=== PATIENT | female | born 1980 | race Caucasian/White ===

== ENCOUNTER 2023-03-11 20:39 | Emergency (ER) | payer OTHER, SELFPAY ==
--- NOTE | 2023-03-11 21:00 | XR_ITS ---
The [address] [address] Patient Name: VENTURA VASQUEZ MRN: [id number] date: 1980 Sex: F Assigned Patient Location: ED.MAIN Current Patient Location: Accession/Order Number: [id number] Exam Date: 03/11/2023 21:47 Report Date: 03/11/2023 22:11 At the request of: KAELA HIGGINS Procedure: XR tibia fibula LT 2V EXAM: XR tibia fibula LT 2V HISTORY: Dog bite COMPARISON: None. FINDINGS/IMPRESSION: 1. No acute fracture or dislocation 2. No radiopaque foreign body. 3. Normal alignment of the knee joint and ankle joint. Electronically authenticated by: CINDI JIANG Date: 03/11/2023 22:11
[2023-03-11 21:01] VITALS: BP 161/104; PULSE 86; RESP 20; TEMP 36.7; O2SAT 98; BMI 29.5
--- NOTE | 2023-03-11 21:06 | PC.NURSE ---
Pt presents to ER due to a dog bite to the lower dorsal aspect of her leg Pt was bit by pitbull yesterday while visiting family in [place] Pt had not yet been seen
--- NOTE | 2023-03-11 21:06 | PC.NURSE ---
Several puncture wounds to left calf, areas cleansed with chlorhexidine solution
--- NOTE | 2023-03-11 21:08 | ED.GENADUL1 ---
HPI - General Adult General Chief complaint: Wound/Laceration Stated complaint: Dog Bite Time Seen by Provider: 03/11/23 20:52 Source: patient Mode of arrival: walk-in Limitations: no limitations History of Present Illness HPI narrative: patient is a 42-year-old female presents to the emergency department for a dog bite that occurred yesterday while visiting family in [place]. She states her nephew's dog bit her on the lower leg. Unknown last tetanus. She drove back home today. She does not know if the dog was vaccinated. She has had no bleeding or drainage today. She is not concerned for . She had no other associated injuries. She is able to ambulate. Related Data Home Medications Medication Instructions Recorded Confirmed hydrochlorothiazide 25 mg tablet 25 mg PO DAILY 03/11/23 03/11/23 spironolactone 50 mg tablet 50 mg PO DAILY 03/11/23 03/11/23 Previous Rx's Medication Instructions Recorded ciprofloxacin HCl 500 mg tablet 500 mg PO BID #20 tabs 03/11/23 (Cipro) clindamycin HCl 150 mg capsule 300 mg PO Q8H 10 days #60 caps 03/11/23 hydrocodone 5 mg-acetaminophen 325 1 tab PO Q6H PRN pain #12 tabs 03/11/23 mg tablet ondansetron 4 mg disintegrating 4 mg PO Q6H PRN nausea and 03/11/23 tablet vomiting #12 tabs Allergies Allergy/AdvReac Type Severity Reaction Status Date / Time Penicillins Allergy Intermediate Rash Verified 03/11/23 21:00 codeine Allergy Hives Verified 03/11/23 21:00 Review of Systems ROS Constitutional Denies: fever or chills Ears, nose, mouth, and throat Denies: throat pain Cardiovascular Denies: chest pain Respiratory Denies: shortness of breath or cough Gastrointestinal Denies: nausea or vomiting Integumentary/Breast Denies: rash Neurological Denies: headache Hematologic/Lymphatic Denies: easy bruising Exam Narrative Exam Narrative: Gen.: Awake, alert, in no distress Head: Normocephalic, atraumatic ENT: Moist mucous membranes Respiratory: No respiratory distress Extremities: Moves extremities equally, multiple puncture wounds noted to the left lower tibia with a 2 cm C-shaped laceration of the posterior left calf with minimal subcutaneous tissue exposure. No active bleeding. No surrounding redness or red streaking to the puncture wounds. Psych: Normal mood and affect Neuro: No focal neuro deficit Skin: Warm, dry Constitutional Vital Signs, click to edit/add: Last Vital Signs Temp 98.0 F 03/11/23 21:01 Pulse 87 03/11/23 22:33 Resp 18 03/11/23 22:33 BP 154/94 H 03/11/23 22:33 Pulse Ox 98 03/11/23 22:33 O2 Del Method Room Air 03/11/23 22:33 Course Vital Signs Vital signs: Vital Signs Temperature 98.0 F 03/11/23 21:01 Pulse Rate 86 03/11/23 21:01 Respiratory Rate 20 03/11/23 21:01 Blood Pressure 161/104 H 03/11/23 21:01 Pulse Oximetry 98 03/11/23 21:01 Oxygen Delivery Method Room Air 03/11/23 21:01 Temperature 98.0 F 03/11/23 21:01 Pulse Rate 87 03/11/23 22:33 Respiratory Rate 18 03/11/23 22:33 Blood Pressure 154/94 H 03/11/23 22:33 Pulse Oximetry 98 03/11/23 22:33 Oxygen Delivery Method Room Air 03/11/23 22:33 Medical Decision Making MDM Narrative Medical decision making narrative: x-rays obtained, patient treated with Cipro and clindamycin as she is ALLERGIC to penicillin. Analgesics provided for home. The area as to the left leg were cleansed, dressed with bacitracin and sterile dressings. Patient encouraged to continue regular wound care. As the dog bite is over twenty-four hours old, no sutures will be placed. Continue regular wound care for home, follow-up with PCP and return to the Emergency Room if symptoms change or worsen. Medical Records Medical records reviewed: Yes I reviewed the patient's medical records Imaging Data x-ray left tibia-fibula: Attestation: I have reviewed the pertinent imaging results. Discharge Plan Discharge Chief Complaint: Wound/Laceration Clinical Impression: Dog bite of left lower leg Patient Disposition: Home, Self-Care Time of Disposition Decision: 21:41 Condition: Good Mode of Transportation: Private Vehicle Prescriptions / Home Meds: New clindamycin HCl 150 mg capsule 300 mg PO Q8H 10 Days Qty: 60 0RF ciprofloxacin HCl [Cipro] 500 mg tablet 500 mg PO BID Qty: 20 0RF hydrocodone-acetaminophen 5-325 mg tablet 1 tab PO Q6H PRN (Reason: pain) Qty: 12 0RF Rx Instructions: DX: W54.0XXA ondansetron 4 mg tablet,disintegrating 4 mg PO Q6H PRN (Reason: nausea and vomiting) Qty: 12 0RF No Action hydrochlorothiazide 25 mg tablet 25 mg PO DAILY spironolactone 50 mg tablet 50 mg PO DAILY Instructions: Animal Bite (ED), Laceration Without Closure (ED) Stand Alone Forms: Portal Instructions Referrals: JULIO CÉSAR SANCHEZ [Primary Care Provider] - 1 week Discharge Date/Time: 03/11/23 22:34
--- NOTE | 2023-03-11 21:24 | PC.NURSE ---
[place]
[2023-03-11] MEDS: ADACEL DIPH,PERTUSS(ACELL),TET VAC/PF 0.5 ML ADULT SYRINGE IM (21:50)
[2023-03-11] MEDS: CLINDAMYCIN HCL 150 MG CAPSULE 450 MG PO (21:50)
[2023-03-11] MEDS: CIPROFLOXACIN HCL 500 MG TABLET PO (21:50)
[2023-03-11] MEDS: HYDROCODONE/ACET 5-325 MG TABLET 2 TAB PO (22:29)
[2023-03-11 22:33] VITALS: BP 154/94; PULSE 87; RESP 18; O2SAT 98
== END 2023-03-11 22:34 | disposition home or self-care (01) ==
PROVIDERS: Emergency Provider Emergency Medicine; PCP Family Medicine
DX: S81.852A Open bite, left lower leg, initial encounter (principal); W54.0XXA Bitten by dog, initial encounter; Z23 Encounter for immunization; Z79.899 Other long term (current) drug therapy
CPT/HCPCS: 73590; 90471; 90715; 99285

== ENCOUNTER 2023-03-17 08:05 | Emergency (ER) | payer OTHER, SELFPAY ==
[2023-03-17 08:08] VITALS: BP 150/110; PULSE 98; RESP 18; TEMP 36.6; O2SAT 99; BMI 30.9
--- NOTE | 2023-03-17 08:26 | ED.WOUNDLAC1 ---
HPI - Wound/Laceration General Chief Complaint: Wound/Laceration Stated Complaint: DOG BITE TO LEFT LEG X1 WEEK AGO Time Seen by Provider: 03/17/23 08:19 Source: patient Mode of arrival: walk-in Limitations: no limitations History of Present Illness HPI narrative: 42-year-old female presents for evaluation of a dog bite wound. She was bitten by a dog about five days ago and was put on Keflex and Cipro. She's been taking it but hadn't yet taken it today. States she's been laying around at home and she went to work today and it was hurting so she came in here. No fever or purulent drainage. The pain is moderate to severe. Related Data Home Medications Medication Instructions Recorded Confirmed hydrochlorothiazide 25 mg tablet 25 mg PO DAILY 03/11/23 03/11/23 spironolactone 50 mg tablet 50 mg PO DAILY 03/11/23 03/11/23 Previous Rx's Medication Instructions Recorded ciprofloxacin HCl 500 mg tablet 500 mg PO BID #20 tabs 03/11/23 (Cipro) clindamycin HCl 150 mg capsule 300 mg PO Q8H 10 days #60 caps 03/11/23 hydrocodone 5 mg-acetaminophen 325 1 tab PO Q6H PRN pain #12 tabs 03/11/23 mg tablet ondansetron 4 mg disintegrating 4 mg PO Q6H PRN nausea and 03/11/23 tablet vomiting #12 tabs ibuprofen 800 mg tablet 800 mg PO Q8H PRN pain #20 tabs 03/17/23 Allergies Allergy/AdvReac Type Severity Reaction Status Date / Time Penicillins Allergy Intermediate Rash Verified 03/11/23 21:00 codeine Allergy Hives Verified 03/11/23 21:00 Review of Systems ROS Narrative A ten point review of systems is negative except as noted above. PFSH PFSH Social History Smoking status: Current every day smoker Exam Narrative Exam Narrative: Nurses note and vital signs reviewed and patient is not hypoxic. General: The patient appears well and in no apparent distress. Patient is resting comfortably on cart. Skin: Warm, dry, no pallor noted. multiple puncture type wounds are present just above her ankle. There is no purulent drainage. Minimal erythema. Head: Normocephalic, atraumatic Eye: Normal conjunctiva, no drainage Ears, Nose, Mouth, and Throat: oral mucosa is moist. Nares patent. Cardiovascular: Regular Rate and Rhythm Respiratory: Patient is in no distress, no accessory muscle use, lungs are clear to auscultation, no wheezing, rales or rhonchi Back: non-tender GI: soft and nontender Musculoskeletal: The patient has no evidence of calf tenderness, no pitting edema, symmetrical pulses noted bilaterally Neurological: A&O, normal speech Psychiatric: Cooperative Constitutional Vital Signs, click to edit/add: Last Vital Signs Temp 97.8 F 03/17/23 08:08 Pulse 98 H 03/17/23 08:08 Resp 18 03/17/23 08:08 BP 150/110 H 03/17/23 08:08 Pulse Ox 99 03/17/23 08:08 O2 Del Method Room Air 03/17/23 08:08 Course Vital Signs Vital signs: Vital Signs Temperature 97.8 F 03/17/23 08:08 Pulse Rate 98 H 03/17/23 08:08 Respiratory Rate 18 03/17/23 08:08 Blood Pressure 150/110 H 03/17/23 08:08 Pulse Oximetry 99 03/17/23 08:08 Oxygen Delivery Method Room Air 03/17/23 08:08 Temperature 97.8 F 03/17/23 08:08 Pulse Rate 98 H 03/17/23 08:08 Respiratory Rate 18 03/17/23 08:08 Blood Pressure 150/110 H 03/17/23 08:08 Pulse Oximetry 99 03/17/23 08:08 Oxygen Delivery Method Room Air 03/17/23 08:08 MDM - Wound/Laceration MDM Narrative Medical decision making narrative: the patient was given IV antibiotics. She does not need to be admitted to the hospital and she was encouraged to continue her antibiotics. She was also given a work note. Differential Diagnosis Differential diagnosis: Likely other (Dr. lutz, cellulitis, abscess) Discharge Plan Discharge Chief Complaint: Wound/Laceration Clinical Impression: Dog bite of left lower leg Patient Disposition: Home, Self-Care Time of Disposition Decision: 08:57 Condition: Good Mode of Transportation: Private Vehicle Prescriptions / Home Meds: New ibuprofen 800 mg tablet 800 mg PO Q8H PRN (Reason: pain) Qty: 20 0RF No Action hydrochlorothiazide 25 mg tablet 25 mg PO DAILY spironolactone 50 mg tablet 50 mg PO DAILY clindamycin HCl 150 mg capsule 300 mg PO Q8H 10 Days Qty: 60 0RF ciprofloxacin HCl [Cipro] 500 mg tablet 500 mg PO BID Qty: 20 0RF hydrocodone-acetaminophen 5-325 mg tablet 1 tab PO Q6H PRN (Reason: pain) Qty: 12 0RF Rx Instructions: DX: W54.0XXA ondansetron 4 mg tablet,disintegrating 4 mg PO Q6H PRN (Reason: nausea and vomiting) Qty: 12 0RF Instructions: Animal Bite (ED) Stand Alone Forms: Portal Instructions Referrals: JULIO CÉSAR SANCHEZ [Primary Care Provider] - 1 week
[2023-03-17] MEDS: CIPROFLOXACIN IN 5 % DEXTROSE 400 MG/200 ML PIGGYBACK 200 MG IV (09:06)
== END 2023-03-17 10:06 | disposition home or self-care (01) ==
PROVIDERS: Emergency Provider Emergency Medicine; PCP Family Medicine
DX: S81.852D Open bite, left lower leg, subsequent encounter (principal); W54.0XXD Bitten by dog, subsequent encounter; F17.210 Nicotine dependence, cigarettes, uncomplicated; Z79.899 Other long term (current) drug therapy
CPT/HCPCS: 96374; 96375; 99284

== ENCOUNTER 2023-05-07 10:45 | Outpatient (OUT) | payer OTHER, SELFPAY ==
--- OUTSIDE RECORDS SUMMARY | 2023-05-07 10:49 | XMS_ITS | CCD ---
Author Name Unknown Address [address] [facility] [address] [place] [address] Organization [facility] Care Team Providers [employer] Teammate Name Role Phone MISC, DOCTOR Primary Care Unavailable TUCKER ISLAS Admitting Unavailable ROSHAN, TUCKER Hughes Attending Unavailable TUCKER ISLAS Consulting Unavailable MARKER, JUDI Consulting Unavailable CHEKO, ALFREDO Consulting Unavailable TANYAANDER, MAGNUS Admitting Unavailable HIGHLANDER, MAGNUS Attending Unavailable IDRIS, JOSSUE Rankin Consulting Unavailable HIGHLANDER, MAGNUS Consulting Unavailable MISC, DOCTOR Admitting Unavailable MISC, DOCTOR Attending Unavailable RONY HUDSON Admitting Unavailable TRISTAN, RONY Attending Unavailable MADI MAYER V Consulting Unavailable TRISTAN, RONY Consulting Unavailable TRISTAN, RONY Admitting Unavailable TRISTAN, RONY Attending Unavailable TRISTAN, RONY Consulting Unavailable Kai Fuentes Consulting Unavailable Claudette Underwood DO Primary Care Provider Venice Islas Attending Unavailable Janel, Venice J Admitting Unavailable Janel, Venice J Attending Unavailable Janel, Venice J Admitting Unavailable Samantha JULES Attending Unavailable Janel, Venice J Admitting Unavailable Janel, Venice J Referring Unavailable Janel, Venice J Attending Unavailable Janel, Venice J Admitting Unavailable Janel, Venice J Attending Unavailable Allergies Allergy Classification Reported Allergen(s) Allergy Type Date of Onset Reaction(s) Facility (2 sources) Codeine; Translations: [codeine] Drug Allergy [facility] Repository (1 source) natural latex rubber Drug allergy (disorder) [facility] (3 sources) Penicillin Drug Allergy 8 Hives [facility] (2 sources) Codeine Drug Allergy 8 Itching [facility] (3 sources) Latex; Translations: [Latex] Drug Allergy 8 Rash [facility] (1 source) Penicillins; Translations: [penicillins] Propensity to adverse reactions (disorder) [facility] Repository (1 source) bandaids; Translations: [bandaids] Propensity to adverse reactions (disorder) [facility] Repository Medications Completed/Discontinued Medications Medication Drug Class(es) Dates Sig (Normalized) Sig (Original) diclofenac sodium 0.01 mg/mg topical gel (2 sources) Nonsteroidal Anti-inflammatory Drug Start: 12-10-2017 End: 11-27-2021 apply 2 g topically four times daily diclofenac sodium (VOLTAREN) 1 % topical gel Apply 2 g to affected area four times daily. 1 Tube 1 12/10/2017 11/27/2021 Discontinued (Discontinued by another Health Care Provider) Comment on above: Apply 2 g to affecte d area four times daily. meloxicam 15 mg oral tablet (1 source) Nonsteroidal Anti-inflammatory Drug Start: 11-27-2021 take 1 tablet by mouth once daily meloxicam (MOBIC) 15 mg tablet Take 1 tablet by mouth once daily. 30 tablet 2 11/27/2021 Active Comment on above: Take 1 tablet by scarlet th once daily. metFORMIN hydrochloride 500 mg oral tablet (2 sources) Biguanide Start: 02-16-2018 End: 11-27-2021 metFORMIN (GLUCOPHAGE) 500 mg tablet twice daily. 0 02/16/2018 11/27/2021 Discontinued (Discontinued by another Health Care Provider) Comment on above: twice daily. naproxen 500 mg oral tablet (2 sources) Nonsteroidal Anti-inflammatory Drug Start: 10-29-2019 End: 11-27-2021 take 1 tablet by mouth twice daily at mealtime naproxen (NAPROSYN) 500 mg tablet Take 1 tablet by mouth twice daily with meals. 60 tablet 1 10/29/2019 11/27/2021 Discontinued (Discontinued by another Health Care Provider) Comment on above: Take 1 tablet by scarlet th twice daily with meals. Problems Active Problems Problem Classification Problem Date Documented Date Episodic/Chronic Acquired foot deformities (2 sources) Toe joint rigid; Translations: [Hallux rigidus, right foot] Onset: 05-22-2020 05-22-2020 Chronic Acquired foot deformities (1 source) Plantarflexion deformity of bilateral feet; Translations: [Other acquired deformities of right foot] Episodic External cause codes: Natural/environment (1 source) Overexertion from prolonged static or awkward postures, initial encounter; Translations: [OVEREXERT PROLNG STAT/AWK PST INIT] Onset: 11-12-2019 Joint disorders and dislocations; trauma-related (2 sources) Derangement of left knee; Translations: [Unspecified internal derangement of left knee] Onset: 02-12-2019 02-12-2019 Chronic Osteoarthritis (2 sources) Osteoarthritis of multiple joints ; Translations: [Polyosteoarthritis, unspecified] Onset: 02-23-2018 02-23-2018 Chronic Other acquired deformities (1 source) Other specified acquired deformities of musculoskeletal system; Translations: [OTHER SPEC ACQ DEFORMITY MSK SYS] Onset: 03-02-2020 Episodic Other aftercare (1 source) Patient encounter status; Translations: [Other intermediate teacher (current) drug therapy] Episodic Other connective tissue disease (4 sources) Pain in right foot; Translations: [PAIN IN RIGHT FOOT] Onset: 02-17-2020 Episodic Other connective tissue disease (1 source) Pain in left foot; Translations: [Pain in left foot] Episodic Other non-traumatic joint disorders (4 sources) Other specified joint disorders, right ankle and foot; Translations: [OTHER SPEC JOINT D/O RT ANKLE FOOT] Onset: 12-03-2019 Episodic Other non-traumatic joint disorders (4 sources) Other specified joint disorders, unspecified joint; Translations: [OTHER SPECIFIED JOINT D/O UNS JOINT] Onset: 02-28-2020 Episodic Other non-traumatic joint disorders (1 source) Pain of joint of left foot; Translations: [Pain in left ankle and joints of left foot] Episodic Substance-related disorders (1 source) Nicotine dependence, cigarettes, uncomplicated; Translations: [NICOTINE DEPEND CIGARETTES UNCOMP] Onset: 11-12-2019 Chronic Past or Other Problems Problem Classification Problem Date Documented Date Episodic/Chronic Other connective tissue disease (2 sources) Swelling of finger ; Translations: [Other specified soft tissue disorders] Onset: 8 02-23-2018 Episodic Other non-traumatic joint disorders (2 sources) Sesamoiditis; Translations: [Other specified joint disorders, unspecified joint] Onset: 1 05-22-2020 Episodic Sprains and strains (3 sources) Unspecified sprain of right great toe, initial encounter; Translations: [Sprain of metatarsophalangeal joint of great toe] Onset: 0 05-22-2020 Episodic Superficial injury; contusion (2 sources) Contusion of left knee; Translations: [Contusion of left knee, initial encounter] Onset: 9 02-12-2019 Episodic Results Test Name Value Interpretation Reference Range Facility Chlamydia/Gonococcus, NAAon 01-11-2023 C. trachomatis rRNA JAQUELIN+probe Ql (Unsp spec) Negative Invalid Interpretation Code Negative [facility] Comment on above: Performed By: #### 3 [id number] #### [facility] [address] [place] [address] N. gonorrhoeae rRNA JAQUELIN+probe Ql (Unsp spec) Negative Invalid Interpretation Code Negative [facility] Comment on above: Result Comment: Perf ormed at: =[facility] [address]TINA Chavira [id number] MD Gabriel Cordoba Performed By: #### 3 [id number] #### [facility] [address] [place] [address] Vaginitis/Vaginosis, DNA Pro beon 01-11-2023 Samia sp rRNA Probe Ql (Vag fld) Negative Invalid Interpretation Code Negative [facility] Comment on above: Performed By: #### 3 [id number] #### [facility] [address] [place] [address] G. vaginalis rRNA Probe Ql (Genital specimen) Negative Invalid Interpretation Code Negative [facility] Comment on above: Performed By: #### 3 [id number] #### [facility] [address] [place] [address] T. vaginalis rRNA Probe Ql (Genital specimen) Negative Invalid Interpretation Code Negative [facility] Comment on above: Result Comment: Perf ormed at: [facility] [address] [id number] PhD Chidi Knox Performed By: #### 3 [id number], [id number] #### [facility] [address] [place] [address] Physician Orderon 01-08-2023 Physician Order [id number]#[id number] D:127 Normal [facility] MA Mamm Screen w/CAD if perf and 3D Bilon 10-14-2022 MA Mamm Screen w/CAD if perf and 3D Reymundo Exam Date/Time: 10/10/2022 08:00 EDT Reason for Exam: Z. Report IMPRESSION: BIRADS 1 NEGATIVE, NORMAL INTERVAL FOLLOW-UP.12 MONTH RECALL. CLINICAL HISTORY: Z12.. COMPARISON: 10/09/2021. COMMENT: Routine views and tomosynthesis views of both breasts were obtained. There are scattered areas of fibroglandular density. No dominant breast mass nor neoplastic calcifications are identified in either breast. There has been no significant change from the previous exam. The examination was reviewed with Computer Aided Detection. Breast Density: No Mammography is very important to your health. The current [employer] and National [employer] guidelines recommends annual mammography beginning at age 40. This facility utilizes a reminder system to ensure all patients receive reminder notifications at the appropriate time based on the recommendations of this exam. Board Certified Radiologists. Accredited by the ACR and FDA. Ordering Provider: Venice Islas FINAL REPORT Dictated: 10/14/2022 10:06 am Christopher Mcdermott M.D. Signed (Electronic Signature): 10/14/2022 10:06 am Signed by: Christopher Mcdermott M.D. Transcribed by: DON Technologist: [facility] Assessment: BI-RADS Category 1-Negative Recommendation: Normal interval follow-up Normal [facility] Consent for Treatmenton Consent for Treatment [id number]#1.00C D:127 Normal [facility] PAP [id number] 10-02-2022 Cytology report Cyto stain Doc (Cvx/Vag) Note Invalid Interpretation Code [facility] Comment on above: Result Comment: TEST S RESULT FLAG UNITS REF RANGE LAB Clinician Provided Cytology Information Source.............Endocervix No. of containers..01 ThinPrep Vial DIAGNOSIS: 01 NEGATIVE FOR INTRAEPITHELIAL LESION OR MALIGNANCY. Specimen adequacy: 01 Satisfactory for evaluation. Endocervical and/or squamous metaplastic cells (endocervical component) are present. Performed by: Lisa Tolliver, Boiler Plant Operator ([facility]) . 01 Note: Note 01 The Pap smear is a screening test designed to aid in the detection of premalignant and malignant conditions of the uterine cervix. It is not a diagnostic procedure and should not be used as the sole means of detecting cervical cancer. Both false-positive and false-negative reports do occur. Test Methodology: Note 01 This liquid based ThinPrep(R) pap test was screened with the use of an image guided system. FLAG LEGEND: L-Low Normal,H-High Normal,LL-Alert Low,HH-Alert High <-Panic Low,>-Panic High,A-Abnormal,AA-Critical Abnormal Performed at: 01 WB [facility] [address] [place] [address] Beryl Rios MD, Performed By: #### 3 [id number] #### [facility] [address] [place] [address] HPV 16+18+31+33+35+39+ 45+51+52+56+58+59+ 66+68 DNA Probe+sig amp Ql (Cvx) Negative Invalid Interpretation Code Negative [facility] Comment on above: Result Comment: This nucleic acid amplification test detects fourteen high-risk HPV types (16,18,31,33,35,39,45,51,52,56,58,59,66,68) without differentiation. Performed at: [facility] [id number] MD Gabriel Cordoba Performed at: =G [facility] [id number] MD Gabriel Cordoba Performed By: #### 3 [id number] #### [facility] [address] [place] [address] PAP [id number] 09-24-2022 Collection Technique BRUSH-SPATULA Normal [facility] Comment on above: Performed By: #### 3 [id number] #### [facility] [address] [place] [address] Gynecological Body Site ENDOCERVIX Normal [facility] Comment on above: Performed By: #### 3 [id number] #### [facility] [address] [place] [address] Physician Orderon 09-24-2022 Physician Order [id number]#1.00C D:127 Normal [facility] Physician Orderon 09-23-2022 Physician Order [id number]#1.00C D:127 Normal [facility] Chlamydia/Gonococcus, NAAon 09-17-2022 C. trachomatis rRNA JAQUELIN+probe Ql (Unsp spec) Negative Invalid Interpretation Code Negative [facility] Comment on above: Performed By: #### 3 [id number] #### [facility] [address] [place] [address] N. gonorrhoeae rRNA JAQUELIN+probe Ql (Unsp spec) Negative Invalid Interpretation Code Negative [facility] Comment on above: Result Comment: Perf ormed at: =[facility] [id number] MD Gabriel Cordoba Performed By: #### 3 [id number] #### [facility] [address] [place] [address] Vaginitis/Vaginosis, DNA Pro beon 09-17-2022 Samia sp rRNA Probe Ql (Vag fld) Negative Invalid Interpretation Code Negative [facility] Comment on above: Performed By: #### 3 [id number] #### [facility] [address] [place] [address] G. vaginalis rRNA Probe Ql (Genital specimen) Negative Invalid Interpretation Code Negative [facility] Comment on above: Performed By: #### 3 [id number] #### [facility] [address] [place] [address] T. vaginalis rRNA Probe Ql (Genital specimen) Negative Invalid Interpretation Code Negative [facility] Comment on above: Result Comment: Perf ormed at: [facility] [address] [id number] PhD Chidi Knox Performed By: #### 3 [id number], [id number] #### [facility] [address] [place] [address] Physician Orderon 09-11-2022 Physician Order [id number] CD:127 Normal [facility] Ambulatory Visit Summaryon 0 08-28-2022 Ambulatory Visit Summary VENTURA GARCIA :1980 Visit Date:08/28/2022 Ambulatory Visit Instructions Your Diagnosis Acute maxillary sinusitis, unspecified BMI 33.0-33.9,adult Tobacco use Elevated blood pressure reading with diagnosis of hypertension Your Care Team Attending Physician - Samantha JULES CNP Primary Care Physician - Claudette Underwood DO This Is Your Medications List cetirizine (cetirizine 10 mg Tab) doxycycline (doxycycline hyclate 100 mg Cap) fluticasone nasal (Flonase 0.05 mg/inh Radiant) Procedures Performed Colonoscopy (12/14/2021), Bartholin's gland operation (12/19/2017), Colonoscopy (2018), section, Oral surgery, wisdom teeth extraction. Discharge Vitals Temperature (Oral) 36.5 ?C Heart Rate (Peripheral) 104 Blood Pressure 146/88 Height 69 in Height 176 cm Weight 226.38 lb Weight 102.9 kg BMI 33.22 What to do next You Need to Schedule the Following Appointments Follow Up with Claudette Underwood DO, FAM When: Where: [address] [facility] [address] [place] [address]- Medications What How Much When Instructions New cetirizine (cetirizine 10 mg Tab) 1 Tablets By Mouth Every day Duration: 30 Days Pickup at [facility] New doxycycline (doxycycline hyclate 100 mg Cap) 1 Capsules By Mouth 2 times a day Duration: 10 Days Pickup at [facility] New fluticasone nasal (Flonase 0.05 mg/ inh Radiant) 2 Sprays Nasal Inhalation Every day Duration: 30 Days each nostril Pickup at [facility] Pharmacy Information [facility]: [address], [place] [id number] [phone] Allergies Latex (Hives, Swelling) bandaids (redness, blisters) codeine (Itching) penicillins (Hives) Problems Ongoing - Any problem that you are currently receiving treatment for. BMI 31.0-31.9,adult Family history of colon cancer in father GERD (gastroesophageal reflux disease) Rectal bleeding Education Materials DASH Eating Plan DASH stands for Dietary Approaches to Stop Hypertension. The DASH eating plan is a healthy eating plan that has been shown to: ? Reduce high blood pressure (hypertension). ? Reduce your risk for type 2 diabetes, heart disease, and stroke. ? Help with weight loss. What are tips for following this plan? Reading food labels ? Check food labels for the amount of salt (sodium) per serving. Choose foods with less than 5 percent of the Daily Value of sodium. Generally, foods with less than 300 milligrams (mg) of sodium per serving fit into this eating plan. ? To find whole grains, look for the word whole as the first word in the ingredient list. Shopping ? Buy products labeled as low-sodium or no salt added. ? Buy fresh foods. Avoid canned foods and pre-made or frozen meals. Cooking ? Avoid adding salt when cooking. Use salt-free seasonings or herbs instead of table salt or sea salt. Check with your health care provider or pharmacist before using salt substitutes. ? Do not martinez foods. Cook foods using healthy methods such as baking, boiling, grilling, roasting, and broiling instead. ? Cook with heart-healthy oils, such as olive, canola, avocado, soybean, or sunflower oil. Meal planning ? Eat a balanced diet that includes: ? 4 or more servings of fruits and 4 or more servings of vegetables each day. Try to fill one-half of your plate with fruits and vegetables. ? 6?8 servings of whole grains each day. ? Less than 6 oz (170 g) of lean meat, poultry, or fish each day. A 3-oz (85-g) serving of meat is about the same size as a deck of cards. One egg equals 1 oz (28 g). ? 2?3 servings of low-fat dairy each day. One serving is 1 cup (237 mL). ? 1 serving of nuts, seeds, or beans 5 times each week. ? 2?3 servings of heart-healthy fats. Healthy fats called omega-3 fatty acids are found in foods such as walnuts, flaxseeds, fortified milks, and eggs. These fats are also found in cold-water fish, such as sardines, salmon, and mackerel. ? Limit how much you eat of: ? Canned or prepackaged foods. ? Food that is high in trans fat, such as some fried foods. ? Food that is high in saturated fat, such as fatty meat. ? Desserts and other sweets, sugary drinks, and other foods with added sugar. ? Full-fat dairy products. ? Do not salt foods before eating. ? Do not eat more than 4 egg yolks a week. ? Try to eat at least 2 vegetarian meals a week. ? Eat more home-cooked food and less restaurant, buffet, and fast food. Lifestyle ? When eating at a restaurant, ask that your food be prepared with less salt or no salt, if possible. ? If you drink alcohol: ? Limit how much you use to: ? 0?1 drink a day for women who are not . ? 0?2 drinks a day for men. ? Be aware of how much alcohol is in your drink. In the [place] one drink equals one 12 oz bottle of beer (355 mL), one (more content not included)... Normal [facility] Medicine Office/Clini c Noteon 08-28-2022 Family Medicine Office/Clinic Note Chief Complaint MANAGER QUALITY- sinus HPI Staff Ventura is a 41 year old female who presents for sinus issues. Symptoms started- 6 weeks on and off Headache- yes Body aches- no Earache- yes bilat Runny/stuffy nose- yes Problem with Smell- no Problem with Taste- no Sore throat- yes Cough- yes Scratchy tickly throat- yes Chest symptoms- yes SOB- yes Lung Hx asthma, bronchitis, chest colds- no Fever/chills- no Nausea/ vomiting- no GI symptoms- no COVID exposure- no Treatments- yes Mucinex History of Present Illness I have reviewed and verified the staff HPI to be accurate for this encounter. Patient is in office for concern of ongoing nasal congestion, nasal drainage, bilateral ear pain and pressure, headache, sinus pressure, sore throat, cough. Cough is productive at times. Patient reports symptoms started 1.5 months ago, worsening again over past 1-2 weeks. Denies history of COPD or asthma. Patient is a smoker. Denies fever chills, GI symptoms. Denies ear drainage. Has been using Mucinex [id number] without improvement. No tylenol or ibuprofen today. Denies fever. Review of Systems PHQ Score Initial Depression Screen Score: 0 Physical Exam Vitals & Measurements T: 36.5 ?C(Oral) HR: 104(Peripheral) BP: 146/88 SpO2: 97% HT: 69 in HT: 176 cm WT: 102.9 kg WT: 226.38 lb BMI: 33.22 General: Overweight, pleasant adult female in no acute distress Ears: No deformity or lesion of external ear. Canals and TM appear normal bilaterally. TM?s intact, not inflamed, with normal light reflex. Hearing grossly normal to conversational speech Nose: moderate nasal mucosa inflammation and edema, moderate yellow nasal drainage. Positive frontal and maxillary sinus tenderness with palpation Mouth: Mucous membranes moist. Normal oropharynx, and posterior pharynx without lesions or exudates. Tongue normal, postnasal drip present, mild pharyngeal erythema Neck: no adenopathy Lungs: clear to auscultation throughout, no wheezing, no rales. No respiratory distress Cardio: regular rate and rhythm, no murmur Mental Status: Alert and oriented x3. Normal mood and affect Assessment/Plan 1. Acute maxillary sinusitis, unspecified (J01.00: Acute maxillary sinusitis, unspecified) Given duration of symptoms and exam, will cover for sinusitis with doxy. Finish entire course. Fluids/rest, PRN tylenol/ibuprofen for pain and/or fever encouraged. May use Zyrtec, Flonase for symptomatic tx. Follow up with PCP if not improving over next 5-7 days with ATB or significantly worsening. Patient and/or parent verbalized understanding of treatment plan. Discussed with patient if symptoms or not improving with antibiotic use or recur, could be having issues with seasonal allergies and should continue Zyrtec and Flonase. 2. BMI 33.0-33.9,adult (Z68.33: Body mass index [BMI] 33.0-33.9, adult) The standard range for ages 18 and older is >=18.5 and < 25 kg/m2. Your BMI today was above this range, this falls in the overweight to obese category and there are medical benefits to weight loss. We can offer counselling, referral, and/or medical support in addressing this problem. Your BMI and weight management will be followed at subsequent visits. Ordered: Body Mass Index (BMI) documented 3008F 3. Tobacco use (Z72.0: Tobacco use) We strongly recommend to quit tobacco use. Cigarette smoking harms nearly every organ of the body, causes many diseases, and reduces the health of smokers in general. Quitting smoking lowers your risk for smoking-related diseases and can add years to your life. We encourage you to visit www.smokefree.gov access to helpful resources including free telephone support. If you decide on prescription treatment to help you quit, we would be happy to provide these. Ordered: Current tobacco smoker 1034F 4. Elevated blood pressure reading with diagnosis of hypertension (I10: Essential (primary) hypertension) Patient with elevated blood pressure reading in office. Has had other elevated blood pressure readings previously. Discussed with patient she should monitor blood pressure at home. If consistently elevated over 140/90, should follow-up with PCP to discuss possible treatment. Discussed tobacco use cessation, weight loss, decrease in sodium intake and improve blood pressure. Orders: cetirizine, 10 mg = 1 tab(s), Oral, Daily, X 30 day(s), # 30 tab(s), Refills(s) 0, Pharmacy: [facility], 176, cm, 08/28/22 13:56:00 EDT, Height/Length Dosing, 102.9, kg, 08/28/22 13:56:00 EDT, Weight Dosing doxycycline, 100 mg = 1 cap(s), Oral, BID, X 10 day(s), # 20 cap(s), Refills(s) 0, Pharmacy: [facility], 176, cm, 08/28/22 13:56:00 EDT, Height/Length Dosing, 102.9, kg, 08/28/22 13:56:00 EDT, Weight Dosing fluticasone nasal, 2 spray(s), Nasal, Daily for 30 day(s), 16 gm, Refill(s) 0, each nostril, [facility], 176, cm, 08/28/22 13:56:00 EDT, Height/Length Dosing, 102.9, kg, 08/28/22 13:56:00 EDT, Weight Dosing Follow-up With (more content not included)... Normal [facility] Comment on above: Result Comment: Elec tronically Signed By: DHARA LOREDO, Samantha Galloway\.br\Date and Time Signed: 08/28/22 15:02 EDT Patient Educationon 08-29-19 23 Patient Education Infectious Disease Sinusitis, Adult Sinusitis is inflammation of your sinuses. Sinuses are hollow spaces in the bones around your face. Your sinuses are located: ? Around your eyes. ? In the middle of your forehead. ? Behind your nose. ? In your cheekbones. Mucus normally drains out of your sinuses. When your nasal tissues become inflamed or swollen, mucus can become trapped or blocked. This allows bacteria, viruses, and fungi to grow, which leads to infection. Most infections of the sinuses are caused by a virus. Sinusitis can develop quickly. It can last for up to 4 weeks (acute) or for more than 12 weeks (chronic). Sinusitis often develops after a cold. What are the causes? This condition is caused by anything that creates swelling in the sinuses or stops mucus from draining. This includes: ? Allergies. ? Asthma. ? Infection from bacteria or viruses. ? Deformities or blockages in your nose or sinuses. ? Abnormal growths in the nose (nasal polyps). ? Pollutants, such as chemicals or irritants in the air. ? Infection from fungi (rare). What increases the risk? You are more likely to develop this condition if you: ? Have a weak body defense system (immune system). ? Do a lot of swimming or diving. ? Overuse nasal sprays. ? Smoke. What are the signs or symptoms? The main symptoms of this condition are pain and a feeling of pressure around the affected sinuses. Other symptoms include: ? Stuffy nose or congestion. ? Thick drainage from your nose. ? Swelling and warmth over the affected sinuses. ? Headache. ? Upper toothache. ? A cough that may get worse at night. ? Extra mucus that collects in the throat or the back of the nose (postnasal drip). ? Decreased sense of smell and taste. ? Fatigue. ? A fever. ? Sore throat. ? Bad breath. How is this diagnosed? This condition is diagnosed based on: ? Your symptoms. ? Your medical history. ? A physical exam. ? Tests to find out if your condition is acute or chronic. This may include: ? Checking your nose for nasal polyps. ? Viewing your sinuses using a device that has a light (endoscope). ? Testing for allergies or bacteria. ? Imaging tests, such as an MRI or CT scan. In rare cases, a bone biopsy may be done to rule out more serious types of fungal sinus disease. How is this treated? Treatment for sinusitis depends on the cause and whether your condition is chronic or acute. ? If caused by a virus, your symptoms should go away on their own within 10 days. You may be given medicines to relieve symptoms. They include: ? Medicines that shrink swollen nasal passages (topical intranasal decongestants). ? Medicines that treat allergies (antihistamines). ? A spray that eases inflammation of the nostrils (topical intranasal corticosteroids). ? Rinses that help get rid of thick mucus in your nose (nasal saline washes). ? If caused by bacteria, your health care provider may recommend waiting to see if your symptoms improve. Most bacterial infections will get better without antibiotic medicine. You may be given antibiotics if you have: ? A severe infection. ? A weak immune system. ? If caused by narrow nasal passages or nasal polyps, you may need to have surgery. Follow these instructions at home: Medicines ? Take, use, or apply mxvz-rhq-pvpqjog and prescription medicines only as told by your health care provider. These may include nasal sprays. ? If you were prescribed an antibiotic medicine, take it as told by your health care provider. Do not stop taking the antibiotic even if you start to feel better. Hydrate and humidify ? Drink enough fluid to keep your urine pale yellow. Staying hydrated will help to thin your mucus. ? Use a cool mist humidifier to keep the humidity level in your home above 50%. ? Inhale steam for 10?15 minutes, 3?4 times a day, or as told by your health care provider. You can do this in the bathroom while a hot shower is running. ? Limit your exposure to cool or dry air. Rest ? Rest as much as possible. ? Sleep with your head raised (elevated). ? Make sure you get enough sleep each night. General instructions ? Apply a warm, moist washcloth to your face 3?4 times a day or as told by your health care provider. This will help with discomfort. ? Wash your hands often with soap and water to reduce your exposure to germs. If soap and water are not available, use hand diesel plant operator. ? Do not smoke. Avoid being around people who are smoking (secondhand smoke). ? Keep all follow-up visits as told by your health care provider. This is important. Contact a health care provider if: ? You have a fever. ? Your symptoms get worse. ? Your symptoms do not improve within 10 days. Get help right away if: ? You have a severe headache. ? You have persistent vomiting. ? You have severe pain or swell (more content not included)... Normal [facility] Provider Letteron 08-28-2022 Provider Letter (Inserted Image. Lani ble to display) August 28, 2022 VENTURA GARCIA [address] [place] [id number] VENTURA GARCIA 1980 To Whom It May Concern, Please excuse above patient from work. Date of Illness: From: 08/28/22 May Return to Work On: 08/29/22 Restrictions: none Comments: none Sincerely, [facility] [address] [place] [address], [place] [address] [facility] Basic metabolic 1999 panelon 11-28-2021 Anion gap [Moles/Vol] 9 mmol/L 9 - 18 mmol/L [facility] Calcium [Mass/Vol] 9.2 mg/dL 8.5 - 10. 2 mg/dL [facility] Chloride [Moles/Vol] 105 mmol/L 97 - 105 mmol/L [facility] CO2 [Moles/Vol] 25 mmol/L 22 - 30 mmol/L [facility] Creatinine [Mass/Vol] 0.86 mg/dL 0.58 - 0.96 mg/dL [facility] Estimated Glomerular Filtration Rate 87 mL/min/1.73m >=60 mL/min/1.73m [facility] Glucose [Mass/Vol] 90 mg/dL 74 - 99 mg/dL [facility] Potassium [Moles/Vol] 4.1 mmol/L 3.7 - 5.1 mmol/L [facility] Sodium [Moles/Vol] 139 mmol/L 136 - 144 mmol/L [facility] Urea nitrogen [Mass/Vol] 8 mg/dL 7 - 21 mg/dL [facility] Basic metabolic 1999 panelon 11-27-2021 Anion gap [Moles/Vol] 9 mmol/L Normal 9-18 [facility] Comment on above: Order Comment: Speci men Type: BLOOD SPECIMEN Ordering Facility: [facility] Address: [address] [place] [phone] Performed By: #### 2 4321-2 #### [facility] CLIA [id number] [address] [place], [place] [address] [address] [place] Calcium [Mass/Vol] 9.2 mg/dL Normal 8.5-10.2 [facility] Comment on above: Order Comment: Speci men Type: BLOOD SPECIMEN Ordering Facility: [facility] Address: [address] [place] [phone] Performed By: #### 2 4321-2 #### [facility] CLIA [id number] [address] [place] [address] [place] Chloride [Moles/Vol] 105 mmol/L Normal 97-105 [facility] Comment on above: Order Comment: Speci men Type: BLOOD SPECIMEN Ordering Facility: [facility] Address: [address] [place] [address] Performed By: #### 2 4321-2 #### [facility] CLIA [id number] [address] [place] [address] [place] CO2 [Moles/Vol] 25 mmol/L Normal 22-30 [facility] Comment on above: Order Comment: Speci men Type: BLOOD SPECIMEN Ordering Facility: [facility] Address: [address] [place] [address] Performed By: #### 2 4321-2 #### [facility] CLIA [id number] [address] [place] [address] [place] Creatinine [Mass/Vol] 0.86 mg/dL Normal 0.58-0.96 [facility] Comment on above: Order Comment: Speci men Type: BLOOD SPECIMEN Ordering Facility: [facility] Address: [address] [place] [address] Performed By: #### 2 4321-2 #### [facility] CLIA [id number] [address] [place] [address] [place] ESTIMATED GLOMERULAR FILTRATION RATE 87 mL/min/1.73m??? Normal >=60 [facility] Comment on above: Order Comment: Speci men Type: BLOOD SPECIMEN Ordering Facility: [facility] Address: [address] [place] [address] Result Comment: Chyna mated Glomerular Filtration Rate (eGFR) is calculated using the 2020 CKD-EPI creatinine equation. This equation utilizes serum creatinine, sex, and age as parameters. The creatinine assay has traceable calibration to isotope dilution-mass spectrometry. Refer to KDIGO guidelines for clinical interpretation. In patients with unstable renal function, e.g. those with acute kidney injury, the eGFR may not accurately reflect actual GFR. Performed By: #### 2 4321-2 #### [facility] CLIA [id number] [address] [place] [address] [place] Glucose [Mass/Vol] 90 mg/dL Normal 74-99 [facility] Comment on above: Order Comment: Speci men Type: BLOOD SPECIMEN Ordering Facility: [facility] Address: [address] [place], [place] [phone] Result Comment: The [place] Diabetes Association (ADA) provides guidance for cutoff values for fasting glucose and random glucose. The ADA defines fasting as no caloric intake for at least 8 hours. Fasting plasma glucose results between 100 to 125 mg/dL indicate increased risk for diabetes (prediabetes). Fasting plasma glucose results greater than or equal to 126 mg/dL meet the criteria for diagnosis of diabetes. In the absence of unequivocal hyperglycemia, results should be confirmed by repeat testing. In a patient with classic symptoms of hyperglycemia or hyperglycemic crisis, random plasma glucose results greater than or equal to 200 mg/dL meet the criteria for diagnosis of diabetes. Reference: Standards of Medical Care in Diabetes 2016, [place] [employer] Association. Diabetes Care. 2016.39(Suppl 1). Performed By: #### 2 4321-2 #### [facility] CLIA [id number] [address] [place] [address] [place] Potassium [Moles/Vol] 4.1 mmol/L Normal 3.7-5.1 [facility] Comment on above: Order Comment: Speci men Type: BLOOD SPECIMEN Ordering Facility: [facility] Address: [address] [place] [phone] Performed By: #### 2 4321-2 #### [facility] CLIA [id number] [address] [place], [place] [id number] [place] Sodium [Moles/Vol] 139 mmol/L Normal 136-144 [facility] Comment on above: Order Comment: Speci men Type: BLOOD SPECIMEN Ordering Facility: [facility] Address: [address] [place], [place] [address] Performed By: #### 2 4321-2 #### [facility] CLIA [id number] [address] [place] [address] [place] Urea nitrogen [Mass/Vol] 8 mg/dL Normal 7-21 [facility] Comment on above: Order Comment: Speci men Type: BLOOD SPECIMEN Ordering Facility: [facility] Address: [address] [place] [address] Performed By: #### 2 4321-2 #### [facility] CLIA [id number] [address] [place] [address] [place] CNOVon 11-27-2021 CNOV Office Visit (LOORRM ) VENTURA GARCIA ([id number]) 1980 F Date Time Provider Department 11/27/21 2:00 PM CRISTI VIZCARRA During your visit today, we recorded the following information about you: Cristi Vizcarra DPM 11/28/2021 8:36 PM Signed Department of Orthopedics [facility] Name: Ventura Garcia Date of Service: November 27, 2021 REFERRING PHYSICIAN: Self Medications/allergies reviewed and updated. Patient does have a latex allergy. CHIEF COMPLAINT: New and Pain of the Left Foot HISTORY OF PRESENT ILLNESS: Ventura Garcia is a 41 year old female who presents with a history of left foot pain. Points to the lateral foot. There is bruising with some swelling. No numbness, tingling or burning. Constant pain even when sitting. At it's worse when she first gets out of bed. PAIN EVALUATION 11/27/2021 1353 Pain Level: 5 Pain Location: Foot-Left Description: Throbbing;Aching Duration Amount of Time: 1.5 Duration Units: Years Frequency: Continuous Intervention/Comfort measure: Relaxation;Heat;Cold Comments: She had a previous fracture in the left foot when she was a kid. Its started huring again about 1 1/2 years go. No new injury. Pain is worse in the morning. PAST MEDICAL HISTORY Diagnosis Date - Pre-diabetes PAST SURGICAL HISTORY Procedure Laterality Date - SECTION HX - OTHER Dental extraction - PAST SURGICAL HISTORY OF groin cyst lanced FAMILY HISTORY Problem Relation Age of Onset - Rheumatologic disease Maternal Grandmother Lupus - Rheumatologic disease Maternal Aunt Rheumatoid arthritis - Thyroid Maternal Aunt - Thyroid Maternal Aunt - Psoriasis No Family History Social History Tobacco Use - Smoking status: Current Every Day Smoker Packs/day: 0.50 Years: 25.00 Pack years: 12.50 Types: Cigarettes - Smokeless tobacco: Never Used Substance Use Topics - Alcohol use: No - Drug use: Yes Types: Marijuana ALLERGIES: ALLERGIES Allergen Reactions - Codeine Itching - Latex Rash - Penicillin Hives CURRENT OUTPATIENT MEDICATIONS: No prescriptions on file. REVIEW OF SYSTEMS GENERAL: Negative for malaise, significant weight loss, fever CARDIOVASCULAR: Negative for chest pain, palpitations. Negative for claudication. Negative leg swelling GI: Negative for abdominal discomfort, blood in stools or black stools and change in bowel habits : Negative for dysuria, frequency and incontinence MUSCULOSKELETAL: Positive for foot pain. Negative for back pain, and muscle pain SKIN: Negative for open sores, slow healing sores. Negative rashes and itching. PSYCH: Negative for sleep disturbance, mood disorder and recent psychosocial stressors HEMATOLOGY/LYMPHOLOGY: Negative for prolonged bleeding, bruising easily, and swollen nodes. ENDOCRINE: Negative for cold or heat intolerance, polyuria, polydipsia and goiter NEURO: Negative paresthesias. Negative frequent falls and other gait disturbances Objective: Pt presents ambulating in Tennis shoes without antalgic gait pattern. General- AAO x 3, NAD, well groomed, pleasant and cooperative. Vasc: Bilaterral Pulses: DP: +2/4 , PT: +2/4 . CFT is < 3 seconds bilateral. Skin temperature is warm to cool proximal to distal bilateral. Hair growth is present There is trace edema. Neuro: Light touch intact to all quadrants of bilateral feet/ankles with no apparent sensory deficits. There is no evidence for any clonus, fasciculations, rigidity, spasticity nor flaccidity on examination. Muscles have normal bulk and tone and atrophy is not seen. Derm: Nail(s) 1-5 bilaterally trimmed. Skin is supple, well hydrated bilateral. Webspaces are clean, dry and intact bilateral. There are no hyperkeratosis, ulcerations, verruca or other lesions noted. Ortho: Muscle strength is 5/5 for all pedal groups tested. Foot and ankle range of motions are fair bilateral with discomfort at the base of the 4th/5th metatarsal(s) on the left with range of motion. The foot type is pes cavus bilateral when foot is loaded. There is pain with palpation base of the 4th and 5th metatarsal(s) articulations left foot. No pain along the 5th metatarsal(s), peroneal tendon or cuboid. No pain with frontal plane range of motion passive or resisted. LAST LAB RESULTS: NO current labs XRAYS: I ordered XR today to evaluate bony structure for abnormalities as related to CC. My findings: NO fractures or dislocations. No stress changes noted. Radiologist to review. . CLINICAL IMPRESSION: No diagnosis found. RECOMMENDATION/PLAN: I performed a visual and physical pedal examination and evaluation of this patient. Medication: Mobic 15mg PO q Day with meals. Test(s)/Imaging/Referra l(s): BMP as patient doesn't have any current labs. Intervention: Educated on proper shoe gear ie New Balance Snea (more content not included)... Normal [facility] XR FOOT 3V AP/LAT/OBL LTon 0 11-27-2021 XR FOOT 3V AP/LAT/OBL LT * * *Final Report* * * DATE OF EXAM: Nov 27 2021 1:47PM [id number] [id number] - XR FOOT 3V AP/LAT/OBL LT / PROCEDURE REASON: Pain * * * * Physician Interpretation * * * * HISTORY: Pain TECHNOLOGIST PROVIDED HISTORY (if applicable): left foot pain/ no recent injury TECHNIQUE: XR FOOT 3V AP/LAT/OBL LT RESULT: 3 views of the LEFT foot shows small osteophyte at the head of the hallux metatarsal with preserved joint space. Pes cavus. No fracture or dislocation. IMPRESSION: PES CAVUS. EARLY HALLUX METATARSOPHALANGEAL OSTEOARTHRITIS. Solution Designer: PSCB Transcribe Date/Time: Nov 27 2021 3:30P Dictated by : TUCKER DEL TORO MD This examination was interpreted and the report reviewed and electronically signed by: TUCKER DEL TORO MD on Nov 27 2021 3:31PM EST [id number] Normal [facility] MRI FOOT RT WO CONon 020 MRI FOOT RT WO CON EXAM: MRI FOOT RT WO CON HISTORY: Arthropathy COMPARISON: X-ray dated February 16 TECHNIQUE: Multiplanar multisequence images are submitted of the right foot without IV contrast FINDINGS: No acute fracture or dislocation identified involving the right foot. There is a bipartite medial sesamoid bone at the first metatarsophalangeal joint. The medial first MTP sesamoid bone demonstrates increased signal on fat-suppressed proton-density weighted imaging and decreased signal on T1-weighted imaging. The lateral first MTP sesamoid is unremarkable. There is a mild joint effusion in the first metatarsophalangeal joint. The remaining osseous structures and joint spaces visualized in the forefoot and midfoot are unremarkable. The joint spaces of the hindfoot and ankle are also unremarkable. The remaining bone marrow signal is preserved without evidence for osteomyelitis. The musculotendinous structures and surrounding soft tissues are unremarkable. IMPRESSION: Acute sesamoiditis involving the medial sesamoid bone at the first metatarsophalangeal joint. Mild first MTP joint effusion. No additional acute findings. Electronically authenticated by: KAI FUENTES Date: 2020-02-29 02:08 Normal [facility] XR FOOT RT MIN 3 VIEWSon XR FOOT RT MIN 3 VIEWS PROCEDURE: XR FOOT RT MIN 3 VIEWS COMPARISON: 11/30/2019 HISTORY: Pain in right foot FINDINGS: BONES:No fracture, acute abnormality, or significant arthropathy. SOFT TISSUES:Negative. No visible soft tissue swelling. EFFUSION:None visible. OTHER: Negative. IMPRESSION: Normal examination. Electronically authenticated by: MADI MAYER Date: 2020-02-17 14:33 Normal [facility] XR FOOT RT MIN 3 VIEWSon INR Coag (Bld) [Relative time] PROCEDURE: XR FOOT RT MIN 3 VIEWS HISTORY: Pain in right foot ; follow-up right first metatarsal pain COMPARISON: 11/10/2019 right foot radiographs FINDINGS: BONES:No fracture, acute abnormality, or significant arthropathy. SOFT TISSUES:No visible soft tissue swelling. EFFUSION:None visible. OTHER: Negative. IMPRESSION: Normal examination. Electronically authenticated by: JOSSUE STEINBERG Date: 2019-11-30 12:18 Normal [facility] XR FOOT RT MIN 3 VIEWSon XR FOOT RT MIN 3 VIEWS IMAGES REVIEWED: XR FOOT RT MIN 3 VIEWS COMPARISON: None available. CLINICAL INDICATION: Injury, first digit pain. FINDINGS/IMPRESSION: No radiographic evidence of acute fracture. No dislocation or traumatic malalignment. Electronically authenticated by: ALFREDO STILL Date: 2019-11-10 19:20 Normal [facility] Encounters Encounter Date Encounter Type Care Provider Facility Start: 01-08-2023 End: 01-09-2023 ambulatory Venice Islas Facility:[facility] Start: 10-10-2022 End: 10-11-2022 ambulatory Venice J Janel Facility:[facility] Start: 09-23-2022 End: 09-24-2022 ambulatory Venice J Janel Facility:[facility] Start: 09-11-2022 End: 09-12-2022 ambulatory Venice J Janel Facility:[facility] Start: 08-28-2022 End: 08-29-2022 ambulatory Samantha JULES Facility:[facility] [place] Start: 11-27-2021 ambulatory Jessika Lalo RT(R) Radi ology Comment on above: Radiology XR Start: 11-27-2021 End: 11-27-2021 Patient encounter procedure Jessika Lalo RT(R) [facility] [place] Comment on above: Equinus deformity of both feet (Primary Dx); Arthralgia of left foot; Pain in left foot; Encounter for long-term (current) use of medications Start: 02-28-2020 End: 02-29-2020 Patient encounter procedure RONY HUDSON Facility:[facility] Start: 02-17-2020 End: 02-18-2020 Patient encounter procedure RONY HUDSON Facility:[facility] Start: 12-03-2019 End: 02-08-2020 Patient encounter procedure DOCTOR MIS Facility:[facility] Start: 11-30-2019 End: 12-01-2019 Patient encounter procedure MAGNUS GASTELUM Facility:[facility] Start: 11-10-2019 End: 11-10-2019 Patient encounter procedure DOCTOR MIS Facility:[facility] Procedures Date Procedure Procedure Detail Performing Clinician Start: 02-23-2018 Adult depression scr eening assessment Jessika Lalo RT(R) Plan of Treatment Date Care Activity Detail Author Start: 01-03-2022 Influenza vaccination INFLUENZA (#1) [facility] Start: 2020 Mammography MAMMOGRAM [facility] Start: 02-23-2019 Adult depression scr eening assessment DEPRESSION SCREENING [facility] Start: 2010 HPV TESTING HPV TESTING [facility] Start: 2001 PAP TESTING PAP TESTING [facility] Start: 11-12-1999 Urine microalbumin profile DTAP,TDAP ,TD (1 - Tdap) [facility] Start: 1998 HEPATITIS C SCREENING HEPATITIS C SC REENING [facility] Start: 1998 HIV SCREENING HIV SCREENING [facility] Start: 1986 PNEUMOCOCCAL (1 - PCV) PNEUMOCOCCAL (1 - PCV) [facility] Start: 05-14-1981 COVID-19 VACCINE (#1) COVID-19 VACCI NE (#1) [facility] Payers Date Payer Category Payer Medicaid [employer] [place] [id number] 2017-Present [phone] [address] [address] [place], [place] [address] Medicaid [id number] 1980 Unknown [id number] 1980 Unknown [id number] 1980 Unknown [id number] 1980 Unknown [id number] 1980 Unknown [id number] 1980 Unknown [id number] 1980 Unknown [id number] 1980 Unknown [id number] 1980 Unknown [id number] 1980 Unknown [id number] 1959 Unknown [id number] Social History Date Type Detail Facility Start: 02-23-2018 Tobacco smoking stat [facility] Smokes tobacco daily [facility] History of tobacco use Cigarette Smoker [facility] Start: 02-23-2018 Cigarettes smoked cu rrent (pack per day) - Reported 0.5 [facility] Start: 02-23-2018 Tobacco use and exposure Smoke less tobacco non-user [facility] Start: 11-27-2021 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 Author Type: Physician Type: Progress Notes Filed: 11/28/2021 8:36 PM Note Text: Department of Orthopedics [facility] Name: Ventura Garcia Date of Service: November 27, 2021 REFERRING PHYSICIAN: Self Medications/allergies reviewed and updated. Patient does have a latex allergy. CHIEF COMPLAINT: New and Pain of the Left Foot HISTORY OF PRESENT ILLNESS: Ventura Garcia is a 41 year old female who presents with a history of left foot pain. Points to the lateral foot. There is bruising with some swelling. No numbness, tingling or burning. Constant pain even when sitting. At it's worse when she first gets out of bed. PAIN EVALUATION 11/27/2021 1353 Pain Level: 5 Pain Location: Foot-Left Description: Throbbing;Aching Duration Amount of Time: 1.5 Duration Units: Years Frequency: Continuous Intervention/Comfort measure: Relaxation;Heat;Cold Comments: She had a previous fracture in the left foot when she was a kid. Its started huring again about 1 1/2 years go. No new injury. Pain is worse in the morning. PAST MEDICAL HISTORY Diagnosis Date - Pre-diabetes PAST SURGICAL HISTORY Procedure Laterality Date - SECTION HX - OTHER Dental extraction - PAST SURGICAL HISTORY OF groin cyst lanced FAMILY HISTORY Problem Relation Age of Onset - Rheumatologic disease Maternal Grandmother Lupus - Rheumatologic disease Maternal Aunt Rheumatoid arthritis - Thyroid Maternal Aunt - Thyroid Maternal Aunt - Psoriasis No Family History Social History Tobacco Use - Smoking status: Current Every Day Smoker Packs/day: 0.50 Years: 25.00 Pack years: 12.50 Types: Cigarettes - Smokeless tobacco: Never Used Substance Use Topics - Alcohol use: No - Drug use: Yes Types: Marijuana ALLERGIES: ALLERGIES Allergen Reactions - Codeine Itching - Latex Rash - Penicillin Hives CURRENT OUTPATIENT MEDICATIONS: No prescriptions on file. REVIEW OF SYSTEMS GENERAL: Negative for malaise, significant weight loss, fever CARDIOVASCULAR: Negative for chest pain, palpitations. Negative for claudication. Negative leg swelling GI: Negative for abdominal discomfort, blood in stools or black stools and change in bowel habits : Negative for dysuria, frequency and incontinence MUSCULOSKELETAL: Positive for foot pain. Negative for back pain, and muscle pain SKIN: Negative for open sores, slow healing sores. Negative rashes and itching. PSYCH: Negative for sleep disturbance, mood disorder and recent psychosocial stressors HEMATOLOGY/LYMPHOLOGY: Negative for prolonged bleeding, bruising easily, and swollen nodes. ENDOCRINE: Negative for cold or heat intolerance, polyuria, polydipsia and goiter NEURO: Negative paresthesias. Negative frequent falls and other gait disturbances Objective: Pt presents ambulating in Tennis shoes without antalgic gait pattern. General- AAO x 3, NAD, well groomed, pleasant and cooperative. Vasc: Bilaterral Pulses: DP: +2/4 , PT: +2/4 . CFT is < 3 seconds bilateral. Skin temperature is warm to cool proximal to distal bilateral. Hair growth is present There is trace edema. Neuro: Light touch intact to all quadrants of bilateral feet/ankles with no apparent sensory deficits. There is no evidence for any clonus, fasciculations, rigidity, spasticity nor flaccidity on examination. Muscles have normal bulk and tone and atrophy is not seen. Derm: Nail(s) 1-5 bilaterally trimmed. Skin is supple, well hydrated bilateral. Webspaces are clean, dry and intact bilateral. There are no hyperkeratosis, ulcerations, verruca or other lesions noted. Ortho: Muscle strength is 5/5 for all pedal groups tested. Foot and ankle range of motions are fair bilateral with discomfort at the base of the 4th/5th metatarsal(s) on the left with range of motion. The foot type is pes cavus bilateral when foot is loaded. There is pain with palpation base of the 4th and 5th metatarsal(s) articulations left foot. No pain along the 5th metatarsal(s), peroneal tendon or cuboid. No pain with frontal plane range of motion passive or resisted. LAST LAB RESULTS: NO current labs XRAYS: I ordered XR today to evaluate bony structure for abnormalities as related to CC. My findings: NO fractures or dislocations. No stress changes noted. Radiologist to review. . CLINICAL IMPRESSION: No diagnosis found. RECOMMENDATION/PLAN: I performed a visual and physical pedal examination and evaluation of this patient. Medication: Mobic 15mg PO q Day with meals. Test(s)/Imaging/Referral(s): BMP as patient doesn't have any current labs. Intervention: Educated on proper shoe gear ie New Balance Sneakers . Rx for CMFO Follow-up: PRN/Two months . Written and verbal health teaching given to patient, patient verbalizes understanding and agrees with treatment plan. Pt to ca (more content not included)... [facility] Progress note 11-27-2021 Note Date & Type Note Facility 11-27-2021 Note HNO ID: [id number] Author: Jessika May RT(R) Service: ? Author Type: Technologist Type: Progress Notes Filed: 11/27/2021 1:44 PM Note Text: Radiology Service Progress Note PATIENT NAME: Ventura Garcia DATE OF SERVICE: November 27, 2021 TIME: 1:44 PM PATIENT IDENTITY VERIFICATION COMPLETED USING TWO (2) IDENTIFIERS: Name and Date of confirmed by patient verbally. FALL SCREENING: Has the patient had 2 falls in the last year or 1 fall with injury or currently using an Ambulatory Assistive Device (Walker, Cane, Wheelchair, Crutches, etc.)? No PATIENT GENDER DATA: Female. status: : No status: NO. PATIENT RELEVANT IMPLANT DATA REVIEWED: Yes RADIOLOGY DEPARTMENT: General X-ray: Exam(s) Completed: Lower Extremity X-Ray(s): Foot, Left and Wt. Bearing PERIPHERAL IV DATA: Not applicable SIGNED BY: RT Sohail(R) November 27, 2021 1:44 PM [facility] Instructions 11-27-2021 Patient Instructions Note Date & Type Note Facility 11-27-2021 Instructions Cristi Vizcarra DPM - 11/27/2021 2:25 PM EDT New Balance Sneakers documented in this encounter [facility] History of Present illness Narrative 11-27-2021 Cristi Vizcarra DPM - 11/27/2021 2:08 PM EDT Note Date & Type Note Facility 11-27-2021 History of Presen t illness Narrative Department of Orthopedics [facility] Name: Ventura Garcia Date of Service: November 27, 2021 REFERRING PHYSICIAN: Self Medications/allergies reviewed and updated. Patient does have a latex allergy. CHIEF COMPLAINT: New and Pain of the Left Foot HISTORY OF PRESENT ILLNESS: Ventura Garcia is a 41 year old female who presents with a history of left foot pain. Points to the lateral foot. There is bruising with some swelling. No numbness, tingling or burning. Constant pain even when sitting. At it's worse when she first gets out of bed. PAIN EVALUATION 11/27/2021 1353 Pain Level: 5 Pain Location: Foot-Left Description: Throbbing;Aching Duration Amount of Time: 1.5 Duration Units: Years Frequency: Continuous Intervention/Comfort measure: Relaxation;Heat;Cold Comments: She had a previous fracture in the left foot when she was a kid. Its started huring again about 1 1/2 years go. No new injury. Pain is worse in the morning. PAST MEDICAL HISTORY Diagnosis Date Pre-diabetes PAST SURGICAL HISTORY Procedure Laterality Date SECTION HX OTHER Dental extraction PAST SURGICAL HISTORY OF groin cyst lanced FAMILY HISTORY Problem Relation Age of Onset Rheumatologic disease Maternal Grandmother Lupus Rheumatologic disease Maternal Aunt Rheumatoid arthritis Thyroid Maternal Aunt Thyroid Maternal Aunt Psoriasis No Family History Social History Tobacco Use Smoking status: Current Every Day Smoker Packs/day: 0.50 Years: 25.00 Pack years: 12.50 Types: Cigarettes Smokeless tobacco: Never Used Substance Use Topics Alcohol use: No Drug use: Yes Types: Marijuana ALLERGIES: ALLERGIES Allergen Reactions Codeine Itching Latex Rash Penicillin Hives CURRENT OUTPATIENT MEDICATIONS: No prescriptions on file. REVIEW OF SYSTEMS GENERAL: Negative for malaise, significant weight loss, fever CARDIOVASCULAR: Negative for chest pain, palpitations. Negative for claudication. Negative leg swelling GI: Negative for abdominal discomfort, blood in stools or black stools and change in bowel habits : Negative for dysuria, frequency and incontinence MUSCULOSKELETAL: Positive for foot pain. Negative for back pain, and muscle pain SKIN: Negative for open sores, slow healing sores. Negative rashes and itching. PSYCH: Negative for sleep disturbance, mood disorder and recent psychosocial stressors HEMATOLOGY/LYMPHOLOGY: Negative for prolonged bleeding, bruising easily, and swollen nodes. ENDOCRINE: Negative for cold or heat intolerance, polyuria, polydipsia and goiter NEURO: Negative paresthesias. Negative frequent falls and other gait disturbances Objective: Pt presents ambulating in Tennis shoes without antalgic gait pattern. General- AAO x 3, NAD, well groomed, pleasant and cooperative. Vasc: Bilaterral Pulses: DP: +2/4 , PT: +2/4 . CFT is < 3 seconds bilateral. Skin temperature is warm to cool proximal to distal bilateral. Hair growth is present There is trace edema. Neuro: Light touch intact to all quadrants of bilateral feet/ankles with no apparent sensory deficits. There is no evidence for any clonus, fasciculations, rigidity, spasticity nor flaccidity on examination. Muscles have normal bulk and tone and atrophy is not seen. Derm: Nail(s) 1-5 bilaterally trimmed. Skin is supple, well hydrated bilateral. Webspaces are clean, dry and intact bilateral. There are no hyperkeratosis, ulcerations, verruca or other lesions noted. Ortho: Muscle strength is 5/5 for all pedal groups tested. Foot and ankle range of motions are fair bilateral with discomfort at the base of the 4th/5th metatarsal(s) on the left with range of motion. The foot type is pes cavus bilateral when foot is loaded. There is pain with palpation base of the 4th and 5th metatarsal(s) articulations left foot. No pain along the 5th metatarsal(s), peroneal tendon or cuboid. No pain with frontal plane range of motion passive or resisted. LAST LAB RESULTS: NO current labs XRAYS: I ordered XR today to evaluate bony structure for abnormalities as related to CC. My findings: NO fractures or dislocations. No stress changes noted. Radiologist to review. . CLINICAL IMPRESSION: No diagnosis found. RECOMMENDATION/PLAN: I performed a visual and physical pedal examination and evaluation of this patient. Medication: Mobic 15mg PO q Day with meals. Test(s)/Imaging/Referral(s): BMP as patient doesn't have any current labs. Intervention: Educated on proper shoe gear ie New Balance Sneakers . Rx for CMFO Follow-up: PRN/Two months . Written and verbal health teaching given to patient, patient verbalizes understanding and agrees with treatment plan. Pt to call immediately if questions, concerns, pain arise prior to next appt. Electronically Signed: Cristi Vizcarra DPM November 27, 2021 2:08 PM documented in this encounter [facility] History of Present illness Narrative 11-27-2021 RT Sohail(R) - 11/27/2021 1:44 PM EDT Note Date & Type Note Facility 11-27-2021 History of Presen t illness Narrative Radiology Service Progress Note PATIENT NAME: Ventura Garcia DATE OF SERVICE: November 27, 2021 TIME: 1:44 PM PATIENT IDENTITY VERIFICATION COMPLETED USING TWO (2) IDENTIFIERS: Name and Date of confirmed by patient verbally. FALL SCREENING: Has the patient had 2 falls in the last year or 1 fall with injury or currently using an Ambulatory Assistive Device (Walker, Cane, Wheelchair, Crutches, etc.)? No PATIENT GENDER DATA: Female. status: : No status: NO. PATIENT RELEVANT IMPLANT DATA REVIEWED: Yes RADIOLOGY DEPARTMENT: General X-ray: Exam(s) Completed: Lower Extremity X-Ray(s): Foot, Left and Wt. Bearing PERIPHERAL IV DATA: Not applicable SIGNED BY: RT Sohail(R) November 27, 2021 1:44 PM documented in this encounter [facility] Evaluation note Note Date & Type Note Facility Evaluation note Diagnosis Equinus deformity of both feet- Primary Arthralgia of left foot Pain in joint, ankle and foot Pain in left foot Pain in limb Encounter for long-term (current) use of medications Encounter for long-term (current) use of other medications documented in this encounter [facility] Summary Purpose Family History No Family History Records FoundNo Family History Records FoundNo Family History Records Found Advance Directives No Advanced Directives Records FoundNo Advanced Directives Records FoundNo Advanced Directives Records Found Additional Source Comments INFORMATION SOURCE (unrecogn ized section and content) DATE CREATED AUTHOR 03/03/2020 [facility] DATE CREATED AUTHOR AUTHOR'S ORGANIZ ATION 11/29/2021 [facility] DATE CREATED AUTHOR AUTHOR'S ORGANIZ ATION 01/12/2023 [facility] Source Comments (unrecognize d section and content) In the event this informatio n is protected by the Federal Confidentiality of Alcohol and Drug Abuse Patient Records regulations: The Federal rules restrict any use of the information to criminally investigate or prosecute any alcohol or drug abuse patient[facility] the event this information is protected by the Federal Confidentiality of Alcohol and Drug Abuse Patient Records regulations: The Federal rules restrict any use of the information to criminally investigate or prosecute any alcohol or drug abuse patient.[facility] Reason for Visit (unrecogniz ed section and content) Reason Comments Radiology XR Reason Comments New Pain Care Teams (unrecognized sec tion and content) [employer] Teammate Relationship Specialty Start Date End Date Claudette Underwood, [address] [place] [address] PCP - General Family Practice 12/03/17 [employer] Teammate Relationship Specialty Start Date End Date Claudette Underwood, [address] [place] [address] PCP - General Family Practice 12/03/17 FOR RECORDS PERTAINING TO PATIENTS WHO ARE OR HAVE BEEN ENROLLED IN A CHEMICAL DEPENDENCY/SUBSTANCEABUSE PROGRAM, SOME INFORMATION MAY BE OMITTED. This clinical summary was aggregated from multiple sources. Caution should be exercised in using it in the provision of clinical care. This summary normalizes information from multiple sources, and as a consequence, information in this document may materially change the coding, format and clinical context of patient data. In addition, data may be omitted in some cases. CLINICAL DECISIONS SHOULD BE BASED ON THE PRIMARY CLINICAL RECORDS. [employer] [facility]. provides no warranty or guarantee of the accuracy or completeness of information in this document.
[2023-05-07 12:20] LABS: Potassium 3.7 mmol/L (3.5-5.1)
== END 2023-05-07 10:46 | disposition home or self-care (01) ==
PROVIDERS: PCP Family Medicine
DX: L70.0 Acne vulgaris (principal); L68.0 Hirsutism
CPT/HCPCS: 36415; 84132

== ENCOUNTER 2024-04-17 16:20 | Emergency (ER) | payer SELFPAY ==
[2024-04-17 16:24] VITALS: BP 189/98; PULSE 102; O2SAT 98; BMI 32.5
--- OUTSIDE RECORDS SUMMARY | 2024-04-17 16:25 | XMS_ITS | CCD ---
Author Organization [facility] Care Team Providers Care Utility Locator Name Role Phone MISC, DOCTOR Primary Care Unavailable TUCKER ISLAS Admitting Unavailable TUCKER ISLAS Attending Unavailable TUCKER ISLAS Consulting Unavailable JUDI BROWN Consulting Unavailable ALFREDO STILL Consulting Unavailable MAGNUS GASTELUM Admitting Unavailable ORIANA, MAGNUS Attending Unavailable JOSSUE STEINBERG Consulting Unavailable MAGNUS GASTELUM Consulting Unavailable TRENT, DOCTOR Admitting Unavailable MISBárbara, DOCTOR Attending Unavailable RONY HUDSON Admitting Unavailable RONY HUDSON Attending Unavailable MADI MAYER V Consulting Unavailable RONY HUDSON Consulting Unavailable RONY HUDSON Admitting Unavailable RONY HUDSON Attending Unavailable RONY HUDSON Consulting Unavailable Kai Fuentes Consulting Unavailable Fede Underwood DO Primary Care Provider Venice Islas Attending Unavailable Janel Venice J Admitting Unavailable JanelRomuloVenice J Attending Unavailable JanelFrostesa J Admitting Unavailable Samantha JULES Attending Unavailable JanelRomuloVenice J Admitting Unavailable Janel, Venice J Referring Unavailable JanelRomuloVenice Ca Attending Unavailable Janel, Venice J Admitting Unavailable Janel, Venice J Attending Unavailable Fede Underwood DO Primary Care Provider FEDE UNDERWOOD Primary Care UnavailDEANA Lira Referring Unavailable DEANA BENSON Attending Unavailable FEDE UNDERWOOD Primary Care UnavailFEDE Hitchcock Primary Care UnavailDEANA Lira Referring Unavailable Fede Underwood DO Primary Care Provider Allergies Allergy Classification Reported Allergen(s) Allergy Type Date of Onset Reaction(s) Facility (3 sources) Codeine; Translations: [codeine] Drug Allergy 8 [facility] (1 source) natural latex rubber Drug allergy (disorder) [facility] (10 sources) Penicillin; Translations: [PENICILLIN] Drug Allergy [address] [facility] (8 sources) Codeine Drug Allergy 8 Itching [facility] (10 sources) Latex; Translations: [Latex] Drug Allergy 8 Rash [facility] (1 source) Penicillins; Translations: [penicillins] Propensity to adverse reactions (disorder) [facility] Repository (1 source) bandaids; Translations: [bandaids] Propensity to adverse reactions (disorder) [facility] Repository Medications Current Medications Medication Drug Class(es) Dates Sig (Normalized) Sig (Original) meloxicam 15 mg oral tablet (5 sources) Nonsteroidal Anti-inflammatory Drug Start: 11-27-2021 take 1 tablet by mouth once daily meloxicam (MOBIC) 15 mg tablet Take 1 tablet by mouth once daily. 30 tablet 2 11/27/2021 Active Comment on above: Take 1 tablet by scarlet once daily. Completed/Discontinued Medications Medication Drug Class(es) Dates Sig (Normalized) Sig (Original) diclofenac sodium 0.01 mg/mg topical gel (3 sources) Nonsteroidal Anti-inflammatory Drug Start: 12-10-2017 End: 11-27-2021 apply 2 g topically four times daily diclofenac sodium (VOLTAREN) 1 % topical gel Apply 2 g to affected area four times daily. 1 Tube 1 12/10/2017 11/27/2021 Discontinued (Discontinued by another Health Care Provider) Comment on above: Apply 2 g to affecte d area four times daily. 10 ml lidocaine hydrochloride 10 mg/ml injection (2 sources) Antiarrhythmic, Amide Local Anesthetic Start: 07-03-2023 End: 07-03-2023 lidocaine (PF) 10 mg/mL (1 %) 0.5 mL injection (XYLOCAINE) metFORMIN hydrochloride 500 mg oral tablet (3 sources) Biguanide Start: 02-16-2018 End: 11-27-2021 metFORMIN (GLUCOPHAGE) 500 mg tablet twice daily. 02/16/2018 11/27/2021 Discontinued (Discontinued by another Health Care Provider) Comment on above: twice daily. naproxen 500 mg oral tablet (3 sources) Nonsteroidal Anti-inflammatory Drug Start: 10-29-2019 End: 11-27-2021 take 1 tablet by mouth twice daily at mealtime naproxen (NAPROSYN) 500 mg tablet Take 1 tablet by mouth twice daily with meals. 60 tablet 1 10/29/2019 11/27/2021 Discontinued (Discontinued by another Health Care Provider) Comment on above: Take 1 tablet by scarlet twice daily with meals. 1 ml triamcinolone acetonide 40 mg/ml injection (2 sources) Corticosteroid Start: 07-03-2023 End: 07-03-2023 triamcinolone acetonide 0.5 mL injection (KeNALog 40) Problems Active Problems Problem Classification Problem Date Documented Date Episodic/Chronic Acquired foot deformities (8 sources) Toe joint rigid; Translations: [Hallux rigidus, right foot] Onset: 05-22-2020 05-22-2020 Chronic Acquired foot deformities (1 source) Plantarflexion deformity of bilateral feet; Translations: [Other acquired deformities of right foot] Episodic External cause codes: Natural/environment (1 source) Overexertion from prolonged static or awkward postures, initial encounter; Translations: [OVEREXERT PROLNG STAT/AWK PST INIT] Onset: 11-12-2019 Joint disorders and dislocations; trauma-related (8 sources) Derangement of left knee; Translations: [Unspecified internal derangement of left knee] Onset: 02-12-2019 02-12-2019 Chronic Osteoarthritis (9 sources) Osteoarthritis of multiple joints ; Translations: [Polyosteoarthritis, unspecified] Onset: 02-23-2018 02-23-2018 Chronic Other acquired deformities (1 source) Other specified acquired deformities of musculoskeletal system; Translations: [OTHER SPEC ACQ DEFORMITY MSK SYS] Onset: 03-02-2020 Episodic Other aftercare (1 source) Patient encounter status; Translations: [Other long goods drier (current) drug therapy] Episodic Other connective tissue disease (4 sources) Pain in right foot; Translations: [PAIN IN RIGHT FOOT] Onset: 02-17-2020 Episodic Other connective tissue disease (1 source) Pain in left foot; Translations: [Pain in left foot] Episodic Other connective tissue disease (1 source) Pain in hallux; Translations: [Pain in right toe(s)] 05-22-2020 Episodic Other nervous system disorders (1 source) Bilateral carpal tunnel syndrome; Translations: [Carpal tunnel syndrome, bilateral upper limbs] 07-03-2023 Chronic Other nervous system disorders (1 source) Carpal tunnel syndrome, bilateral upper limbs; Translations: [Carpal tunnel syndrome, bilateral] Onset: 07-22-2023 Chronic Other non-traumatic joint disorders (4 sources) Other [...] ankle and joints of left foot] Episodic Residual codes; unclassified (1 source) Pain, unspecified; Translations: [Pain] Onset: 07-03-2023 Episodic Residual codes; unclassified (3 sources) Pain; Translations: [Pain, unspecified] 07-03-2023 Episodic Substance-related disorders (1 source) Nicotine dependence, cigarettes, uncomplicated; Translations: [NICOTINE DEPEND CIGARETTES UNCOMP] Onset: 11-12-2019 Chronic Past or Other Problems Problem Classification Problem Date Documented Date Episodic/Chronic Other connective tissue disease (8 sources) Swelling of finger ; Translations: [Other specified soft tissue disorders] Onset: 8 02-23-2018 Episodic Other non-traumatic joint disorders (8 sources) Sesamoiditis; Translations: [Other specified joint disorders, unspecified joint] Onset: 1 05-22-2020 Episodic Sprains and strains (9 sources) Unspecified sprain of right great toe, initial encounter; Translations: [Sprain of metatarsophalangeal joint of great toe] Onset: 0 05-22-2020 Episodic Superficial injury; contusion (8 sources) Contusion of left knee; Translations: [Contusion of left knee, initial encounter] Onset: 9 02-12-2019 Episodic Results Test Name Value Interpretation Reference Range Facility [facility] 07-03-2023 CNOV Office Visit (LOORRM ) GERRI GARCIA ([id number]) 1980 F Date Time Provider Department 07/03/23 1:00 PM DEANA BENSON LOORRNilesh During your visit today, we recorded the following information about you: Deana Benson PA-C 07/17/2023 4:34 PM Signed Reason for Visit: Bilateral hand pain HPI: Gerri is a 42 year old RHD female who presents with a chief complaint of bilateral hand pain. Has been at the level of the thumb CMC joint bilaterally as well as numbness/tingling bilaterally. Both began a few years ago with no known injury. In regards to her thumb pain, became worse a few months ago with no known injury. Has constant pain that is made worse with particular movements, light gripping. Had previous corticosteroid injections in her right thumb CMC joint by Dr. Dowell in 2018/2018, which did provide symptomatic relief. Denied use of braces or OTC topicals. Takes ibuprofen as needed. In regards to her numbness/tingling, when asked if symptoms are present constantly she stated that her hands never feel normal. Has nocturnal paresthesias that wake her at night. Driving long distances makes symptoms worse. Has tried bracing, and previously had a right carpal tunnel injection by Dr. Dowell which provided symptomatic relief. Denies previous surgery on the hands. Allergies: ALLERGIES Allergen Reactions Codeine Itching Latex Rash Penicillin Hives Medications: meloxicam (MOBIC) 15 mg tablet Take 1 tablet by mouth once daily. Past Medical History: PAST MEDICAL HISTORY Diagnosis Date Pre-diabetes Past Surgical History: PAST SURGICAL HISTORY Procedure Laterality Date SECTION HX OTHER Dental extraction PAST SURGICAL HISTORY OF groin cyst lanced Social History: Tobacco Use: .5 packs/day, for 25 years. Types: Cigarettes ROS: Constitutional: Fever/chills: No Cardiovascular: Chest Pain: No Respiratory: SOB: No Endocrine: Diabetes: No Musculoskeletal: as noted in the HPI Neurologic: as noted in the HPI Physical Examination: Ms. Garcia is a pleasant 42 year old female. The upper extremities are well perfused with 2+ radial pulses bilaterally. Skin is intact with no discoloration, rash, wound, or laceration. APB and dorsal interosseous function intact. Motor function intact in EPL, FPL, FDS, FDP, and EDC. Sensation to light touch is intact in the median/radial/ulnar nerve distributions. On examination of the bilateral hands: There is no significant tenderness to palpation or instability to stress testing of the metacarpophalangeal (MCP) or interphalangeal (IP) joints. There is tenderness to palpation on the volar and dorsal aspect of trapeziometacarpal (TM) joint. Positive carpometacarpal (CMC) grind test, negative Finklestein test. Able to touch thumb to base of small finger. There is no tenderness over the scaphotrapeziotrapezoid al (STT) joint. There is no tenderness over the radiocarpal joint or the distal radial ulnar joint (DRUJ). Sensation to light touch is intact in the radial and ulnar nerve distributions. Subjectively, sensation is diminished in the median nerve distribution. Phalen compression/Durkan compression and Tinel tests are positive. Imagin views (PA, lateral and oblique) of the bilateral hands taken today show Eaton stage II thumb CMC osteoarthritis bilaterally. Ulnar neutral variance on the left and ~1.5 negative ulnar variance on the right. Laboratory Studies: Recent Labs 02/23/18 1549 12/10/17 1419 HB 14.8 -- WBC 9.16 -- PLT 327 -- WSR -- 5 CRP -- 0.2 CCPABG <15 -- RF <10 -- ALB 4.6 -- URICACID 5.3 -- Assessment: Bilateral thumb CMC osteoarthritis Bilateral carpal tunnel syndrome Plan: Gerri is a 42 year old RHD female who presents with bilateral thumb CMC osteoarthritis and carpal tunnel syndrome. In regards to her arthritis, we discussed the nature of presumptive thumb basilar joint osteoarthritis including a review of arthritis in general, signs and symptoms of the condition, general considerations for causation, progression of the condition, and strategies for treatment. Radiographs have been reviewed and pertinent pathology identified. Activity modification, anti-inflammatory modalities, OTC analgesics, and supportive splint use have been reviewed as first-line management. Should symptoms progress or persist, consideration for basilar joint corticosteroid injection would be reasonable. The indications and nature of surgical versus nonsurgical options have been discussed. The inherent risks and benefits of each treatment including non-operative management have been reviewed. In regards to her carpal tunnel syndrome, we discussed the nature of compressive neuropathies and specifically the nature of carpal tunnel syndrome including signs and symptoms of the condition, general considerations for (more content not included)... Normal [facility] XR HAND 3V PA/LAT/OBL BILon 07-03-2023 XR HAND 3V PA/LAT/OBL REYMUNDO * * *Final Report* * * DATE OF EXAM: Jul 03 2023 12:53PM MARQUISX 5556 - XR HAND 3V PA/LAT/OBL REYMUNDO / PROCEDURE REASON: Pain * * * * Physician Interpretation * * * * EXAMINATION: XR HAND 3V PA/LAT/OBL REYMUNDO CLINICAL HISTORY: Pain TECHNOLOGIST PROVIDED HISTORY: chronic reymundo hand pain TECHNIQUE: XR HAND 3V PA/LAT/OBL REYMUNDO Laterality: BILATERAL Number of different views (projections): 3each M: XB_1 COMPARISON: 12/10/2017 RESULT: No acute fracture or dislocation. Joint spaces are maintained. No bony erosions. No substantial soft tissue swelling. Resolved right index finger soft tissue swelling. IMPRESSION: No acute osseous abnormality. Resolved right index finger soft tissue swelling. Ash Conveyor Operator: SETH Transcribe Date/Time: Jul 03 2023 1:22P Dictated by : ELIJAH ASENCIO DO This examination was interpreted and the report reviewed and electronically signed by: LAWANDA CAMPO MD on Jul 03 2023 2:09PM EST [id number] Normal [facility] XR Hand - bilateral PA and L ateral and Obliqueon 07-03-2023 IMPRESSION: No acute osseous abnormality. Resolved right index finger soft tissue swelling. Ash Conveyor Operator: SETH Transcribe Date/Time: Jul 03 2023 1:22P Dictated by : ELIJAH ASENCIO DO This examination was interpreted and the report reviewed and electronically signed by: LAWANDA CAMPO MD on Jul 03 2023 2:09PM EST DIVISION OF RADIOLOGY * * *Final Report* * * DATE OF EXAM: Jul 03 2023 12:53PM LZX 5556 - XR HAND 3V PA/LAT/OBL REYMUNDO / PROCEDURE REASON: Pain * * * * Physician Interpretation * * * * EXAMINATION: XR HAND 3V PA/LAT/OBL REYMUNDO CLINICAL HISTORY: Pain TECHNOLOGIST PROVIDED HISTORY: chronic reymundo hand pain TECHNIQUE: XR HAND 3V PA/LAT/OBL REYMUNDO Laterality: BILATERAL Number of different views (projections): 3each M: XB_1 COMPARISON: 12/10/2017 RESULT: No acute fracture or dislocation. Joint spaces are maintained. No bony erosions. No substantial soft tissue swelling. Resolved right index finger soft tissue swelling. DIVISION OF RADIOLOGY Provider, [facility] - 07/03/2023 * * *Final Report* * * DATE OF EXAM: Jul 03 2023 12:53PM LZX 5556 - XR HAND 3V PA/LAT/OBL REYMUNDO / PROCEDURE REASON: Pain * * * * Physician Interpretation * * * * EXAMINATION: XR HAND 3V PA/LAT/OBL REYMUNDO CLINICAL HISTORY: Pain TECHNOLOGIST PROVIDED HISTORY: chronic reymundo hand pain TECHNIQUE: XR HAND 3V PA/LAT/OBL REYMUNDO Laterality: BILATERAL Number of different views (projections): 3each M: XB_1 COMPARISON: 12/10/2017 RESULT: No acute fracture or dislocation. Joint spaces are maintained. No bony erosions. No substantial soft tissue swelling. Resolved right index finger soft tissue swelling. IMPRESSION IMPRESSION: No acute osseous abnormality. Resolved right index finger soft tissue swelling. Ash Conveyor Operator[facility] Transcribe Date/Time: Jul 03 2023 1:22P Dictated by : ELIJAH ASENCIO DO This examination was interpreted and the report reviewed and electronically signed by: LAWANDA CAMPO MD on Jul 03 2023 2:09PM [facility] Radiology Study observation (narrative) [facility] XR Hand - bilateral PA and L ateral and ObliqueOrdered By: Ccf Provider on 07-03-2023 [facility] Chlamydia/Gonococcus, NAAon 01-11-2023 C. trachomatis rRNA JAQUELIN+probe Ql (Unsp spec) Negative Invalid Interpretation Code Negative [facility] Comment on above: Performed By: #### 3 [id number] #### [facility] [address] [place] [address] N. gonorrhoeae rRNA JAQUELIN+probe Ql (Unsp spec) Negative Invalid Interpretation Code Negative [facility] Comment on above: Result Comment: Perf ormed at: =G [facility] [address] BETTINA Melara [id number] MD Gabriel Cordoba Performed By: #### 3 [id number], [id number] #### [facility] [address] [place] [address] Vaginitis/Vaginosis, DNA Pro beon 01-11-2023 Samia sp rRNA Probe Ql (Vag fld) Negative Invalid Interpretation Code Negative [facility] Comment on above: Performed By: #### 3 [id number] #### [facility] [address] [place] [address] G. vaginalis rRNA Probe Ql (Genital specimen) Negative Invalid Interpretation Code Negative [facility] Comment on above: Performed By: #### 3 [id number] #### [facility] [address] [place] [address] T. vaginalis rRNA Probe Ql (Genital specimen) Negative Invalid Interpretation Code Negative [facility] Comment on above: Result Comment: Perf ormed at: CB [facility] [address] [id number] PhD Chidi Knox Performed By: #### 3 [id number] #### [facility] [address] [place] [address] Physician Orderon 01-08-2023 Physician Order [id number]#1.00C D:127 Normal [facility] MA Mamm Screen w/CAD if perf and 3D Bilon 10-14-2022 MA Mamm Screen w/CAD if perf and 3D Reymundo Exam Date/Time: 10/10/2022 08:00 EDT Reason for Exam: Z12.31 Report IMPRESSION: BIRADS 1 NEGATIVE, NORMAL INTERVAL FOLLOW-UP.12 MONTH RECALL. CLINICAL HISTORY: Z12.31. COMPARISON: 10/09/2021. COMMENT: Routine views and tomosynthesis views of both breasts were obtained. There are scattered areas of fibroglandular density. No dominant breast mass nor neoplastic calcifications are identified in either breast. There has been no significant change from the previous exam. The examination was reviewed with Computer Aided Detection. Breast Density: No Mammography is very important to your health. The current [employer] and National Comprehensive Cancer [...] Christopher Mcdermott M.D. Transcribed by: DON Technologist: [facility] Assessment: BI-RADS Category 1-Negative Recommendation: Normal interval follow-up Normal [facility] Consent for Treatmenton Consent for Treatment [id number]#1.00C D:127 Normal [facility] PAP [id number] 10-02-2022 Cytology report Cyto stain Doc (Cvx/Vag) Note Invalid Interpretation Code [facility] Comment on above: Result Comment: TEST S RESULT FLAG UNITS REF RANGE LAB Clinician Provided Cytology Information Source.............Endocervix No. of containers..01 ThinPrep Vial DIAGNOSIS: 01 NEGATIVE FOR INTRAEPITHELIAL LESION OR MALIGNANCY. Specimen adequacy: 01 Satisfactory for evaluation. Endocervical and/or squamous metaplastic cells (endocervical component) are present. Performed by: [employer] Registrar (ASCP) . 01 Note: Note 01 The Pap [...] Low,>-Panic High,A-Abnormal,AA-Critical Abnormal Performed at: [address] [id number] Beryl Rios MD, Performed By: #### 3 [id number] #### [facility] [address] [place] [address] HPV 16+18+31+33+35+39+ 45+51+52+56+58+59+ 66+68 DNA Probe+sig amp Ql (Cvx) Negative Invalid Interpretation Code Negative [facility] Comment on above: Result Comment: This nucleic acid amplification test detects fourteen high-risk HPV types (16,18,31,33,35,39,45,51,52,56,58,59,66,68) without differentiation. Performed at: [facility] [id number] MD Gabriel Cordoba Performed at: =G [facility] [id number] MD Gabriel Cordoba Performed By: #### 3 [id number] #### [facility] [address] [place] [address] PAP [id number] 09-24-2022 Collection Technique BRUSH-SPATULA Normal [facility] Comment on above: Performed By: #### 3 [id number] #### [facility] [address] [place] [address] Gynecological Body Site ENDOCERVIX Normal [facility] Comment on above: Performed By: #### 3 [id number] #### [facility] [address] [id number] Physician Orderon 09-24-2022 Physician Order [id number]#1.00C D:127 Normal [facility] Physician Orderon 09-23-2022 Physician Order [id number]#1.00C D:127 Normal [facility] Chlamydia/Gonococcus, NAAon 09-17-2022 C. trachomatis rRNA JAQUELIN+probe Ql (Unsp spec) Negative Invalid Interpretation Code Negative [facility] Comment on above: Performed By: #### 3 [id number] #### [facility] [address] [place] [address] N. gonorrhoeae rRNA JAQUELIN+probe Ql (Unsp spec) Negative Invalid Interpretation Code Negative [facility] Comment on above: Result Comment: Perf ormed at: =G [facility] [id number] MD Gabriel Cordoba Performed By: #### 3 [id number] #### [facility] [address] [place] [address] Vaginitis/Vaginosis, DNA Pro beon 09-17-2022 Samia sp rRNA Probe Ql (Vag fld) Negative Invalid Interpretation Code Negative [facility] Comment on above: Performed By: #### 3 [id number] #### [facility] [address] [place] [address] G. vaginalis rRNA Probe Ql (Genital specimen) Negative Invalid Interpretation Code Negative [facility] Comment on above: Performed By: #### 3 [id number] #### [facility] [address] [place] [address] T. vaginalis rRNA Probe Ql (Genital specimen) Negative Invalid Interpretation Code Negative [facility] Comment on above: Result Comment: Perf ormed at: [facility] [address] [id number] PhD Chidi Knox Performed By: #### 3 [id number], [id number] #### [facility] [address] [place] [address] Physician Orderon 09-11-2022 Physician Order [id number] CD:127 Normal [facility] Ambulatory Visit Summaryon 0 08-28-2022 Ambulatory Visit Summary GERRI GARCIA :1980 Visit Date:08/28/2022 Ambulatory Visit Instructions Your Diagnosis Acute maxillary sinusitis, unspecified BMI 33.0-33.9,adult Tobacco use Elevated blood pressure reading with diagnosis of hypertension Your Care Team Attending Physician - Samantha JULES CNP Primary Care Physician - Fede Underwood DO This Is Your Medications List cetirizine (cetirizine 10 mg Tab) doxycycline (doxycycline hyclate 100 mg Cap) fluticasone nasal (Flonase 0.05 mg/inh [place]) Procedures Performed Colonoscopy (12/14/2021), Bartholin's gland operation (12/19/2017), Colonoscopy (2017), section, Oral surgery, wisdom teeth extraction. Discharge Vitals Temperature (Oral) 36.5 ?C Heart Rate (Peripheral) 104 Blood Pressure 146/88 Height 69 in Height 176 cm Weight 226.38 lb Weight 102.9 kg BMI 33.22 What to do next You Need to Schedule the Following Appointments Follow Up with Fede Underwood DO, FAM When: Where: [address] [place] [address]- Medications What How Much When Instructions New cetirizine (cetirizine 10 mg Tab) 1 Tablets By Mouth Every day Duration: 30 Days Pickup at [facility] New doxycycline (doxycycline hyclate 100 mg Cap) 1 Capsules By Mouth 2 times a day Duration: [address] [facility] [facility] New fluticasone nasal (Flonase 0.05 mg/ inh [place]) 2 Sprays Nasal Inhalation Every day Duration: 30 Days each nostril [facility] Pharmacy Information [facility]: [address] [place], [place] [id number] [phone] Allergies Latex (Hives, Swelling) bandaids (redness, blisters) [...] mL), one (more content not included)... 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 Has been using Mucinex hyir-qdz-oeomfqr without improvement. No tylenol or ibuprofen today. [...] day(s), # 30 tab(s), Refills(s) 0, Pharmacy: [facility], 176, cm, 08/28/22 13:56:00 EDT, Height/Length Dosing, 102.9, kg, 08/28/22 13:56:00 EDT, Weight Dosing doxycycline, 100 mg = 1 cap(s), Oral, BID, X 10 day(s), # 20 cap(s), Refills(s) 0, Pharmacy: [facility], 176, cm, 08/28/22 13:56:00 EDT, Height/Length Dosing, 102.9, kg, 08/28/22 13:56:00 EDT, Weight Dosing fluticasone nasal, 2 spray(s), Nasal, Daily for 30 day(s), 16 gm, Refill(s) 0, each nostril, [facility], 176, cm, 08/28/22 13:56:00 EDT, Height/Length Dosing, 102.9, kg, 08/28/22 13:56:00 EDT, Weight Dosing Follow-up With (more content not included)... Normal [facility] Comment on above: Result Comment: Elec tronically Signed By: DHARA LOREDO, Samantha Galloway\.br\Date and Time Signed: 08/28/22 15:02 EDT Patient Educationon 08-29-19 Patient Education Infectious Disease Sinusitis, Adult Sinusitis [...] home: Medicines ? Take, use, or apply diuo-qgr-sakdkwn and prescription medicines only as told by [...] and water are not available, use hand rail equipment operator. ? Do not smoke. Avoid being [...] or swell (more content not included)... Normal [facility] Provider Letteron 08-28-2022 Provider Letter (Inserted Image. Lani ble to display) August 28, 2022 GERRI GARCIA [address] [place] [address] GERRI GARCIA 1980 To Whom It May Concern, Please excuse above patient from work. Date of Illness: From: 08/28/22 May Return to Work On: 08/29/22 Restrictions: none Comments: none Sincerely, [facility] [address] [place] [address], [place] [address] Normal [facility] Basic metabolic 2000 panelon 11-28-2021 Anion gap [Moles/Vol] 9 mmol/L 9 - 18 mmol/L [facility] Calcium [Mass/Vol] 9.2 mg/dL 8.5 - 10. 2 mg/dL [facility] Chloride [Moles/Vol] 105 mmol/L 97 - 105 mmol/L [facility] CO2 [Moles/Vol] 25 mmol/L 22 - 30 mmol/L [facility] Creatinine [Mass/Vol] 0.86 mg/dL 0.58 - 0.96 mg/dL [facility] Estimated Glomerular Filtration Rate 87 mL/min/1.73m >=60 mL/min/1.73m [facility] Glucose [Mass/Vol] 90 mg/dL 74 - 99 mg/dL [facility] Potassium [Moles/Vol] 4.1 mmol/L 3.7 - 5.1 mmol/L [facility] Sodium [Moles/Vol] 139 mmol/L 136 - 144 mmol/L [facility] Urea nitrogen [Mass/Vol] 8 mg/dL 7 - 21 mg/dL [facility] XR Foot - left AP and Latera l and obliqueon 11-27-2021 IMPRESSION: PES CAVU S. EARLY HALLUX METATARSOPHALANGEAL OSTEOARTHRITIS. Ash Conveyor Operator: SETH Transcribe Date/Time: Nov 27 2021 3:30P Dictated by : TUCKER DEL TORO MD This examination was interpreted and the report reviewed and electronically signed by: TUCKER DEL TORO MD on Nov 27 2021 3:31PM EST ZZZ_DO_NOT_US E_DIVISION OF RADIOLOGY * * *Final Report* * * DATE [...] space. Pes cavus. No fracture or dislocation. [facility]ZZ_DO_NOT_US E_DIVISION OF RADIOLOGY Provider, [facility] - 11/27/2021 * * *Final Report* * * DATE [...] space. Pes cavus. No fracture or dislocation. IMPRESSION IMPRESSION: PES CAVUS. EARLY HALLUX METATARSOPHALANGEAL OSTEOARTHRITIS. Ash Conveyor Operator: SETH Transcribe Date/Time: Nov 27 2021 3:30P Dictated by : TUCKER DEL TORO MD This examination was interpreted and the report reviewed and electronically signed by: TUCKER DEL TORO MD on Nov 27 2021 3:31PM EST [facility] Radiology Study observation (narrative) [facility] XR Foot - left AP and Latera l and obliqueOrdered By: Ccf Provider on 11-27-2021 [facility] XR Shoulder - right 3 Viewso n 08-18-2020 IMPRESSION: Unremarkable radiographic appearance of the right glenohumeral joint Ash Conveyor Operator: SETH Transcribe Date/Time: Aug 18 2020 8:49A Dictated by : HAILEY NAVARRO MD This examination was interpreted and the report reviewed and electronically signed by: HAILEY NAVARRO MD on Aug 18 2020 8:50AM EST DIVISION OF RADIOLOGY * * *Final Report* * * DATE OF EXAM: Aug 18 2020 8:41AM LZX 5253 - XR SHLDR >/=3V AP/CHARLES AP/OTHR RT / PROCEDURE REASON: Pain * * * * Physician Interpretation * * * * EXAMINATION: XR SHLDR >/=3V AP/CHARLES AP/OTHR RT HISTORY: CHRONIC RIGHT SHOULDER PAIN/ ACHE/ PT HELPED SOME Pain . TECHNIQUE: XR SHLDR >/=3V AP/CHARLES AP/OTHR RT Laterality: RIGHT Number of different views (projections): 4 M: XB_1 COMPARISON: None RESULT: The glenohumeral joint space is maintained. Acromiohumeral interval is maintained. Maintained acromioclavicular joint. There is no fracture or dislocation. The visualized ribs and lung parenchyma are unremarkable. The visualized thoracic spine is unremarkable. Moderate degenerative changes in cervical spine. No other significant abnormality. DIVISION OF RADIOLOGY Provider, [facility] - 08/18/2020 * * *Final Report* * * DATE OF EXAM: Aug 18 2020 8:41AM LZX 5253 - XR SHLDR >/=3V AP/CHARLES AP/OTHR RT / PROCEDURE REASON: Pain * * * * Physician Interpretation * * * * EXAMINATION: XR SHLDR >/=3V AP/CHARLES AP/OTHR RT HISTORY: CHRONIC RIGHT SHOULDER PAIN/ ACHE/ PT HELPED SOME Pain . TECHNIQUE: XR SHLDR >/=3V AP/CHARLES AP/OTHR RT Laterality: RIGHT Number of different views (projections): 4 M: XB_1 COMPARISON: None RESULT: The glenohumeral joint space is maintained. Acromiohumeral interval is maintained. Maintained acromioclavicular joint. There is no fracture or dislocation. The visualized ribs and lung parenchyma are unremarkable. The visualized thoracic spine is unremarkable. Moderate degenerative changes in cervical spine. No other significant abnormality. IMPRESSION IMPRESSION: Unremarkable radiographic appearance of the right glenohumeral joint Ash Conveyor Operator: [facility] Transcribe Date/Time: Aug 18 2020 8:49A Dictated by : HAILEY NAVARRO MD This examination was interpreted and the report reviewed and electronically signed by: HAILEY NAVARRO MD on Aug 18 2020 8:50AM EST [facility] Radiology Study observation (narrative) [facility] XR Shoulder - right 3 ViewsO rdered By: Ccf Provider on 08-18-2020 [facility] XR Foot - right AP and Later al and obliqueon 05-22-2020 IMPRESSION: NO ACUTE OSSEOUS ABNORMALITY OTHER FINDINGS DESCRIBED Ash Conveyor Operator: [facility] Transcribe Date/Time: May 22 2020 1:51P Dictated by : COY AMBRIZ MD This examination was interpreted and the report reviewed and electronically signed by: COY AMBRIZ MD on May 22 2020 1:51PM [facility] DIVISION OF RADIOLOGY * * *Final Report* * * DATE OF EXAM: May 22 2020 10:42AM LZX 5337 - XR FOOT 3V AP/LAT/OBL RT / PROCEDURE REASON: Great toe pain, right * * * * Physician Interpretation * * * * HISTORY: Great toe pain, right . RIGHT great toe pain x7 months. Patients foot slipped out of a sandal and her great toe curled under her foot. TECHNIQUE: XR FOOT 3V AP/LAT/OBL RT Laterality: RIGHT Views: 3 COMPARISON: None RESULT: Small osteophytes at the first MTP joint without joint space loss. Bipartite tibial hallux metatarsal sesamoid bone. No other significant abnormality. DIVISION OF RADIOLOGY Provider, Esthela Landrum [facility] - 05/22/2020 * * *Final Report* * * DATE OF EXAM: May 22 2020 10:42AM LZX 5337 - XR FOOT 3V AP/LAT/OBL RT / PROCEDURE REASON: Great toe pain, right * * * * Physician Interpretation * * * * HISTORY: Great toe pain, right . RIGHT great toe pain x7 months. Patients foot slipped out of a sandal and her great toe curled under her foot. TECHNIQUE: XR FOOT 3V AP/LAT/OBL RT Laterality: RIGHT Views: 3 COMPARISON: None RESULT: Small osteophytes at the first MTP joint without joint space loss. Bipartite tibial hallux metatarsal sesamoid bone. No other significant abnormality. IMPRESSION IMPRESSION: NO ACUTE OSSEOUS ABNORMALITY OTHER FINDINGS DESCRIBED Ash Conveyor Operator: [facility] Transcribe Date/Time: May 22 2020 1:51P Dictated by : COY AMBRIZ MD This examination was interpreted and the report reviewed and electronically signed by: COY AMBRIZ MD on May 22 2020 1:51PM EST [facility] Radiology Study observation (narrative) [facility] XR Foot - right AP and Later al and obliqueOrdered By: Cc Provider on 05-22-2020 [facility] MRI FOOT RT WO CONon 10-2 020 MRI FOOT RT WO CON EXAM: [...] KAI FUENTES Date: 2020-02-29 02:08 Normal [facility] XR FOOT RT MIN 3 VIEWSon XR FOOT RT MIN 3 VIEWS PROCEDURE: XR FOOT RT MIN 3 VIEWS COMPARISON: 11/30/2019 HISTORY: Pain in right foot FINDINGS: BONES:No fracture, acute abnormality, or significant arthropathy. SOFT TISSUES:Negative. No visible soft tissue swelling. EFFUSION:None visible. OTHER: Negative. IMPRESSION: Normal examination. Electronically authenticated by: MADI MAYER Date: 2020-02-17 14:33 Normal [facility] XR FOOT RT MIN 3 VIEWSon INR Coag (Jozef) [Relative time] PROCEDURE: XR FOOT RT MIN 3 VIEWS HISTORY: Pain in right foot ; follow-up right first metatarsal pain COMPARISON: 11/10/2019 right foot radiographs FINDINGS: BONES:No fracture, acute abnormality, or significant arthropathy. SOFT TISSUES:No visible soft tissue swelling. EFFUSION:None visible. OTHER: Negative. IMPRESSION: Normal examination. Electronically authenticated by: JOSSUE STEINBERG Date: 2019-11-30 12:18 Normal [facility] XR FOOT RT MIN 3 VIEWSon XR FOOT RT MIN 3 VIEWS IMAGES REVIEWED: XR FOOT RT MIN 3 VIEWS COMPARISON: None available. CLINICAL INDICATION: Injury, first digit pain. FINDINGS/IMPRESSION: No radiographic evidence of acute fracture. No dislocation or traumatic malalignment. Electronically authenticated by: ALFREDO STILL Date: 2019-11-10 19:20 Normal [facility] Bilateral thumb CMC (Kenalog ) [facility] Encounters Encounter Date Encounter Type Care Provider Facility Start: 07-22-2023 ambulatory FEDE UNDERWOOD Fa cility:[facility] Start: 07-03-2023 End: 07-03-2023 ambulatory Vero Sandoval RT(R) Radiology Comment on above: Radiology XR Start: 07-03-2023 Patient encounter procedure Vero Sandoval RT(R) [facility] Start: 07-03-2023 End: 07-03-2023 Office outpatient visit 25 minutes Deana Benson PA-C Work Phone: Orthopaedics Comment on above: Primary osteoarthrit is of both first carpometacarpal joints (Primary Dx); Carpal tunnel syndrome, bilateral Start: 07-03-2023 End: 07-03-2023 Subsequent hospital visit by physician Ean Tian 1 Work Phone: Radiology Comment on above: Pain [R52] Start: 01-08-2023 End: 01-09-2023 ambulatory Venice J Janel Facility:[facility] Start: 10-10-2022 End: 10-11-2022 ambulatory Venice J Janel Facility:[facility] Start: 09-23-2022 End: 09-24-2022 ambulatory Venice J Janel Facility:[facility] Start: 09-11-2022 End: 09-12-2022 ambulatory Venice J Janel Facility:[facility] Start: 08-28-2022 End: 08-29-2022 ambulatory Samantha JULES Facility: [place] Start: 11-27-2021 ambulatory Jessika Lalo RT(R) Radi jeff Comment on above: Radiology XR Start: 11-27-2021 End: 11-27-2021 Patient encounter procedure Jessika Lalo RT(R) [facility] Comment on above: Equinus deformity of both feet (Primary Dx); Arthralgia of left foot; Pain in left foot; Encounter for long-term (current) use of medications Start: 11-27-2021 End: 11-27-2021 Subsequent hospital visit by physician Ean Tian 1 Work Phone: Radiology Comment on above: Pain [R52] Start: 08-18-2020 End: 08-18-2020 Subsequent hospital visit by physician Ean Tian 1 Work Phone: Radiology Comment on above: Pain [R52] Start: 05-22-2020 End: 05-22-2020 Subsequent hospital visit by physician Ean Tian 1 Work Phone: Radiology Comment on above: Great toe pain, righ t [M79.674] Start: 02-28-2020 End: 02-29-2020 Patient encounter procedure RONY HUDSON Facility:[facility] Start: 02-17-2020 End: 02-18-2020 Patient encounter procedure RONY HUDSON Facility:[facility] Start: 12-03-2019 End: 02-08-2020 Patient encounter procedure DOCTOR MISC Facility:[facility] Start: 11-30-2019 End: 12-01-2019 Patient encounter procedure MAGNUS GASTELUM Facility:[facility] Start: 11-10-2019 End: 11-10-2019 Patient encounter procedure DOCTOR MISC Facility:[facility] Procedures Date Procedure Procedure Detail Performing Clinician Start: 07-03-2023 Arthrocentesis aspir &/inj small jt/bursa w/o us Deana Benson PA-C Work Phone: Start: 07-03-2023 Radex hand minimum 3 views Deana Benson PA-C Work Phone: Start: 11-27-2021 Radex foot complete minimum 3 views Caren Vizcarra DPM Work Phone: Start: 08-18-2020 Radex shoulder compl ete minimum 2 views Damian Hernandez PA-C Work Phone: Start: 05-22-2020 Radex foot complete minimum 3 views Jonas Dallas DPM Work Phone: Start: 02-23-2018 Adult depression scr eening assessment Jessika May RT(R) Plan of Treatment Date Care Activity Detail Author Start: 01-04-2024 Covid-19 Vaccine () Covid-19 Vaccine ( season) [facility] Start: 01-04-2024 Covid-19 Vaccine () Covid-19 Vaccine ( season) [facility] Start: 01-04-2024 Influenza vaccination Influenza Vacc ine (#1) [facility] Start: 05-05-2023 Depression Assessment Depression Ass essment [facility] Start: 01-03-2023 Covid-19 Vaccine ( season) Covid-19 Vaccine ( season) [facility] Start: 01-03-2023 Influenza vaccination Influenza Vacc ine (#1) [facility] Start: 01-03-2022 Influenza vaccination INFLUENZA (#1) [facility] Start: 2020 Mammography MAMMOGRAM [facility] Start: 2020 Screening for malign ant neoplasm of breast Mammogram Screening [facility] Start: 02-23-2019 Adult depression screening assessment DEPRESSION SCREENING [facility] Start: 2010 HPV TESTING HPV TESTING [facility] Start: 2010 Screening for malign ant neoplasm of cervix HPV Testing [facility] Start: 2001 PAP TESTING PAP TESTING [facility] Start: 2001 Screening for malign ant neoplasm of cervix [facility] Start: 11-12-1999 Hepatitis B Vaccine (1 of 3 - 19+ 3-dose series) Hepatitis B Vaccine (1 of 3 - 19+ 3-dose series) [facility] Start: 11-12-1999 Urine microalbumin profile [facility] Start: 1998 Anxiety Screening Anxiety Screening [facility] Start: 1998 Depression Screening Depression Scre ening [facility] Start: 1998 HEPATITIS C SCREENING HEPATITIS C [facility] Start: 1998 Hepatitis C screening Hepatitis C [facility] Start: 1998 HIV SCREENING HIV SCREENING [facility] Start: 1998 HIV screening HIV Screening [facility] Start: 1986 PNEUMOCOCCAL (1 - PCV) PNEUMOCOCCAL (1 - PCV) [facility] Start: 1986 Pneumococcal vaccination Pneumococcal Vaccine (1 of 2 - PCV) [facility] Start: 05-14-1981 COVID-19 VACCINE (#1) COVID-19 VACCI NE (#1) [facility] Start: 1980 Hepatitis B Vaccine (1 of 3 - 3-dose series) Hepatitis B Vaccine (1 of 3 - 3-dose series) [facility] End: 07-02-2024 EMG(NEURO/NI) EMG(NEURO/NI) EMG STAT Carpal tunnel syndrome, bilateral 1 Occurrences starting 07/03/2023 until 07/02/2024 [facility] Work Phone: Comment on above: 1 Occurrences starti ng 07/03/2023 until 07/02/2024 [facility] Payers Date Payer Category Payer Unknown MMO MMO [employer] [id number] 2023-Present [phone] [address] [place] [address] Indemnity [id number] 2023 Unknown [id number] 2017 Medicaid [employer] [place] [id number] 2017-Present [phone] [address] [address] [place] [address] Medicaid [id number] 2017 Medicaid [employer] [place] [id number] 2017-2022 [address] [address] [place] [address] Medicaid [id number] 1980 Unknown [id number] 1980 Unknown [id number] 1980 Unknown [id number] 1980 Unknown [id number] 1980 Unknown [id number] 1980 Unknown [id number] 1980 Unknown [id number] 1980 Unknown [id number] 1980 Unknown [id number] 1980 Unknown [id number] 1959 Unknown [id number] Social History Date Type Detail Facility Start[facility]23[facility] History of tobacco use Cigarette Smoker C [facility] Start: 02-23-2018 End: 04-13-2020 Cigarettes smoked current (pack per day) - Reported 0.5 [facility] Start: 02-23-2018 Tobacco use and exposure Smoke less tobacco non-user [facility] Start: 07-27-2018 End: 11-27-2021 Alcohol intake Current non-drinker of alcohol (finding) [facility] Start: 1980 Sex Assigned At Not on file C [facility] Start: 04-22-2020 End: 11-26-2021 Exposure to SARS-CoV-2 (event) Not sure [facility] Start: 04-13-2020 End: 11-27-2021 Tobacco use panel [facility] Adult Depression Scr eening Assessment 2 [facility] Clinical Notes 05-22-2020 to 07-03-2023 Patient InstructionsVero Sandoval RT(Massiel) - 07/03/2023 12:51 PM Deana Castro PA-C - 07/03/2023 12:45 PM ESTPatient Mary Vizcarra DPM - 11/27/2021 2:08 PM EDT Note Date & Type Note Facility 07-03-2023 Note HNO ID: [id number] Author: VERO SANDOVAL RT(R) Service: ? Author Type: Technologist Type: Progress Notes Filed: 07/03/2023 12:52 Note Text: Radiology Service Progress Note PATIENT NAME: Gerri Garcia DATE OF SERVICE: July 03, 2023 TIME: 12:52 PM PATIENT IDENTITY VERIFICATION COMPLETED USING TWO (2) IDENTIFIERS: Name and Date of confirmed by patient verbally. FALL SCREENING: Has the patient had 2 falls in the last year or 1 fall with injury or currently using an Ambulatory Assistive Device (Walker, Cane, Wheelchair, Crutches, etc.)? No PATIENT GENDER DATA: Female. status: : No status: N/A PATIENT RELEVANT IMPLANT DATA REVIEWED: Not Applicable PATIENT PRESENTS WITH AN IMPLANTABLE OR ATTACHED ADJUSTMENT SUPERVISOR: No RADIOLOGY DEPARTMENT: General X-ray: Exam(s) Completed: Upper Extremity X-Ray(s): Hand, bilateral PERIPHERAL IV DATA: Not applicable SIGNED BY: RT Mirella(R) July 03, 2023 12:52 PM [facility] 07-03-2023 Note HNO ID: [id number] Author: DEANA BENSON PA-C Service: ? Author Type: Physician Milieu Counselor Type: Progress Notes Filed: 07/17/2023 16:34 Note Text: Reason for Visit: Bilateral hand pain HPI: Gerri is a 42 year old RHD female who presents with a chief complaint of bilateral hand pain. Has been at the level of the thumb CMC joint bilaterally as well as numbness/tingling bilaterally. Both began a few years ago with no known injury. In regards to her thumb pain, became worse a few months ago with no known injury. Has constant pain that is made worse with particular movements, light gripping. Had previous corticosteroid injections in her right thumb CMC joint by Dr. Dowell in 2018/2018, which did provide symptomatic relief. Denied use of braces or OTC topicals. Takes ibuprofen as needed. In regards to her numbness/tingling, when asked if symptoms are present constantly she stated that her hands never feel normal. Has nocturnal paresthesias that wake her at night. Driving long distances makes symptoms worse. Has tried bracing, and previously had a right carpal tunnel injection by Dr. Dowell which provided symptomatic relief. Denies previous surgery on the hands. Allergies: ALLERGIES Allergen Reactions Codeine Itching Latex Rash Penicillin Hives Medications: meloxicam (MOBIC) 15 mg tablet Take 1 tablet by mouth once daily. Past Medical History: PAST MEDICAL HISTORY Diagnosis Date Pre-diabetes Past Surgical History: PAST SURGICAL HISTORY Procedure Laterality Date SECTION HX OTHER Dental extraction PAST SURGICAL HISTORY OF groin cyst lanced Social History: Tobacco Use: .5 packs/day, for 25 years. Types: Cigarettes ROS: Constitutional: Fever/chills: No Cardiovascular: Chest Pain: No Respiratory: SOB: No Endocrine: Diabetes: No Musculoskeletal: as noted in the HPI Neurologic: as noted in the HPI Physical Examination: Ms. Garcia is a pleasant 42 year old female. The upper extremities are well perfused with 2+ radial pulses bilaterally. Skin is intact with no discoloration, rash, wound, or laceration. APB and dorsal interosseous function intact. Motor function intact in EPL, FPL, FDS, FDP, and EDC. Sensation to light touch is intact in the median/radial/ulnar nerve distributions. On examination of the bilateral hands: There is no significant tenderness to palpation or instability to stress testing of the metacarpophalangeal (MCP) or interphalangeal (IP) joints. There is tenderness to palpation on the volar and dorsal aspect of trapeziometacarpal (TM) joint. Positive carpometacarpal (CMC) grind test, negative Finklestein test. Able to touch thumb to base of small finger. There is no tenderness over the scaphotrapeziotrapezoidal (STT) joint. There is no tenderness over the radiocarpal joint or the distal radial ulnar joint (DRUJ). Sensation to light touch is intact in the radial and ulnar nerve distributions. Subjectively, sensation is diminished in the median nerve distribution. Phalen compression/Durkan compression and Tinel tests are positive. Imagin views (PA, lateral and oblique) of the bilateral hands taken today show Eaton stage II thumb CMC osteoarthritis bilaterally. Ulnar neutral variance on the left and ~1.5 negative ulnar variance on the right. Laboratory Studies: Recent Labs 02/23/18 1549 12/10/17 1419 HB 14.8 -- WBC 9.16 -- PLT 327 -- WSR -- 5 CRP -- 0.2 CCPABG <15 -- RF <10 -- ALB 4.6 -- URICACID 5.3 -- Assessment: Bilateral thumb CMC osteoarthritis Bilateral carpal tunnel syndrome Plan: Gerri is a 42 year old RHD female who presents with bilateral thumb CMC osteoarthritis and carpal tunnel syndrome. In regards to her arthritis, we discussed the nature of presumptive thumb basilar joint osteoarthritis including a review of arthritis in general, signs and symptoms of the condition, general considerations for causation, progression of the condition, and strategies for treatment. Radiographs have been reviewed and pertinent pathology identified. Activity modification, anti-inflammatory modalities, OTC analgesics, and supportive splint use have been reviewed as first-line management. Should symptoms progress or persist, consideration for basilar joint corticosteroid injection would be reasonable. The indications and nature of surgical versus nonsurgical options have been discussed. The inherent risks and benefits of each treatment including non-operative management have been reviewed. In regards to her carpal tunnel syndrome, we discussed the nature of compressive neuropathies and specifically the nature of carpal tunnel syndrome including signs and symptoms of the condition, general considerations for causation and progression of the condition, and strategies for treatment. The nature of progressive nerve dysfunction, including reversible and irreversible (permanent) arrieta (more content not included)... [facility] 07-03-2023 Instructions Deana Benson PA-C - 07/03/2023 1:53 PM EST POST INJECTION CARE: -A normal response to the injection is decreased pain from the lidocaine (numbing medication) for several hours followed by increased pain for hours to several days. -Avoid heavy activity until pain subsides. May continue wearing your brace, if you have been given one. -Ice 10-15min several times for the next day or so or until pain subsides. -May take Tylenol or ibuprofen for pain if allowed. -If increased tingling, pain, or redness, try icing but if no relief or concern for infection call or seek medical care -If you experience redness or flushing sensation, rest, apply cold compress, or try a benadryl. Reaction should lessen over 24 hours. -Every injection carries the risk of infection. If you experience increased redness, swelling, pain, fever, chills, or other concern for infection pleasec ontact our office immediately. If night or weekend, go to nearest emergency room. PLEASE BE AWARE THAT IF YOU ARE DIABETIC, CORTISONE INJECTIONS WILL RAISE YOUR BLOOD SUGAR LEVELS FOR SEVERAL DAYS. documented in this encounter [facility] 07-03-2023 History of Present illness Narrative Radiology Service Progress Note PATIENT NAME: Gerri Garcia DATE OF SERVICE: July 03, 2023 TIME: 12:52 PM PATIENT IDENTITY VERIFICATION COMPLETED USING TWO (2) IDENTIFIERS: Name and Date of confirmed by patient verbally. FALL SCREENING: Has the patient had 2 falls in the last year or 1 fall with injury or currently using an Ambulatory Assistive Device (Walker, Cane, Wheelchair, Crutches, etc.)? No PATIENT GENDER DATA: Female. status: : No status: N/A PATIENT RELEVANT IMPLANT DATA REVIEWED: Not Applicable PATIENT PRESENTS WITH AN IMPLANTABLE OR ATTACHED ADJUSTMENT SUPERVISOR: No RADIOLOGY DEPARTMENT: General X-ray: Exam(s) Completed: Upper Extremity X-Ray(s): Hand, bilateral PERIPHERAL IV DATA: Not applicable SIGNED BY: RT Mirella(R) July 03, 2023 12:52 PM documented in this encounter [facility] 07-03-2023 History of Present illness Narrative Associated Order(s): Bilateral thumb CMC (Kenalog) Post-Procedure Diagnose(s): Primary osteoarthritis of both first carpometacarpal joints Reason for Visit: Bilateral hand pain HPI: Gerri is a 42 year old RHD female who presents with a chief complaint of bilateral hand pain. Has been at the level of the thumb CMC joint bilaterally as well as numbness/tingling bilaterally. Both began a few years ago with no known injury. In regards to her thumb pain, became worse a few months ago with no known injury. Has constant pain that is made worse with particular movements, light gripping. Had previous corticosteroid injections in her right thumb CMC joint by Dr. Dowell in 2018/2018, which did provide symptomatic relief. Denied use of braces or OTC topicals. Takes ibuprofen as needed. In regards to her numbness/tingling, when asked if symptoms are present constantly she stated that her hands never feel normal. Has nocturnal paresthesias that wake her at night. Driving long distances makes symptoms worse. Has tried bracing, and previously had a right carpal tunnel injection by Dr. Dowell which provided symptomatic relief. Denies previous surgery on the hands. Allergies: ALLERGIES Allergen Reactions Codeine Itching Latex Rash Penicillin Hives Medications: meloxicam (MOBIC) 15 mg tablet Take 1 tablet by mouth once daily. Past Medical History: PAST MEDICAL HISTORY Diagnosis Date Pre-diabetes Past Surgical History: PAST SURGICAL HISTORY Procedure Laterality Date SECTION HX OTHER Dental extraction PAST SURGICAL HISTORY OF groin cyst lanced Social History: Tobacco Use: .5 packs/day, for 25 years. Types: Cigarettes ROS: Constitutional: Fever/chills: No Cardiovascular: Chest Pain: No Respiratory: SOB: No Endocrine: Diabetes: No Musculoskeletal: as noted in the HPI Neurologic: as noted in the HPI Physical Examination: Ms. Garcia is a pleasant 42 year old female. The upper extremities are well perfused with 2+ radial pulses bilaterally. Skin is intact with no discoloration, rash, wound, or laceration. APB and dorsal interosseous function intact. Motor function intact in EPL, FPL, FDS, FDP, and EDC. Sensation to light touch is intact in the median/radial/ulnar nerve distributions. On examination of the bilateral hands: There is no significant tenderness to palpation or instability to stress testing of the metacarpophalangeal (MCP) or interphalangeal (IP) joints. There is tenderness to palpation on the volar and dorsal aspect of trapeziometacarpal (TM) joint. Positive carpometacarpal (CMC) grind test, negative Finklestein test. Able to touch thumb to base of small finger. There is no tenderness over the scaphotrapeziotrapezoidal (STT) joint. There is no tenderness over the radiocarpal joint or the distal radial ulnar joint (DRUJ). Sensation to light touch is intact in the radial and ulnar nerve distributions. Subjectively, sensation is diminished in the median nerve distribution. Phalen compression/Durkan compression and Tinel tests are positive. Imagin views (PA, lateral and oblique) of the bilateral hands taken today show Eaton stage II thumb CMC osteoarthritis bilaterally. Ulnar neutral variance on the left and ~1.5 negative ulnar variance on the right. Laboratory Studies: Recent Labs 02/23/18 1549 12/10/17 1419 HB 14.8 -- WBC 9.16 -- PLT 327 -- WSR -- 5 CRP -- 0.2 CCPABG <15 -- RF <10 -- ALB 4.6 -- URICACID 5.3 -- Assessment: Bilateral thumb CMC osteoarthritis Bilateral carpal tunnel syndrome Plan: Gerri is a 42 year old RHD female who presents with bilateral thumb CMC osteoarthritis and carpal tunnel syndrome. In regards to her arthritis, we discussed the nature of presumptive thumb basilar joint osteoarthritis including a review of arthritis in general, signs and symptoms of the condition, general considerations for causation, progression of the condition, and strategies for treatment. Radiographs have been reviewed and pertinent pathology identified. Activity modification, anti-inflammatory modalities, OTC analgesics, and supportive splint use have been reviewed as first-line management. Should symptoms progress or persist, consideration for basilar joint corticosteroid injection would be reasonable. The indications and nature of surgical versus nonsurgical options have been discussed. The inherent risks and benefits of each treatment including non-operative management have been reviewed. In regards to her carpal tunnel syndrome, we discussed the nature of compressive neuropathies and specifically the nature of carpal tunnel syndrome including signs and symptoms of the condition, general considerations for causation and progression of the condition, and strategies for treatment. The nature of progressive nerve dysfunction, including reversible and irreversible (permanent) changes, have been discussed along with the influence of timing on treatment considerations and prognosis for recovery. The potential for other or secondary sources of nerve compression including the cervical spine, proximal limb or other nerve involvement has been reviewed. The indications and nature of surgical versus nonsurgical options have been discussed. The inherent risks and benefits of each treatment including non-operative management have been reviewed and prognosis for recovery (including recurrence) and typical postoperative protocols have been explained. After this discussion and through shared decision-making, patient will move forward with bilateral thumb CMC corticosteroid injections today. Bilateral Comfort Cool braces were shown in the office, and she was advised for these as needed for pain relief. Discussed using OTC topicals as needed, including Voltaren. In regards to her carpal tunnel, advised her to wear wrist braces at night until her follow-up. She will follow-up after the EMG for reevaluation. Patient understood and agreed with this plan. All questions and concerns were addressed and answered. Deana Benson PA-C Bilateral thumb CMC (Kenalog) Informed Consent Consent Obtained: Verbal [place] Protocol A moment to CARE was completed. SIGN IN Personnel directly involved with the procedure wore the appropriate PPE. Special Equipment: N/A Patient/Surrogate Stated/Verified: Patient name, Date of , Relevant allergies and Intended procedure TIME OUT Intended patient and procedure match the source document(s). Consent documented and matches the intended procedure. Relevant labs, photos, and/or imaging studies have been reviewed. Correct side/site marked and visible. Medications required for procedure verified. No fire risk assessment and interventions applicable. No implant(s) inserted. 07/03/2023 1:52 PM The procedure site was prepped in the usual sterile fashion. Medications (Right): 0.5 mL triamcinolone acetonide 40 mg/mL Medications (Left): 0.5 mL triamcinolone acetonide 40 mg/mL Anesthetics (Right): 0.5 mL lidocaine (PF) 10 mg/mL (1 %) Anesthetics (Left): 0.5 mL lidocaine (PF) 10 mg/mL (1 %) Outcome: tolerated well, no immediate complications Post-injection instructions were reviewed with the patient and the patient voiced understanding of these instructions. SIGN OUT All instruments, equipment, possible retained foreign bodies accounted for. Third Democrat: Nandini Cornejo MA documented in this encounter [facility] 11-27-2021 Instructions Caren Vizcarra DPM - 11/27/2021 2:25 PM EDT New Balance Sneakers documented in this encounter [facility] 11-27-2021 History of Present illness Narrative Department of Orthopedics [facility] Name: Gerri Garcia Date of Service: November 27, 2021 REFERRING PHYSICIAN: Self Medications/allergies reviewed and updated. Patient does have a latex allergy. CHIEF COMPLAINT: New and Pain of the Left Foot HISTORY OF PRESENT ILLNESS: Gerri Garcia is a 41 year old female [...] arise prior to next appt. Electronically Signed: Caren Vizcarra DPM November 27, 2021 2:08 PM documented in this encounter [facility] 11-27-2021 History of Present illness Narrative Radiology Service Progress Note PATIENT NAME: Gerri Garcia DATE OF SERVICE: November 27, 2021 [...] 2021 1:44 PM documented in this encounter [facility] 05-22-2020 History of Present illness Narrative Radiology Service Progress Note PATIENT NAME: Gerri Garcia DATE OF SERVICE: May 22, 2020 TIME: 10:38 AM PATIENT IDENTITY VERIFICATION COMPLETED USING TWO (2) IDENTIFIERS: Name and Date of confirmed by patient verbally. FALL SCREENING: Has the patient had 2 falls in the last year or 1 fall with injury or currently using an Ambulatory Assistive Device (Walker, Cane, Wheelchair, Crutches, etc.)? No PATIENT GENDER DATA: Female. status: : No status: NO. PATIENT RELEVANT IMPLANT DATA REVIEWED: Not Applicable RADIOLOGY DEPARTMENT: General X-ray: Exam(s) Completed: Lower Extremity X-Ray(s): Foot, Right and Wt. Bearing: PERIPHERAL IV DATA: Not applicable SIGNED BY: RT Magnolia May 22, 2020 10:38 AM documented in this encounter [facility] Evaluation note Diagnosis Equinus deformity of both feet- Primary Arthralgia of left foot Pain in joint, ankle and foot Pain in left foot Pain in limb Encounter for long-term (current) use of medications Encounter for long-term (current) use of other medications [facility] Primary osteoarthritis of both first carpometacarpal joints- Primary Primary localized osteoarthrosis, hand Carpal tunnel syndrome, bilateral Carpal tunnel syndrome [facility] Diagnosis Pain Generalized pain [facility] Diagnosis Pain Generalized pain [facility] Diagnosis Pain Generalized pain documented [facility]* Diagnosis Great toe pain, right documented in this encounter [facility] for referral (narrative)* Outpatient Procedure (Urgent) - Authorized Specialty Diagnoses / Procedures Referred By Contac t Referred To Contact [facility] Diagnoses Carpal tunnel syndrome, bilateral Procedures EMG(NEURO/NI) NERVE CONDUCTION STUDIES 9-10 STUDIES Deana Benson PA-C [address] [place] [address] [facility] [address] [place] [address] Referral ID Status Reason Start Date Expiration Date Visits Requested Visits Authorized [id number] Authorized Auto-Generat ed Referral 07/03/2023 07/02/2024 1 1 [facility] for referral (narrative)* Diagnostic Procedure Only (Routine) - Closed Specialty Diagnoses / Procedures Referred By Contac t Referred To Contact XR IMAGING Diagnoses Pain Procedures XR HAND GENERAL 3V PA/LAT/OBL BILATERAL RADEX HAND MINIMUM 3 VIEWS Deana Benson PA-C [address] [place] [address] [place] [address] Referral ID Status Reason Start Date Expiration Date V isits Requested Visits Authorized [id number] Closed Auto-Generate d Referral 06/03/2023 07/02/2024 1 1 [facility] for referral (narrative)* Diagnostic Procedure Only (Routine) - Closed Specialty Diagnoses / Procedures Referred By Contac t Referred To Contact XR IMAGING Diagnoses Pain Procedures XR FOOT GENERAL 3V AP/LAT/OBL LEFT RADEX FOOT COMPLETE MINIMUM 3 VIEWS Caren Vizcarra, DPM [address] [place] [address] [place] [address] Referral ID Status Reason Start Date Expiration Date V isits Requested Visits Authorized [id number] Closed Auto-Generate d Referral 11/26/2021 12/26/2022 1 1 [facility] for visit Narrative* Diagnostic Procedure Only (Routine) - Closed Specialty Diagnoses / Procedures Referred By Contac t Referred To Contact XR IMAGING Diagnoses Pain Procedures XR HAND GENERAL 3V PA/LAT/OBL BILATERAL RADEX HAND MINIMUM 3 VIEWS Deana Benson PA-C [address] [place] [address] [place] [address] Referral ID Status Reason Start Date Expiration Date V isits Requested Visits Authorized [id number] Closed Auto-Generate d Referral 06/03/2023 07/02/2024 1 1 [facility] for visit Narrative* Diagnostic Procedure Only (Routine) - Closed Specialty Diagnoses / Procedures Referred By Contac t Referred To Contact XR IMAGING Diagnoses Pain Procedures XR FOOT GENERAL 3V AP/LAT/OBL LEFT RADEX FOOT COMPLETE MINIMUM 3 VIEWS Caren Vizcarra, DPM [address] [place] [address] [place] [address] Referral ID Status Reason Start Date Expiration Date V isits Requested Visits Authorized [id number] Closed Auto-Generate d Referral 11/26/2021 12/26/2022 1 1 [facility] Summary Purpose Family History No Family History Records FoundNo Family History Records FoundNo Family History Records Found Advance Directives No Advanced Directives Records FoundNo Advanced Directives Records FoundNo Advanced Directives Records Found Additional Source Comments INFORMATION SOURCE (unrecogn ized section and content) DATE CREATED AUTHOR 03/03/2020 Viviane hernández DATE CREATED AUTHOR AUTHOR'S ORGANIZ ATION 01/12/2023 [facility] DATE CREATED AUTHOR AUTHOR'S ORGANIZ ATION 07/23/2023 [facility] Source Comments (unrecognize d section and content) In the event this informatio n is protected by the Federal Confidentiality of Alcohol and Drug Abuse Patient Records regulations: The Federal rules restrict any use of the information to criminally investigate or prosecute any alcohol or drug abuse patient.[facility] the event this information is protected by the Federal Confidentiality of Alcohol and Drug Abuse Patient Records regulations: The Federal rules restrict any use of the information to criminally investigate or prosecute any alcohol or drug abuse patient.[facility] the event this information is protected by the Federal Confidentiality of Alcohol and Drug Abuse Patient Records regulations: The Federal rules restrict any use of the information to criminally investigate or prosecute any alcohol or drug abuse patient.[facility] the event this information is protected by the Federal Confidentiality of Alcohol and Drug Abuse Patient Records regulations: The Federal rules restrict any use of the information to criminally investigate or prosecute any alcohol or drug abuse patient.[facility] the event this information is protected by the Federal Confidentiality of Alcohol and Drug Abuse Patient Records regulations: The Federal rules restrict any use of the information to criminally investigate or prosecute any alcohol or drug abuse patient.[facility] the event this information is protected by the Federal Confidentiality of Alcohol and Drug Abuse Patient Records regulations: The Federal rules restrict any use of the information to criminally investigate or prosecute any alcohol or drug abuse patient.[facility] the event this information is protected by the Federal Confidentiality of Alcohol and Drug Abuse Patient Records regulations: The Federal rules restrict any use of the information to criminally investigate or prosecute any alcohol or drug abuse patient.[facility] the event this information is protected by the Federal Confidentiality of Alcohol and Drug Abuse Patient Records regulations: The Federal rules restrict any use of the information to criminally investigate or prosecute any alcohol or drug abuse patient.[facility] Reason for Visit (unrecogniz ed section and content) Reason Comments Radiology XR Reason Comments New Pain Reason Comments New Pain Care Teams (unrecognized sec tion and content) Utility Locator Relationship Specialty Start Date End Date Fede Underwood DO [address] [place] [address] PCP - General Family Practice 12/03/17 Utility Locator Relationship Specialty Start Date End Date Fede Underwood DO [address] [place] [address] PCP - General Family Practice 12/03/17 Utility Locator Relationship Specialty Start Date End Date Fede Underwood DO [address] [place] [address] PCP - General Family Medicine 12/03/17 Utility Locator Relationship Specialty Start Date End Date Fede Underwood DO [address] [place] [address] PCP - General Family Medicine 12/03/17 Utility Locator Relationship Specialty Start Date End Date Fede Underwood DO [address] [place] [address] PCP - General Family Medicine 12/03/17 Utility Locator Relationship Specialty Start Date End Date Fede Underwood DO [address] [place] [address] PCP - General Family Medicine 12/03/17 Utility Locator Relationship Specialty Start Date End Date Fede Underwood DO [address] [place] [address] PCP - General Family Medicine 12/03/17 Utility Locator Relationship Specialty Start Date End Date Fede Underwood DO [address] [place] [address] PCP - General Family Medicine 12/03/17 Inactive Administered Medications - up to 3 most recent administrations Administered Medications (un recognized section and content) Medication Order MAR Action Action Date Dose Rate Site lidocaine (PF) 10 mg/mL (1 %) 0.5 mL injection (XYLOCAINE) 0.5 mL, Injection - FOR ORTHO USE ONLY, ONCE, 1 dose, Starting on [place] 07/03/23 at 1352, Until [place] 07/03/23 at 1352 Given 07/03/2023 1:52 PM EST 0.[address], Left lidocaine (PF) 10 mg/mL (1 %) 0.5 mL injection (XYLOCAINE) 0.5 mL, Injection - FOR ORTHO USE ONLY, ONCE, 1 dose, Starting on [place] 07/03/23 at 1352, Until [place] 07/03/23 at 1352 Given 07/03/2023 1:52 PM EST 0.[address], Right triamcinolone acetonide 0.5 mL injection (KeNALog 40) 0.5 mL, Injection - FOR ORTHO USE ONLY, ONCE, 1 dose, Starting on [place] 07/03/23 at 1352, Until [place] 07/03/23 at 1352 Given 07/03/2023 1:52 PM EST 0.[address], Left triamcinolone acetonide 0.5 mL injection (KeNALog 40) 0.5 mL, Injection - FOR ORTHO USE ONLY, ONCE, 1 dose, Starting on [place] 07/03/23 at 1352, Until [place] 07/03/23 at 1352 Given 07/03/2023 1:52 PM EST 0.[address], Right FOR RECORDS PERTAINING TO PATIENTS WHO ARE [...] BE BASED ON THE PRIMARY CLINICAL RECORDS. [facility]. provides no warranty or guarantee of the accuracy or completeness of information in this document.
--- NOTE | 2024-04-17 16:27 | XR_ITS ---
The [address] [address] Patient Name: VENTURA VASQUEZ MRN: [id number] date: 1980 Sex: F Assigned Patient Location: ER Current Patient Location: ER Accession/Order Number: [id number] Exam Date: 04/17/2024 16:35 Report Date: 04/17/2024 17:32 At the request of: TUCKER ISLAS Procedure: XR foot RT min 3V EXAM: XR foot RT min 3V, XR ankle RT min 3V 04/17/2024 FINDINGS: Frontal, oblique and lateral views of the ankle and foot for a total of 6 images were obtained. HISTORY: Injury COMPARISON: None. Right ankle: 1. Periarticular soft tissue swelling is most apparent laterally. Tibiotalar joint effusion also suspected on the lateral view. 2. Subcentimeter well-corticated ossicle distal to the lateral malleolar tip related to remote avulsion injury. No acute fracture or dislocation. 3. Tiny calcaneal enthesophyte noted. No radiopaque foreign body. Right foot: 1. No acute fracture or dislocation. 2. Mild arthritic changes at the first MTP, first TMT and talonavicular articulations are noted. Subcentimeter calcaneal bone island is noted as well as a tiny calcaneal enthesophyte at the insertion site of the Achilles tendon. Developmental ankylosis of the fifth DIP articulation noted. 3. There is no radiopaque foreign body. Electronically authenticated by: MAYDA SCHULZ Date: 04/17/2024 17:32
--- NOTE | 2024-04-17 16:27 | XR_ITS ---
The [address] [address] Patient Name: VENTURA VASQUEZ MRN: [id number] date: 1980 Sex: F Assigned Patient Location: ER Current Patient Location: ER Accession/Order Number: [id number] Exam Date: 04/17/2024 16:35 Report Date: 04/17/2024 17:32 At the request of: TUCKER ISLAS Procedure: XR ankle RT min 3V EXAM: XR foot RT min 3V, XR ankle RT min 3V 04/17/2024 FINDINGS: Frontal, oblique and lateral views of the ankle and foot for a total of 6 images were obtained. HISTORY: Injury COMPARISON: None. Right ankle: 1. Periarticular soft tissue swelling is most apparent laterally. Tibiotalar joint effusion also suspected on the lateral view. 2. Subcentimeter well-corticated ossicle distal to the lateral malleolar tip related to remote avulsion injury. No acute fracture or dislocation. 3. Tiny calcaneal enthesophyte noted. No radiopaque foreign body. Right foot: 1. No acute fracture or dislocation. 2. Mild arthritic changes at the first MTP, first TMT and talonavicular articulations are noted. Subcentimeter calcaneal bone island is noted as well as a tiny calcaneal enthesophyte at the insertion site of the Achilles tendon. Developmental ankylosis of the fifth DIP articulation noted. 3. There is no radiopaque foreign body. Electronically authenticated by: MAYDA SCHULZ Date: 04/17/2024 17:32
--- NOTE | 2024-04-17 16:27 | ED.LOWEXI1 ---
HPI HPI - Extremity Injury (Lower) General Chief Complaint: Extremity Injury, Lower Stated Complaint: POSS BROKEN FOOT Time Seen by Provider: 04/17/24 16:27 History of Present Illness HPI Narrative: Patient is here complaining of pain in her right ankle and dorsum of her foot. She recently stumbled and rolled her ankle and foot. It has been sore for the last couple days. She does not have a previous fracture. She does not have any pain in her lower leg or in the knee area. She also hit her chin but has no pain in her mandible the maxilla or the TMJ area and has no complaints in that regard. She does not have a primary care doctor at this time and has not seen orthopedics or previous providers for this injury today. She has not had imaging done prior to this ER visit Related Data Home Medications ?Medication ?Instructions ?Recorded ?Confirmed hydrochlorothiazide 25 mg tablet 25 mg PO DAILY 03/11/23 04/17/24 spironolactone 50 mg tablet 50 mg PO DAILY 03/11/23 04/17/24 Allergies Allergy/AdvReac Type Severity Reaction Status Date / Time Penicillins Allergy Intermediate Rash Verified 04/17/24 16:28 codeine Allergy Hives Verified 04/17/24 16:28 Opioid HPI Opioid Management Most Recent Pain and Opioid Data: Last Pain Scale 10 04/17/24 16:37 04/17/24 PFSH PFSH Social History Smoking status: Current every day smoker Little interest or pleasure in doing things: not at all Feeling down, depressed, or hopeless: not at all Exam Narrative Exam Narrative: Patient's problem focused examination shows some ecchymosis and soft tissue swelling diffusely coarse the dorsum of the foot as well as the medial and lateral malleolus area. There is no open wound or evidence of bacterial infection or cellulitis. The knee and the rest of the lower extremity are normal. Examination of her mandibular area shows her to be able to open and close and laterally deviate the jaw with no discomfort in this area. MDM - Extremity Injury (Lower) MDM Narrative Medical decision making narrative: I preliminary review of the x-rays does not show any obvious fracture there is some marked degenerative changes in her foot and ankle. Final radiology disposition is pending Discharge Plan Discharge Chief Complaint: Extremity Injury, Lower Clinical Impression: Moderate right ankle sprain Patient Disposition: Home, Self-Care Time of Disposition Decision: 16:52 Prescriptions / Home Meds: No Action hydrochlorothiazide 25 mg tablet 25 mg PO DAILY spironolactone 50 mg tablet 50 mg PO DAILY Print Language: Ukrainian Additional Instructions: No weightbearing for 48 hours/ice rest elevation/NSAIDs as needed. Follow-up with primary care doctor or local orthopedic doctor in your insurance plan. May follow-up with Dr. Gage Fournier our local antisqueak filler Referrals: JULIO CÉSAR SANCHEZ [Primary Care Provider] - 1 week
[2024-04-17 16:35] VITALS: TEMP 36.6
[2024-04-17 17:12] VITALS: BP 160/89; PULSE 87; O2SAT 98
== END 2024-04-17 17:12 | disposition home or self-care (01) ==
PROVIDERS: Emergency Provider Emergency Medicine Emergency Medical Services; PCP Family Medicine
DX: S93.401A Sprain of unspecified ligament of right ankle, initial encounter (principal); X50.1XXA Overexertion from prolonged static or awkward postures, initial encounter; F17.200 Nicotine dependence, unspecified, uncomplicated
CPT/HCPCS: 73610; 73630; 99283

== ENCOUNTER 2024-07-27 16:29 | Outpatient (RCR) | payer OTHER, SELFPAY | END 2024-08-28 14:13 | disposition home or self-care (01) | LOC: PT 16:29 | PROVIDERS: PCP Nurse Practitioner | DX: M54.2 Cervicalgia (principal); M54.50 Low back pain, unspecified; G89.29 Other chronic pain | CPT/HCPCS: 97110; 97113; 97162 ==

== ENCOUNTER 2024-08-11 10:55 | Outpatient (RCR) | payer OTHER, SELFPAY | END 2024-09-02 12:18 | disposition home or self-care (01) | LOC: PT 10:55 | PROVIDERS: PCP Nurse Practitioner; Visit Provider Podiatrist | DX: S93.601D Unspecified sprain of right foot, subsequent encounter (principal) | CPT/HCPCS: 97014; 97035; 97110; 97161 ==

== ENCOUNTER 2024-08-23 10:40 | Outpatient (OUT) | payer OTHER, SELFPAY ==
--- NOTE | 2024-08-23 | XR_ITS ---
[facility] [place] [id number] Patient Name: VENTURA VASQUEZ MRN: [id number] date: 1980 Sex: F Assigned Patient Location: Current Patient Location: Accession/Order Number: [id number] Exam Date: 08/23/2024 14:04 Report Date: 08/23/2024 14:06 At the request of: JOSSUE RYAN MD Procedure: XR hand NAZ min 3v 3 views both pain and zone HISTORY: Bilateral hand pain greatest in the first metacarpal joints Minor interphalangeal and first carpal metacarpal degenerative change. Adequate alignment. No acute bony process. No bony erosion. No soft tissue calcifications. XR/XR hand NAZ min 3v IMPRESSION: Mild bilateral hand degeneration. Impression dictated by: Trip Pitts M.D.08/23/2024 2:06 PM Dictation Location: [place] [address] Electronically authenticated by: [id number] Y Date: 08/23/2024 14:06
--- OUTSIDE RECORDS SUMMARY | 2024-08-23 10:56 | XMS_ITS | CCD ---
Author Organization [facility] Care Team Providers Care Feed Crusher Operator Name Role Phone MISC, DOCTOR Primary Care Unavailable TUCKER ISLAS Admitting Unavailable TUCKER ISLAS Attending Unavailable TUCKER ISLAS Consulting Unavailable MARKERJUDI Consulting Unavailable ALFREDO STILL Consulting Unavailable MAGNUS GASTELUM Admitting Unavailable ORIANA, MAGNUS Attending Unavailable JOSSUE STEINBERG Consulting Unavailable MAGNUS GASTELUM Consulting Unavailable TRENT, DOCTOR Admitting Unavailable TRENT, DOCTOR Attending Unavailable RONY HUDSON Admitting Unavailable RONY HUDSON Attending Unavailable MADI MAYER V Consulting Unavailable TRISTAN, RONY Consulting Unavailable RONY HUDSON Admitting Unavailable RONY HUDSON Attending Unavailable ROYN HUDSON Consulting Unavailable Kai Fuentes Consulting Unavailable Fede Manzanares DO Primary Care Provider Fede Manzanares DO Primary Care Provider Fede Manzanares DO Primary Care Provider Myesha Alaniz Attending Unavailable Myesha Alaniz Attending Unavailable FACUNDO MERCEDES Attending Unavailclarissa e MAGOFACUNDO COLE Admitting UnavailVenice Llanos Attending Unavailable [place] Islas Admitting Unavailable Myesha Alaniz Attending Unavailable FACUNDO MERCEDES Attending Unavailabl e Myesha Alaniz Attending Unavailable Fede Manzanares DO Primary Care Provider Dontae Zhao Attending Unavailable Myesha Alaniz Attending Unavailable DAMIAN MCINTOSH Referring Unavailable FEDE MANZANARES Primary Care UnavailSAMMI Guevara Referring Unavailab FEDE Ennis Primary Care UnavailSAMMI Guevara Attending Unavailab FEDE Ennis FITZ Primary Care Unavailabl e DEANA BENSON Attending Unavailable FEDE MANZANARES Primary Care Unavailabl e MARCELINO, DEANA Referring Unavailable FEDE MANZANARES FITZ Primary Care UnavailCHAVA Sanchez Attending Unavailable FEDE MANZANARES FITZ [facility] Care Unavailabl e MARCELINODEANA ADAMS Attending Unavailable FEDE MANZANARES FITZ [facility] Care Unavailabl e MARCELINO, DEANA Referring Unavailable FEDE MANZANARES [facility] Unavailabl DAMIAN Denise Attending Unavailable Allergies Allergy Classification Reported Allergen(s) Allergy Type Date of Onset Reaction(s) Facility (4 sources) Codeine; Translations: [codeine] Drug Allergy 8 [facility] Repository (1 source) natural latex rubber Drug allergy (disorder) [facility] Rep[facility] (20 sources) Penicillin; Translations: [PENICILLIN] Drug Allergy 8 Hives [facility] (20 sources) Codeine Drug Allergy 8 Itching [facility] (20 sources) Latex; Translations: [Latex] Drug Allergy 8 Rash [facility] (2 sources) Penicillins; Translations: [penicillins] Propensity to adverse reactions (disorder) [facility] Repository (2 sources) bandaids; Translations: [bandaids] Propensity to adverse reactions (disorder) [facility] Repository Medications Current Medications Medication Drug Class(es) Dates Sig (Normalized) Sig (Original) diclofenac sodium 75 mg delayed release oral tablet (14 sources) Nonsteroidal Anti-inflammatory Drug Start: 07-15-2024 take 1 tablet by mouth every twelve hours as needed diclofenac, EC, (VOLTAREN) 75 mg EC tablet Take 1 tablet by mouth two times a day as needed (for pain). Please take with food. 60 tablet 07/15/2024 Active Start: 12-10-2017 End: 11-27-2021 apply 2 g topically four times daily diclofenac sodium (VOLTAREN) 1 % topical gel Apply 2 g to affected area four times daily. 1 Tube 1 12/10/2017 11/27/2021 Discontinued (Discontinued by another Health Care Provider) Comment on above: Apply 2 g to affecte d area four times daily. methocarbamol 500 mg oral tablet (11 sources) Muscle Relaxant Start: take 1 tablet by mouth every twelve hours as needed methocarbamol (ROBAXIN) 500 mg tablet Take 1 tablet by mouth two times a day as needed (for pain). 60 tablet 07/15/2024 Active phentermine hydrochloride 37.5 mg oral tablet (12 sources) Sympathomimetic Amine Anorectic Start: 025 take 1 tablet by mouth once daily Phentermine HCl 37.5 mg tablet Take 1 tablet by mouth once daily. 07/06/2024 Active spironolactone 50 mg oral tablet (12 sources) Aldosterone Antagonist Start: spironolactone (ALDACTONE) 50 mg tablet Take by mouth. 03/11/2023 Active Completed/Discontinued Medications Medication Drug Class(es) Dates Sig (Normalized) Sig (Original) betamethasone 3 mg/ml / betamethasone acetate 3 mg/ml injectable suspension (4 sources) Corticosteroid Start: 07-12-2024 End: 07-12-2024 betamethasone acetate-betamethason e sodium phosphate 6 mg injection (CELESTONE) Start: 07-12-2024 End: 07-12-2024 6 mg, Injection - FOR ORTHO USE ONLY, ONCE, 1 dose, Starting on Fri07/12/24 at 1126, Until Fri07/12/24 at 1126 10 ml lidocaine hydrochloride 10 mg/ml injection (10 sources) Antiarrhythmic, Amide Local Anesthetic Start: 07-12-2024 End: 07-12-2024 lidocaine (PF) 10 mg/mL (1 %) 0.5 mL injection (XYLOCAINE) Start: 07-12-2024 End: 07-12-2024 1 mL, Injection - FOR ORTHO USE ONLY, ONCE, 1 dose, Starting on Fri07/12/24 at 1126, Until Fri07/12/24 at 1126 Start: 07-03-2023 End: 07-03-2023 lidocaine (PF) 10 mg/mL (1 % ) 0.5 mL injection (XYLOCAINE) meloxicam 15 mg oral tablet (9 sources) Nonsteroidal Anti-inflammatory Drug Start: 11-27-2021 End: 07-15-2024 take 1 tablet by mouth once daily meloxicam (MOBIC) 15 mg tablet Take 1 tablet by mouth once daily. 30 tablet 2 11/27/2021 07/15/2024 Discontinued (Course of therapy completed) Comment on above: Take 1 tablet by scarlet th once daily. metFORMIN hydrochloride 500 mg oral tablet (3 [...] 1 ml triamcinolone acetonide 40 mg/ml injection (6 sources) Corticosteroid Start: 07-12-2024 End: 07-12-2024 triamcinolone acetonide 20 mg injection (KeNALog 40) Start: 07-12-2024 End: 07-12-2024 20 mg, Injection - FOR ORTHO USE ONLY, ONCE, 1 dose, Starting on Fri07/12/24 at 1126, Until Fri07/12/24 at 1126 Start: 07-03-2023 End: 07-03-2023 triamcinolone acetonide 0.5 mL injection (KeNALog 40) Problems Active Problems Problem Classification Problem Date Documented Date Episodic/Chronic Acquired foot deformities (20 sources) Toe joint rigid; Translations: [Hallux rigidus, right foot] Onset: 05-22-2020 05-22-2020 Chronic Acquired foot deformities (1 source) Plantarflexion deformity of bilateral feet; Translations: [Other acquired deformities of right foot] Episodic External cause codes: Natural/environment (1 source) Overexertion from prolonged static or awkward postures, initial encounter; Translations: [OVEREXERT PROLNG STAT/AWK PST INIT] Onset: 11-12-2019 Joint disorders and dislocations; trauma-related (20 sources) Derangement of left knee; Translations: [Unspecified internal derangement of left knee] Onset: 02-12-2019 02-12-2019 Chronic Osteoarthritis (20 sources) Osteoarthritis of multiple joints ; Translations: [Polyosteoarthritis, unspecified] Onset: 02-23-2018 02-23-2018 Chronic Other acquired deformities (1 source) Other specified acquired deformities of musculoskeletal system; Translations: [OTHER SPEC ACQ DEFORMITY MSK SYS] Onset: 03-02-2020 Episodic Other aftercare (1 source) Patient encounter status; Translations: [Other detention (current) drug therapy] Episodic Other connective tissue disease (5 sources) Pain in right foot; Translations: [PAIN IN RIGHT FOOT] Onset: 02-17-2020 Episodic Other connective tissue disease (1 source) Pain in left foot; Translations: [Pain in left foot] Episodic Other connective tissue disease (1 source) Pain in hallux; Translations: [Pain in right toe(s)] 05-22-2020 Episodic Other connective tissue disease (13 sources) Radial styloid tenosynovitis [de Quervain]; Translations: [Radial styloid tenosynovitis] Onset: 07-12-2024 07-12-2024 Episodic Other connective tissue disease (1 source) Impingement syndrome of right shoulder region; Translations: [Impingement syndrome of right shoulder] 07-27-2024 Episodic Other connective tissue disease (3 sources) Pain in right foot; Translations: [Pain in right foot] 07-28-2024 Episodic Other nervous system disorders (3 sources) Bilateral carpal tunnel syndrome; Translations: [Carpal tunnel syndrome, bilateral upper limbs] 07-03-2023 Chronic Other nervous system disorders (1 source) Carpal tunnel syndrome of right wrist; Translations: [Carpal tunnel syndrome, right upper limb] 06-23-2024 Chronic Other nervous system disorders (1 source) Carpal tunnel syndrome, bilateral upper limbs; Translations: [Carpal tunnel syndrome, bilateral] Onset: 06-18-2024 Chronic Other nervous system disorders (1 source) Other chronic pain; Translations: [Chronic bilateral low back pain, unspecified whether sciatica present] Onset: 06-18-2024 Chronic Other nervous system disorders (1 source) Numbness and tingling sensation of skin; Translations: [Anesthesia of skin] 06-23-2024 Episodic Other nervous system disorders (1 source) Anesthesia of skin; Translations: [Numbness and tingling] Onset: 06-23-2024 Episodic Other nervous system disorders (1 source) Paresthesia of skin; Translations: [Numbness and tingling] Onset: 06-23-2024 Episodic Other non-traumatic joint disorders (4 sources) [...] ankle and joints of left foot] Episodic Other non-traumatic joint disorders (3 sources) Pain in right shoulder; Translations: [Pain in joint, shoulder region] Onset: 07-27-2024 07-27-2024 Episodic Residual codes; unclassified (3 sources) Pain; Translations: [Pain, unspecified] 07-03-2023 Episodic Spondylosis; intervertebral disc disorders; other back problems (18 sources) Chronic low back pain; Translations: [Neck pain] Onset: 06-18-2024 07-02-2024 Episodic Substance-related disorders (1 source) Nicotine dependence, cigarettes, uncomplicated; Translations: [NICOTINE DEPEND CIGARETTES UNCOMP] Onset: 11-12-2019 Chronic Unclassified (2 sources) Right shoulder pain, unspecified chronicity 07-27-2024 Unclassified (1 source) Chronic bilateral low back pain, unspecified whether sciatica present; Translations: [Chronic bilateral low back pain, unspecified whether sciatica present] Onset: 06-18-2024 Past or Other Problems Problem Classification Problem Date Documented Date Episodic/Chronic Other connective tissue disease (20 sources) Swelling of finger ; Translations: [Other specified soft tissue disorders] Onset: 8 02-23-2018 Episodic Other non-traumatic joint disorders (20 sources) Sesamoiditis; Translations: [Other specified joint disorders, unspecified joint] Onset: 1 05-22-2020 Episodic Sprains and strains (20 sources) Unspecified sprain of right great toe, initial encounter; Translations: [Sprain of metatarsophalangeal joint of great toe] Onset: 0 05-22-2020 Episodic Superficial injury; contusion (20 sources) Contusion of left knee; Translations: [Contusion of left knee, initial encounter] Onset: 9 02-12-2019 Episodic Unclassified (1 source) Sprain of right foot 07-28-2024 Results Test Name Value Interpretation Reference Range Facility [facility] 08-18-2024 CNCO Letter Text Normal [facility] CNCOon 07-30-2024 CNCO Letter Text Normal [facility] CNPNon 07-30-2024 CNPN Telephone (LOORRM) GERRI GARCIA ([id number]) 1980 F Date Time Provider Department 07/30/24 CHAVA WEBER During your visit today, we recorded the following information about you: Sergio Adams, RN 07/30/2024 11:22 AM Signed Patient calling in to office. Verified by name and . Patient asking for letter to be written by Dr. Weber indicating that she is being evaluated and treated for BL hands. She states that she is working on getting disability due to her various orthopedic issues. Sending message to other orthopedic and spine specialists in separate encounters. Please notify patient if letter can be written and placed in [employer]. Binu Pisano, LON 07/30/2024 11:48 AM Signed Called and spoke with patient, informed her that requested letter was written for her and sent via [employer], patient understood. Also informed patient that she can picker and packer copy of letter at our [place] office if she needs to, just let Dr. Weber's know, patient again understood Allergies As of Date: 07/30/2024 Noted Allergy Reaction CODEINE 12/10/2017 9 - Itching LATEX 04/02/2018 2 - Rash PENICILLIN 12/10/2017 4 - Hives Date Reviewed: 07/28/2024 Reviewed by: Parvin Ramsey OCCA - Fully Assessed Reason for Visit: Letter [264] Prescriptions as of 07/30/2024 - diclofenac, EC, (VOLTAREN) 75 mg EC tablet Take 1 tablet by mouth two times a day as needed (for pain). Please take with food. - methocarbamol (ROBAXIN) 500 mg tablet Take 1 tablet by mouth two times a day as needed (for pain). - spironolactone (ALDACTONE) 50 mg tablet Take by mouth. - Phentermine HCl 37.5 mg tablet Take 1 tablet by mouth once daily. Problem List As Of Date 07/30/2024 Noted Resolved Swelling of right index finger [M79.89] 02/23/2018 Osteoarthritis of multiple joints [M15.9] 02/23/2018 Contusion of left knee [S80.02XA] 02/12/2019 Internal derangement of left knee [M23.92] 02/12/2019 Hallux rigidus of right foot [M20.21] 05/22/2020 Turf toe [S93.529A] 05/22/2020 Sesamoiditis [M25.80] 05/22/2020 Primary osteoarthritis of both first carpometac*07/12/2024 De Quervain's tenosynovitis, bilateral [M65.4] 07/12/2024 Encounter Status:[facility]ER[facility] ([id number]) 1980 F Date Time Provider Department 07/30/24 DEANA BENSON [facility] During your visit today, we recorded the following information about you: Sergio Adams RN 07/30/2024 11:27 AM Signed Patient calling in to office. Verified by name and . Patient asking for letter to be written by LITA Castillo indicating that she is being evaluated and treated for her spine. She states that she is working on getting disability due to her various orthopedic issues. Sending message to other orthopedic and spine specialists in separate encounters. Please notify patient if letter can be written and placed in MyChart. Candido Claros 08/18/2024 9:53 AM Signed Pt called again to f/u AND clarify that she only needs a statement letter stating that she is being evaluated and treated for her spine. Pt stated that she is getting letter from different doctors for her other conditions and Pt is only waiting from HANANE. Pls send letter via . Letter is on Pend. Allergies As of Date: 07/30/2024 Noted Allergy Reaction CODEINE 12/10/2017 9 - Itching LATEX 04/02/2018 2 - Rash PENICILLIN 12/10/2017 4 - Hives Date Reviewed: 07/28/2024 Reviewed by: Parvin Ramsey OCCA - Fully Assessed Reason for Visit: Letter [264] Prescriptions as of 08/19/2024 - diclofenac, EC, (VOLTAREN) 75 mg EC tablet Take 1 tablet by mouth two times a day as needed (for pain). Please take with food. - methocarbamol (ROBAXIN) 500 mg tablet Take 1 tablet by mouth two times a day as needed (for pain). - spironolactone (ALDACTONE) 50 mg tablet Take by mouth. - Phentermine HCl 37.5 mg tablet Take 1 tablet by mouth once daily. Problem List As Of Date 07/30/2024 Noted Resolved Swelling of right index finger [M79.89] 02/23/2018 Osteoarthritis of multiple joints [M15.9] 02/23/2018 Contusion of left knee [S80.02XA] 02/12/2019 Internal derangement of left knee [M23.92] 02/12/2019 Hallux rigidus of right foot [M20.21] 05/22/2020 Turf toe [S93.529A] 05/22/2020 Sesamoiditis [M25.80] 05/22/2020 Primary osteoarthritis of both first carpometac*07/12/2024 De Quervain's tenosynovitis, bilateral [M65.4] 07/12/2024 Encounter Status:Closed by SERGIO ADAMS on 08/09/24 [facility] Telephone (LOORRM) SHRUTHI GARCIASSICA ([id number]) 1980 F Date Time Provider Department 07/30/24 DAMIAN MCINTOSH During your visit today, we recorded the following information about you: Sergio Adams, RN 07/30/2024 11:25 AM Signed Patient calling in to office. Verified by name and . Patient asking for letter to be written by LITA Devine indicating that she is being evaluated and treated for shoulder pain. She states that she is working on getting disability due to her various orthopedic issues. Sending message to other orthopedic and spine specialists in separate encounters. Please notify patient if letter can be written and placed in [employer]. Shanthi Buck MA 07/30/2024 12:14 PM Signed Tree will review when back in the office on Friday08/03/2024. Carol Treviño 08/05/2024 8:39 AM Signed Pt calling for update. Please advise Damian Mcintosh PA-C 08/06/2024 12:44 PM Signed Spoke to patient about her request and provided her with a letter in [employer]. Damian Mcintosh PA-C Allergies As of Date: 07/30/2024 Noted Allergy Reaction CODEINE 12/10/2017 9 - Itching LATEX 04/02/2018 2 - Rash PENICILLIN 12/10/2017 4 - Hives Date Reviewed: 07/28/2024 Reviewed by: Parvin Ramsey OCCA - Fully Assessed Reason for Visit: Letter [264] Prescriptions as of 08/06/2024 - diclofenac, EC, (VOLTAREN) 75 mg EC tablet Take 1 tablet by mouth two times a day as needed (for pain). Please take with food. - methocarbamol (ROBAXIN) 500 mg tablet Take 1 tablet by mouth two times a day as needed (for pain). - spironolactone (ALDACTONE) 50 mg tablet Take by mouth. - Phentermine HCl 37.5 mg tablet Take 1 tablet by mouth once daily. Problem List As Of Date 07/30/2024 Noted Resolved Swelling of right index finger [M79.89] 02/23/2018 Osteoarthritis of multiple joints [M15.9] 02/23/2018 Contusion of left knee [S80.02XA] 02/12/2019 Internal derangement of left knee [M23.92] 02/12/2019 Hallux rigidus of right foot [M20.21] 05/22/2020 Turf toe [S93.529A] 05/22/2020 Sesamoiditis [M25.80] 05/22/2020 Primary osteoarthritis of both first carpometac*07/12/2024 De Quervain's tenosynovitis, bilateral [M65.4] 07/12/2024 Letter Text Encounter Status:Closed by DAMIAN [facility]H [facility]ERRI [facility] ([id number]) 1980 F Date Time Provider Department 07/30/24 SAMMI MANZO During your visit today, we recorded the following information about you: Sergio Adams, LON 07/30/2024 11:24 AM Signed Patient calling in to office. Verified by name and . Patient asking for letter to be written by Dr. Manzo indicating that she is being evaluated and treated for right foot issues. She states that she is working on getting disability due to her various orthopedic issues. Sending message to other orthopedic and spine specialists in separate encounters. Please notify patient if letter can be written and placed in [employer]. Parvin Ramsey OCCA 07/30/2024 11:40 AM Signed Letter sent via [employer] as requested. Allergies As of Date: 07/30/2024 Noted Allergy Reaction CODEINE 12/10/2017 9 - Itching LATEX 04/02/2018 2 - Rash PENICILLIN 12/10/2017 4 - Hives Date Reviewed: 07/28/2024 Reviewed by: Parvin Ramsey OCCA - Fully Assessed Reason for Visit: Letter [264] Prescriptions as of 07/30/2024 - diclofenac, EC, (VOLTAREN) 75 mg EC tablet Take 1 tablet by mouth two times a day as needed (for pain). Please take with food. - methocarbamol (ROBAXIN) 500 mg tablet Take 1 tablet by mouth two times a day as needed (for pain). - spironolactone (ALDACTONE) 50 mg tablet Take by mouth. - Phentermine HCl 37.5 mg tablet Take 1 tablet by mouth once daily. Problem List As Of Date 07/30/2024 Noted Resolved Swelling of right index finger [M79.89] 02/23/2018 Osteoarthritis of multiple joints [M15.9] 02/23/2018 Contusion of left knee [S80.02XA] 02/12/2019 Internal derangement of left knee [M23.92] 02/12/2019 Hallux rigidus of right foot [M20.21] 05/22/2020 Turf toe [S93.529A] 05/22/2020 Sesamoiditis [M25.80] 05/22/2020 Primary osteoarthritis of both first carpometac*07/12/2024 De Quervain's tenosynovitis, bilateral [M65.4] 07/12/2024 Letter Text Encounter Status:Closed by PARVIN RAMSEY on 07/30/24 [facility] 07-28-2024 CNOV Office Visit (LOORRM ) GERRI GARCIA ([id number]) 1980 F Date Time Provider Department 07/28/24 10:30 AM SAMMI MANZO LOORRNilesh During your visit today, we recorded the following information about you: Sammi Manzo DPM 07/28/2024 11:00 AM Signed Medical intake sheet from July 28, 2024 , was updated by patient, reviewed, and was made part of the patient's chart. Sammi Manzo DPM [facility] Department of Orthopedics [facility] Orthopedic Surgery Name: Gerri Garcia Date of Service: July 28, 2024 CC/HPI: This 43 year old female patient presents to the clinic today with a chief complaint of a right foot injury which repaired back in 2019 and again on April 15, 2024. She has pain along the lateral column of her right foot into her ankle. She is seen today to find out what the problem may be and discuss treatment options along with her plan of care. PAST MEDICAL HISTORY Diagnosis Date Pre-diabetes Current Outpatient Medications Medication Sig diclofenac, EC, (VOLTAREN) 75 mg EC tablet Take 1 tablet by mouth two times a day as needed (for pain). Please take with food. methocarbamol (ROBAXIN) 500 mg tablet Take 1 tablet by mouth two times a day as needed (for pain). spironolactone (ALDACTONE) 50 mg tablet Take by mouth. Phentermine HCl 37.5 mg tablet Take 1 tablet by mouth once daily. No current facility-administered medications for this visit. ALLERGIES Allergen Reactions Codeine Itching Latex Rash Penicillin Hives PAST SURGICAL HISTORY Procedure Laterality Date SECTION HX OTHER Dental extraction PAST SURGICAL HISTORY OF groin cyst lanced FAMILY HISTORY Problem Relation Age of Onset Rheumatologic disease Maternal Grandmother Lupus Rheumatologic disease Maternal Aunt Rheumatoid arthritis Thyroid Maternal Aunt Thyroid Maternal Aunt Psoriasis No Family History Social History Tobacco Use Smoking status: Every Day Current packs/day: 0.50 Average packs/day: 0.5 packs/day for 25.0 years (12.5 ttl pk-yrs) Types: Cigarettes Smokeless tobacco: Never Substance Use Topics Alcohol use: No Drug use: Yes Types: Marijuana Physical Exam: The patient is alert and oriented x 3 in no apparent acute distress. Vascular: Pedal pulses are palpable DP and PT right. CFT is less than 3 seconds digits 1-5 right right. Skin temperature is warm to cool from anterior knees to toes right. Minimal varicosities right. Normal pedal hair growth right. There is no substantial edema or erythema of the right foot or ankle at this time Neuro: Light touch is intact to all quadrants of foot and ankle with no apparent sensory deficits right. Derm: Unremarkable as related to the chief complaint right Ortho: Muscle strength is +5/5 for all pedal groups right. Ankle joint, subtalar joint, 1st MPJ and lesser MPJ ROM's are full and without pain or crepitus right. She relates tenderness that is diffuse about the lateral column of the right foot into the posterior right with palpation Radiographs: 3 views the right foot reveal no substantial abnormality Assessment: Indeterminant right foot and ankle chronic pain appropriate for physical therapy Plan: Initial Podiatric Office Visit- the etiology of the patient's complaint along with treatment options were explained to the patient in detail. Radiographs 3 views right foot Discussed results of clinical and radiograph examination with the patient in detail along with treatment options Recommend CAM Walker boot along with continued oral Voltaren and lastly recommend consideration for aggressive physical therapy. Prescription dispensed. If no improvement after physical therapy and oral anti-inflammatories and immobilization will consider MRI of right foot and ankle. Patient to assess and will follow-up as needed pending progress NAUN Jiménez Olivia, OCCA 07/28/2024 11:00 AM Signed Dispensed a large Air Select Short Walker for the right leg. Instructions were given on adjustments and care. Patient will follow up as scheduled/prn. Patient will be billed through [employer]. Allergies As of Date: 07/28/2024 Noted Allergy Reaction CODEINE 12/10/2017 9 - Itching LATEX 04/02/2018 2 - Rash PENICILLIN 12/10/2017 4 - Hives Date Reviewed: 07/28/2024 Reviewed by: Parvin Ramsey OCCA - Fully Assessed Reason for Visit: Pain [78] New [[id number]] Primary Visit Diagnosis:Right foot sprain, initial encounter [S93.601A] Other Visit Diagnoses:Right foot pain [M79.671] Derangement of ankle or foot [M24.173, M24.176] Order(s):CONSULT TO PHYSICAL THERAPY [9032] Order #: [id number]: 1 FUTURE Prescriptions as of 07/28/2024 - diclofenac, EC, (VOLTAREN) 75 mg EC tablet Take 1 tablet by mouth two times a day as needed (for pain). Please take with (more content not included)... Normal [facility] XR FOOT 3V AP/LAT/OBL RTon 0 07-28-2024 XR FOOT 3V AP/LAT/OBL RT * * *Final Report* * * DATE OF EXAM: Jul 28 2024 10:32AM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 15 2024 9:42AM JOVANNI 5311 - XR CERVICAL 4V AP/LAT/OBL / PROCEDURE REASON: Neck pain * * * * Physician Interpretation * * * * EXAMINATION: XR CERVICAL 4V AP/LAT/OBL HISTORY: pain Neck pain . TECHNIQUE: XR CERVICAL 4V AP/LAT/OBL Laterality: NOT APPLICABLE Number of different views (projections): 4 M: XB_1 COMPARISON: None RESULT/ IMPRESSION IMPRESSION: Counting reference: Craniocervical junction. Anatomic Variants: None. Moderate C5-C6 and C6-C7 degenerative changes with disc space narrowing and endplate osteophytes. No compression fracture or subluxation. Mild narrowing of the neural foramina at C5-C6 and C6-C7 levels. No other significant abnormality. [facility] Transcribe Date/Time: Jul 15 2024 10:36A Dictated by : PATRICIA AGUIRRE MD This examination was interpreted and the report reviewed and electronically signed by: PATRICIA AGUIRRE MD on Jul 15 2024 10:44AM [facility] Radiology Study observation (narrative) [facility] XR LUMBAR 2V AP/LATon 2024 XR LUMBAR 2V AP/LAT * * *Final Report* * * DATE OF EXAM: Jul 15 2024 9:42AM JOVANNI 5229 - XR LUMBAR 2V AP/LAT / PROCEDURE REASON: multiple diagnoses * * * * Physician Interpretation * * * * EXAMINATION: XR LUMBAR 2V AP/LAT HISTORY: pain Chronic bilateral low back pain, unspecified whether sciatica present Chronic bilateral low back pain, unspecified whether sciatica present . TECHNIQUE: XR LUMBAR 2V AP/LAT Laterality: NOT APPLICABLE Number of different views (projections): 2 M: XB_1 COMPARISON: None RESULT/ IMPRESSION: Counting reference: Lumbosacral junction. For the purposes of this report, L4-5 is considered the level of the iliac crest and assume there are 5 lumbar-type vertebrae. Anatomic variant: None. No compression fracture or subluxation. Disc spaces are maintained. Small endplate osteophytes throughout the lumbar spine. No other significant abnormality. [facility] Transcribe Date/Time: Jul 15 2024 10:44A Dictated by : PATRICIA AGUIRRE MD This examination was interpreted and the report reviewed and electronically signed by: PATRICIA AGUIRRE MD on Jul 15 2024 10:46AM EST [id number] Normal [facility] XR Lumbar spine AP and Later carlitos 07-15-2024 IMPRESSION: Counting reference: Lumbosacral junction. For the purposes of this report, L4-5 is considered the level of the iliac crest and assume there are 5 lumbar-type vertebrae. Anatomic variant: None. No compression fracture or subluxation. Disc spaces are maintained. Small endplate osteophytes throughout the lumbar spine. No other significant abnormality. Discharge Planner: [employer] Transcribe Date/Time: Jul 15 2024 10:44A Dictated by : PATRICIA AGUIRRE MD This examination was interpreted and the report reviewed and electronically signed by: PATRICIA AGUIRRE MD on Jul 15 2024 10:46AM EST DIVISION OF RADIOLOGY * * *Final Report* * * DATE OF EXAM: Jul 15 2024 9:42AM JOVANNI 5229 - XR LUMBAR 2V AP/LAT / PROCEDURE REASON: multiple diagnoses * * * * Physician Interpretation * * * * EXAMINATION: XR LUMBAR 2V AP/LAT HISTORY: pain Chronic bilateral low back pain, unspecified whether sciatica present Chronic bilateral low back pain, unspecified whether sciatica present . TECHNIQUE: XR LUMBAR 2V AP/LAT Laterality: NOT APPLICABLE Number of different views (projections): 2 M: XB_1 COMPARISON: None RESULT/ DIVISION OF RADIOLOGY Provider, Esthela Dickey - 07/15/2024 * * *Final Report* * * DATE OF EXAM: Jul 15 2024 9:42AM JOVANNI 5229 - XR LUMBAR 2V AP/LAT / PROCEDURE REASON: multiple diagnoses * * * * Physician Interpretation * * * * EXAMINATION: XR LUMBAR 2V AP/LAT HISTORY: pain Chronic bilateral low back pain, unspecified whether sciatica present Chronic bilateral low back pain, unspecified whether sciatica present . TECHNIQUE: XR LUMBAR 2V AP/LAT Laterality: NOT APPLICABLE Number of different views (projections): 2 M: XB_1 COMPARISON: None RESULT/ IMPRESSION IMPRESSION: Counting reference: Lumbosacral junction. For the purposes of this report, L4-5 is considered the level of the iliac crest and assume there are 5 lumbar-type vertebrae. Anatomic variant: None. No compression fracture or subluxation. Disc spaces are maintained. Small endplate osteophytes throughout the lumbar spine. No other significant abnormality. Discharge Planner: [facility] Transcribe Date/Time: Jul 15 2024 10:44A Dictated by : PATRICIA AGUIRRE MD This examination was interpreted and the report reviewed and electronically signed by: PATRICIA AGUIRRE MD on Jul 15 2024 10:46AM [facility] XR SI JTS 2V AP PELV/FERGUSO Non 07-15-2024 XR SI JTS 2V AP PELV/MILLER * * *Final Report* * * DATE OF EXAM: Jul 15 2024 9:42AM JOVANNI 5245 - XR SI JTS 2V AP PELV/MILLER / PROCEDURE REASON: Pain of right sacroiliac joint * * * * Physician Interpretation * * * * EXAMINATION: XR SI JTS 2V AP PELV/MILLER HISTORY: pain of right sacroiliac joint Pain of right sacroiliac joint . TECHNIQUE: XR SI JTS 2V AP PELV/MILLER Laterality: NOT APPLICABLE Number of different views (projections): 2 M: XB_1 COMPARISON: None RESULT/ IMPRESSION: Mild sacroiliac joint narrowing with osteophytes inferiorly on both sides. Small cystic changes in left ilium abutting SI joint. No erosions. Hip joint spaces are maintained. Cystic changes at the femoral head and neck junctions more prominent on the left suggestive of synovial herniation pits. No other significant abnormality. Discharge Planner: [facility] Transcribe Date/Time: Jul 15 2024 10:34A Dictated by : PATRICIA AGUIRRE MD This examination was interpreted and the report reviewed and electronically signed by: PATRICIA AGUIRRE MD on Jul 15 2024 10:36AM EST [id number] Normal [facility] XR Sacroiliac Joint Viewson 07-15-2024 IMPRESSION: Mild sacroiliac joint narrowing with osteophytes inferiorly on both sides. Small cystic changes in left ilium abutting SI joint. No erosions. Hip joint spaces are maintained. Cystic changes at the femoral head and neck junctions more prominent on the left suggestive of synovial herniation pits. No other significant abnormality. Discharge Planner: [facility] Transcribe Date/Time: Jul 15 2024 10:34A Dictated by : PATRICIA AGUIRRE MD This examination was interpreted and the report reviewed and electronically signed by: PATRICIA AGUIRRE MD on Jul 15 2024 10:36AM EST DIVISION OF RADIOLOGY * * *Final Report* * * DATE OF EXAM: Jul 15 2024 9:42AM JOVANNI 5245 - XR SI JTS 2V AP PELV/MILLER / PROCEDURE REASON: Pain of right sacroiliac joint * * * * Physician Interpretation * * * * EXAMINATION: XR SI JTS 2V AP PELV/MILLER HISTORY: pain of right sacroiliac joint Pain of right sacroiliac joint . TECHNIQUE: XR SI JTS 2V AP PELV/MILLER Laterality: NOT APPLICABLE Number of different views (projections): 2 M: XB_1 COMPARISON: None RESULT/ DIVISION OF RADIOLOGY Provider, [facility] - 07/15/2024 * * *Final Report* * * DATE OF EXAM: Jul 15 2024 9:42AM JOVANNI 5245 - XR SI JTS 2V AP PELV/MILLER / PROCEDURE REASON: Pain of right sacroiliac joint * * * * Physician Interpretation * * * * EXAMINATION: XR SI JTS 2V AP PELV/MILLER HISTORY: pain of right sacroiliac joint Pain of right sacroiliac joint . TECHNIQUE: XR SI JTS 2V AP PELV/MILLER Laterality: NOT APPLICABLE Number of different views (projections): 2 M: XB_1 COMPARISON: None RESULT/ IMPRESSION IMPRESSION: Mild sacroiliac joint narrowing with osteophytes inferiorly on both sides. Small cystic changes in left ilium abutting SI joint. No erosions. Hip joint spaces are maintained. Cystic changes at the femoral head and neck junctions more prominent on the left suggestive of synovial herniation pits. No other significant abnormality. Discharge Planner: [facility] Transcribe Date/Time: Jul 15 2024 10:34A Dictated by : PATRICIA AGUIRRE MD This examination was interpreted and the report reviewed and electronically signed by: PATRICIA AGUIRRE MD on Jul 15 2024 10:36AM EST [facility] XR Sacroiliac Joint ViewsOrd ered By: Esthela Provider on 07-15-2024 [facility] Additional Injections: bilat eral extensor compartment 1on 07-12-2024 Chava Weber MD 07/12/2024 12:35 PM Additional Injections: bilateral extensor compartment 1 for de Quervain's tenosynovitis 07/12/2024 11:26 AM The procedure site was prepped in the usual sterile fashion. Medications (Right): 6 mg betamethasone acetate-betamethasone sodium phosphate 6 mg/mL Medications (Left): 6 mg betamethasone acetate-betamethasone sodium phosphate 6 mg/mL Anesthetics (Right): 1 mL lidocaine (PF) 10 mg/mL (1 %) Anesthetics (Left): 1 mL lidocaine (PF) 10 mg/mL (1 %) Outcome: tolerated well, no immediate complications Post-injection instructions were reviewed with the patient and the patient voiced understanding of these instructions. Informed Consent Consent Obtained: Verbal [place] Protocol A moment to CARE was completed. SIGN IN Sign in communication not applicable due to emergent procedure. Personnel directly involved with the procedure wore the appropriate PPE. Special Equipment: N/A Patient/Surrogate Stated/Verified: Patient name, Date of , Relevant allergies and Intended procedure TIME OUT Relevant labs, photos, and/or imaging studies have been reviewed. Consent documented and matches the intended procedure. Correct side/site marked and visible. Medications required for procedure verified. No fire risk assessment and interventions applicable. No implant(s) inserted. SIGN OUT No specimen collected. All instruments, equipment, possible retained foreign bodies accounted for. [facility] CNOVon 07-12-2024 CNOV Office Visit (LOORRM ) GERRI GARCIA ([id number]) 1980 F Date Time Provider Department 07/12/24 10:45 AM CHAVA WEBERORRNilesh During your visit today, we recorded the following information about you: Chava Weber MD 07/12/2024 12:35 PM Signed The patient is sent for evaluation and an opinion regarding treatment by , who will receive a copy of this report by mail or through the shared medical record. CHIEF COMPLAINT: Gerri Garcia is a 43 year old female who presents today for new evaluation of both thumbs and wrists. HPI: PAIN EVALUATION 07/12/2024 1056 Pain Level: 10 Pain Location: -- both hands Description: Tingling;Numbness swelling Duration Units: Years Frequency: Continuous Intervention/Comfort measure: Medication injections Occupation: Not working Hand Dominance: right Background: She complains of left worse than right bilateral basilar thumb pain and radial sided wrist pain for years that has been worsening. She also complains of constant median distribution numbness and tingling and has had a recent EMG. Today she is only concerned about the thumb and wrist pain. Injections 5 years ago helped for several years but injections in May did not help significantly. No significant medical problems. Previous treatment or work-up includes: As above. ROS: REVIEW OF SYSTEMS: Constitutional: Fever/chills: No Cardiovascular: Chest Pain: No Respiratory: SOB: No Musculoskeletal: as noted in the HPI Neurologic: as noted in the HPI Endocrine: Diabetes: No Tobacco user? No SOCIAL HISTORY: Tobacco Use: .5 packs/day, for 25 years. Types: Cigarettes FAMILY HISTORY: FAMILY HISTORY Problem Relation Age of Onset Rheumatologic disease Maternal Grandmother Lupus Rheumatologic disease Maternal Aunt Rheumatoid arthritis Thyroid Maternal Aunt Thyroid Maternal Aunt Psoriasis No Family History PAST MEDICAL HISTORY Diagnosis Date Pre-diabetes PAST SURGICAL HISTORY Procedure Laterality Date SECTION HX OTHER Dental extraction PAST SURGICAL HISTORY OF groin cyst lanced FAMILY HISTORY Problem Relation Age of Onset Rheumatologic disease Maternal Grandmother Lupus Rheumatologic disease Maternal Aunt Rheumatoid arthritis Thyroid Maternal Aunt Thyroid Maternal Aunt Psoriasis No Family History Social History Tobacco Use Smoking status: Every Day Current packs/day: 0.50 Average packs/day: 0.5 packs/day for 25.0 years (12.5 ttl pk-yrs) Types: Cigarettes Smokeless tobacco: Never Substance Use Topics Alcohol use: No Drug use: Yes Types: Marijuana ALLERGIES Allergen Reactions Codeine Itching Latex Rash Penicillin Hives Current Outpatient Medications Medication Sig Dispense Refill spironolactone (ALDACTONE) 50 mg tablet Take by mouth. Phentermine HCl 37.5 mg tablet Take 1 tablet by mouth once daily. meloxicam (MOBIC) 15 mg tablet Take 1 tablet by mouth once daily. 30 tablet 2 No current facility-administered medications for this visit. Physical Exam: Vitals: There were no vitals taken for this visit. Body Habitus: Well nourished and no acute distress Orientation: Normal, oriented to person, place and time Psych: Normal Skin: Color, texture, turgor normal. No rashes or lesions Sensation: Sensation to light touch is grossly normal bilaterally Both hands are examined. Sensation intact in median, radial, ulnar nerve distribution. AIN, PIN, ulnar motor intact. I make full fist. Positive Phalen's bilaterally and positive Durkan's on the left. Negative elbow flexion negative Spurling. Tender at bilateral first CMC with positive grind. 40 degrees of MP hyperextension bilaterally. Tender at both first dorsal compartments the pain is worse at the CMC's bilaterally. No pain or crepitus at the thumb A1 pulleys. IMAGING: Final results and radiologist's interpretation, available in the [facility] health record. Images were reviewed with the patient/family members in the office today. My personal interpretation of the performed imaging is mild bilateral thumb first CMC DJD. Other Tests: EMG from 06/23/2024 is reviewed. 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 There was no evidence of a superimposed right cervical motor radiculopathy. Assessment: (M18.0) Primary osteoarthritis of both first carpometacarpal joints (primary encounter diagnosis) (M65.4) De Quervain's tenosynovitis, bilateral Plan: She has bilateral thumb basilar joint mild arthritis and bilateral de Quervain's tenosynovitis. I recommend at (more content not included)... Normal [facility] Small Joint Arthro/Inj: bila teral thumb CMCon 07-12-2024 Chava Weber MD 07/12/2024 12:35 PM Small Joint Arthro/Inj: bilateral thumb CMC 07/12/2024 11:26 AM The procedure site was prepped in the usual sterile fashion. Details:Fluoroscopy guided Medications (Right): 20 mg triamcinolone acetonide 40 mg/mL Medications (Left): 20 mg triamcinolone acetonide 40 mg/mL Anesthetics (Right): 0.5 mL lidocaine (PF) 10 mg/mL (1 %) Anesthetics (Left): 0.5 mL lidocaine (PF) 10 mg/mL (1 %) Outcome: tolerated well, no immediate complications Post-injection instructions were reviewed with the patient and the patient voiced understanding of these instructions. Informed Consent Consent Obtained: Verbal [place] Protocol A moment to CARE was completed. SIGN IN Sign in communication not applicable due to emergent procedure. Personnel directly involved with the procedure wore the appropriate PPE. Special Equipment: N/A Patient/Surrogate Stated/Verified: Patient name, Date of , Relevant allergies and Intended procedure TIME OUT Relevant labs, photos, and/or imaging studies have been reviewed. Consent documented and matches the intended procedure. Correct side/site marked and visible. Medications required for procedure verified. No fire risk assessment and interventions applicable. No implant(s) inserted. SIGN OUT No specimen collected. All instruments, equipment, possible retained foreign bodies accounted for. [facility] .Interpretation:on 5 HCV Ab IA Ql Comment Invalid Interpretation Code [facility] Comment on above: Result Comment: Not infected with HCV unless early or acute infection is suspected (which may be delayed in an immunocompromised individual), or other evidence exists to indicate HCV infection. Performed at: [address] [place] [id number] PhD Chidi Knox Performed By: #### 2 [id number] #### [facility] [address] [place] [address] Acute Hepatitis A B C Panelo n 07-10-2024 HAV IgM IA Ql Negative Invalid Interpretation Code Negative [facility] Comment on above: Result Comment: A ne gative anti-HAV IgM result suggests no recent or current HAV infection. Performed By: #### 3 [id number] #### [facility] [address] [place] [address] HBV core IgM IA Ql Negative Invalid Interpretation Code Negative [facility] Comment on above: Performed By: #### 3 [id number] #### [facility] [address] [place] [address] HBV surface Ag IA Ql Negative Invalid Interpretation Code Negative [facility] Comment on above: Performed By: #### 3 [id number] #### [facility] [address] [place] [address] HCV IgG IA Ql Non-Reactive Invalid Interpretation Code Non Reactive [facility] Comment on above: Result Comment: Perf ormed at: [facility] [address] [id number] PhD Chidi Knox Performed By: #### 3 [id number] #### [facility] [address] [place] [address] HIV Screen 4th Generation wR fxon 07-10-2024 HIV 1+2 Ab+HIV1 p24 Ag IA Ql Non-Reactive Invalid Interpretation Code Non Reactive [facility] Comment on above: Result Comment: HIV- 1/HIV-2 antibodies and HIV-1 p24 antigen were NOT detected. There is no laboratory evidence of HIV infection. HIV Negative Performed at: [facility] [address] [id number] PhD Chidi Knox Performed By: #### 9 [id number] #### [facility] [address] [place] [address] HSV I and II IgGon HSV 1 IgG IA Ql Reactive Abnormal Non Reactive [facility] Comment on above: Result Comment: Pl ease note reference interval change HSV-1 IgG testing performed using the [employer] HSV-1 IgG assay. Performed By: #### 1 [id number] #### [facility] [address] [place] [address] HSV 2 IgG IA Ql Reactive Abnormal Non Reactive [facility] Comment on above: Result Comment: Pl ease note reference interval change Current guidelines and recommendations do not recommend routine screening for HSV-2 in asymptomatic individuals, including those that are . The detection of HSV-2 IgG antibodies in a single sample indicates previous exposure to HSV-2 but does not give information as to the site of HSV infection or the timing of exposure. The predictive value of positive and negative results depends on the population's prevalence and the pretest likelihood of HSV-2. HSV-2 IgG testing performed using the [employer] HSV-2 IgG assay. Performed at: [facility] [id number] PhD Chidi Knox Performed By: #### 1 [id number] #### [facility] [address] [place] [address] RPR with Conf Rfxon 07-11-19 25 Reagin Ab RPR Ql (S) Non-Reactive Invalid Interpretation Code Non Reactive [facility] Comment on above: Result Comment: Perf ormed at: [facility] [id number] PhD Chidi Knox Performed By: #### 1 [id number] #### [facility] [address] [place] [address] Family Medicine Office/Clini c Noteon 07-08-2024 Family Medicine Office/Clinic Note Family Medicine Office/Clinic Note Chief Complaint The patient presents for sexually transmitted disease testing and evaluation of a previous Chlamydia diagnosis. [facility] Staff Gerri is a 43 year old female presenting for STD testing History of Present Illness The patient is a 43-year-old female presenting for sexually transmitted disease testing following recent confirmation of Chlamydia infection. Last week, a routine gynecological visit intended for mammographic requisition also included STD screening, due to the absence of recent testing. During this consultation, the patient was diagnosed with Chlamydia, manifesting no symptomatic evidence prior to or following the positive result. The patient and her partner have both undergone prescribed antibiotic treatments, though their relationship has previously involved intermittent condom use. Concerns were raised about additional STD testing, specifically blood examination for herpes, a condition of which neither displays symptoms, though guidance was sought on testing protocol in the absence of active lesions. The patient stated awareness of her recent Chlamydia diagnosis and concerns regarding comprehensive STD testing, encompassing the need to eliminate any potential for herpes, given her partner???s status and communicated preventative measures. Review of Systems PHQ Score Initial Depression Screen Score: 1 SCORE - Genitourinary: Reports Chlamydia infection; denies symptoms such as sores or lesions. - Psychological: Reports stress related to the unexpected diagnosis and STD testing. Physical Exam Vitals & Measurements HT: 68 in HT: 173.5 cm General: alert, no acute distress Cardiovascular: regular rate and rhythm, normal peripheral perfusion Respiratory: Lungs CTA, respirations non labored Extremities: no deformity, no trauma Neurological: oriented x 4, LOC appropriate for [facility] normal Assessment/Plan 1. Herpes exposure (Z20.828: Contact with and (suspected) exposure to other viral communicable diseases) Educated on Herpes Infections Awaiting laboratory tests results f/u with pcp Ordered: HSV I and II IgG Orders: hydrocortisone topical, 1 hanane, Topical, TID, 30 gram, Refill(s) 1, [facility], 173.5, cm, 06/28/24 8:53:00 EST, Height/Length Dosing, 102.9, kg, 06/28/24 8:53:00 EST, Weight Dosing Follow-up No qualifying data available Patient Education Genital Herpes Problem List/Past Medical History Ongoing BMI 31.0-31.9,adult Dermatitis Establishing care with new doctor, encounter for Family history of colon cancer in father GERD (gastroesophageal reflux disease) Hypertension PCOS (polycystic ovarian syndrome) Rectal bleeding Historical No qualifying data Procedure/Surgical History Colonoscopy (12/14/2021), Bartholin's gland operation (12/19/2017), Colonoscopy (2018), section, Oral surgery, wisdom teeth extraction. Medications automatic BP monitor-adult large cuff, See Instructions cetirizine 10 mg oral capsule, 10 mg= 1 cap(s), Oral, Daily, PRN hydrocortisone Top 2.5% Crm, 1 hanane, Topical, TID, 1 refills omeprazole 40 mg Cap-DR, 40 mg= 1 cap(s), Oral, Daily phentermine 37.5 mg Tab, 37.5 mg= 1 tab(s), Oral, Daily spironolactone 50 mg Tab, 50 mg= 1 tab(s), Oral, BID Voltaren Gel 1% Gel, 1 hanane, Topical, QID, PRN Allergies Latex (Hives, Swelling) bandaids (redness, blisters) codeine (Itching) penicillins (Hives) Social History Alcohol - Medium Risk, 12/09/2017 Past. Beer, Liquor. Daily., 06/11/2024 Substance Abuse - Denies Substance Abuse, 12/09/2017 Never., 06/11/2024 Tobacco - No Risk, 08/28/2022 10 or more cigarettes (1/2 pack or more)/day in last 30 days Tobacco Use:., 07/08/2024 Family History Primary malignant neoplasm of colon: Father. Normal [facility] Comment on above: Result Comment: Elec tronically Signed By: JUDY MERCEDES CNP\.br\Date and Time Signed: 07/08/24 15:58 EST Ambulatory Visit Summaryon 0 06-28-2024 Ambulatory Visit Summary Ambulatory Visit Summary GERRI GARCIA :1980 Visit Date:06/28/2024 Ambulatory Visit Instructions Your Diagnosis Hypertension BMI 34.0-34.9,adult Former smoker Your Care Team Attending Physician - Myesha Galvan Primary Care Physician - Myesha Galvan This Is Your Medications List spironolactone (spironolactone 50 mg Tab) Procedures Performed Colonoscopy (12/14/2021), Bartholin's gland operation (12/19/2017), Colonoscopy (2017), section, Oral surgery, wisdom teeth extraction. Discharge Vitals Heart Rate (Peripheral) 74 Respiratory Rate 18 Blood Pressure 142/88 Height 173.5 cm Height 68 in Weight 102.9 kg Weight 226.855 lb BMI 34.18 What to do next Scheduled Follow-Up Appointments Friday 8:20 AM EDT With: Myesha Galvan Where: [place] [id number]- Medications What How Much When Instructions Unchanged spironolactone (spironolactone 50 mg Tab) 1 Tablets By Mouth 2 times a day Allergies Latex (Hives, Swelling) bandaids (redness, blisters) codeine (Itching) penicillins (Hives) Problems Ongoing - Any problem that you are currently receiving treatment for. BMI 31.0-31.9,adult Establishing care with new doctor, encounter for Family history of colon cancer in father GERD (gastroesophageal reflux disease) Hypertension PCOS (polycystic ovarian syndrome) Rectal bleeding Patient Survey You may receive a survey via text or e-mail asking about your office visit. Please share your experience with us by completing your survey. We appreciate your feedback and thank you for choosing us for your care. Normal [facility] Family Medicine Office/Clini c Noteon 06-28-2024 Family Medicine Office/Clinic Note Family Medicine Office/Clinic Note HPI Staff Gerri is a 43 year old female presenting to discuss weight loss BLANE 06/11/24 restarted sprinorlactone due to elevated b/p Concerns: Jose't been checking blood pressure, denies headaches, palpitations, edema, SOB, pt would like Rx for blood pressure cuff Pt having intermittent GERD would like order for Prilosec and also Zyrtec Also pt having arthritis pain and would like RX for Voltaren cream has used it before and does work somewhat Pt would like to discuss weight loss she hasn't used anything int he past. Would be interested in adipex once blood pressure is controlled. History of Present Illness pt presents today for follow up on HTN. would like to discuss weight management Review of Systems PHQ Score Initial Depression Screen Score: 0 SCORE Physical Exam Vitals & Measurements HR: 74(Peripheral) RR: 18 BP: 142/88 SpO2: 98% HT: 68 in HT: 173.5 cm WT: 102.9 kg WT: 226.855 lb BMI: 34.18 General: alert, no acute distress ENMT: oral mucosa moist, no pharyngeal erythema or exudate Cardiovascular: regular rate and rhythm, normal peripheral perfusion Respiratory: Lungs CTA, respirations non labored Extremities: no deformity, no trauma Neurological: oriented x 4, LOC appropriate for age, CN II-XII intact, motor strength equal & normal bilaterally, speech normal Assessment/Plan 1. Hypertension (I10: Essential (primary) hypertension) pt BP is much improved since starting back on spironolactone. pt will monitor BP at home. rx for automatic BP monitor sent to pharmacy. RTC 4 weeks Ordered: cetirizine, 10 mg = 1 cap(s), Oral, Daily, PRN for allergy symptoms, # 90 cap(s), Refills(s) 0, Pharmacy: [facility], 173.5, cm, 06/28/24 8:53:00 EST, Height/Length Dosing, 102.9, kg, 06/28/24 8:53:00 EST, Weight Dosing diclofenac topical, 1 hanane, Topical, QID for pain, 100 gram, Refill(s) 0, [facility], 173.5, cm, 06/28/24 8:53:00 EST, Height/Length Dosing, 102.9, kg, 06/28/24 8:53:00 EST, Weight Dosing Misc Prescription, automatic BP monitor-adult large cuff, See Instructions, 1 EA, 0, check BP once a day, [facility], Supply, 173.5, cm, 06/28/24 8:53:00 EST, Height/Length Dosing, 102.9, kg, 06/28/24 8:53:00 EST, Weight Dosing omeprazole, 40 mg = 1 cap(s), Oral, Daily, # 90 cap(s), Refills(s) 0, Pharmacy: [facility], 173.5, cm, 06/28/24 8:53:00 EST, Height/Length Dosing, 102.9, kg, 06/28/24 8:53:00 EST, Weight Dosing 2. GERD (gastroesophageal reflux disease) (K21.9: Gastro-esophageal reflux disease without esophagitis) acid reflux is worsening will send in omeprazole Ordered: cetirizine, 10 mg = 1 cap(s), Oral, Daily, PRN for allergy symptoms, # 90 cap(s), Refills(s) 0, Pharmacy: [facility], 173.5, cm, 06/28/24 8:53:00 EST, Height/Length Dosing, 102.9, kg, 06/28/24 8:53:00 EST, Weight Dosing diclofenac topical, 1 hanane, Topical, QID for pain, 100 gram, Refill(s) 0, [facility], 173.5, cm, 06/28/24 8:53:00 EST, Height/Length Dosing, 102.9, kg, 06/28/24 8:53:00 EST, Weight Dosing Misc Prescription, automatic BP monitor-adult large cuff, See Instructions, 1 EA, 0, check BP once a day, [facility], Supply, 173.5, cm, 06/28/24 8:53:00 EST, Height/Length Dosing, 102.9, kg, 06/28/24 8:53:00 EST, Weight Dosing omeprazole, 40 mg = 1 cap(s), Oral, Daily, # 90 cap(s), Refills(s) 0, Pharmacy: [facility], 173.5, cm, 06/28/24 8:53:00 EST, Height/Length Dosing, 102.9, kg, 06/28/24 8:53:00 EST, Weight Dosing 3. BMI 34.0-34.9,adult (Z68.34: Body mass index [BMI] 34.0-34.9, adult) pt would like to start adipex. medication agreement updated. RTC 4 weeks for weight check. Ordered: cetirizine, 10 mg = 1 cap(s), Oral, Daily, PRN for allergy symptoms, # 90 cap(s), Refills(s) 0, Pharmacy: [facility], 173.5, cm, 06/28/24 8:53:00 EST, Height/Length Dosing, 102.9, kg, 06/28/24 8:53:00 EST, Weight Dosing diclofenac topical, 1 hanane, Topical, QID for pain, 100 gram, Refill(s) 0, [facility], 173.5, cm, 06/28/24 8:53:00 EST, Height/Length Dosing, 102.9, kg, 06/28/24 8:53:00 EST, Weight Dosing Misc Prescription, automatic BP monitor-adult large cuff, See Instructions, 1 EA, 0, check BP once a day, [facility], Supply, 173.5, cm, 06/28/24 8:53:00 EST, Height/Length Dosing, 102.9, kg, 06/28/24 8:53:00 EST, Weight Dosing omeprazole, 40 mg = 1 cap(s), Oral, Daily, # 90 cap(s), Refills(s) 0, Pharmacy: [facility], 173.5, cm, 06/28/24 8:53:00 EST, Height/Length Dosing, 102.9, kg, 06/28/24 8:53:00 EST, Weight Dosing 4. Former smoker (Z87.891: Personal history of nicotine dependence) continue not smoking Ordered: cetirizine, 10 mg = 1 cap(s), Oral, Daily, PRN for allergy symptoms, # 90 cap(s), Refills(s) 0, Pharmacy: [facility], 173.5, cm, 06/28/24 8:53:00 EST, Height/Length Dosing, 102.9, kg, 06/28/24 8:53:00 EST, Weight Dosing diclofenac topical, 1 hanane, Topical, QID for pain, 100 gram, Refill(s) 0, Medic[facility] (more content not included)... Normal [facility] Comment on above: Result Comment: Elec tronically Signed By: Myesha Galvan\.br\Date and Time Signed: 06/28/24 10:53 EST No Panel Informationon 06-23 Results can be seen in attached scanned documents. If you are a patient reviewing this test result, call the doctor who ordered the test with any questions. [facility] Family Medicine Office/Clini c Noteon 06-11-2024 Family Medicine Office/Clinic Note Family Medicine Office/Clinic Note HPI Staff Gerri is a 43 year old female presenting to [facility] Establish Care: History: Any previous diagnosis: HTN, Depression , PCOS History of seeing any specialist: When was your last doctors visit: Last provider: Dr Bee Any recent labs: no labs within the last year Health Maintenance UTD: Colonoscopy: 2 colonoscopy, father of colon cancer Mammogram: 2 years ago normal , going to get order for that next week to get that done Pelvic/Pap: 08/2023 normal Acute: Current issues/complaints: Onset: 2-3 years ago worse over last year Intermittent dull ache/burning lower right sided back pain. No injury that pt knows of. If does do much physical work is when the burning with get worse or standing on her feet a lot. Sometimes waking up in middle of night with burning. Pt was taking spironolactone for her PCOS but she ran out of insurance and would like to re start that. History of Present Illness pt presents today to establish care Review of Systems PHQ Score Initial Depression Screen Score: 0 SCORE Physical Exam Vitals & Measurements HR: 110(Peripheral) RR: 18 BP: 170/116 SpO2: 98% HT: 68 in HT: 173.5 cm WT: 104.6 kg WT: 230.603 lb BMI: 34.75 General: alert, no acute distress ENMT: oral mucosa moist, no pharyngeal erythema or exudate Cardiovascular: regular rate and rhythm, normal peripheral perfusion Respiratory: Lungs CTA, respirations non labored Extremities: no deformity, no trauma Neurological: oriented x 4, LOC appropriate for age, CN II-XII intact, motor strength equal & normal bilaterally, speech normal Assessment/Plan 1. Hypertension (I10: Essential (primary) hypertension) BP elevated. pt was previously on HCTZ and sprinorlactone. will restart sprinoloactone. pt to return in 3 weeks. IF BP still elevated will start losartan or metoprolol (if pulse is still high) 2. Establishing care with new doctor, encounter for (Z76.89: Persons encountering health services in other specified circumstances) previous pt of Dr. Sheridan. 3. PCOS (polycystic ovarian syndrome) (E28.2: Polycystic ovarian syndrome) pt was previously on spirinolactone for this. needs refills 4. BMI 34.0-34.9,adult (Z68.34: Body mass index [BMI] 34.0-34.9, adult) BMI education given 5. Former smoker (Z87.891: Personal history of nicotine dependence) continue not smoking Orders: spironolactone, 50 mg = 1 tab(s), Oral, BID, # 180 tab(s), Refills(s) 0, Pharmacy: [facility], 173.5, cm, 06/11/24 13:13:00 EST, Height/Length Dosing, 104.6, kg, 06/11/24 13:13:00 EST, Weight Dosing Follow-up No qualifying data available Problem List/Past Medical History Ongoing BMI 31.0-31.9,adult Establishing care with new doctor, encounter for Family history of colon cancer in father GERD (gastroesophageal reflux disease) Hypertension PCOS (polycystic ovarian syndrome) Rectal bleeding Historical No qualifying data Procedure/Surgical History Colonoscopy (12/14/2021), Bartholin's gland operation (12/19/2017), Colonoscopy (2018), section, Oral surgery, wisdom teeth extraction. Medications spironolactone 50 mg Tab, 50 mg= 1 tab(s), Oral, BID Allergies Latex (Hives, Swelling) bandaids (redness, blisters) codeine (Itching) penicillins (Hives) Social History Alcohol - Medium Risk, 12/09/2017 Past. Beer, Liquor. Daily., 06/11/2024 Substance Abuse - Denies Substance Abuse, 12/09/2017 Never., 06/11/2024 Tobacco - No Risk, 08/28/2022 quit 10/2022 Tobacco Use:., 06/11/2024 Family History Primary malignant neoplasm of colon: Father. Normal [facility] Comment on above: Result Comment: Elec tronically Signed By: Myesha Galvan\.br\Date and Time Signed: 06/11/24 13:32 EST XR Hand - bilateral PA and L ateral and Obliqueon 07-03-2023 IMPRESSION: No acute osseous abnormality. Resolved right index finger soft tissue swelling. Discharge Planner: PSCB Transcribe Date/Time: Jul 03 2023 1:22P Dictated by : ELIJAH ASENCIO DO This examination was interpreted and the report reviewed and electronically signed by: LAWANDA CAMPO MD on Jul 03 2023 2:09PM EST DIVISION OF RADIOLOGY * * *Final Report* * * DATE OF EXAM: Jul 03 2023 12:53PM [id number] - XR HAND 3V PA/LAT/OBL EDEPA / PROCEDURE REASON: Pain * * * * Physician Interpretation * * * * EXAMINATION: XR HAND 3V PA/LAT/OBL DEEPA CLINICAL HISTORY: Pain TECHNOLOGIST PROVIDED HISTORY: chronic deepa hand pain TECHNIQUE: XR HAND 3V PA/LAT/OBL DEEPA Laterality: BILATERAL Number of different views (projections): 3each M: XB_1 COMPARISON: 12/10/2017 RESULT: No acute fracture or dislocation. Joint spaces are maintained. No bony erosions. No substantial soft tissue swelling. Resolved right index finger soft tissue swelling. DIVISION OF RADIOLOGY Provider, Esthela Landrum [facility] - 07/03/2023 * * *Final Report* * * DATE OF EXAM: Jul 03 2023 12:53PM LZX [id number] - XR HAND 3V PA/LAT/OBL DEEPA / PROCEDURE REASON: Pain * * * * Physician Interpretation * * * * EXAMINATION: XR HAND 3V PA/LAT/OBL DEEPA CLINICAL HISTORY: Pain TECHNOLOGIST PROVIDED HISTORY: chronic deepa hand pain TECHNIQUE: XR HAND 3V PA/LAT/OBL DEEPA Laterality: BILATERAL Number of different views (projections): 3each M: XB_1 COMPARISON: 12/10/2017 RESULT: No acute fracture or dislocation. Joint spaces are maintained. No bony erosions. No substantial soft tissue swelling. Resolved right index finger soft tissue swelling. IMPRESSION IMPRESSION: No acute osseous abnormality. Resolved right index finger soft tissue swelling. Discharge Planner: PSCGustavo Transcribe Date/Time: Jul 03 2023 1:22P Dictated by : ELIJAH ASENCIO DO This examination was interpreted and the report reviewed and electronically signed by: LAWANDA CAMPO MD on Jul 03 2023 2:09PM [facility] Radiology Study observation (narrative) [facility] XR Hand - bilateral PA and L ateral and ObliqueOrdered By: Ccf Provider on 07-03-2023 [facility] Basic metabolic 2000 panelon 11-28-2021 Anion gap [Moles/Vol] 9 mmol/L 9 - 18 mmol/L [facility] Calcium [Mass/Vol] 9.2 mg/dL 8.5 - 10. 2 mg/dL [facility] Chloride [Moles/Vol] 105 mmol/L 97 - 105 mmol/L [facility] CO2 [Moles/Vol] 25 mmol/L 22 - 30 mmol/L [facility] Creatinine [Mass/Vol] 0.86 mg/dL 0.58 - 0.96 mg/dL [facility] Estimated Glomerular Filtration Rate 87 mL/min/1.73m >=60 mL/min/1.73m [facility] Glucose [Mass/Vol] 90 mg/dL 74 - 99 mg/dL [facility] Potassium [Moles/Vol] 4.1 mmol/L 3.7 - 5.1 mmol/L [facility] Sodium [Moles/Vol] 139 mmol/L 136 - 144 mmol/L [facility] Urea nitrogen [Mass/Vol] 8 mg/dL 7 - 21 mg/dL [facility] XR Foot - left AP and Latera l and obliqueon 11-27-2021 IMPRESSION: PES CAVU S. EARLY HALLUX METATARSOPHALANGEAL OSTEOARTHRITIS. Discharge Planner: SETH Transcribe Date/Time: Nov 27 2021 3:30P Dictated by : TUCKER DEL TORO MD This examination was interpreted and the report reviewed and electronically signed by: TUCKER DEL TORO MD on Nov 27 2021 3:31PM EST [facility]_DO_NOT_USE_ DIVISION OF RADIOLOGY * * *Final Report* [...] space. Pes cavus. No fracture or dislocation. [facility]DO_NOT_USE_ DIVISION OF RADIOLOGY Provider, [facility] - 11/27/2021 * * *Final Report* [...] IMPRESSION: PES CAVUS. EARLY HALLUX METATARSOPHALANGEAL OSTEOARTHRITIS. Discharge Planner: PSCB Transcribe Date/Time: Nov 27 2021 3:30P Dictated by : TUCKER DEL TORO MD This examination was interpreted and the report reviewed and electronically signed by: TUCKER DEL TORO MD on Nov 27 2021 3:31PM EST [facility] Radiology Study observation (narrative) [facility] XR Foot - left AP and Latera l and obliqueOrdered By: Ccf Provider on 11-27-2021 [facility] XR Shoulder - right 3 Viewso n 08-18-2020 IMPRESSION: Unremarkable radiographic appearance of the right glenohumeral joint Discharge Planner: SETH Transcribe Date/Time: Aug 18 2020 8:49A [...] other significant abnormality. DIVISION OF RADIOLOGY Provider, [facility] - 08/18/2020 * * *Final Report* * [...] radiographic appearance of the right glenohumeral joint Discharge Planner: [facility] Transcribe Date/Time: Aug 18 2020 8:49A Dictated by : HAILEY NAVARRO MD This examination was interpreted and the report reviewed and electronically signed by: HAILEY NAVARRO MD on Aug 18 2020 8:50AM EST [facility] Radiology Study observation (narrative) [facility] XR Shoulder - right 3 ViewsO rdered By: Ccf Provider on 08-18-2020 [facility] XR Foot - right AP and Later al and obliqueon 05-22-2020 IMPRESSION: NO ACUTE OSSEOUS ABNORMALITY OTHER FINDINGS DESCRIBED Discharge Planner: [facility] Transcribe Date/Time: May 22 2020 1:51P Dictated by : COY AMBRIZ MD This examination was interpreted and the report reviewed and electronically signed by: COY AMBRIZ MD on May 22 2020 1:51PM [facility] DIVISION OF RADIOLOGY * * *Final Report* [...] significant abnormality. DIVISION OF RADIOLOGY Provider, Esthela Dickey - 05/22/2020 * * *Final Report* * [...] NO ACUTE OSSEOUS ABNORMALITY OTHER FINDINGS DESCRIBED Discharge Planner: [facility] Transcribe Date/Time: May 22 2020 1:51P Dictated by : COY AMBRIZ MD This examination was interpreted and the report reviewed and electronically signed by: COY AMBRIZ MD on May 22 2020 1:51PM EST [facility] Radiology Study observation (narrative) [facility] XR Foot - right AP and Later al and obliqueOrdered By: Ccf Provider on 05-22-2020 [facility] MRI FOOT RT WO CONon 10-27-2 020 MRI FOOT RT WO CON EXAM: [...] KAI FUENTES Date: 2020-02-29 02:08 Normal The [facility] XR FOOT RT MIN 3 VIEWSon XR FOOT RT MIN 3 VIEWS PROCEDURE: XR FOOT RT MIN 3 VIEWS COMPARISON: 11/30/2019 HISTORY: Pain in right foot FINDINGS: BONES:No fracture, acute abnormality, or significant arthropathy. SOFT TISSUES:Negative. No visible soft tissue swelling. EFFUSION:None visible. OTHER: Negative. IMPRESSION: Normal examination. Electronically authenticated by: MADI MAYER Date: 2020-02-17 14:33 Normal [facility] XR FOOT RT MIN 3 VIEWSon INR [...] JOSSUE STEINBERG Date: 2019-11-30 12:18 Normal [facility] XR FOOT RT MIN 3 VIEWSon XR FOOT RT MIN 3 VIEWS IMAGES REVIEWED: XR FOOT RT MIN 3 VIEWS COMPARISON: None available. CLINICAL INDICATION: Injury, first digit pain. FINDINGS/IMPRESSION: No radiographic evidence of acute fracture. No dislocation or traumatic malalignment. Electronically authenticated by: ALFREDO STILL Date: 2019-11-10 19:20 Normal [facility] Bilateral thumb CMC (Kenalog ) [facility] Vital Signs Date Time Vital Sign Value Performing Clinician Myra faust 07-15-2024 08:55-0400 Body height 175.3 cm Deana Benson PA-C Work Phone: [facility] 07-15-2024 08:55-0400 Body mass index (BMI) [Ratio] 33.34 kg/m2 Deana Benson PA-C Work Phone: [facility] 07-15-2024 08:55-0400 Body weight 102.4 kg Deana Benson PA-C Work Phone: [facility] 07-15-2024 08:55-0400 Diastolic blood pressure 75 mm[Hg] Deana Benson PA-C Work Phone: [facility] 07-15-2024 08:55-0400 Heart rate 55 /min Deana Benson PA-C Work Phone: [facility] 07-15-2024 08:55-0400 SaO2% (BldA) [Mass fraction] 96 % Deana Benson PA-C Work Phone: [facility] 07-15-2024 08:55-0400 Systolic blood pressure 136 mm[Hg] Deana LONDON-C Work Phone: [facility] Encounters Encounter Date Encounter Type Care Provider Facility Start: 08-26-2024 ambulatory Myesha Alaniz Facility: [facility] Start: 08-23-2024 ambulatory Dontae Renteria lity:Dheeraj KAMARA Start: 07-30-2024 End: 08-09-2024 Telephone encounter Sammi Manzo DPM Work Phone: Orthopaedics Comment on above: Letter Start: 07-28-2024 End: 07-28-2024 Patient encounter procedure Adele Fatima RT(R) Radiology Comment on above: Right foot sprain, i nitial encounter (Primary Dx); Right foot pain; Derangement of ankle or foot Start: 07-28-2024 End: 07-28-2024 ambulatory Adele Fatima RT(R) Radiology Comment on above: Radiology XR Start: 07-28-2024 End: 07-28-2024 Subsequent hospital visit by physician Ean Lee Work Phone: Radiology Comment on above: Pain in right foot [ M79.671] Start: 07-27-2024 End: 07-27-2024 ambulatory DAMIAN MCINTOSH Facility:[facility] Start: 07-27-2024 End: 07-27-2024 Patient encounter procedure Damian Mcintosh PA-C Work Phone: Orthopaedics Comment on above: Impingement syndrome of right shoulder (Primary Dx); Right shoulder pain, unspecified chronicity Start: 07-27-2024 End: 07-27-2024 Subsequent hospital visit by physician Ean Lee Work Phone: Radiology Comment on above: Right shoulder pain, unspecified chronicity [M25.511] Start: 07-26-2024 End: 07-26-2024 ambulatory Myesha L Katty Facility:[facility] Start: 07-15-2024 End: 07-15-2024 Subsequent hospital visit by physician Ean Post Qb1 Radiology Comment on above: Pain of right sacroi liac joint [M53.3] Start: 07-15-2024 End: 07-15-2024 ambulatory DEANA BENSON Facility:[facility] Start: 07-15-2024 End: 07-15-2024 Patient encounter procedure Deana Benson PA-C Work Phone: [facility] Comment on above: Neck pain (Primary D x); Chronic right-sided low back pain without sciatica; Pain of right sacroiliac joint Start: 07-12-2024 End: 07-12-2024 ambulatory CHAVA WEBER Facility:[facility] Start: 07-12-2024 End: 07-12-2024 Office outpatient new 30 minutes Chava Weber MD Work Phone: Orthopaedics Comment on above: Primary osteoarthrit is of both first carpometacarpal joints (Primary Dx); De Quervain's tenosynovitis, bilateral Start: 07-08-2024 End: 07-08-2024 ambulatory Venice Islas Facility:[facility] Start: 07-08-2024 End: 07-08-2024 ambulatory FACUNDO MERCEDES Facility:[facility] Start: 06-28-2024 End: 06-28-2024 ambulatory Myesha L Katty Facility:[facility] Start: 06-25-2024 End: 06-25-2024 ambulatory Myesha L Katty Facility:[facility] Start: 06-23-2024 End: 06-23-2024 ambulatory DEANA BENSON Neurology Comment on above: EMG Start: 06-23-2024 End: 06-23-2024 Patient encounter procedure Emg 2 Neur [facility] (Max Weight: 300) Work Phone: Neurology Start: 06-18-2024 End: 06-18-2024 Telemedicine consultation with patient Deana Benson PA-C Work Phone: [facility] Start: 06-18-2024 End: 06-18-2024 ambulatory Deana Benson PA-C Work Phone: [facility] Comment on above: Carpal tunnel syndro me, bilateral (Primary Dx); Primary osteoarthritis of both first carpometacarpal joints; Neck pain; Chronic bilateral low back pain, unspecified whether sciatica present Start: 06-11-2024 End: 06-11-2024 ambulatory Myesha L Katty Facility:[facility] Start: 06-10-2024 ambulatory Myesha Katty Facility:[facility] Start: 07-03-2023 ambulatory Vero Blum RT(R) R adiology Comment on above: Radiology XR Start: 07-03-2023 Patient encounter procedure Vero Blum RT(R) [facility] Start: 07-03-2023 End: 07-03-2023 Office outpatient visit 25 minutes Deana Benson PA-C Work Phone: Orthopaedics Comment on above: Primary osteoarthrit is of both first carpometacarpal joints (Primary Dx); Carpal tunnel syndrome, bilateral Start: 07-03-2023 End: 07-03-2023 Subsequent hospital visit by physician Ean Lee Work Phone: Radiology Comment on above: Pain [R52] Start: 11-27-2021 ambulatory Jessika Lalo RT(R) Radi [...] End: 02-18-2020 Patient encounter procedure RONY HUDSON Facility: Start: 12-03-2019 End: 02-08-2020 Patient encounter procedure [facility] Facility: Start: 11-30-2019 End: 12-01-2019 Patient encounter procedure MAGNUS GASTELUM Facility:[facility] Start: 11-10-2019 End: 11-10-2019 Patient encounter procedure [facility] [place] Facility: Procedures Date Procedure Procedure Detail Performing Clinician Start: 07-28-2024 Radex foot complete minimum 3 views Sammi Manzo DPM Work Phone: Start: 07-27-2024 Radex shoulder compl ete minimum 2 views Damian Mcintosh PA-C Work Phone: Start: 07-15-2024 Radex spine cervical 4 or 5 views Deana Benson PA-C Work Phone: Start: 07-12-2024 Injection 1 tendon sheath/ligament aponeurosis Chava Weber MD Work Phone: Start: 07-12-2024 Arthrocentesis aspir &/inj small jt/bursa w/o us Chava Weber MD Work Phone: Start: 07-12-2024 Fluoroscopic guidanc e needle placement add on Chava Weber MD Work Phone: Start: 06-23-2024 Nerve conduction danna dies 5-6 studies Deana Benson PA-C Work Phone: Start: 07-03-2023 Arthrocentesis aspir &/inj small jt/bursa w/o us Deana Benson PA-C Work Phone: Start: 07-03-2023 Radex hand minimum 3 views Deana Benson PA-C Work Phone: Start: 11-27-2021 Radex foot complete minimum 3 views Caren Vizcarra DPM Work Phone: Start: 08-18-2020 Radex shoulder compl ete minimum 2 views Damian Mcintosh PA-C Work Phone: Start: 05-22-2020 Radex foot complete minimum 3 views Jonas Dallas DPM Work Phone: Start: 02-23-2018 Adult depression scr eening assessment Jessika May RT(R) Plan of Treatment Date Care Activity Detail Author Start: 03-11-2033 Urine microalbumin profile DTaP,Tdap,Td Vaccine (2 - Td or Tdap) [facility] Start: 10-15-2024 End: 10-15-2024 Patient encounter procedure 10/15/2024 8:15 AM EDT Office Visit [facility] [address] [id number] Deana Benson PA-C [address] [place] [address]. [place] [address] f/u with provider [facility] Comment on above: f/u with provider Start: 09-07-2024 End: 09-07-2024 Patient encounter procedure 09/07/2024 10:00 AM EDT Office Visit Orthopaedics [address] [place] [address] Damian Mcintosh PA-C [address] [facility] [place] [address] 6 week f/u Orthopaedics Comment on above: 6 week f/u Start: 07-28-2024 End: 07-28-2024 Patient encounter procedure Orthopaedics Comment on above: Right foot pain, swo llen XR FOOT GENERAL 3V A P/LAT/OBL RIGHT Start: 07-27-2024 End: 07-27-2024 Patient encounter procedure 07/27/2024 10:30 AM EDT Office Visit Orthopaedics [address] [place] [address] Damian Mcintosh PA-C [address] [place] [address] Right shoulder pain Orthopaedics Comment on above: Right shoulder pain Start: 07-15-2024 End: 07-15-2024 Patient encounter procedure 07/15/2024 8:00 AM EDT Office Visit [facility] [address] [id number] Deana Benson PA-C [address] [facility]. [place], [place] [id number] Low Back Pain [facility] Comment on above: Low Back Pain Start: 07-12-2024 End: 07-12-2024 Patient encounter procedure 07/12/2024 10:45 AM EDT Office Visit Orthopaedics [address] [place] [address] Chava Weber MD [address] [place] [address] bilateral carpal tunnel syndrome Orthopaedics Comment on above: bilateral carpal edgar conner syndrome Start: 01-04-2024 Covid-19 Vaccine ( season) Covid-19 Vaccine ( season) [facility] Start: 01-04-2024 Covid-19 Vaccine ( season) Covid-19 Vaccine ( season) [facility] Start: 01-04-2024 Influenza vaccination Influenza Vacc ine (#1) [facility] Start: 05-05-2023 Depression Assessment Depression Ass essment [facility] Start: 01-03-2023 Covid-19 Vaccine ( season) Covid-19 Vaccine ( season) [facility] Start: 01-03-2023 Influenza vaccination Influenza Vacc ine (#1) [facility] Start: 01-03-2022 Influenza vaccination INFLUENZA (#1) [facility] Start: 2020 Mammography MAMMOGRAM [facility] Start: 2020 Screening for malign ant neoplasm of breast Mammogram Screening [facility] Start: 02-23-2019 Adult depression screening assessment DEPRESSION SCREENING [facility] Start: 2010 HPV TESTING HPV TESTING [facility] Start: 2010 Screening for malign ant neoplasm of cervix HPV Testing [facility] Start: 2001 PAP TESTING PAP TESTING [facility] Start: 2001 Screening for malign ant neoplasm of cervix [facility] Start: 11-12-1999 Hepatitis B Vaccine (1 of 3 - 19+ 3-dose series) Hepatitis B Vaccine (1 of 3 - 19+ 3-dose series) [facility] Start: 11-12-1999 Pneumococcal vaccination Pneumococcal Vaccine (1 of 2 - PCV) [facility] Start: 11-12-1999 Urine microalbumin profile [facility] Start: 1998 Anxiety Screening Anxiety Screening [facility] Start: 1998 Depression Screening Depression Scre ening [facility] Start: 1998 HEPATITIS C SCREENING HEPATITIS C [facility] Start: 1998 Hepatitis C screening Hepatitis C [facility] Start: 1998 HIV SCREENING [facility]CRE[facility] Start: 1998 HIV screening HIV Scre[facility] Start: 1986 PNEUMOCOCCAL (1 - PCV) PNEUMOCOCCAL (1 - PCV) [facility] Start: 1986 Pneumococcal vaccination Pneumococcal Vaccine (1 of 2 - PCV) [facility] Start: 05-14-1981 COVID-19 VACCINE (#1) COVID-19 VACCI NE (#1) [facility] Start: 1980 Hepatitis B Vaccine (1 of 3 - 3-dose series) Hepatitis B Vaccine (1 of 3 - 3-dose series) [facility] End: 07-02-2024 EMG(NEURO/NI) EMG(NEURO/NI) EMG STAT Carpal tunnel syndrome, bilateral 1 Occurrences starting 07/03/2023 until 07/02/2024 [facility] Work Phone: Comment on above: 1 Occurrences starti ng 07/03/2023 until 07/02/2024 End: 07-18-2025 XR Cervical spine AP and Lateral and oblique XR CERV OTHER 4V AP/LAT/OBL Radiology Routine Neck pain 1 Occurrences starting 06/18/2024 until 07/18/2025 [facility] Work Phone: Comment on above: 1 Occurrences starti ng 06/18/2024 until 07/18/2025 End: 07-18-2025 XR Lumbar spine AP and Lateral XR LUMBAR LIMITED 2V AP/LAT Radiology Routine Chronic bilateral low back pain, unspecified whether sciatica present 1 Occurrences starting 06/18/2024 until 07/18/2025 [facility] Comment on above: 1 Occurrences starti ng 06/18/2024 until [facility] Date Payer Category Payer Unknown MMO MMO MHS [id number] 2023-Present [phone] [address] [place] [address] Indemnity [id number] 2017 Medicaid [employer] [place] [id number] 2017-Present [phone] [address] [address] [place] [address] Medicaid [id number] 2017 Medicaid [id number] 1980 Unknown [id number] 1980 Unknown [id number] 1980 Unknown [id number] [id number] 1980 Unknown [id number] [id number] 1980 Unknown [id number] [id number] 1980 Unknown [id number] [id number] 1980 Unknown [id number] [id number] 1980 Unknown [id number] [id number] 1980 Unknown [id number] [id number]. 1980 Unknown [id number] [id number] 1980 Unknown [id number] [id number] 1980 Unknown [id number] [id number] 1980 Unknown [id number] [id number]. 1980 Unknown [id number] 1959 Unknown [id number] Social History Date Type Detail Facility Start: 02-23-2018 End: 07-15-2024 Tobacco smoking status [facility] Smokes tobacco daily [facility] History of tobacco use Cigarette Smoker C [facility] Start: 02-23-2018 End: 07-03-2023 Cigarettes smoked current (pack per day) - Reported 0.5 [facility] Start: 02-23-2018 End: 07-15-2024 Tobacco use and exposure Smokeless tobacco non-user [facility] Start: 11-27-2021 End: 07-15-2024 Alcohol intake Current non-drinker of alcohol (finding) [facility] Start: 1980 Sex Assigned At Not on file [facility] Start: 04-22-2020 End: 11-26-2021 Exposure to SARS-CoV-2 (event) Not sure [facility] Start: 11-27-2021 End: 07-03-2023 Tobacco use panel [facility] Adult Depression Scr eening Assessment 2 [facility] Clinical Notes 05-22-2020 to 08-06-2024 Telephone Encounter - Damian Mcintosh PA-C - 08/06/2024 12:42 PM EDTTelephone Encounter - Damian Mcintosh PA-C - 08/06/2024 12:42 PM EDTTelephone Encounter - Carol Treviño - 08/05/2024 8:38 AM EDT Note Date & Type Note Facility 08-06-2024 Telephone encounter Note Spoke to patient about her request and provided her with a letter in MyChart. Damian Mcintosh PA-C [facility] Work Phone: 08-06-2024 Miscellaneous Notes Spoke to patient about her request and provided her with a letter in MyChart. Damian Mcintosh PA-C Pt calling for update. Please advise Tree will review when back in the office on Friday08/03/2024. Patient calling in to office. Verified by name and . Patient asking for letter to be written by LITA Devine indicating that she is being evaluated and treated for shoulder pain. She states that she is working on getting disability due to her various orthopedic issues. Sending message to other orthopedic and spine specialists in separate encounters. Please notify patient if letter can be written and placed in MyChart. documented in this encounter [facility] 08-05-2024 Telephone encounter Note Pt calling for update. Please advise [facility] 07-30-2024 Telephone encounter Note Tree will review when back in the office on Friday08/03/2024. [facility] 07-30-2024 Telephone encounter Note Called and spoke with patient, informed her that requested letter was written for her and sent via [employer], patient understood. Also informed patient that she can picker and packer copy of letter at our [place] office if she needs to, just let Dr. Weber's know, patient again understood [facility] 07-30-2024 Miscellaneous Notes Called and spoke with patient, informed her that requested letter was written for her and sent via [employer], patient understood. Also informed patient that she can picker and packer copy of letter at our [place] office if she needs to, just let Dr. Weber's know, patient again understood Patient calling in to office. Verified by name and . Patient asking for letter to be written by Dr. Weber indicating that she is being evaluated and treated for BL hands. She states that she is working on getting disability due to her various orthopedic issues. Sending message to other orthopedic and spine specialists in separate encounters. Please notify patient if letter can be written and placed in MyChart. documented in this encounter [facility] 07-30-2024 Telephone encounter Note Letter sent via [employer] as requested. [facility] 07-30-2024 Miscellaneous Notes Letter sent via [employer] as requested. Patient calling in to office. Verified by name and . Patient asking for letter to be written by Dr. Manzo indicating that she is being evaluated and treated for right foot issues. She states that she is working on getting disability due to her various orthopedic issues. Sending message to other orthopedic and spine specialists in separate encounters. Please notify patient if letter can be written and placed in MyChart. documented in this encounter [facility] 07-30-2024 Telephone encounter Note Patient calling in to office. Verified by name and . Patient asking for letter to be written by LITA Castillo indicating that she is being evaluated and treated for her spine. She states that she is working on getting disability due to her various orthopedic issues. Sending message to other orthopedic and spine specialists in separate encounters. Please notify patient if letter can be written and placed in MyChart. [facility] 07-30-2024 Miscellaneous Notes Patient calling in to office. Verified by name and . Patient asking for letter to be written by LITA Castillo indicating that she is being evaluated and treated for her spine. She states that she is working on getting disability due to her various orthopedic issues. Sending message to other orthopedic and spine specialists in separate encounters. Please notify patient if letter can be written and placed in MyChart. documented in this encounter [facility] 07-30-2024 Telephone encounter Note Patient calling in to office. Verified by name and . Patient asking for letter to be written by LITA Devine indicating that she is being evaluated and treated for shoulder pain. She states that she is working on getting disability due to her various orthopedic issues. Sending message to other orthopedic and spine specialists in separate encounters. Please notify patient if letter can be written and placed in MyChart. [facility] 07-30-2024 Telephone encounter Note Patient calling in to office. Verified by name and . Patient asking for letter to be written by Dr. Manzo indicating that she is being evaluated and treated for right foot issues. She states that she is working on getting disability due to her various orthopedic issues. Sending message to other orthopedic and spine specialists in separate encounters. Please notify patient if letter can be written and placed in MyChart. [facility] 07-30-2024 Telephone encounter Note Patient calling in to office. Verified by name and . Patient asking for letter to be written by Dr. Weber indicating that she is being evaluated and treated for BL hands. She states that she is working on getting disability due to her various orthopedic issues. Sending message to other orthopedic and spine specialists in separate encounters. Please notify patient if letter can be written and placed in MyChart. [facility] 07-28-2024 Note HNO ID: [id number] Author: PARVIN RAMSEY OCCA Service: ? Author Type: Campus Supervisor Type: Progress Notes Filed: 07/28/2024 11:00 Note Text: Dispensed a large Air Select Short Walker for the right leg. Instructions were given on adjustments and care. Patient will follow up as scheduled/prn. Patient will be billed through [employer]. [facility] 07-28-2024 History of Present illness Narrative Dispensed a large Air Select Short Walker for the right leg. Instructions were given on adjustments and care. Patient will follow up as scheduled/prn. Patient will be billed through [employer]. Medical intake sheet from July 28, 2024 , was updated by patient, reviewed, and was made part of the patient's chart. Sammi Manzo DPM [facility] Department of Orthopedics [facility] Orthopedic Surgery Name: Gerri Garcia Date of Service: July 28, 2024 CC/HPI: This 43 year old female patient presents to the clinic today with a chief complaint of a right foot injury which repaired back in 2019 and again on April 15, 2024. She has pain along the lateral column of her right foot into her ankle. She is seen today to find out what the problem may be and discuss treatment options along with her plan of care. PAST MEDICAL HISTORY Diagnosis Date Pre-diabetes Current Outpatient Medications Medication Sig diclofenac, EC, (VOLTAREN) 75 mg EC tablet Take 1 tablet by mouth two times a day as needed (for pain). Please take with food. methocarbamol (ROBAXIN) 500 mg tablet Take 1 tablet by mouth two times a day as needed (for pain). spironolactone (ALDACTONE) 50 mg tablet Take by mouth. Phentermine HCl 37.5 mg tablet Take 1 tablet by mouth once daily. No current facility-administered medications for this visit. ALLERGIES Allergen Reactions Codeine Itching Latex Rash Penicillin Hives PAST SURGICAL HISTORY Procedure Laterality Date SECTION HX OTHER Dental extraction PAST SURGICAL HISTORY OF groin cyst lanced FAMILY HISTORY Problem Relation Age of Onset Rheumatologic disease Maternal Grandmother Lupus Rheumatologic disease Maternal Aunt Rheumatoid arthritis Thyroid Maternal Aunt Thyroid Maternal Aunt Psoriasis No Family History Social History Tobacco Use Smoking status: Every Day Current packs/day: 0.50 Average packs/day: 0.5 packs/day for 25.0 years (12.5 ttl pk-yrs) Types: Cigarettes Smokeless tobacco: Never Substance Use Topics Alcohol use: No Drug use: Yes Types: Marijuana Physical Exam: The patient is alert and oriented x 3 in no apparent acute distress. Vascular: Pedal pulses are palpable DP and PT right. CFT is less than 3 seconds digits 1-5 right right. Skin temperature is warm to cool from anterior knees to toes right. Minimal varicosities right. Normal pedal hair growth right. There is no substantial edema or erythema of the right foot or ankle at this time Neuro: Light touch is intact to all quadrants of foot and ankle with no apparent sensory deficits right. Derm: Unremarkable as related to the chief complaint right Ortho: Muscle strength is +5/5 for all pedal groups right. Ankle joint, subtalar joint, 1st MPJ and lesser MPJ ROM's are full and without pain or crepitus right. She relates tenderness that is diffuse about the lateral column of the right foot into the posterior right with palpation Radiographs: 3 views the right foot reveal no substantial abnormality Assessment: Indeterminant right foot and ankle chronic pain appropriate for physical therapy Plan: Initial Podiatric Office Visit- the etiology of the patient's complaint along with treatment options were explained to the patient in detail. Radiographs 3 views right foot Discussed results of clinical and radiograph examination with the patient in detail along with treatment options Recommend CAM Walker boot along with continued oral Voltaren and lastly recommend consideration for aggressive physical therapy. Prescription dispensed. If no improvement after physical therapy and oral anti-inflammatories and immobilization will consider MRI of right foot and ankle. Patient to assess and will follow-up as needed pending progress Sammi Manzo DPM documented in this encounter [facility] 07-28-2024 Note HNO ID: [id number] Author: SAMMI MANZO DPM Service: ? Author Type: Physician Type: Progress Notes Filed: 07/28/2024 11:00 Note Text: Medical intake sheet from July 28, 2024 , was updated by patient, reviewed, and was made part of the patient's chart. Sammi Manzo DPM [facility] Department of Orthopedics [facility] Orthopedic Surgery Name: Gerri Garcia Date of Service: July 28, 2024 CC/HPI: This 43 year old female patient presents to the clinic today with a chief complaint of a right foot injury which repaired back in 2019 and again on April 15, 2024. She has pain along the lateral column of her right foot into her ankle. She is seen today to find out what the problem may be and discuss treatment options along with her plan of care. PAST MEDICAL HISTORY Diagnosis Date Pre-diabetes Current Outpatient Medications Medication Sig diclofenac, EC, (VOLTAREN) 75 mg EC tablet Take 1 tablet by mouth two times a day as needed (for pain). Please take with food. methocarbamol (ROBAXIN) 500 mg tablet Take 1 tablet by mouth two times a day as needed (for pain). spironolactone (ALDACTONE) 50 mg tablet Take by mouth. Phentermine HCl 37.5 mg tablet Take 1 tablet by mouth once daily. No current facility-administered medications for this visit. ALLERGIES Allergen Reactions Codeine Itching Latex Rash Penicillin Hives PAST SURGICAL HISTORY Procedure Laterality Date SECTION HX OTHER Dental extraction PAST SURGICAL HISTORY OF groin cyst lanced FAMILY HISTORY Problem Relation Age of Onset Rheumatologic disease Maternal Grandmother Lupus Rheumatologic disease Maternal Aunt Rheumatoid arthritis Thyroid Maternal Aunt Thyroid Maternal Aunt Psoriasis No Family History Social History Tobacco Use Smoking status: Every Day Current packs/day: 0.50 Average packs/day: 0.5 packs/day for 25.0 years (12.5 ttl pk-yrs) Types: Cigarettes Smokeless tobacco: Never Substance Use Topics Alcohol use: No Drug use: Yes Types: Marijuana Physical Exam: The patient is alert and oriented x 3 in no apparent acute distress. Vascular: Pedal pulses are palpable DP and PT right. CFT is less than 3 seconds digits 1-5 right right. Skin temperature is warm to cool from anterior knees to toes right. Minimal varicosities right. Normal pedal hair growth right. There is no substantial edema or erythema of the right foot or ankle at this time Neuro: Light touch is intact to all quadrants of foot and ankle with no apparent sensory deficits right. Derm: Unremarkable as related to the chief complaint right Ortho: Muscle strength is +5/5 for all pedal groups right. Ankle joint, subtalar joint, 1st MPJ and lesser MPJ ROM's are full and without pain or crepitus right. She relates tenderness that is diffuse about the lateral column of the right foot into the posterior right with palpation Radiographs: 3 views the right foot reveal no substantial abnormality Assessment: Indeterminant right foot and ankle chronic pain appropriate for physical therapy Plan: Initial Podiatric Office Visit- the etiology of the patient's complaint along with treatment options were explained to the patient in detail. Radiographs 3 views right foot Discussed results of clinical and radiograph examination with the patient in detail along with treatment options Recommend CAM Walker boot along with continued oral Voltaren and lastly recommend consideration for aggressive physical therapy. Prescription dispensed. If no improvement after physical therapy and oral anti-inflammatories and immobilization will consider MRI of right foot and ankle. Patient to assess and will follow-up as needed pending progress Sammi Manzo DPM [facility] 07-28-2024 Note HNO ID: [id number] Author: ADELE FATIMA RT(Mass[place]) Service: ? Author Type: Technologist Type: Progress Notes Filed: 07/28/2024 10:31 Note Text: Radiology Service Progress Note PATIENT NAME: Gerri Garcia DATE OF SERVICE: July 28, 2024 TIME: 10:30 AM PATIENT IDENTITY VERIFICATION COMPLETED USING TWO (2) IDENTIFIERS: Name and Date of confirmed by patient verbally. FALL SCREENING: Has the patient had 2 falls in the last year or 1 fall with injury or currently using an Ambulatory Assistive Device (Walker, Cane, Wheelchair, Crutches, etc.)? No PATIENT GENDER DATA: Assigned female at . status: : No status: NO. PATIENT RELEVANT IMPLANT DATA REVIEWED: Not Applicable PATIENT PRESENTS WITH AN IMPLANTABLE OR ATTACHED WHITE SHOE EXAMINER: No RADIOLOGY DEPARTMENT: General X-ray: Exam(s) Completed: Lower Extremity X-Ray(s): Foot, Right and Wt. Bearing PERIPHERAL IV DATA: Not applicable SIGNED BY: RT Vickie(R) July 28, 2024 10:30 AM [facility] 07-28-2024 History of Present illness Narrative Radiology Service Progress Note PATIENT NAME: Gerri Garcia DATE OF SERVICE: July 28, 2024 TIME: 10:30 AM PATIENT IDENTITY VERIFICATION COMPLETED USING TWO (2) IDENTIFIERS: Name and Date of confirmed by patient verbally. FALL SCREENING: Has the patient had 2 falls in the last year or 1 fall with injury or currently using an Ambulatory Assistive Device (Walker, Cane, Wheelchair, Crutches, etc.)? No PATIENT GENDER DATA: Assigned female at . status: : No status: NO. PATIENT RELEVANT IMPLANT DATA REVIEWED: Not Applicable PATIENT PRESENTS WITH AN IMPLANTABLE OR ATTACHED WHITE SHOE EXAMINER: No RADIOLOGY DEPARTMENT: General X-ray: Exam(s) Completed: Lower Extremity X-Ray(s): Foot, Right and Wt. Bearing PERIPHERAL IV DATA: Not applicable SIGNED BY: RT Vickie(R) July 28, 2024 10:30 AM documented in this encounter [facility] 07-27-2024 Note HNO ID: [id number] Author: DAMIAN MCINTOSH PA-C Service: ? Author Type: Physician Hair Boiler Operator Type: Progress Notes Filed: 07/27/2024 11:01 Note Text: This document has been created with the use of voice recognition technology. It may contain inaccuracies: misspellings, inaccurate syntax or word sense that escaped review. CHIEF COMPLAINT: Gerri Garcia is a 43 year old female who presents today for follow up of right shoulder. HISTORY OF PRESENT ILLNESS: PAIN EVALUATION 07/27/2024 1035 Pain Level: 5 Pain Location: Shoulder-Right Description: Other: See comment;Numbness popping Duration Amount of Time: 6 Duration Units: Months Frequency: Continuous Intervention/Comfort measure: Medication;Reposition;Relaxation;Cold; Positioning Comments: Tylenol, Ibuprofen, Ice HISTORY: Gerri Garcia is here for follow up of complaints of right shoulder pain. She states pain has been intermittent over the last few years. I have treated her previously for impingement syndrome. She has done formal physical therapy in the past. She has incorporated these exercises into her normal lifestyle routine. She is being treated by Dr. Weber for carpal tunnel and de Quervain's. She is also been treated by Ms. Benson and spine. She has had EMGs which rule out cervical motor dysfunction and confirm CTS. Her most significant concern right now is pain that is focal to the anterolateral shoulder she notices some. Clicking in the shoulder with forward elevation and abduction. No previous surgery on the shoulder. No other musculoskeletal complaints ROS: REVIEW OF SYSTEMS: Constitutional: patient denies any recent fever or significant change in weight Cardiovascular: patient denies any chest pain at rest Respiratory: patient denies any shortness of breath or cough Gastrointestinal: patient denies any current abdominal discomfort Integumentary: patient denies any recent skin changes Musculoskeletal: as noted in the HPI Neurologic: as noted in the HPI Endocrine: patient denies a current diagnosis of diabetes Hematologic/Lymphatic: patient denies any easily bleeding, any recent infection and denies any recent observable lymph node enlargement Psychologic: negative for any recent depression or anxiety issues SOCIAL HISTORY: Tobacco Use: Types: Cigarettes FAMILY HISTORY: FAMILY HISTORY Problem Relation Age of Onset Rheumatologic disease Maternal Grandmother Lupus Rheumatologic disease Maternal Aunt Rheumatoid arthritis Thyroid Maternal Aunt Thyroid Maternal Aunt Psoriasis No Family History ALLERGIES: ALLERGIES Allergen Reactions Codeine Itching Latex Rash Penicillin Hives PAST MEDICAL HISTORY: PAST MEDICAL HISTORY Diagnosis Date Pre-diabetes SOCIAL HISTORY: Tobacco Use: Types: Cigarettes EXAMINATION: GENERAL: Appears healthy, well-nourished, no deformities. ORIENTATION: Alert and oriented to person place and time HABITUS: Normal GAIT: Normal, the patient did not have trouble getting onto the exam table. right shoulder exam: skin intact; no erythema, no ecchymosis, no arm swelling severe irritability with PROM Tenderness to palpation of subacromial bursa active equals passive ROM-180/80 Positive mild pain with impingement maneuvers Intact strength with isometric contraction of the RC; when tested against resistance-supraspinatus, infraspinatus and subscapularis Bicep with normal course No atrophy of the scapula girdle intact sensation to light touch distally good radial pulse no pain with neck ROM RADIOGRAPHS: XR Obtained today and personally reviewed by myself demonstrating maintained glenohumeral joint and acromiohumeral interval, no AC arthropathy IMPRESSION: Encounter Diagnosis ICD-10-CM 1. Impingement syndrome of right shoulder M75.41 2. Right shoulder pain, unspecified chronicity M25.511 XR SHOULDER ORTHO 4V AP/TRUE AP/LAT/OUTLET RIGHT Procedures Plan: Patient follows up with impingement of the right shoulder. She has had recurrent symptoms off and on. She has been compliant with her home exercise program, her strength is very good today. She wanted to try cortisone injection which was given today. There was initial relief from the lidocaine aspect. We will follow-up in 6 weeks to reassess. Damian Mcintosh PA-C [facility] 07-27-2024 History of Present illness Narrative Images from the original note were not included. This document has been created with the use of voice recognition technology. It may contain inaccuracies: misspellings, inaccurate syntax or word sense that escaped review. CHIEF COMPLAINT: Gerri Garcia is a 43 year old female who presents today for follow up of right shoulder. HISTORY OF PRESENT ILLNESS: PAIN EVALUATION 07/27/2024 1035 Pain Level: 5 Pain Location: Shoulder-Right Description: Other: See comment;Numbness popping Duration Amount of Time: 6 Duration Units: Months Frequency: Continuous Intervention/Comfort measure: Medication;Reposition;Relaxation;Cold; Positioning Comments: Tylenol, Ibuprofen, Ice HISTORY: Gerri Garcia is here for follow up of complaints of right shoulder pain. She states pain has been intermittent over the last few years. I have treated her previously for impingement syndrome. She has done formal physical therapy in the past. She has incorporated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 No significant medical problems. Previous treatment or work-up includes: As above. ROS: REVIEW OF SYSTEMS: Constitutional: Fever/chills: No Cardiovascular: Chest Pain: No Respiratory: SOB: No Musculoskeletal: as noted in the HPI Neurologic: as noted in the HPI Endocrine: Diabetes: No Tobacco user? No SOCIAL HISTORY: Tobacco Use: .5 packs/day, for 25 years. Types: Cigarettes FAMILY HISTORY: FAMILY HISTORY Problem Relation Age of Onset Rheumatologic disease Maternal Grandmother Lupus Rheumatologic disease Maternal Aunt Rheumatoid arthritis Thyroid Maternal Aunt Thyroid Maternal Aunt Psoriasis No Family History PAST MEDICAL HISTORY Diagnosis Date Pre-diabetes PAST SURGICAL HISTORY Procedure Laterality Date SECTION HX OTHER Dental extraction PAST SURGICAL HISTORY OF groin cyst lanced FAMILY HISTORY Problem Relation Age of Onset Rheumatologic disease Maternal Grandmother Lupus Rheumatologic disease Maternal Aunt Rheumatoid arthritis Thyroid Maternal Aunt Thyroid Maternal Aunt Psoriasis No Family History Social History Tobacco Use Smoking status: Every Day Current packs/day: 0.50 Average packs/day: 0.5 packs/day for 25.0 years (12.5 ttl pk-yrs) Types: Cigarettes Smokeless tobacco: Never Substance Use Topics Alcohol use: No Drug use: Yes Types: Marijuana ALLERGIES Allergen Reactions Codeine Itching Latex Rash Penicillin Hives Current Outpatient Medications Medication Sig Dispense Refill spironolactone (ALDACTONE) 50 mg tablet Take by mouth. Phentermine HCl 37.5 mg tablet Take 1 tablet by mouth once daily. meloxicam (MOBIC) 15 mg tablet Take 1 tablet by mouth once daily. 30 tablet 2 No current facility-administered medications for this visit. Physical Exam: Vitals: There were no vitals taken for this visit. Body Habitus: Well nourished and no acute distress Orientation: Normal, oriented to person, place and time Psych: Normal Skin: Color, texture, turgor normal. No rashes or lesions Sensation: Sensation to light touch is grossly normal bilaterally Both hands are examined. Sensation intact in median, radial, ulnar nerve distribution. AIN, PIN, ulnar motor intact. I make full fist. Positive Phalen's bilaterally and positive Durkan's on the left. Negative elbow flexion negative Spurling. Tender at bilateral first CMC with positive grind. 40 degrees of MP hyperextension bilaterally. Tender at both first dorsal compartments the pain is worse at the CMC's bilaterally. No pain or crepitus at the thumb A1 pulleys. IMAGING: Final results and radiologist's interpretation, available in the [facility] health record. Images were reviewed with the patient/family members in the office today. My personal interpretation of the performed imaging is mild bilateral thumb first CMC DJD. Other Tests: EMG from 06/23/2024 is reviewed. 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 There was no evidence of a superimposed right cervical motor radiculopathy. Assessment: (M18.0) Primary osteoarthritis of both first carpometacarpal joints (primary encounter diagnosis) (M65.4) De Quervain's tenosynovitis, bilateral Plan: She has bilateral thumb basilar joint mild arthritis and bilateral de Quervain's tenosynovitis. I recommend attempting injections at this juncture as x-rays really are not too advanced. If she gets better from these but then the pain comes back I could recommend surgery at that time. I will see her in the future as needed. Small Joint Arthro/Inj: bilateral thumb CMC 07/12/2024 11:26 AM The procedure site was prepped in the usual sterile fashion. Details:Fluoroscopy guided Medications (Right): 20 mg triamcinolone acetonide 40 mg/mL Medications (Left): 20 mg triamcinolone acetonide 40 mg/mL Anesthetics (Right): 0.5 mL lidocaine (PF) 10 mg/mL (1 %) Anesthetics (Left): 0.5 mL lidocaine (PF) 10 mg/mL (1 %) Outcome: tolerated well, no immediate complications Post-injection instructions were reviewed with the patient and the patient voiced understanding of these instructions. Informed Consent Consent Obtained: Verbal [place] Protocol A moment to CARE was completed. SIGN IN Sign in communication not applicable due to emergent procedure. Personnel directly involved with the procedure wore the appropriate PPE. Special Equipment: N/A Patient/Surrogate Stated/Verified: Patient name, Date of , Relevant allergies and Intended procedure TIME OUT Relevant labs, photos, and/or imaging studies have been reviewed. Consent documented and matches the intended procedure. Correct side/site marked and visible. Medications required for procedure verified. No fire risk assessment and interventions applicable. No implant(s) inserted. SIGN OUT No specimen collected. All instruments, equipment, possible retained foreign bodies accounted for. Additional Injections: bilateral extensor compartment 1 for de Quervain's tenosynovitis 07/12/2024 11:26 AM The procedure site was prepped in the usual sterile fashion. Medications (Right): 6 mg betamethasone acetate-betamethasone sodium phosphate 6 mg/mL Medications (Left): 6 mg betamethasone acetate-betamethasone sodium phosphate 6 mg/mL Anesthetics (Right): 1 mL lidocaine (PF) 10 mg/mL (1 %) Anesthetics (Left): 1 mL lidocaine (PF) 10 mg/mL (1 %) Outcome: tolerated well, no immediate complications Post-injection instructions were reviewed with the patient and the patient voiced understanding of these instructions. Informed Consent Consent Obtained: Verbal [place] Protocol A moment to CARE was completed. SIGN IN Sign in communication not applicable due to emergent procedure. Personnel directly involved with the procedure wore the appropriate PPE. Special Equipment: N/A Patient/Surrogate Stated/Verified: Patient name, Date of , Relevant allergies and Intended procedure TIME OUT Relevant labs, photos, and/or imaging studies have been reviewed. Consent documented and matches the intended procedure. Correct side/site marked and visible. Medications required for procedure verified. No fire risk assessment and interventions applicable. No implant(s) inserted. SIGN OUT No specimen collected. All instruments, equipment, possible retained foreign bodies accounted for. Significant pain relief with the injections. Chava Weber MD This document has been created with the use of voice recognition technology. It may contain inaccuracies: misspellings, inaccurate syntax or word sense that escaped review. documented in this encounter [facility] 07-08-2024 Note Patient Education Obstetrics and Gynecology Genital Herpes Genital herpes is a common sexually transmitted infection (STI) that is caused by a virus. The virus spreads from person to person through contact with a sore, infected saliva, or infected skin. The virus can cause itching, blisters, and sores around the genitals or rectum. During an outbreak of infection, symptoms may last for several days and then go away. However, the virus remains in the body, so more outbreaks may happen in the future. The time between outbreaks varies and can be from months to years. Genital herpes can affect anyone. It is particularly concerning for women because the virus can be passed to the baby during delivery. Genital herpes is also a concern for people who have a weak disease-fighting system (immune system). What are the causes? This condition is caused by the herpes simplex virus, type 1 or type 2 (HSV-1 or HSV-2). The virus may spread through: ??? Sexual contact with an infected person, including vaginal, anal, and oral sex. ??? Contact with a herpes sore. ??? The skin. This means that you can get herpes from an infected partner even if there are no blisters or sores present. Your partner may not know that he or she is infected. What increases the risk? You are more likely to develop this condition if: ??? You have sex with many partners. ??? You do not use latex or polyurethane condoms during sex. What are the signs or symptoms? Most people do not have symptoms or they have mild symptoms that may be mistaken for other skin problems. Symptoms may include: ??? Small, red bumps near the genitals, rectum, or mouth. These bumps turn into blisters and then sores. ??? Flu-like (influenza-like) symptoms, including: ? Fever. ? Body aches. ? Swollen lymph nodes. ? Headache. ??? Painful urination. ??? Pain and itching in the genital area or rectal area. ??? Vaginal discharge. ??? Tingling or shooting pain in the legs and buttocks. Generally, symptoms are more severe and last longer during the first (primary) outbreak. Influenza-like symptoms are also more common during the primary outbreak. How is this diagnosed? This condition may be diagnosed based on: ??? A physical exam. ??? Your medical history. ??? Blood tests. ??? A test of a fluid sample (culture) from an open sore. How is this treated? There is no cure for this condition, but treatment with antiviral medicines can do the following: ??? Speed up healing and relieve symptoms. ??? Help to reduce the spread of the virus to sexual partners. ??? Limit the chance of future outbreaks, or make future outbreaks shorter. ??? Lessen symptoms of future outbreaks. Your health care provider may also recommend [id number] medicines to help with pain and itching. Follow these instructions at home: If you have an outbreak: ??? Keep the affected areas dry and clean. ??? Avoid rubbing or touching blisters and sores. If you do touch blisters or sores: ? Wash your hands thoroughly with soap and water for at least 20 seconds. If soap and water are not available, use an alcohol-based hand backend java developer. ? Do not touch your eyes afterward. Sexual activity ??? Do not have sexual contact during active outbreaks. ??? Practice safe sex. Herpes can spread even if your partner does not have blisters or sores. Latex or polyurethane condoms and female condoms may help prevent the spread of the herpes virus. Managing pain and discomfort ??? If directed, put ice on the painful area. To do this: ? Put ice in a plastic bag. ? Place a towel between your skin and the bag. ? Leave the ice on for 20 minutes, 2?3 times a day. ? Remove the ice if your skin turns bright red. This is very important. If you cannot feel pain, heat, or cold, you have a greater risk of damage to the area. ??? If told, take a cool sitz bath to help relieve pain or itching. A sitz bath is a water bath that you take while sitting down in water that is deep enough to cover your hips and buttocks. General instructions ??? Take [id number] and prescription medicines only as told by your health care provider. ??? If you were prescribed an antiviral medicine, use it as told by your health care provider. Do not stop using the antiviral even if you start to feel better. ??? Keep all follow-up visits. This is important. How is this prevented? Use condoms. Although you can get genital herpes during sexual contact even with the use of a condom, a condom can provide some protection. ??? Avoid having multiple sexual partners. ??? Talk with your sexual partner about any symptoms either of you may have. Also, talk with your partner about any history of STIs. ??? Do not have sexual contact if you have active symptoms of genital herpes. Contact a health care provider if: ??? Your symptoms are not improving with medicine. ??? Yo (more content not included)... [facility] 06-25-2024 Note Nurse Consultation N ote Reason for Visit patient came in office for b/p check Physical Exam Vitals & Measurements BP: 140/88 Medications spironolactone 50 mg Tab, 50 mg= 1 tab(s), Oral, BID Allergies Latex (Hives, Swelling) bandaids (redness, blisters) codeine (Itching) penicillins (Hives) [facility] 06-23-2024 Note HNO ID: [id number] Author: LAWANDA GILLESPIE MD Service: ? Author Type: Physician Type: Progress Notes Filed: 06/23/2024 17:07 Note Text: UNIVERSAL PROTOCOL / SAFETY CHECKLIST Procedure to be Performed: EMG Sign In: A Moment of CARE was completed. Personnel directly involved with the procedure wore the appropriate PPE (Personal Protective Equipment). Patient/Surrogate Stated/Verified: PATIENT VERIFIED(optional for EMERGENT procedures): Patient name, Date of , Relevant allergies, and The intended procedure Time Out Communication: Intended patient and procedure match the source documents. Correct side/site marked and visible. Sign Out: SIGN OUT (optional for EMERGENT procedures): Post-procedure follow-up management communicated and Plan of Care Visit completed when applicable. Marina Gillespie MD Staff, General Neurology [facility] 06-23-2024 History of Present illness Narrative UNIVERSAL PROTOCOL / SAFETY CHECKLIST Procedure to be Performed: EMG Sign In: A Moment of CARE was completed. Personnel directly involved with the procedure wore the appropriate PPE (Personal Protective Equipment). Patient/Surrogate Stated/Verified: PATIENT VERIFIED(optional for EMERGENT procedures): Patient name, Date of , Relevant allergies, and The intended procedure Time Out Communication: Intended patient and procedure match the source documents. Correct side/site marked and visible. Sign Out: SIGN OUT (optional for EMERGENT procedures): Post-procedure follow-up management communicated and Plan of Care Visit completed when applicable. Marina Gillespie MD Staff, General Neurology documented in this encounter [facility] 06-18-2024 Note HNO ID: [id number] Author: DEANA BENSON PA-C Service: ? Author Type: Physician Hair Boiler Operator Type: Progress Notes Filed: 07/02/2024 14:56 Note Text: Spine Care Path Bilateral Hand Pain - Chronic (> 12 weeks) Initial Exam SUBJECTIVE History of Present Illness: I have communicated my name and active licensure. The patient's identity and physical location were verified at the time of this visit. Either the patient or their legal commissary representative has been informed of the risks and benefits of -- and alternatives to -- treatment through a remote evaluation and consents to proceed with the evaluation remotely. CC: Bilateral hand pain Patient presents for follow-up regarding her bilateral hand pain. 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 She continues to have numbness/tingling in the bilateral hands. Symptoms are present in all digits and occasionally radiate to the lateral forearm and into the bicep. She is dropping items. Driving long distances makes the symptoms worse. Positive nocturnal paresthesias. Previously tried wrist bracing and a right CT injection. EMG was ordered at her last visit but was not completed due to a problem with her insurance. Also notes occasional tightness in the right side of the neck (feels she needs to pop it ). This typically occurs when she sleeps on her neck funny or with increased activity Medication: Ibuprofen PRN Patient also continues to have pain at the bilateral thumb CMC joints. She stated there was about one month of relief following the corticosteroid injections she had on 07/03/2023. Pain is constantly present and made worse with gripping. Denied radiation of the pain. Original Ortho visit: Gerri is a 42 year old RHD [...] thumb CMC joint by Dr. Dowell in 2017/2018, which did provide symptomatic relief. Denied use [...] relief. Denies previous surgery on the hands. PAIN EVALUATION 06/18/2024 0808 Pain Level: 10 Pain Location: Other: See Comment Description: Dull Frequency: Continuous Litigation: No Workers' Compensation: No YELLOW AND BLUE FLAGS No-Neg Attitude; Back Pain is Disabling No-Avoiding Activity (for Fear of Pain) No-Depression or Anxiety Disorders No-Social Problems No-Substance Use Disorder No-Job Dissatisfaction No-Financial Disincentives Patient Entered Questionnaires 06/18/2024 Spine Questions Pain Location: Other Pain Duration: More than 5 years Pain over last 6 months: Every day or nearly every day in the past 6 months Symptoms from neck/cervical spine: No Employment Status: Unknown Off work 1 month or more due to back/neck pain: Does not apply Applied for/receive disability/WC due to low back/neck pain Does not apply Involved in law suit/legal claim: No 06/18/2024 Spine Red Flags Any type of cancer: No Unexplained fever: No Bowel or bladder disfunction: No Unintentional weight loss: No Osteoporosis: No Allergies: ALLERGIES Allergen Reactions Codeine Itching Latex [...] .5 packs/day, for 25 years. Types: Cigarettes Review of Systems: General: Fever/chills: No Endocrine: Diabetes: No Musculoskeletal: See HPI Neurologic: See HPI OBJECTIVE Physical Exam: Physical exam was limited due to encounter being done virtually. General : Well appearing, well-hydrated, well nourished and alert SKIN: Head, neck, trunk, and extremities dry, intact and without lesions NEURO/PSYCH: oriented to time, place, and person, speech normal, mental status intact MUSCULOSKELETAL: Cervical Range of Motion Flexion Normal Extension Normal RIGHT LEFT Rotation Full ROM without pain Full ROM without pain Lateral Bend Full ROM without pain Full ROM without pain D (more content not included)... [facility] 06-18-2024 History of Present illness Narrative Images from the original note were not included. Spine Care Path Bilateral Hand Pain - Chronic (> 12 weeks) Initial Exam SUBJECTIVE History of Present Illness: I have communicated my name and active licensure. The patient's identity and physical location were verified at the time of this visit. Either the patient or their legal commissary representative has been informed of the risks and benefits of -- and alternatives to -- treatment through a remote evaluation and consents to proceed with the evaluation remotely. CC: Bilateral hand pain Patient presents for follow-up regarding her bilateral hand pain. 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 She continues to have numbness/tingling in the bilateral hands. Symptoms are present in all digits and occasionally radiate to the lateral forearm and into the bicep. She is dropping items. Driving long distances makes the symptoms worse. Positive nocturnal paresthesias. Previously tried wrist bracing and a right CT injection. EMG was ordered at her last visit but was not completed due to a problem with her insurance. Also notes occasional tightness in the right side of the neck (feels she needs to pop it ). This typically occurs when she sleeps on her neck funny or with increased activity Medication: Ibuprofen PRN Patient also continues to have pain at the bilateral thumb CMC joints. She stated there was about one month of relief following the corticosteroid injections she had on 07/03/2023. Pain is constantly present and made worse with gripping. Denied radiation of the pain. Original Ortho visit: Gerri is a 42 year old RHD [...] thumb CMC joint by Dr. Dowell in , which did provide symptomatic relief. Denied use [...] relief. Denies previous surgery on the hands. PAIN EVALUATION 06/18/2024 0808 Pain Level: 10 Pain Location: Other: See Comment Description: Dull Frequency: Continuous Litigation: No Workers' Compensation: No YELLOW & BLUE FLAGS No-Neg Attitude; Back Pain is Disabling No-Avoiding Activity (for Fear of Pain) No-Depression or Anxiety Disorders No-Social Problems No-Substance Use Disorder No-Job Dissatisfaction No-Financial Disincentives Patient Entered Questionnaires 06/18/2024 Spine Questions Pain Location: Other Pain Duration: More than 5 years Pain over last 6 months: Every day or nearly every day in the past 6 months Symptoms from neck/cervical spine: No Employment Status: Unknown Off work 1 month or more due to back/neck pain: Does not apply Applied for/receive disability/WC due to low back/neck pain Does not apply Involved in law suit/legal claim: No 06/18/2024 Spine Red Flags Any type of cancer: No Unexplained fever: No Bowel or bladder disfunction: No Unintentional weight loss: No Osteoporosis: No Allergies: ALLERGIES Allergen Reactions Codeine Itching Latex [...] .5 packs/day, for 25 years. Types: Cigarettes Review of Systems: General: Fever/chills: No Endocrine: Diabetes: No Musculoskeletal: See HPI Neurologic: See HPI OBJECTIVE Physical Exam: Physical exam was limited due to encounter being done virtually. General : Well appearing, well-hydrated, well nourished and alert SKIN: Head, neck, trunk, and extremities dry, intact and without lesions NEURO/PSYCH: oriented to time, place, and person, speech normal, mental status intact MUSCULOSKELETAL: Cervical Range of Motion Flexion Normal Extension Normal RIGHT LEFT Rotation Full ROM without pain Full ROM without pain Lateral Bend Full ROM without pain Full ROM without pain Data Review: [facility] records independently reviewed ASSESSMENT/PLAN Carpal tunnel syndrome, bilateral (primary encounter diagnosis) Primary osteoarthritis of both first carpometacarpal joints Neck pain Chronic bilateral low back pain, unspecified whether sciatica present Ms. Garcia is a 43 year old female who presents with continued pain at the bilateral thumb CMC joints, as well as numbness/tingling in the bilateral hands. She also notes occasional right-sided neck pain; towards the end of the appointment patient mentioned she has occasional low back pain as well. Briefly reviewed the nature of both thumb CMC osteoarthritis and carpal tunnel syndrome. She will complete an EMG and establish care with an upper extremity orthopedic provider. If she would like to follow-up for either her cervical or lumbar spine, will place orders for XRs that she can complete at a time that is convenient for her. 1. Imaging: EMG, Cervical and Lumbar XRs 2. Physical Therapy: Not at this time 3. Medication: Continue current regimen 4. Referrals: Orthopedics 5. Considerations: None 6. Follow up: PRN Patient understood and agreed with this plan. All questions and concerns were addressed and answered. I spent a total of ~25 minutes on the date of the service which included [id number] patient care, performing a medically appropriate examination, counseling and educating the patient/family/caregiver, and ordering medications, tests, or procedures. Deana Benson PA-C documented in this encounter [facility] 07-03-2023 Instructions Denaa Benson PA-C - 07/03/2023 1:53 PM EST [...] FOR SEVERAL DAYS. documented in this encounter [facility] 07-03-2023 History of Present illness Narrative Radiology [...] PATIENT PRESENTS WITH AN IMPLANTABLE OR ATTACHED WHITE SHOE EXAMINER: No RADIOLOGY DEPARTMENT: General X-ray: Exam(s) Completed: Upper Extremity X-Ray(s): Hand, bilateral PERIPHERAL IV DATA: Not applicable SIGNED BY: RT Mirella(R) July 03, 2023 12:52 PM documented in this encounter [facility] 07-03-2023 History of Present illness Narrative Associated [...] CMC (Kenalog) Informed Consent Consent Obtained: Verbal [place] Protocol A moment to CARE was completed. [...] possible retained foreign bodies accounted for. Third Green Party: Nandini Cornejo MA documented in this encounter [facility] 11-27-2021 Instructions Caren Vizcarra DPM - 11/27/2021 2:25 PM EDT Danilo Carrillo documented in this encounter [facility] 11-27-2021 History of Present illness Narrative Department of Orthopedics [facility] Name: Gerri Garcia Date of Service: November [...] 2021 2:08 PM documented in this encounter [facility] 11-27-2021 History of Present illness Narrative Radiology [...] 2021 1:44 PM documented in this encounter [facility] 05-22-2020 History of Present illness Narrative Radiology [...] 2020 10:38 AM documented in this encounter [facility] Evaluation note Diagnosis Equinus deformity of both feet- Primary Arthralgia of left foot Pain in joint, ankle and foot Pain in left foot Pain in limb Encounter for long-term (current) use of medications Encounter for long-term (current) use of other medications [facility] Primary osteoarthritis of both first carpometacarpal joints- Primary Primary localized osteoarthrosis, hand Carpal tunnel syndrome, bilateral Carpal tunnel syndrome [facility] Diagnosis Pain Generalized pain [facility] Diagnosis Pain Generalized pain [facility] Diagnosis Pain Generalized pain [facility] Diagnosis Great toe pain, right [facility] Diagnosis Carpal tunnel syndrome of right wrist- Primary Carpal tunnel syndrome Numbness and tingling Disturbance of skin sensation [facility] Diagnosis Carpal tunnel syndrome, bilateral- Primary Carpal tunnel syndrome Primary osteoarthritis of both first carpometacarpal joints Primary localized osteoarthrosis, hand Neck pain Cervicalgia Chronic bilateral low back pain, unspecified whether sciatica present Carpal tunnel syndrome of right wrist- Primary Carpal tunnel syndrome Numbness and tingling Disturbance of skin sensation [facility] Diagnosis Primary osteoarthritis of both first carpometacarpal joints- Primary Primary localized osteoarthrosis, hand De Quervain's tenosynovitis, bilateral Radial styloid tenosynovitis [facility] Diagnosis Pain of right sacroiliac joint Disorders of sacrum Neck pain Cervicalgia Chronic bilateral low back pain, unspecified whether sciatica present [facility] Diagnosis Impingement syndrome of right shoulder- Primary Other affections of shoulder region, not elsewhere classified Right shoulder pain, unspecified chronicity Right shoulder pain, unspecified chronicity [facility] Diagnosis Right shoulder pain, unspecified chronicity [facility] Diagnosis Right foot sprain, initial encounter- Primary Right foot pain Pain in limb Derangement of ankle or foot Unspecified ankle and foot joint derangement [facility] Diagnosis Pain in right foot Pain in limb [facility] Neck pain- Primary Cervicalgia Chronic right-sided low back pain without sciatica Pain of right sacroiliac joint Disorders of sacrum Pain of right sacroiliac joint Disorders of sacrum Neck pain Cervicalgia Chronic bilateral low back pain, unspecified whether sciatica present documented in this encounter [facility] for referral (narrative)* Outpatient Procedure (Urgent) - Authorized Specialty Diagnoses / Procedures Referred By Contac t Referred To Contact [facility] Diagnoses Carpal tunnel syndrome, bilateral Procedures EMG(NEURO/NI) NERVE CONDUCTION STUDIES 9-10 STUDIES Deana Benson PA-C [address] [place] [address] Neurological [place] [address] [place] [address] Referral ID Status Reason Start Date Expiration Date Visits Requested Visits Authorized [id number] Authorized Auto-Generat ed Referral 07/03/2023 07/02/2024 1 1 [facility] for referral (narrative)* Diagnostic Procedure Only (Routine) - Closed Specialty Diagnoses / Procedures Referred By Controsibel t Referred To Contact XR IMAGING Diagnoses Pain Procedures XR HAND GENERAL 3V PA/LAT/OBL BILATERAL RADEX HAND MINIMUM 3 VIEWS Deana Benson PA-C [address] [place] [address] [place] [address] Referral ID Status Reason Start Date Expiration Date V isits Requested Visits Authorized [id number] Closed Auto-Generate d Referral 06/03/2023 07/02/2024 1 1 [facility] for referral (narrative)* Diagnostic Procedure Only (Routine) - Closed Specialty Diagnoses / Procedures Referred By Contac t Referred To Contact XR IMAGING Diagnoses Pain Procedures XR FOOT GENERAL 3V AP/LAT/OBL LEFT RADEX FOOT COMPLETE MINIMUM 3 VIEWS Caren Vizcarra, DONM [address] [place] [address] [place] [address] Referral ID Status Reason Start Date Expiration Date V isits Requested Visits Authorized [id number] Closed Auto-Generate d Referral 11/26/2021 12/26/2022 1 1 [facility] for visit Narrative* Diagnostic Procedure Only (Routine) - Closed Specialty Diagnoses / Procedures Referred By Contac t Referred To Contact XR IMAGING Diagnoses Pain Procedures XR HAND GENERAL 3V PA/LAT/OBL BILATERAL RADEX HAND MINIMUM 3 VIEWS Deana Benson PA-C [address] [place] [address] [place] [address] Referral ID Status Reason Start Date Expiration Date V isits Requested Visits Authorized [id number] Closed Auto-Generate d Referral 06/03/2023 07/02/2024 1 1 [facility] for visit Narrative* Diagnostic Procedure Only (Routine) - Closed Specialty Diagnoses / Procedures Referred By Contac t Referred To Contact XR IMAGING Diagnoses Pain Procedures XR FOOT GENERAL 3V AP/LAT/OBL LEFT RADEX FOOT COMPLETE MINIMUM 3 VIEWS Caren Vizcarra, DONM [address] [place] [address] [place] [address] Referral ID Status Reason Start Date Expiration Date V isits Requested Visits Authorized [id number] Closed Auto-Generate d Referral 11/26/2021 12/26/2022 1 1 [facility] for visit Narrative* Diagnostic Procedure Only (Routine) - Closed Specialty Diagnoses / Procedures Referred By Contac t Referred To Contact XR IMAGING Diagnoses Right shoulder pain, unspecified chronicity Procedures XR SHOULDER ORTHO 4V AP/TRUE AP/LAT/OUTLET RIGHT RADEX SHOULDER COMPLETE MINIMUM 2 VIEWS Damian Mcintosh PA-C [address] [place] [address] Phone: tel: fax: [place] [address] Referral ID Status Reason Start Date Expiration Date V isits Requested Visits Authorized [id number] Closed Auto-Generate d Referral 07/19/2024 08/15/2025 1 1 [facility] Summary Purpose Family History No Family History [...] pital DATE CREATED AUTHOR AUTHOR'S ORGANIZ ATION 07/12/2024 [facility] DATE CREATED AUTHOR AUTHOR'S ORGANIZ ATION 07/16/2024 [facility] DATE CREATED AUTHOR AUTHOR'S ORGANIZ ATION 07/27/2024 [facility] DATE CREATED AUTHOR AUTHOR'S ORGANIZ ATION 08/20/2024 [facility] DATE CREATED AUTHOR AUTHOR'S ORGANIZ ATION 08/20/2024 [facility] Source Comments (unrecognize d section and content) In the event this informatio n is protected by the Federal Confidentiality of Alcohol and Drug Abuse Patient Records regulations: The Federal rules restrict any use of the information to criminally investigate or prosecute any alcohol or drug abuse patient.[facility] the event this information is protected by the Federal Confidentiality of Alcohol and Drug Abuse Patient Records regulations: The Federal rules restrict any use of the information to criminally investigate or prosecute any alcohol or drug abuse patient.[facility] the event this information is protected by the Federal Confidentiality of Alcohol and Drug Abuse Patient Records regulations: The Federal rules restrict any use of the information to criminally investigate or prosecute any alcohol or drug abuse patient.[facility] the event this information is protected by the Federal Confidentiality of Alcohol and Drug Abuse Patient Records regulations: The Federal rules restrict any use of the information to criminally investigate or prosecute any alcohol or drug abuse patient.[facility] the event this information is protected by the Federal Confidentiality of Alcohol and Drug Abuse Patient Records regulations: The Federal rules restrict any use of the information to criminally investigate or prosecute any alcohol or drug abuse patient.[facility] the event this information is protected by the Federal Confidentiality of Alcohol and Drug Abuse Patient Records regulations: The Federal rules restrict any use of the information to criminally investigate or prosecute any alcohol or drug abuse patient.[facility] the event this information is protected by the Federal Confidentiality of Alcohol and Drug Abuse Patient Records regulations: The Federal rules restrict any use of the information to criminally investigate or prosecute any alcohol or drug abuse patient.[facility] the event this information is protected by the Federal Confidentiality of Alcohol and Drug Abuse Patient Records regulations: The Federal rules restrict any use of the information to criminally investigate or prosecute any alcohol or drug abuse patient.[facility] the event this information is protected by the Federal Confidentiality of Alcohol and Drug Abuse Patient Records regulations: The Federal rules restrict any use of the information to criminally investigate or prosecute any alcohol or drug abuse patient.[facility] the event this information is protected by the Federal Confidentiality of Alcohol and Drug Abuse Patient Records regulations: The Federal rules restrict any use of the information to criminally investigate or prosecute any alcohol or drug abuse patient.[facility] the event this information is protected by the Federal Confidentiality of Alcohol and Drug Abuse Patient Records regulations: The Federal rules restrict any use of the information to criminally investigate or prosecute any alcohol or drug abuse patient.[facility] the event this information is protected by the Federal Confidentiality of Alcohol and Drug Abuse Patient Records regulations: The Federal rules restrict any use of the information to criminally investigate or prosecute any alcohol or drug abuse patient.[facility] the event this information is protected by the Federal Confidentiality of Alcohol and Drug Abuse Patient Records regulations: The Federal rules restrict any use of the information to criminally investigate or prosecute any alcohol or drug abuse patient.[facility] the event this information is protected by the Federal Confidentiality of Alcohol and Drug Abuse Patient Records regulations: The Federal rules restrict any use of the information to criminally investigate or prosecute any alcohol or drug abuse patient.[facility] the event this information is protected by the Federal Confidentiality of Alcohol and Drug Abuse Patient Records regulations: The Federal rules restrict any use of the information to criminally investigate or prosecute any alcohol or drug abuse patient.[facility] the event this information is protected by the Federal Confidentiality of Alcohol and Drug Abuse Patient Records regulations: The Federal rules restrict any use of the information to criminally investigate or prosecute any alcohol or drug abuse patient.[facility] the event this information is protected by the Federal Confidentiality of Alcohol and Drug Abuse Patient Records regulations: The Federal rules restrict any use of the information to criminally investigate or prosecute any alcohol or drug abuse patient.[facility] the event this information is protected by the Federal Confidentiality of Alcohol and Drug Abuse Patient Records regulations: The Federal rules restrict any use of the information to criminally investigate or prosecute any alcohol or drug abuse patient.[facility] the event this information is protected by the Federal Confidentiality of Alcohol and Drug Abuse Patient Records regulations: The Federal rules restrict any use of the information to criminally investigate or prosecute any alcohol or drug abuse patient.[facility] the event this information is protected by the Federal Confidentiality of Alcohol and Drug Abuse Patient Records regulations: The Federal rules restrict any use of the information to criminally investigate or prosecute any alcohol or drug abuse patient.[facility] the event this information is protected by the Federal Confidentiality of Alcohol and Drug Abuse Patient Records regulations: The Federal rules restrict any use of the information to criminally investigate or prosecute any alcohol or drug abuse patient.[facility] the event this information is protected by the Federal Confidentiality of Alcohol and Drug Abuse Patient Records regulations: The Federal rules restrict any use of the information to criminally investigate or prosecute any alcohol or drug abuse patient.[facility] Reason for Visit (unrecogniz ed section and content) Reason Comments Radiology XR Reason Comments New Pain Reason Comments New Pain Reason Comments EMG Specialty Diagnoses / Procedures Referred By Contac t Referred To Contact [facility] Diagnoses Numbness and tingling Procedures EMG(NEURO/NI) NERVE CONDUCTION STUDIES 9-10 STUDIES NERVE CONDUCTION STUDIES 11-12 STUDIES NERVE CONDUCTION STUDIES 5-6 STUDIES NDL EMG 1 XTR W/WO RELATED PARASPINAL AREAS NEEDLE EMG LMTD STD MUSC 1 XTR/NON-LIMB UNI/BI NEEDLE EMG EA EXTREMITY W/PARASPINL AREA LIMITED NEEDLE EMG EA EXTREMTY W/PARASPINL AREA COMPLETE NEEDLE EMG NONEXTREMTY MSCLES W/NERVE CONDUCTION Deana Benson PA-C [address] [place] [address] Phone: tel: fax: Neurology [address] [place] [address] Phone: tel: Referral ID Status Reason Start Date Expiration Date V isits Requested Visits Authorized [id number] Closed Auto-Generate d Referral 06/22/2024 05/04/2025 1 1 Reason Comments Follow Up Reason Comments Radio Gen HB6 Specialty Diagnoses / Procedures Referred By Contac t Referred To Contact XR IMAGING Diagnoses Pain of right sacroiliac joint Procedures XR SACROILIAC JOINTS 2V AP PELVIS/FERGUESON RADIOLOGIC EXAMINATION SACROILIAC JNTS <3 VIEWS Deana Benson PA-C [address] [place] [address] Phone: tel: fax: XR [facility] [place] [address] Referral ID Status Reason Start Date Expiration Date V isits Requested Visits Authorized [id number] Closed Auto-Generate d Referral 07/15/2024 08/14/2025 1 1 Reason Comments New Reason Comments Pain New Reason Comments Radiology XR Specialty Diagnoses / Procedures Referred By Contac t Referred To Contact XR IMAGING Diagnoses Pain in right foot Procedures XR FOOT GENERAL 3V AP/LAT/OBL RIGHT RADEX FOOT COMPLETE MINIMUM 3 VIEWS Sammi Manzo, DPM [address] [facility] [place] [address] Phone: tel: fax: [place] [address] Referral ID Status Reason Start Date Expiration Date V isits Requested Visits Authorized [id number] Closed Auto-Generate d Referral 07/21/2024 08/20/2025 1 1 Reason Comments Letter Reason Comments New Patient Care Teams (unrecognized sec tion and content) Feed Crusher Operator Relationship Specialty Start Date End Date Fede Manzanares DO [address] [place] [address] PCP - General Family Practice 12/03/17 Feed Crusher Operator Relationship Specialty Start Date End Date Fede Manzanares DO [address] [place] [address] PCP - General Family Practice 12/03/17 Feed Crusher Operator Relationship Specialty Start Date End Date Fede Manzanares DO [address] [place] [address] PCP - General Family Medicine 12/03/17 Feed Crusher Operator Relationship Specialty Start Date End Date Fede Manzanares DO [address] [address] PCP - General Family Medicine 12/03/17 Feed Crusher Operator Relationship Specialty Start Date End Date Fede Manzanares DO [address] [address] PCP - General Family Medicine 12/03/17 Feed Crusher Operator Relationship Specialty Start Date End Date Fede Manzanares, DO [address] [place] [address] PCP - General Family Medicine 12/03/17 Feed Crusher Operator Relationship Specialty Start Date End Date Fede Manzanares, DO [address] [address] PCP - General Family Medicine 12/03/17 Feed Crusher Operator Relationship Specialty Start Date End Date YasmineJeremy lopezsaqib Downing, DO [address] [place] [address] PCP - General Family Medicine 12/03/17 Feed Crusher Operator Relationship Specialty Start Date End Date YasmineFede, DO [address] [place] [address] PCP - General Family Medicine 12/03/17 Feed Crusher Operator Relationship Specialty Start Date End Date Fede Manzanares DO [address] [place] [address] PCP - General Family Medicine 12/03/17 Feed Crusher Operator Relationship Specialty Start Date End Date Fede Manzanares, DO [address] [place] [address] PCP - General Family Medicine 12/03/17 Feed Crusher Operator Relationship Specialty Start Date End Date Fede Manzanares, DO [address] [place] [address] PCP - General Family Medicine 12/03/17 Feed Crusher Operator Relationship Specialty Start Date End Date Yasmine Fedeemmanuel Jonesenrike DO [address] [place] [address] PCP - General Family Medicine 12/03/17 Feed Crusher Operator Relationship Specialty Start Date End Date Yasmine Fedesaqib Downing DO [address] [place] [address] PCP - General Family Medicine 12/03/17 Feed Crusher Operator Relationship Specialty Start Date End Date Fede Manzanares DO [address] [place] [address] PCP - General Family Medicine 12/03/17 Feed Crusher Operator Relationship Specialty Start Date End Date Fede Manzanares DO [address] [place] [address] PCP - General Family Medicine 12/03/17 Feed Crusher Operator Relationship Specialty Start Date End Date Yasmine Fedeemmanuel JonesynDO [address] [place] [address] PCP - General Family Medicine 12/03/17 Inactive [...] Starting on Peyton 07/03/23 at 1352, Until Peyotn 07/03/23 at 1352 Given 07/03/2023 1:52 PM [...] BE BASED ON THE PRIMARY CLINICAL RECORDS. [facility]. provides no warranty or guarantee of the accuracy or completeness of information in this document.
== END 2024-08-23 10:41 | disposition home or self-care (01) ==
PROVIDERS: PCP Nurse Practitioner; Visit Provider Orthopaedic Surgery
DX: M25.542 Pain in joints of left hand (principal); M25.541 Pain in joints of right hand; M19.042 Primary osteoarthritis, left hand; M19.041 Primary osteoarthritis, right hand
CPT/HCPCS: 73130

== ENCOUNTER 2024-12-21 10:11 | Outpatient (OUT) | payer OTHER, SELFPAY ==
--- OUTSIDE RECORDS SUMMARY | 2024-07-23 04:00 | XMS_ITS ---
[facility] [address] [place] [address] Care Team Providers Care Senior Account Executive Name Role Phone Dr. Kai Forrester Primary Care Provider [phone] Bri Evans Unavailable [phone] REASON FOR VISIT UPDATED EXAM Encounters Encounter Location Date Provider Diagnosis [place] [address] [facility] [place] [address] 07/23/2024 Bri Vargas Plan Of Treatment Next Appt Details Provider Name:Veena Rubin, 04/08/2025 10:00:00 AM, [address], [place], [address], Progress Notes * VENTURA VASQUEZDOB:1980 (44 yo F)Acc No.[id number]:07/23/2024 Patient: SHRUTHI CANOSSICA Provider: Nnamdi Vargas DDS :1980 A ge:43 Y S ex:Female Date:07/23/2024 Address:[address] [place], [place] [id number] Pcp:Dr. Kai Forrester Subjective: * Chief Complaints: * 1 . UPDATED EXAM. * Medical History: Objective: * Vitals: Assessment: Plan: * Treatment: * Images: * Electronic signature of Darío Vargas DDS on 12/21/2024 at 10:13 AM EDT Sign off status: Pending * Provider: Nnamdi Vargas DDS Date: 0 07/23/2024 Generated for Sunny benitez/Salbador/Mike on: 0 12/21/2024 10:13 AM EDT
--- OUTSIDE RECORDS SUMMARY | 2024-10-11 10:50 | XMS_ITS ---
Author Organization [facility] Address [address] [place] [address] Care Team Providers Care Medical Record Consultant Name Role Phone Robin Leung Unavailable [phone] Adelfo Green Unavailable [phone] REASON FOR VISIT questions prior to surgery Medications Medication SIG (Take, Route, Fr equency, Duration) Notes Start Date End Date Status diclofenac Active spironolactone Activ e methocarbamol Active Encounters Encounter Location Date Provider Diagnosis [facility] [address] [place] [phone] 10/11/2024 Adelfo Green Plan Of Treatment No Information Progress Notes * VENTURA VASQUEZDOB:1980 (44 yo F)Acc No.[id number]:10/11/2024 Patient: JODEE CANOICA Provider: Anabelle Green DO :1980 A ge:43 Y S ex:Female Date:10/11/2024 Address:[address] [place], [place] [address] Subjective: * Chief Complaints: * 1 . Questions prior to surgery. * Medical History: * Medications: T aking diclofenac , Taking spironolactone , Taking methocarbamol Objective: * Vitals: Assessment: Plan: * Treatment: Forms: * Images: * Electronic signature of Judy Green DO on 12/21/2024 at 10:13 AM EDT Sign off status: Pending * Provider: Anabelle Green DO Date: 0 10/11/2024 Generated for Omeroi eli/Salbador/eTransmitting on: 0 12/21/2024 10:13 AM EDT
--- OUTSIDE RECORDS SUMMARY | 2024-12-21 10:13 | XMS_ITS | Clinical Summary ---
Author Organization [facility] Address [address] [place] [address] Care Team Providers Care Refund Specialist Name Role Phone Claudette Underwood Primary Care Provider + Allergies Active Allergy Reactions Criticality Noted Date Comments Codeine Itching 12/10/2017 Latex Rash 04/02/2018 Penicillin Hives 12/10/2017 Medications spironolactone (ALDACTONE) 50 mg tablet Take by mouth. 03/11/2023 Active omeprazole (PRILOSEC) 40 mg capsule Take 1 capsule by mouth once daily. 06/28/2024 Active losartan (COZAAR) 50 mg tablet Take 1 tablet by mouth once daily. 08/26/2024 Active cetirizine (ZYRTEC) 10 mg tablet TAKE ONE TABLET BY MOUTH DAILY NEEDED FOR ALLERGY SYMPTOMS 06/28/2024 Active meloxicam (MOBIC) 7.5 mg tablet Take 1 tablet by mouth once daily. with food 30 tablet 2 10/05/2024 01/04/20 25 Active Active Problems Problem Noted Date Diagnosed Date Primary osteoarthritis of both first carpometaca rpal joints 07/12/2024 De Quervain's tenosynovitis, bilateral Hallux rigidus of right foot 05/22/2020 Turf toe 05/22/2020 Sesamoiditis 05/22/2020 Contusion of left knee 02/12/2019 Internal derangement of left knee 02/12/2019 Swelling of right index finger 02/23/2018 Osteoarthritis of multiple joints 02/23/2018 Encounters Date Type Department Care Team Description 11/26/2024 Telephone Neurology [address] [place] [address] Shruti Beasley PA-C MRI prior authorization 11/10/2024 [place] [address] Provider, [facility] Questionnaire Submission 11/09/2024 [place] [address] Provider, [facility] Phone Call follow up 11/01/2024 Telephone [facility] [address] [place] [address] Shruti Beasley PA-C Request For Clinical Notes 10/26/2024 9:15 AM EDT Office Visit [facility] [place] [address] [facility] [place] [address] Dali Monsivais MD Arthritis of carpometacarpal (CMC) joint of both thumbs (Primary Dx) 10/22/2024 Telephone Orthopaedics [address] [place] [address] Ruel Roach DPM Orthotics 10/19/2024 Telephone Orthopaedics [address] [place] [address] Dali Monsivais MD Patient Question (X rays of hand) 10/15/2024 8:15 AM EDT Office Visit [facility] [address] [place] [address] Shruti Beasley PA-C Neck pain (Primary Dx); Myofascial neck pain; Chronic right-sided low back pain without sciatica; Pain of right sacroiliac joint; Primary osteoarthritis of both first carpometacarpal joints; Carpal tunnel syndrome, bilateral; Chronic bilateral low back pain, unspecified whether sciatica present 10/05/2024 9:00 AM EDT Office Visit Orthopaedics [address] [place] [address] Queenie, Cast Tech Derangement of ankle or foot (Primary Dx) 10/05/2024 8:15 AM EDT Office Visit Orth[facility]edics [address] [place] [address] Ruel Roach DPM Post-traumatic osteoarthritis of right foot (Primary Dx); Right foot pain 09/29/2024 7:20 AM EDT - 09/29/2024 11:59 PM EDT Hospital Encounter [facility] [address] [facility] [place] [id number] Chronic pain of right ankle [M25.571, G89.29] Discharge Disposition: Home 09/28/2024 Travel 09/27/2024 [place] [address] Provider, [facility]cf MRI Screening Questionnaire Completion Required 09/21/2024 Telephone Orthopaedics [address] [place], [place] [id number] Ruel Roach, NAUN MRI prior auth from Last 3 Months Family History Medical History Relation Comments Rheumatologic disease Maternal Aunt 1 Rheumatoid arthritis Thyroid Maternal Aunt 2 Thyroid Maternal Aunt 3 Rheumatologic disease Maternal Grandmother Lupus Psoriasis No Family History Relation Status Comments Maternal Aunt 1 Maternal Aunt 2 Maternal Aunt 3 Maternal Grandmother Social History Tobacco Use Types Packs/Day Years Used Date Smoking Tobacco: Former Cigarettes 0.5 25 Smokeless Tobacco: Never Alcohol Use Standard Drinks/Week Comments No 0 (1 standard drink = 0.6 oz pur e alcohol) PHQ-2 Answer Date Recorded PHQ-2 score 0 06/18/2024 Area Deprivation Index Answer Date Vincenzo rded National Score (1-100), lower number is lower ri sk 78 07/03/2023 State Score (1-10), lower number is lower risk 6 07/03/2023 Data from: https://www.neighborhoodatlas.medicine.[facility].edu/. Last address used for calculation [address] 07/03/2023 Comments Unknown Sex and Gender Information Value Date Recorded Sex Assigned at Not on file Legal Sex Female 1:33 PM EDT Gender Identity Not on file Sexual Orientation Not on file Last Filed Vital Signs Vital Sign Reading Time Taken Comments Blood Pressure 121/83 10/15/2024 7:59 AM EDT Pulse 74 10/15/2024 7:59 AM EDT Temperature 36.7 C (98.1 F) 02/23/2018 1:57 PM EDT Respiratory Rate 18 10/15/2024 7:59 AM EDT Oxygen Saturation 98% 10/15/2024 7:59 AM EDT Inhaled Oxygen Concentration - - Weight 99 kg (218 lb 4.1 oz) 10/15/2024 7:59 AM EDT Height 175.3 cm (5' 9 ) 10/15/2024 7:59 AM EDT Body Mass Index 32.23 10/15/2024 7:59 AM EDT Plan of Treatment Health Maintenance Due Date Last Done Comments Anxiety Screening 1998 Depression Screening 1998 HIV Screening 1998 Hepatitis C Screening 1998 Hepatitis B Vaccine (1 of 3 - 19+ 3-dose series) 11/11 Cervical Cancer Screening 2001 HPV Vaccine (1 - 3-dose SCDM series) 11/12/2007 Mammogram Screening 2020 Influenza Vaccine (#1) 2025 DTaP,Tdap,Td Vaccine (2 - Td or Tdap) 03/11/203311/2022 Procedures Procedure Name Priority Date/Time Associated Diagnosis Comments MRI ANKLE WO IVCON RIGHT Routine 09/29/2024 7:59 AM EDT Chronic pain of right ankle from Last 3 Months Results * MRI ANKLE WO IVCON RIGHT (09/29/2024 7:59 AM EDT) Anatomical Region Laterality Modality Ankle Magnetic Resonan ce 09/29/2024 7:59 AM EDT Impressions 09/29/2024 12:21 PM EDT IMPRESSION: 1. Ill-defined amorphous signal involving interosseous Lisfranc ligament which is poorly defined, highly suspicious for subacute to chronic tear, with mild widening of the interval between the medial cuneiform and base of the second metatarsal without significant tarsometatarsal malalignment on these nonstress images. Recommend clinical correlation for instability of the Lisfranc joint. 2. Thickening favoring scarring of the dorsal component of the Lisfranc ligament. 3. Subtle cortical irregularity along the plantar margin of the base of the second metatarsal which may reflect volume averaging artifact versus a subacute to chronic avulsion fracture. CT foot without contrast can be offered for further assessment and characterization. 4. Mild midfoot degenerative changes most prominent involving the third and fourth tarsometatarsal joints with subchondral cysts and reactive bone marrow edema like signal. 5. Mild plantar fasciitis. Sql Consultant: SETH Transcribe Date/Time: Sep 29 2024 12:05P Dictated by : EFFIE BAUTISTA MD This examination was interpreted and the report reviewed and electronically signed by: EFFIE BAUTISTA MD on Sep 29 2024 12:19PM EST Narrative 09/29/2024 12:21 PM EDT * * *Final Report* * * DATE OF EXAM: Sep 29 2024 7:59AM LNNilesh [id number] - MRI ANKLE WO IVCON RT / PROCEDURE REASON: multiple diagnoses * * * * Physician Interpretation * * * * EXAM: MRI ANKLE WO IVCON RT HISTORY: Chronic pain of right ankle Chronic pain of right ankle . TECHNIQUE: Multiplanar multisequence imaging of the right ankle was performed without contrast material. COMPARISON: 07/28/2024 right foot radiographs RESULT: BONE MARROW: Subtle cortical irregularity along the plantar margin of the base of the second metatarsal without significant marrow edema, series 6 image 15 which may reflect volume averaging artifact or a small subacute to chronic avulsion fracture at the second tarsometatarsal joint. Subchondral cystic changes involving the lateral cuneiform and base of the fourth metatarsal. JOINTS: Maintained. No significant joint effusion seen. The tarsal tunnel and sinus tarsi are within normal limits. TENDONS: Achilles tendon: Within normal limits. Peroneal tendons: Within normal limits. Posterior tibial tendon: Within normal limits. Flexor digitorum longus tendon: Within normal limits. Flexor hallucis longus tendon: Within normal limits. Extensor tendons: Within normal limits. LIGAMENTS: Lisfranc ligament: The interosseous component of the Lisfranc ligament is ill-defined with amorphous signal within the interval between the base of the second metatarsal and medial cuneiform with mild widening of the space measuring approximately 6 mm. Features are highly concerning for subacute to chronic complete tear of the interosseous component of the Lisfranc ligament. There is no significant Lisfranc joint malalignment on these nonstress images. There is thickening of the dorsal component favoring scarring. The plantar components remains grossly intact. Anterior-inferior tibiofibular ligament: Intact. Interosseous ligament: Intact. Posterior tibiofibular ligament: Intact. Anterior talofibular ligament: Intact. Posterior talofibular ligament: Intact. Calcaneofibular ligament: Intact. Deltoid ligament complex: The superficial and deep components of the deltoid ligament complex are intact. Spring ligament: Intact. FASCIA: Mild perifascial edema at the calcaneal attachment. MUSCLES: Muscles demonstrate normal morphology and signal intensity. SOFT TISSUES: No abnormality. Procedure Note Provider, [facility] [place] - 09/29/2024 * * *Final Report* * * DATE OF EXAM: Sep 29 2024 7:59AM LNNilesh 0164 - MRI ANKLE WO IVCON RT / PROCEDURE REASON: multiple diagnoses * * * * Physician Interpretation * * * * EXAM: MRI ANKLE WO IVCON RT HISTORY: Chronic pain of right ankle Chronic pain of right ankle . TECHNIQUE: Multiplanar multisequence imaging of the right ankle was performed without contrast material. COMPARISON: 07/28/2024 right foot radiographs RESULT: BONE MARROW: Subtle cortical irregularity along the plantar margin of the base of the second metatarsal without significant marrow edema, series 6 image 15 which may reflect volume averaging artifact or a small subacute to chronic avulsion fracture at the second tarsometatarsal joint. Subchondral cystic changes involving the lateral cuneiform and base of the fourth metatarsal. JOINTS: Maintained. No significant joint effusion seen. The tarsal tunnel and sinus tarsi are within normal limits. TENDONS: Achilles tendon: Within normal limits. Peroneal tendons: Within normal limits. Posterior tibial tendon: Within normal limits. Flexor digitorum longus tendon: Within normal limits. Flexor hallucis longus tendon: Within normal limits. Extensor tendons: Within normal limits. LIGAMENTS: Lisfranc ligament: The interosseous component of the Lisfranc ligament is ill-defined with amorphous signal within the interval between the base of the second metatarsal and medial cuneiform with mild widening of the space measuring approximately 6 mm. Features are highly concerning for subacute to chronic complete tear of the interosseous component of the Lisfranc ligament. There is no significant Lisfranc joint malalignment on these nonstress images. There is thickening of the dorsal component favoring scarring. The plantar components remains grossly intact. Anterior-inferior tibiofibular ligament: Intact. Interosseous ligament: Intact. Posterior tibiofibular ligament: Intact. Anterior talofibular ligament: Intact. Posterior talofibular ligament: Intact. Calcaneofibular ligament: Intact. Deltoid ligament complex: The superficial and deep components of the deltoid ligament complex are intact. Spring ligament: Intact. FASCIA: Mild perifascial edema at the calcaneal attachment. MUSCLES: Muscles demonstrate normal morphology and signal intensity. SOFT TISSUES: No abnormality. IMPRESSION IMPRESSION: 1. Ill-defined amorphous signal involving interosseous Lisfranc ligament which is poorly defined, highly suspicious for subacute to chronic tear, with mild widening of the interval between the medial cuneiform and base of the second metatarsal without significant tarsometatarsal malalignment on these nonstress images. Recommend clinical correlation for instability of the Lisfranc joint. 2. Thickening favoring scarring of the dorsal component of the Lisfranc ligament. 3. Subtle cortical irregularity along the plantar margin of the base of the second metatarsal which may reflect volume averaging artifact versus a subacute to chronic avulsion fracture. CT foot without contrast can be offered for further assessment and characterization. 4. Mild midfoot degenerative changes most prominent involving the third and fourth tarsometatarsal joints with subchondral cysts and reactive bone marrow edema like signal. 5. Mild plantar fasciitis. Sql Consultant: SETH Transcribe Date/Time: Sep 29 2024 12:05P Dictated by : EFFIE BAUTISTA MD This examination was interpreted and the report reviewed and electronically signed by: EFFIE BAUTISTA MD on Sep 29 2024 12:19PM EST Ruel Roach DPM [facility] Final Result from Last 3 Months Insurance [facility] Care Teams Refund Specialist Relationship Specialty Start Date End Date Claudette Underwood DO [address] [place] [address] PCP - General Family Medicine 12/03/17
--- OUTSIDE RECORDS SUMMARY | 2024-12-21 10:13 | XMS_ITS | Encounter Summary ---
Author Organization [facility] Address [address] [place] [address] Care Team Providers Care Area Operations Director Name Role Phone Claudette Underwood DO Primary Care Provider + Source Comments In the event this information is protected by the Federal Confidentiality of Alcohol and Drug AbusePatient Records regulations: The Federal rules restrict any use of the information to criminally investigate or prosecute any alcohol or drug abuse patient.[facility] Encounter Details Date Type Department Care Team (Late st Contact Info) Description 06/21/2024 Patient Msg Neurology [address] [place], [place] [id number] Provider, Ccf Requested EMG Appointment Social History Tobacco Use Types Packs/Day Years Used Date Smoking Tobacco: Every Day Cigarettes 0.5 25 Smokeless Tobacco: Never Alcohol Use Standard Drinks/Week Comments No 0 (1 standard drink = 0.6 oz pur e alcohol) PHQ-2 Answer Date Recorded PHQ-2 score 0 06/18/2024 Area Deprivation Index Answer Date Vincenzo rded National Score (1-100), lower number is lower ri sk 78 07/03/2023 State Score (1-10), lower number is lower risk 6 07/03/2023 Data from: https://www.neighborhoodatlas.medicine.[facility].edu/. Last address used for calculation [address] [facility] 07/03/2023 Comments Unknown Sex and Gender Information Value Date Recorded Sex Assigned at Not on file Legal Sex Female 1:33 PM EDT Gender Identity Not on file Sexual Orientation Not on file documented as of this encounter Plan of Treatment Not on file documented as of this encounter Visit Diagnoses Not on filedocumented in this encounter Care Teams Area Operations Director Relationship Specialty Start Date End Date Claudette Underwood DO [address] [facility] [address] [address] PCP - General Family Medicine 12/03/17 documented as of this encounter
--- OUTSIDE RECORDS SUMMARY | 2024-12-21 10:13 | XMS_ITS | Patient Health Record ---
Author Organization [facility] Address [address] [place] [address] Care Team Providers Care Bill Checker Name Role Phone Robin Leung Unavailable [phone] Adelfo Green Unavailable [phone] Allergies Allergen (clinical drug ingredient) Drug/Non Drug Allergy documented on EMR Reaction Allergy Type Onset Date Status Latex Latex (uncoded) Unknown Allergy Acti ve Penicillin (uncoded) hives Allergy Active codeine codeine itching Drug Allergy Active Reason For Referral No Information Medications Medication SIG (Take, Route, Fr equency, Duration) Notes Start Date End Date Status diclofenac Active spironolactone Activ e methocarbamol Active Social History Tobacco Use: Social History Observation Description Date Details (start date - stop date) Never Smoker NA - NA AUDIT-C (Standard) Question Answer Notes Did you have a drink contain ing alcohol in the past year? Yes How often did you have a dri nk containing alcohol in the past year? Monthly or less (1 point) How many drinks did you have on a typical day when you were drinking in the past year? 1 or 2 drinks (0 point) How often did you have six o r more drinks on one occasion in the past year? Never (0 point) Points 1 Interpretation Negative Tobacco Control (Standard) Question Answer Notes Tobacco use: Nonsmoker Problems Problem Type SNOMED Code ICD Code Onset Dates Problem Status W/U Status Risk Notes Problem [id number] Right carpal tunnel syndrome (G56.01) Active confirmed Problem [id number] Primary osteoarthritis of first carpometacarpal joint of left hand (M18.12) Active confirmed Vital Signs Height 5'9 in 08/23/2024 Weight 220 lbs 08/23/2024 BMI 32.48 08/23/2024 Encounters Encounter Location Date Provider Diagnosis [facility] [address] [facility] [facility] [place] [address] 08/23/2024 Robin Leung Pain in joints of ri ght hand M25.541 ; Primary osteoarthritis of first carpometacarpal joint of left hand M18.12 ; Pain in joints of left hand M25.542 and Right carpal tunnel syndrome G56.01 [facility] [address] [place] [address] 08/30/2024 Adelfo Green Primary osteoarthrit is of first carpometacarpal joint of left hand M18.12 Assessments Encounter Date Diagnosis (ICD Code) Assessment Notes Treatment Notes Treatment Clinical Notes Section Notes 08/23/2024 Primary osteoarthritis of first carpometacarpal joint of left hand (ICD-10 - M18.12) 08/23/2024 Pain in joints of right hand (ICD-10 - M25.541) 08/30/2024 Primary osteoarthritis of first carpometacarpal joint of left hand (ICD-10 - M18.12) Left thumb CMC arthritis 08/23/2024 Pain in joints of left hand (ICD-10 - M25.542) 08/23/2024 Right carpal tunnel syndrome (ICD-10 - G56.01) 08/23/2024 Other The patient's interest is is and surgical treatment for left thumb CMC joint arthritis. She has failed several different prescription anti-inflammato renetta with steroid injections. I will have her see Dr. Banks for him to decide with the patient if the next step is surgical intervention. She would like to observe her carpal tunnel syndrome for now. Import medication 08/30/2024 Other Discussion had today with patient regarding left CMC arthritis. She has tried multiple modalities including multiple injections bracing and oral medications. No longer having any effect. We did discuss CMC arthroplasty as well as risk and benefits associated. She was to proceed forward. Will plan for left CMC arthroplasty. This note will serve as H&P Left thumb CMC arthritis Plan Of Treatment Pending Test Test Name Order Date SCC- HAND 3 VIEW LEFT [id number] 08/23/2024 SCC- HAND 3 VIEW RIGHT [id number] 08/23/2024 Insurance Providers Payer Name Payer Address Payer Phone Subscriber Number Group Number Insured Name Patient Relationship to Insured Coverage Start Date Coverage End Date Medicaid [employer] [place] [address] [place] [address] [id number] VENTURA VASQUEZ Self - patient is the insured 5 Medical (General) History Medical History History ICD Code GI Problems: High Blood Pressure Depression Latex Allergy Drug Allergies
--- OUTSIDE RECORDS SUMMARY | 2024-12-21 10:14 | XMS_ITS | Encounter Summary ---
Author Organization [facility] Address [address] [place] [address] Care Team Providers Care Gang Plank Workman Name Role Phone Claudette Underwood DO Primary Care Provider + Source Comments In the event this information is protected by the Federal Confidentiality of Alcohol and Drug AbusePatient Records regulations: The Federal rules restrict any use of the information to criminally investigate or prosecute any alcohol or drug abuse patient.[facility] Encounter Details Date Type Department Care Team ([facility] Contact Info) Description 09/27/2024 [place] [address] Provider, Ccf MRI Screening Questionnaire Completion Required Social History Tobacco Use Types Packs/Day Years [...] is lower risk 6 07/03/2023 Data from: https://www.neighborhoodatlas.medicine.[facility].edu/. Last address used for calculation [address] [place] [address] 07/03/2023 Comments Unknown Sex and Gender Information Value Date Recorded Sex Assigned at Not on file Legal Sex Female 1:33 PM EDT Gender Identity Not on file Sexual Orientation Not on file documented as of this encounter Plan of Treatment Not on file documented as of this encounter Visit Diagnoses Not on filedocumented in this encounter Care Teams Gang Plank Workman Relationship Specialty Start Date End Date Claudette Underwood DO [address] [facility] [place] [address] PCP - General Family Medicine 12/03/17 documented as of this encounter
--- OUTSIDE RECORDS SUMMARY | 2024-12-21 10:14 | XMS_ITS | Encounter Summary ---
Author Organization [facility] Address [address] [place] [address] Care Team Providers Care Movable Bulkhead Installer Name Role Phone Claudette Underwood DO Primary Care Provider + Source Comments In the event this information is protected by the Federal Confidentiality of Alcohol and Drug AbusePatient Records regulations: The Federal rules restrict any use of the information to criminally investigate or prosecute any alcohol or drug abuse patient.[facility] Reason for Visit * Reason Comments Radiology XR Encounter Details Date Type Department Care Team (Late st Contact Info) Description 07/27/2024 Radiology Radiology [address] [place] [address] Jackeline Centeno RT(R) Radiology XR Social History Tobacco Use Types Packs/Day Years [...] is lower risk 6 07/03/2023 Data from: https://www.neighborhoodatlas.medicine.[facility]/. Last address used for calculation [address] [facility] 07/03/2023 Comments Unknown Sex and Gender Information Value Date Recorded Sex Assigned at Not on file Legal Sex Female 1:33 PM EDT Gender Identity Not on file Sexual Orientation Not on file documented as of this encounter Progress Notes * Jackeline Centeno RT(R) - 07/27/2024 10:29 AM EDT Radiology Service Progress Note PATIENT NAME: Gerri Garcia DATE OF SERVICE: July 27, 2024 TIME: 10:29 AM PATIENT IDENTITY VERIFICATION COMPLETED USING TWO (2) IDENTIFIERS: Name and Date of confirmedby patient verbally. FALL SCREENING: Has the patient had 2 falls in the last year or 1 fall with injury or currently using an Ambulatory Assistive Device (Walker, Cane, Wheelchair, Crutches, etc.)? No PATIENT GENDER DATA: Assigned female at . status: : No status:NO. PATIENT RELEVANT IMPLANT DATA REVIEWED: Not Applicable PATIENT PRESENTS WITH AN IMPLANTABLE OR ATTACHED SPEECH PATHOLOGY ASSISTANT: No RADIOLOGY DEPARTMENT: General X-ray: Exam(s) Completed: Upper Extremity X- Ray(s): Shoulder, AP / TRUE AP / AXILLARY / SUPRA OUTLET right PERIPHERAL IV DATA: Not applicable SIGNED BY: RT Ivett(R) July 27, 2024 10:29 AM documented in this encounter Plan of Treatment Not on file documented as of this encounter Visit Diagnoses Not on filedocumented in this encounter Care Teams Movable Bulkhead Installer Relationship Specialty Start Date End Date Claudette Underwood DO [address] [facility] [place] [address] PCP - General Family Medicine 12/03/17 documented as of this encounter
--- OUTSIDE RECORDS SUMMARY | 2024-12-21 10:14 | XMS_ITS | Patient Health Record ---
Author Organization [facility] Address [address] [place] [address] Care Team Providers Care Sales Department Manager Name Role Phone Dr. Kai Forrester Primary Care Provider [phone] Rocky Bri Vargas Unavailable [phone] Reason For Referral No Information Encounters Encounter Location Date Provider Diagnosis [address] [place] [address] 09/15/2024 Bri Vargas Encounter for dental examination and cleaning with abnormal findings Z01.21 ; Disturbances in tooth eruption K00.6 ; Other dental procedure status Z98.818 and Dental caries on pit and fissure surface penetrating into dentin K02.52 Assessments Encounter Date Diagnosis (ICD Code) Assessment Notes Treatment Notes Treatment Clinical Notes Section Notes 09/15/2024 Encounter for dental examination and cleaning with abnormal findings (ICD-10 - Z01.21) 09/15/2024 Disturbances in tooth eruption (ICD-10 - K00.6) 09/15/2024 Other dental procedure status (ICD-10 - Z98.818) 09/15/2024 Dental caries on pit and fissure surface penetrating into dentin (ICD-10 - K02.52) Plan Of Treatment Next Appt Details Provider Name:Veena Rubin, 04/08/2025 10:00:00 AM, [address] [place], [address], Insurance Providers Payer Name Payer Address Payer Phone Subscriber Number Group Number Insured Name Patient Relationship to Insured Coverage Start Date Coverage End Date zDENTAL [place]-term ed 22 [address] [address] [place] [address] [id number] VENTURA VASQUEZ Self - patient is the insured 1 3 zDental MEDICAID CFC after GILMORE-term ed 22 [address] [place] [address] [phone] [id number] VENTURA VASQUEZ Self - patient is the insured 1 3 Dental [employer] DQ [place] Medicaid [address] [place] [address] [id number] VENTURA VASQUEZ Self - patient is the insured 5 Dental Wrap [facility]FC [facility] [address] [place] [address] [id number] VENTURA VASQUEZ Self - patient is the insured 5
--- OUTSIDE RECORDS SUMMARY | 2024-12-21 10:14 | XMS_ITS | Encounter Summary ---
Author Organization [facility] Address [address] [place] [address] Care Team Providers Care Inventory Auditor Name Role Phone Claudette Underwood DO Primary Care Provider + Source Comments In the event this information is protected by the Federal Confidentiality of Alcohol and Drug AbusePatient Records regulations: The Federal rules restrict any use of the information to criminally investigate or prosecute any alcohol or drug abuse patient.[facility] Encounter Details Date Type Department Care Team ([facility] Contact Info) Description 11/09/2024 [place] [address] Provider, Ccf Phone Call follow up Social History Tobacco Use Types Packs/Day Years [...] is lower risk 6 07/03/2023 Data from: https://www.neighborhoodatlas.medicine.[facility].edu/. Last address used for calculation [address] [place] [address] 07/03/2023 Comments Unknown Sex and Gender Information Value Date Recorded Sex Assigned at Not on file Legal Sex Female 1:33 PM EDT Gender Identity Not on file Sexual Orientation Not on file documented as of this encounter Plan of Treatment Not on file documented as of this encounter Visit Diagnoses Not on filedocumented in this encounter Care Teams Inventory Auditor Relationship Specialty Start Date End Date Claudette Underwood DO [address] [place] [address] PCP - General Family Medicine 12/03/17 documented as of this encounter
--- OUTSIDE RECORDS SUMMARY | 2024-12-21 10:14 | XMS_ITS | Encounter Summary ---
Author Organization [facility] Address [address] [place] [address] Care Team Providers Care Bedspread Folder Name Role Phone Claudette Underwood DO Primary Care Provider + Source Comments In the event this information is protected by the Federal Confidentiality of Alcohol and Drug AbusePatient Records regulations: The Federal rules restrict any use of the information to criminally investigate or prosecute any alcohol or drug abuse patient.[facility] Encounter Details Date Type Department Care Team ([facility] st Contact Info) Description 11/10/2024 [place] [address] Provider, Ccf Questionnaire Submission Social History Tobacco Use Types Packs/Day Years [...] is lower risk 6 07/03/2023 Data from: https://www.neighborhoodatlas.medicine.[facility].edu/. Last address used for calculation [address] [place] [address] 07/03/2023 Comments Unknown Sex and Gender Information Value Date Recorded Sex Assigned at Not on file Legal Sex Female 1:33 PM EDT Gender Identity Not on file Sexual Orientation Not on file documented as of this encounter Plan of Treatment Not on file documented as of this encounter Visit Diagnoses Not on filedocumented in this encounter Care Teams Bedspread Folder Relationship Specialty Start Date End Date Claudette Underwood DO [address] [facility] [place] [address] PCP - General Family Medicine 12/03/17 documented as of this encounter
--- OUTSIDE RECORDS SUMMARY | 2024-12-21 10:14 | XMS_ITS | Encounter Summary ---
Author Organization [facility] Address [address] [place] [address] Care Team Providers Care Wet End Helper Name Role Phone Claudette Underwood DO Primary Care Provider + Source Comments In the event this information is protected by the Federal Confidentiality of Alcohol and Drug AbusePatient Records regulations: The Federal rules restrict any use of the information to criminally investigate or prosecute any alcohol or drug abuse patient.[facility] Reason for Visit * Reason Comments MRI prior authorization Encounter Details Date Type Department Care Team ([facility] st Contact Info) Description 11/26/2024 Telephone Neurology [address] [place] [address] Shruti Beasley PA-C [facility]. [place] [phone] MRI prior authorization Social History Tobacco Use Types Packs/Day Years Used Date Smoking Tobacco: Former Cigarettes 0.5 25 Smokeless Tobacco: Never Alcohol Use Standard Drinks/Week Comments No 0 (1 standard drink = 0.6 oz pur e alcohol) PHQ-2 Answer Date Recorded PHQ-2 score 0 06/18/2024 Area Deprivation Index Answer Date Vincenzo rded National Score (1-100), lower number is lower ri 78 07/03/2023 State Score (1-10), lower number is lower risk 6 07/03/2023 Data from: https://www.neighborhoodatlas.medicine.[facility]/. Last address used for calculation [address] 07/03/2023 Comments Unknown Sex and Gender Information Value Date Recorded Sex Assigned at Not on file Legal Sex Female 1:33 PM EDT Gender Identity Not on file Sexual Orientation Not on file documented as of this encounter Miscellaneous Notes * Telephone Encounter - Verenice Cast - 12/14/2024 1:29 PM EDT Call received for Shruti Beasley PA-C regarding Gerri Garcia. Caller: self Patient Identified by Name and : Gerri Garcia 1980 Reason for Call: Returning Phone call from Nurse Is there any additional information the provider should know? Yes she has done 5 PT visits not 6 visits. Last Office Visit: 11/01/2024 Next scheduled appointment: Visit date not found Best number to reach caller: [phone] Best time to reach caller: anytime Is it OK to leave a detailed voice message? Yes Verenice Cast * Telephone Encounter - Janice Batista RN - 12/14/2024 12:45 PM EDT Per [employer] The payer requires 6 weeks of PT/home exercise within the last 6 months. the notes in the patients chart only show 4 visits to PT. * Telephone Encounter - Janice Batista RN - 12/14/2024 9:14 AM EDT Spoke to patient advised her I sent an email to clarify on this PA because patient did PT.. They are going to check on what was sent. I will get back to her. Did explain that Shruti Beasley is out until 12/27. She verbalized understanding. * Telephone Encounter - Janice Batista RN - 12/14/2024 8:25 AM EDT Left message on voicemail for patient to call office back or to read [employer] * Telephone Encounter - Candido Claros - 12/09/2024 10:30 AM EDT Pt called to f/u MRI status/P2P - Pls call [facility] * Telephone Encounter - Janice Batista RN - 12/09/2024 7:25 AM EDT Forwarding to provider * Telephone Encounter - Anne Chambers - 12/06/2024 9:31 AM EDT Pt called for follow up on insurance MRI status. Please call when there is a decision made. [phone] * Telephone Encounter - Janice Batista RN - 12/03/2024 7:28 AM EDT Forwarding to provider * Telephone Encounter - Janice Batista RN - 11/30/2024 4:43 PM EDT Per PA information on MRI of lumbar spine. We reviewed the medical information given by your doctor. Your doctor???s records say you have painin your back. With what was received from your doctor, a decision was made that this is not a reason for a(n) Lumbar Spine MRI. To approve, we need notes from your doctor that show you tried back exercises (such as formal physical therapy, a medically directed home exercise program, or chiropractictreatments) for six weeks and did not get better. The dates need to show this was done in the last six months. (Documentation that shows participation may include the following: a discharge summary, notes stating the total number of visits with dates, or full details of the home exercise plan and days performed). It is our medical view that the Lumbar Spine MRI be denied as it is not medically necessary. [employer] Clinical Guideline 044 for Lumbar Spine MRI was used in this request. She will haveto do PT for the MRI of lumbar spine. For the MRI of Cervical spine We reviewed the medical information given by your doctor. Your doctor???s records say you have neckpain. With what was received from your doctor, a decision was made that is not a reason for a(n) Cervical Spine MRI. To approve, we need notes from your doctor explaining why you need this test. The notes we received didn't tell us enough about your problem or why this test is needed. We want to know more about the problem you are having and how this test will help your doctor decide the best wayto treat you. It is our medical view that the Cervical Spine MRI be denied as it is not medically necessary. [employer] Clinical Guideline 040 for Cervical Spine MRI was used in this request. Peer to Peer Patient's Insurance Case# [id number] Is Peer to Peer Available? (Instructions below) Yes Peer to Peer Deadline FABIEN Appeal Deadline (Instructions below) 60 Calendar days from the denial date on: 11/04/2024 * Telephone Encounter - Janice Batista RN - 11/26/2024 1:28 PM EDT Sent message to PA team to clarify on determination * Telephone Encounter - Ana Kang - 11/26/2024 11:55 AM EDT Call received for Shruti Beasley PA-C regarding Gerrizion Garcia. Caller: self Patient Identified by Name and : Gerri Garcia 1980 Reason for Call: General - pt called in stated that would like to see if there is an appeal that could be done for his MRI she is unsure of what she needs to be done would like a call back. Is there any additional information the provider should know? No Last Office Visit: 11/01/2024 Next scheduled appointment: Visit date not found Best number to reach caller: [phone] Best time to reach caller: any Is it OK to leave a detailed voice message? Yes Ana Kang documented in this encounter Plan of Treatment Not on file documented as of this encounter Visit Diagnoses Not on filedocumented in this encounter Care Teams Wet End Helper Relationship Specialty Start Date End Date Claudette Underwood DO [address] [facility] [place] [address] PCP - General Family Medicine 12/03/17 documented as of this encounter
--- NOTE | 2024-12-21 10:15 | MM_ITS ---
Patient Name: VENTURA VASQUEZ MR#: [id number] : 1980 Exam Date: 12/21/2024 Ordering Doctor: IDA ANTON RADIOLOGY REPORT PROCEDURE: MM TOMOSYNTHESIS SCREENING BI COMPARISON: MM TOMOSYNTHESIS SCREENING BI, 10/10/2022. MM TOMOSYNTHESIS SCREENING BI, 10/09/2021. INDICATIONS: Screening Calculator Name NCI Breast Cancer Risk Assessment Tool 5 Year Breast Cancer Risk 0.50% Lifetime Breast Cancer Risk 6.50% Personal Breast Cancer No Personal Ovarian Cancer No Treatments None Family Cancers Father with colon cancer at age 44. LOCATION: [facility] BREAST COMPOSITION: There are scattered areas of fibroglandular density. FINDINGS: DIAGNOSTIC CATEGORY 1--NEGATIVE. RIGHT BREAST: No significant suspicious finding. LEFT BREAST: No significant suspicious finding. RECOMMENDATIONS: ROUTINE MAMMOGRAM AND CLINICAL EVALUATION IN 12 MONTHS. Dictated by: Vineet Sanchez MD on 12/24/2024 at 13:06 Approved by: Vineet Sanchez MD on 12/24/2024 at 13:09
--- OUTSIDE RECORDS SUMMARY | 2024-12-21 12:32 | XMS_ITS | CCD ---
Author Organization [facility] Care Team Providers Care Carding Supervisor Name Role Phone MISC, DOCTOR Primary Care Unavailable TUCKER ISLAS Admitting Unavailable ROSHAN, TUCKER Hughes Attending Unavailable TUCKER ISLAS Consulting Unavailable MARKER, JUDI Consulting Unavailable CHEKO, ALFREDO Consulting Unavailable MAGNUS GASTELUM Admitting Unavailable ORIANA, MAGNUS Attending Unavailable IDRIS, JOSSUE Rankin Consulting Unavailable ORIANA, MAGNUS Consulting Unavailable MISBárbara, DOCTOR Admitting Unavailable MISBárbara, DOCTOR Attending Unavailable RONY HUDSON Admitting Unavailable TRISTAN, RONY Attending Unavailable MADI MAYER V Consulting Unavailable TRISTAN, RONY Consulting Unavailable RONY HUDSON Admitting Unavailable TRISTAN, RONY Attending Unavailable TRISTAN, RONY Consulting Unavailable Kai Fuentes Consulting Unavailable Fede Manzanares DO Primary Care Provider Fede Manzanares DO Primary Care Provider Fede Manzanares DO Primary Care Provider Myesha Alaniz Attending Unavailable Myesha Alaniz Attending Unavailable FACUNDO MERCEDES Attending UnavailFACUNDO Rojo Admitting UnavailVenice Llanos Attending Unavailable Venice Islas Admitting Unavailable Myesha Alaniz Attending Unavailable FACUNDO MERCEDES Attending Unavailabl e Myesha Alaniz Attending Unavailable Fede Manzanares DO Primary Care Provider HUNTER MONSIVAIS Attending Unavailable DEANA BENSON Referring Unavailable FEDE MANZANARES Primary Care UnavailDEANA Lira Referring Unavailable FEDE MANZANARES Primary Care Unavailabl e MARCELINO, DEANA Attending Unavailable DEANA BENSON Attending Unavailable GLENNA, FEDE BYRNES Primary Care Unavailabl e MARCELINO, DEANA Referring Unavailable GLENNA, FEDE BYRNES Primary Care Unavailabl e CHAVA WEBER Attending Unavailable GLENNA, FEDE BYRNES Primary Care Unavailabl e GLENNA, FEDE BYRNES Primary Care Unavailabl e MARCELINO, DEANA Attending Unavailable DEANA BENSON Referring Unavailable GLENNA, FEDE BYRNES Primary Care Unavailabl e DAYNADAMIAN JENSEN Attending Unavailable GLENNA, FEDE BYRNES Primary Care Unavailabl e DAYNADAMIAN JENSEN Referring Unavailable GLENNA, FEDE BYRNES Primary Care Unavailabl e ANAISSAMMI JOSE Referring Unavailable GLENNA, FEDE BYRNES Primary Care Unavailabl e ANAISSAMMI JOSE Attending Unavailable GLENNA, FEDE BYRNES Primary Care Unavailabl e ANAISSAMMI JOSE Attending Unavailable GLENNA, FEDE BYRNES Primary Care Unavailabl e SAMMI MANZO Referring Unavailable GLENNA, FEDE BYRNES Primary Care Unavailabl e ANAISSAMMI JOSE Attending Unavailable GLENNA, FEDE FITZ Primary Care Unavailabl e Antelmo Bolden Attending Unavailab Antelmo Swanson Admitting Unavailab Venice Ray Admitting Unavailable JanelVenice benitez Attending Unavailable Madi oTledo Attending Unavailable Jamil, Myesha Yoder Attending Unavailable Jamil, Myesha L Admitting Unavailable Jamil, Myesha Yoder Attending Unavailable Jamil, Myesha Yoder Attending Unavailable Jamil, Myesha L Admitting Unavailable Dontae Zhao Attending Unavailable Jamil, Myesha L Attending Unavailable Jamil, Myesha L Attending Unavailable Jamil, Myesha L Attending Unavailable Jamil, Myesha L Attending Unavailable Jamil, Myesha L Admitting Unavailable Jamil, Myesha L Attending Unavailable Allergies Allergy Classification Reported Allergen(s) Allergy Type Date of Onset Reaction(s) Facility (6 sources) Codeine; Translations: [codeine] Drug Allergy 8 [facility] (1 source) natural latex rubber Drug allergy (disorder) [facility] (20 sources) Penicillin; Translations: [PENICILLIN] Drug Allergy 8 Hives [facility] (20 sources) Codeine Drug Allergy 8 Itching [facility] (20 sources) Latex; Translations: [Latex] Drug Allergy 8 Rash [facility] (3 sources) Penicillins; Translations: [penicillins] Propensity to adverse reactions (disorder) [facility] (3 sources) bandaids; Translations: [bandaids] Propensity to adverse reactions (disorder) [facility] Medications Current Medications Medication Drug Class(es) Dates Sig (Normalized) Sig (Original) cetirizine hydrochloride 10 mg oral tablet (9 sources) Histamine-1 Receptor Antagonist Start: 06-28-2024 take 1 tablet by mouth once daily as needed cetirizine (ZYRTEC) 10 mg tablet TAKE ONE TABLET BY MOUTH DAILY NEEDED FOR ALLERGY SYMPTOMS 06/28/2024 Active losartan potassium 50 mg oral tablet (9 sources) Angiotensin 2 Receptor Zoe Start: 08-26-2024 take 1 tablet by mouth once daily losartan (COZAAR) 50 mg tablet Take 1 tablet by mouth once daily. 08/26/2024 Active meloxicam 7.5 mg oral tablet (16 sources) Nonsteroidal Anti-inflammatory Drug Start: 10-05-2024 End: 01-03-2025 take 1 tablet by mouth once daily at mealtime meloxicam (MOBIC) 7.5 mg tablet Take 1 tablet by mouth once daily. with food 30 tablet 2 10/05/2024 01/03/2025 Active Start: 11-27-2021 End: 07-15-2024 take 1 tablet by mouth once daily meloxicam (MOBIC) 15 mg tablet Take 1 tablet by mouth once daily. 30 tablet 2 11/27/2021 07/15/2024 Discontinued (Course of therapy completed) Comment on above: Take 1 tablet by scarlet th once daily. omeprazole 40 mg delayed release oral capsule (9 sources) Proton Pump Inhibitor Start: 06-28-19 25 take 1 capsule by mouth once daily omeprazole (PRILOSEC) 40 mg capsule Take 1 capsule by mouth once daily. 06/28/2024 Active spironolactone 50 mg oral tablet (20 sources) Aldosterone Antagonist Start: 03-11-20 23 spironolactone (ALDACTONE) 50 mg tablet Take by [...] Fri07/12/24 at 1126, Until Fri07/12/24 at 1126 diclofenac sodium 75 mg delayed release oral tablet (20 sources) Nonsteroidal Anti-inflammatory Drug Start: 07-15-2024 End: 10-26-2024 take 1 tablet by mouth every twelve hours as needed diclofenac, EC, (VOLTAREN) 75 mg EC tablet Take 1 tablet by mouth two times a day as needed (for pain). Please take with food. 60 tablet 07/15/2024 10/26/2024 Discontinued Start: 12-10-2017 End: 11-27-2021 apply 2 g [...] (1 % ) 0.5 mL injection (XYLOCAINE) metFORMIN hydrochloride 500 mg oral tablet (3 sources) Biguanide Start: 02-16-2018 End: 11-27-2021 metFORMIN (GLUCOPHAGE) 500 mg tablet twice daily. 02/16/2018 11/27/2021 Discontinued (Discontinued by another Health Care Provider) Comment on above: twice daily. methocarbamol 500 mg oral tablet (19 sources) Muscle Relaxant Start: 07-15-2024 End: 10-26-2024 take 1 tablet by mouth every twelve hours as needed methocarbamol (ROBAXIN) 500 mg tablet Take 1 tablet by mouth two times a day as needed (for pain). 60 tablet 07/15/2024 10/26/2024 Discontinued naproxen 500 mg oral tablet (3 sources) Nonsteroidal Anti-inflammatory Drug Start: 10-29-2019 End: 11-27-2021 take 1 tablet by mouth twice daily at mealtime naproxen (NAPROSYN) 500 mg tablet Take 1 tablet by mouth twice daily with meals. 60 tablet 1 10/29/2019 11/27/2021 Discontinued (Discontinued by another Health Care Provider) Comment on above: Take 1 tablet by scarlet th twice daily with meals. phentermine hydrochloride 37.5 mg oral tablet (20 sources) Sympathomimetic Amine Anorectic Start: 07-06-2024 End: 10-26-2024 take 1 tablet by mouth once daily Phentermine HCl 37.5 mg tablet Take 1 tablet by mouth once daily. 07/06/2024 10/26/2024 Discontinued 1 ml triamcinolone acetonide 40 mg/ml injection [...] (1 source) Patient encounter status; Translations: [Other chcf (current) drug therapy] Episodic Other connective tissue disease (6 sources) Pain in right foot; Translations: [PAIN IN RIGHT FOOT] Onset: 02-17-2020 Episodic Other connective tissue disease (1 source) Pain in left foot; Translations: [Pain in left foot] Episodic Other connective tissue disease (1 source) Pain in hallux; Translations: [Pain in right toe(s)] 05-22-2020 Episodic Other connective tissue disease (1 source) Impingement syndrome of right shoulder region; Translations: [Impingement syndrome of right shoulder] 07-27-2024 Episodic Other connective tissue disease (5 sources) Pain in right foot; Translations: [Pain in right foot] 07-28-2024 Episodic Other nervous system disorders (6 sources) Bilateral carpal tunnel syndrome; Translations: [Carpal tunnel syndrome, bilateral upper limbs] 07-03-2023 Chronic Other nervous system disorders (1 source) Carpal tunnel syndrome of right wrist; Translations: [Carpal tunnel syndrome, right upper limb] 06-23-2024 Chronic Other nervous system disorders (3 sources) Other chronic pain; Translations: [Chronic right-sided low back pain without sciatica] Onset: 09-10-2024 Chronic Other nervous system disorders (1 source) Carpal tunnel syndrome, bilateral upper limbs; Translations: [Carpal tunnel syndrome, bilateral] Onset: 10-15-2024 Chronic Other nervous system disorders (1 source) Numbness and tingling sensation of skin; Translations: [Anesthesia of skin] 06-23-2024 Episodic Other non-traumatic joint disorders (4 [...] Episodic Other non-traumatic joint disorders (4 sources) Chronic ankle pain; Translations: [Pain in right ankle and joints of right foot] 09-10-2024 Episodic Other non-traumatic joint disorders (1 source) Pain in right ankle and joints of right foot; Translations: [Chronic pain of right ankle] Onset: 09-10-2024 Episodic Residual codes; unclassified (3 sources) Pain; Translations: [Pain, unspecified] 07-03-2023 Episodic Spondylosis; intervertebral disc disorders; other back problems (20 sources) Chronic low back pain; Translations: [Neck pain] Onset: 10-15-2024 07-02-2024 Episodic Substance-related disorders (1 source) Nicotine dependence, cigarettes, uncomplicated; Translations: [NICOTINE DEPEND CIGARETTES UNCOMP] Onset: 11-12-2019 Chronic Unclassified (2 sources) Right shoulder pain, unspecified chronicity 07-27-2024 Unclassified (1 source) Chronic right-sided low back pain without sciatica; Translations: [Chronic right-sided low back pain without sciatica] Onset: 10-15-2024 Unclassified (1 source) Chronic bilateral low back pain, unspecified whether sciatica present; Translations: [Chronic bilateral low back pain, unspecified whether sciatica present] Onset: 10-15-2024 Past or Other Problems Problem Classification Problem Date Documented Date Episodic/Chronic Other connective tissue disease (20 sources) Swelling of finger ; Translations: [Other specified soft tissue disorders] Onset: 8 02-23-2018 Episodic Other connective tissue disease (20 sources) Radial styloid tenosynovitis [de Quervain]; Translations: [Radial styloid tenosynovitis] Onset: 5 07-12-2024 Episodic Other nervous system disorders (1 source) Anesthesia of skin; Translations: [Numbness and tingling] Onset: 5 Episodic Other nervous system disorders (1 source) Paresthesia of skin; Translations: [Numbness and tingling] Onset: 5 Episodic Other non-traumatic joint disorders (20 sources) Sesamoiditis; Translations: [Other specified joint disorders, unspecified joint] Onset: 1 05-22-2020 Episodic Other non-traumatic joint disorders (3 sources) Pain in right shoulder; Translations: [Pain in joint, shoulder region] Onset: 5 07-27-2024 Episodic Sprains and strains (20 sources) Unspecified sprain of right great toe, initial encounter; Translations: [Sprain of metatarsophalangeal joint of great toe] Onset: 0 05-22-2020 Episodic Superficial injury; contusion (20 sources) Contusion of left knee; Translations: [Contusion of left knee, initial encounter] Onset: 9 02-12-2019 Episodic Unclassified (1 source) Sprain of right foot 07-28-2024 Unclassified (2 sources) Myofascial neck pain 11-04-2024 Results Test Name Value Interpretation Reference Range Facility PAP [id number] 12-16-2024 Chlamydia Negative Invalid Interpretation Code Negative [facility] Comment on above: Performed By: #### 3 [id number] #### [facility] [address] [place] [address] Gonococcus Negative Invalid Interpretation Code Negative [facility] Comment on above: Result Comment: Perf ormed at: WB [facility] [place] [address] [place], [place] [id number] MD Gabriel Cordoba Performed at: =G [facility] [place] [address] [place], [place] [id number] MD Gabriel Cordoba Performed By: #### 3 [id number] #### [facility] [address] [place] [address] HPV Aptima Negative Invalid Interpretation Code Negative [facility] Comment on above: Result Comment: This nucleic acid amplification test detects fourteen high-risk HPV types (16,18,31,33,35,39,45,51,52,56,58,59,66,68) without differentiation. Performed By: #### 3 [id number] #### [facility] [address] [place] [address] PAP [id number] Note Invalid Interpretation Code [facility] Comment on above: Result Comment: TEST S RESULT FLAG UNITS REF RANGE LAB Clinician Provided Cytology Information Source.............[employer] Other..............Other No. of containers..01 ThinPrep Vial DIAGNOSIS: 01 NEGATIVE FOR INTRAEPITHELIAL LESION OR MALIGNANCY. PREDOMINANCE OF COCCOBACILLI CONSISTENT WITH SHIFT IN VAGINAL REJI IS PRESENT. Specimen adequacy: 01 Satisfactory for evaluation. Endocervical and/or squamous metaplastic cells (endocervical component) are present. Performed by: Christa Cole, Muffler Hand ([facility]) . 01 Note: Note 01 The [...] <-Panic Low,>-Panic High,A-Abnormal,AA-Critical Abnormal Performed at: 01 [facility] [address] [place] [address] Beryl Rios MD, Performed By: #### 3 [id number] #### [facility] [address] [place] [address] Ambulatory Visit Summaryon 0 12-14-2024 Ambulatory Visit Summary Ambulatory Visit Summary GERRI GARCIA :1980 Visit Date:12/14/2024 Ambulatory Visit Instructions Your Diagnosis Hypertension Screening for hypercholesterolemia Fatigue Family history of thyroid disease BMI 32.0-32.9,adult Former smoker Your Care Team Attending Physician - Myesha Galvan Primary Care Physician - Myesha Galvan [facility] Is [facility]ations [facility] Prescription (automatic BP monitor-adult large cuff) cetirizine (cetirizine 10 mg oral capsule) diclofenac topical (Voltaren Gel 1% Gel) losartan (losartan 100 mg Tab) meloxicam (meloxicam 7.5 mg Tab) omeprazole (omeprazole 40 mg Cap-DR) spironolactone (spironolactone 50 mg Tab) triamcinolone topical (triamcinolone Top 0.1% Crm 15 gram) Procedures Performed Colonoscopy (12/14/2021), Bartholin's gland operation (12/19/2017), Colonoscopy (2017), section, Oral surgery, wisdom teeth extraction. Discharge Vitals Temperature (Temporal Artery) 36.4 ???C Heart Rate (Peripheral) 92 Respiratory Rate 18 Blood Pressure 122/84 Height 173.0 cm Height 68 in Weight 96.8 kg Weight 213.407 lb BMI 32.34 What to do next Scheduled Follow-Up Appointments Friday 8:20 AM EST With: Myesha Galvan Where: [facility] [address] [address]- Medications What How Much When Why Instructions [...] reflux disease) BMI 34.0-34.9,adult Former smoker Unchanged losartan (losartan 100 mg Tab) 1 Tablets By Mouth 2 times a day BMI 32.0-32.9,adult Obesity (BMI 30-39.9) Former smoker Unchanged meloxicam (meloxicam 7.5 mg Tab) TAKE 1 TABLET BY MOUTH ONCE DAILY WITH FOOD Unchanged Misc Prescription (automatic BP monitor-adult large cuff) See instructions Hypertension GERD (gastroesophageal reflux disease) BMI 34.0-34.9,adult Former smoker check BP once a day Unchanged omeprazole (omeprazole 40 mg Cap-DR) 1 Capsules By Mouth Every day Hypertension GERD (gastroesophageal reflux disease) BMI 34.0-34.9,adult Former smoker Unchanged spironolactone (spironolactone 50 mg Tab) 1 Tablets By Mouth 2 times a day Unchanged triamcinolone topical (triamcinolone Top 0.1% Crm 15 gram) 1 Application Topical 3 times a day Poison mragie dermatitis Duration: 14 Days apply a thin film to affected area Allergies Latex (Hives, Swelling) bandaids (redness, blisters) codeine (Itching) penicillins (Hives) Problems Ongoing - Any problem that you are currently receiving treatment for. BMI 32.0-32.9,adult Dermatitis Encounter for weight management Establishing care with new doctor, encounter for Family history of colon cancer in father Family history of thyroid disease Fatigue Former smoker GERD (gastroesophageal reflux disease) Hypertension Obesity (BMI 30-39.9) PCOS (polycystic ovarian syndrome) Rectal bleeding Screening for hypercholesterolemia Vaginal discharge Patient Survey You may receive a survey via text or e-mail asking about your office visit. Please share your experience with us by completing your survey. We appreciate your feedback and thank you for choosing us for your care. Patient Portal You may access all of your results and other medical record information on our secure patient portal. If you are not signed up for this yet, please contact [employer] at [phone] to get signed up today. Language Information Language assistance services are available as needed. [facility] Albumin [Mass/Vol] 4.3 g/dL Normal 3.3-5.0 [facility] Comment on above: Performed By: #### 2 [id number] #### [facility] [address] [place] [address] Albumin/Globulin [Mass ratio] 1.5 {ratio} Normal 1.1-2.2 [facility] Comment on above: Performed By: #### 2 [id number] #### [facility] [address] [place] [address] Alk Phos 57 Int._Unit/L Normal 21-[address] [facility] Comment on above: Performed By: #### 2 [id number] #### [facility] [address] [place] [address] ALT 15 Int._Unit/L Normal 6-[address] [facility] Comment on above: Performed By: #### 2 [id number] #### [facility] [address] [place] [address] Anion gap [Moles/Vol] 13 mmol/L Normal 6-16 [facility] Comment on above: Performed By: #### 2 [id number] #### [facility] [address] [place] [address] AST 15 Int._Unit/L Normal 5-[address] [facility] Comment on above: Performed By: #### 2 [id number] #### [facility] [address] [place] [address] Bili Total 0.6 mg/dL Normal 0.0-1.1 [facility] Comment on above: Performed By: #### 2 [id number] #### [facility] [address] [place] [address] BUN/Creat Ratio 19 No Units Normal 10-20 [facility] Comment on above: Performed By: #### 2 [id number] #### [facility] [address] [place] [address] Calcium [Mass/Vol] 9.1 mg/dL Normal 8.9-11.1 [facility] Comment on above: Performed By: #### 2 [id number] #### [facility] [address] [place] [address] Chloride [Moles/Vol] 105 mmol/L Normal 101-111 [facility] Comment on above: Performed By: #### 2 [id number] #### [facility] [address] [place] [address] CO2 [Moles/Vol] 23 mmol/L Normal 21-31 [facility] Comment on above: Performed By: #### 2 [id number] #### [facility] [address] [place] [address] Creatinine [Mass/Vol] 0.9 mg/dL Normal 0.5-1.3 [facility] Comment on above: Performed By: #### 2 [id number] #### [facility] [address] [place] [address] Globulin (S) [Mass/Vol] 2.9 g/dL Normal 1.4-4.0 [facility] Comment on above: Performed By: #### 2 [id number] #### [facility] [address] [place] [address] Glucose [Mass/Vol] 113 mg/dL Normal 55-199 [facility] Comment on above: Performed By: #### 2 [id number] #### [facility] [address] [place] [address] Potassium [Moles/Vol] 4.5 mmol/L Normal 3.5-5.3 [facility] Comment on above: Performed By: #### 2 [id number] #### [facility] [address] [place] [address] Protein [Mass/Vol] 7.2 g/dL Normal 6.0-7.8 [facility] Comment on above: Performed By: #### 2 [id number] #### [facility] [address] [place] [address] Sodium [Moles/Vol] 136 mmol/L Normal 135-145 [facility] Comment on above: Performed By: #### 2 [id number] #### [facility] [address] [place] [address] Urea nitrogen [Mass/Vol] 17 mg/dL Normal 5-21 [facility] Comment on above: Performed By: #### 2 [id number] #### [facility] [address] [address] [facility] Medicine Office/Clini c Noteon 12-14-2024 Family Medicine Office/Clinic Note Family Medicine Office/Clinic Note HPI Staff Gerri is a 44 year old female presenting with 5 week f/u b/p Increased Losartan 100 mg Patient is here for follow up on hypertension. How often are you checking your blood pressure? every day for a couple weeks but not any more What are your average readings? 130/80's Yearly BMP: _12/14/24 she wants to know if she can have her kidney function checked she seen in the past on labs her labs were high but never did anything about it she has family hx of kidney problems History of Present Illness pt presents today for BP follow up. Review of Systems PHQ Score Initial Depression Screen Score: 0 SCORE Physical Exam Vitals & Measurements T: 36.4 ???C(Temporal Artery) HR: 92(Peripheral) RR: 18 BP: 122/84 SpO2: 99% HT: 68 in HT: 173.0 cm WT: 213.407 lb WT: 96.8 kg BMI: 32.34 General: alert, no acute distress ENMT: oral mucosa moist, no pharyngeal erythema or exudate Cardiovascular: regular rate and rhythm, normal peripheral perfusion Respiratory: Lungs CTA, respirations non labored Extremities: no deformity, no trauma Neurological: oriented x 4, LOC appropriate for age, CN II-XII intact, motor strength equal & normal bilaterally, speech normal Assessment/Plan 1. Hypertension (I10: Essential (primary) hypertension) BP at goal. will continue current doses of meds. RTC 3 months. will check kidney function labs today Ordered: Comprehensive Metabolic Panel Lipid Panel Thyroid Stimulating Hormone 2. Screening for hypercholesterolemia (Z13.220: Encounter for screening for lipoid disorders) lipid panel drawn in office today Ordered: Comprehensive Metabolic Panel Lipid Panel Thyroid Stimulating Hormone 3. Fatigue (R53.83: Other fatigue) will check TSH in office today. Ordered: Thyroid Stimulating Hormone 4. Family history of thyroid disease (Z83.49: Family history of other endocrine, nutritional and metabolic diseases) see above Ordered: Thyroid Stimulating Hormone 5. BMI 32.0-32.9,adult (Z68.32: Body mass index [BMI] 32.0-32.9, adult) BMI education given Ordered: Thyroid Stimulating Hormone 6. Former smoker (Z87.891: Personal history of nicotine dependence) continue not smoking Ordered: Thyroid Stimulating Hormone Follow-up No qualifying data available Problem List/Past Medical History Ongoing BMI 32.0-32.9,adult Dermatitis Encounter for weight management Establishing care with new doctor, encounter for Family history of colon cancer in father Family history of thyroid disease Fatigue Former smoker GERD (gastroesophageal reflux disease) Hypertension Obesity (BMI 30-39.9) PCOS (polycystic ovarian syndrome) Rectal bleeding Screening for hypercholesterolemia Vaginal discharge Historical No qualifying data Procedure/Surgical History Colonoscopy (12/14/2021), Bartholin's gland operation (12/19/2017), Colonoscopy (2017), section, Oral surgery, wisdom teeth extraction. Medications automatic BP monitor-adult large cuff, See Instructions cetirizine 10 mg oral capsule, 10 mg= 1 cap(s), Oral, Daily, PRN losartan 100 mg Tab, 100 mg= 1 tab(s), Oral, BID, 1 refills meloxicam 7.5 mg Tab omeprazole 40 mg Cap-DR, 40 mg= 1 cap(s), Oral, Daily spironolactone 50 mg Tab, 50 mg= 1 tab(s), Oral, BID, 3 refills triamcinolone Top 0.1% Crm 15 gram, 1 hanane, Topical, TID Voltaren Gel 1% Gel, 1 hanane, Topical, QID, PRN Allergies Latex (Hives, Swelling) bandaids (redness, blisters) codeine (Itching) penicillins (Hives) Social History Alcohol - Medium Risk, 12/09/2017 Current. Liquor. 1-2 times per week., 09/28/2024 Substance Abuse - Denies Substance Abuse, 12/09/2017 Current, Marijuana, IV drug use: No. Drug use interferes with work/home: No. Ready to change: No., 09/28/2024 Tobacco - No Risk, 08/28/2022 Former smoker, quit more than 30 days ago Tobacco Use:. Never Smokeless Tobacco Use:. Household tobacco concerns: No. Yes, 12/14/2024 Family History Primary malignant neoplasm of colon: Father. Normal [facility] Comment on above: Result Comment: Elec tronically Signed By: Myesha Galvan\Date and Time Signed: 12/14/24 08:38 EDT Lipid Panelon 12-14-2024 Cholesterol [Mass/Vol] 233 mg/dL High 120-200 [facility] Comment on above: Performed By: #### 2 [id number] #### [facility] [address] [place] [address] Cholesterol in HDL [Mass/Vol] 47 mg/dL Invalid Interpretation Code [facility] Comment on above: Result Comment: '>= 60 LOW RISK' '<= 40 HIGH RISK' Performed By: #### 2 [id number] #### [facility] [address] [facility] [place] [address] Cholesterol in LDL [Mass/Vol] 167 mg/dL High <=129 [facility] Comment on above: Performed By: #### 2 [id number] #### [facility] [address] [place] [address] Cholesterol in VLDL [Mass/Vol] 51 mg/dL High 7-40 [facility] Comment on above: Performed By: #### 2 [id number] #### [facility] [address] [place] [address] Triglyceride [Mass/Vol] 254 mg/dL High <=149 [facility] Comment on above: Performed By: #### 2 [id number] #### [facility] [address] [place] [place] [address] TSHon 12-14-2024 TSH Qn 2.05 m[IU]/L Normal 0.34-5.60 [facility] Comment on above: Performed By: #### 2 [id number] #### [facility] [address] [place] [address] eGFRon 12-14-2024 eGFR 81 mL/min/1.73 m2 Normal >=59 [facility] Comment on above: Performed By: #### 1 [id number] #### [facility] [address] [place] [address] PAP [id number] 12-13-2024 Collection Technique BRUSH-SPATULA Normal [facility] Comment on above: Performed By: #### 3 [id number] #### [facility] [address] [place] [address] Gynecological Body Site ENDOCERVIX Normal [facility] Comment on above: Performed By: #### 3 [id number] #### [facility] [address] [place] [address] Other Patient Information IAG-HVPZA-SOC Normal [facility] Comment on above: Performed By: #### 3 [id number] #### [facility] [address] [place] [address] Previous Cytology Negative Normal [facility] Comment on above: Performed By: #### 3 [id number] #### [facility] [address] [place] [address] Previous Treatment NONE Normal [facility] Comment on above: Performed By: #### 3 [id number] #### [facility] [address] [place] [address] Ambulatory Visit Summaryon 0 11-30-2024 Ambulatory Visit Summary Ambulatory Visit Summary GERRI GARCIA Jayjay :1980 Visit Date:11/30/2024 Ambulatory Visit Instructions Your Diagnosis Poison margie dermatitis Non-smoker Your Care Team Attending Physician - Tre HADLEY, Shine Primary Care Physician - Myesha Galvan This Is Your Medications List predniSONE (predniSONE 10 mg Tab) triamcinolone topical (triamcinolone Top 0.1% Crm 15 gram) Contact prescribing physician if questions or concerns Misc Prescription (automatic BP monitor-adult large cuff) cetirizine (cetirizine 10 mg oral capsule) diclofenac topical (Voltaren Gel 1% Gel) losartan (losartan 100 mg Tab) meloxicam (meloxicam 7.5 mg Tab) omeprazole (omeprazole 40 mg Cap-DR) spironolactone (spironolactone 50 mg Tab) Procedures Performed Colonoscopy (12/14/2021), Bartholin's gland operation (12/19/2017), Colonoscopy (2018), section, Oral surgery, wisdom teeth extraction. Discharge Vitals Temperature (Temporal Artery) 36.5 ???C Heart Rate (Peripheral) 100 Respiratory Rate 18 Blood Pressure 134/88 Height 173 cm Height 68 in Weight 95.7 kg Weight 210.982 lb BMI 31.98 What to do next Scheduled Follow-Up Appointments Friday 8:20 AM EDT With: Myesha Galvan Where: [place] [address]- You Need to Schedule the Following Appointments Follow Up with Myesha Galvan, MINI, MED When: Where: Medications What How Much When Why Instructions New predniSONE (predniSONE 10 mg Tab) See instructions Poison margie dermatitis 6 tabs for 2 days,5 tabs for 2 days,4 tabs for 2 days,3 tabs for 2 days,2 tabs for 2 days,1 tab for 2 days with food Pickup at [facility] New triamcinolone topical (triamcinolone Top 0.1% Crm 15 gram) 1 Application Topical 3 times a day Poison margie dermatitis Duration: 14 Days apply a thin film to affected area Pickup at [facility] Unchanged cetirizine (cetirizine 10 mg oral capsule) 1 Capsules By Mouth Every day as needed for for allergy symptoms Hypertension GERD (gastroesophageal reflux disease) BMI 34.0-34.9,adult Former smoker Contact prescribing physician if questions or concerns Unchanged diclofenac topical (Voltaren Gel 1% Gel) 1 Application Topical 4 times a day as needed for for pain Hypertension GERD (gastroesophageal reflux disease) BMI 34.0-34.9,adult Former smoker Contact prescribing physician if questions or concerns Unchanged losartan (losartan 100 mg Tab) 1 Tablets By Mouth 2 times a day BMI 32.0-32.9,adult Obesity (BMI 30-39.9) Former smoker Contact prescribing physician if questions or concerns Unchanged meloxicam (meloxicam 7.5 mg Tab) TAKE 1 TABLET BY MOUTH ONCE DAILY WITH FOOD Contact prescribing physician if questions or concerns Unchanged Misc Prescription (automatic BP monitor-adult large cuff) See instructions Hypertension GERD (gastroesophageal reflux disease) BMI 34.0-34.9,adult Former smoker check BP once a day Contact prescribing physician if questions or concerns Unchanged omeprazole (omeprazole 40 mg Cap-DR) 1 Capsules By Mouth Every day Hypertension GERD (gastroesophageal reflux disease) BMI 34.0-34.9,adult Former smoker Contact prescribing physician if questions or concerns Unchanged spironolactone (spironolactone 50 mg Tab) 1 Tablets By Mouth 2 times a day Contact prescribing physician if questions or concerns Pharmacy Information [facility]: [address], [place] [id number] [phone] Allergies Latex (Hives, Swelling) bandaids (redness, blisters) codeine (Itching) penicillins (Hives) Problems Ongoing - Any problem that you are currently receiving treatment for. BMI 32.0-32.9,adult Dermatitis Encounter for weight management Establishing care with new doctor, encounter for Family history of colon cancer in father Former smoker GERD (gastroesophageal reflux disease) Hypertension Obesity (BMI 30-39.9) PCOS (polycystic ovarian syndrome) Rectal bleeding Vaginal discharge Patient Survey You may receive a survey via text or e-mail asking about your office visit. Please share your experience with us by completing your survey. We appreciate your feedback and thank you for choosing us for your care. Education Materials Poison Margie Dermatitis Poison margie dermatitis is redness and soreness of the skin caused by chemicals in the leaves of the poison margie plant. You may have very bad itching, swelling, a rash, and blisters. What are the causes? Touching a poison margie plant. ??? Touching something that has the chemical on it. This may include animals or objects that have come in contact with the plant. What increases the risk? Going outdoors often in wooded or marshy areas. ??? Going outdoors without wearing protective clothing, such as closed shoes, long pants, and a long-sleeved shirt. (more content not included)... Normal [facility] Family Medicine Office/Clini c Noteon 11-30-2024 Family Medicine Office/Clinic Note Family Medicine Office/Clinic Note Chief Complaint rash HPI Staff 44 year old female presents with concerns of having poison margie on her feet, hands, and abdomen. Onset- 2 weeks OTC- Rhuli gel History of Present Illness I have reviewed and verified the staff HPI to be accurate for this encounter. Portions of this record have been created with voice recognition software. Occasional wrong-word or ???omjmg-e-[id number]??? substitutions may have occurred due to the inherent limitations of voice recognition software. Gerri is a 44 year old female who presents to convenient care for possible poison margie dermatitis. Patient states she noted the rash 2 weeks ago starting on her feet, and since spread to both legs and the arms and abdomen. Patient was working outside approximately 2 weeks ago in her yard believes she had poison margie at that time. Review of Systems PHQ Score Initial Depression Screen Score: 2 SCORE ROS negative unless otherwise stated in HPI. Physical Exam Vitals & Measurements T: 36.5 ???C(Temporal Artery) HR: 100(Peripheral) RR: 18 BP: 134/88 SpO2: 98% HT: 68 in HT: 173 cm WT: 210.982 lb WT: 95.7 kg BMI: 31.98 General: Well developed, well nourished, in no acute distress Eyes: Pupils equal, round, and reactive to light. Conjunctivae and sclerae normal, and extraocular movements intact Ears: No deformity or lesion of external ear. Canals and TM appear normal bilaterally. TM???s intact, not inflamed, with normal light reflex. Hearing grossly normal to conversational speech Nose: No deformity, discharge, inflammation, or lesions Mouth: Mucous membranes moist. Normal oropharynx, and posterior pharynx without lesions or exudates. Tongue normal Neck: no adenopathy Lungs: clear to auscultation throughout, no wheezing, no rales. No respiratory distress Cardio: regular rate and rhythm, no murmur Abdomen: soft, nondistended, BS normal and active x4. Denies tenderness. No guarding or grimacing Neurologic: Grossly normal Skin: Scattered maculopapular type rash on erythematous base spread over bilateral lower feet, ankles and and intermittent patches on the legs, bilateral forearms as well as the abdomen and umbilical area Mental Status: Alert and oriented x3. Normal mood and affect Assessment/Plan 1. Poison margie dermatitis (L23.7: Allergic contact dermatitis due to plants, except food) Given exam, will treat with prednisone and triamcinolone cream. discussed typical duration of contact dermatitis anywhere from 7-21 days typically. Advised steroids of any kind do not make rash completely resolve but help with itching and inflammation. Follow up with PCP if not improving over next 10 days or significantly changing appearance. Patient verbalized understanding of treatment plan. Ordered: predniSONE, See Instructions, 6 tabs for 2 days,5 tabs for 2 days,4 tabs for 2 days,3 tabs for 2 days,2 tabs for 2 days,1 tab for 2 days with food, # 42 tab(s), Refills(s) 0, Pharmacy: [facility], 173, cm, 11/30/24 12:36:00 EDT, Height/Length Dosing, 9... triamcinolone topical, 1 hanane, Topical, TID for 14 day(s), 30 gm, Refill(s) 0, apply a thin film to affected area, [facility], 173, cm, 11/30/24 12:36:00 EDT, Height/Length Dosing, 95.7, kg, 11/30/24 12:36:00 EDT, Weight Dosing 2. Non-smoker (Z78.9: Other specified health status) Ordered: Current tobacco non-user 1036F Follow-up With When Contact Information Jamil MG, Myesha Yoder, FAM, MED Additional Instructions: Patient Education Poison Margie Dermatitis, [id number] Problem List/Past Medical History Ongoing BMI 32.0-32.9,adult Dermatitis Encounter for weight management Establishing care with new doctor, encounter for Family history of colon cancer in father Former smoker GERD (gastroesophageal reflux disease) Hypertension Obesity (BMI 30-39.9) PCOS (polycystic ovarian syndrome) Rectal bleeding Vaginal discharge Historical No qualifying data Procedure/Surgical History Colonoscopy (12/14/2021), Bartholin's gland operation (12/19/2017), Colonoscopy (2018), section, Oral surgery, wisdom teeth extraction. Medications automatic BP monitor-adult large cuff, See Instructions cetirizine 10 mg oral capsule, 10 mg= 1 cap(s), Oral, Daily, PRN losartan 100 mg Tab, 100 mg= 1 tab(s), Oral, BID, 1 refills meloxicam 7.5 mg Tab omeprazole 40 mg Cap-DR, 40 mg= 1 cap(s), Oral, Daily predniSONE 10 mg Tab, See Instructions spironolactone 50 mg Tab, 50 mg= 1 tab(s), Oral, BID, 3 refills triamcinolone Top 0.1% Crm 15 gram, 1 hanane, Topical, TID Voltaren Gel 1% Gel, 1 hanane, Topical, QID, PRN Allergies Latex (Hives, Swelling) bandaids (redness, blisters) codeine (Itching) penicillins (Hives) Social History Alcohol - Medium Risk, 12/09/2017 Current. Liquor. 1-2 times per week., 09/28/2024 Substance Abuse - Denies Substance Abuse, 12/09/2017 Current, Marijuana, IV drug use: No. Drug use interferes with work/chuck (more content not included)... Normal [facility] Comment on above: Result Comment: Elec tronically Signed By: Tre HADLEY, Shine\.br\Date and Time Signed: 11/30/24 12:53 EDT Chlam/GC/Trich,NAAon 025 Chlamydia by JAQUELIN Negative Invalid Interpretation Code Negative [facility] Comment on above: Performed By: #### 1 [id number] #### [facility] [address] [place] [address] Gonococcus by JAQUELIN Negative Invalid Interpretation Code Negative [facility] Comment on above: Performed By: #### 1 [id number] #### [facility] [address] [place] [address] Trich vag by JAQUELIN Negative Invalid Interpretation Code Negative [facility] Comment on above: Result Comment: Perf ormed at: =G [facility] [address] [place], [place] [id number] MD Gabriel Cordoba Performed By: #### 1 [id number] #### [facility] [address] [place] [address] Ambulatory Visit Summaryon 0 11-09-2024 Ambulatory Visit Summary Ambulatory Visit Summary GARCIAJODEEGERRI H :1980 Visit Date:11/09/2024 Ambulatory Visit Instructions Your Diagnosis Hypertension Vaginal discharge BMI 32.0-32.9,adult Obesity (BMI 30-39.9) Former smoker Your Care Team Attending Physician - Myesha Galvan Primary Care Physician - Myesha Galvan This Is Your Medications List [facility] Prescription (automatic BP monitor-adult large cuff) cetirizine (cetirizine 10 mg oral capsule) diclofenac topical (Voltaren Gel 1% Gel) hydrocortisone topical (hydrocortisone Top 2.5% Crm) losartan (losartan 100 mg Tab) meloxicam (meloxicam 7.5 mg Tab) omeprazole (omeprazole 40 mg Cap-DR) spironolactone (spironolactone 50 mg Tab) Procedures Performed Colonoscopy (12/14/2021), Bartholin's gland operation (12/19/2017), Colonoscopy (2017), section, Oral surgery, wisdom teeth extraction. Discharge Vitals Temperature (Oral) 36.8 ???C Heart Rate (Peripheral) 84 Respiratory Rate 18 Blood Pressure 152/98 Height 173 cm Height 68 in Weight 96.7 kg Weight 213.187 lb BMI 32.31 What to do next Scheduled Follow-Up Appointments Friday 8:20 AM EDT With: Myesha Galvan Where: [place] [id number]- You Need to Complete the Following Chlam/GC/Trich,JAQUELIN, Urine, Routine collect, 11/09/24, Order for future visit, Nurse collect, Vaginal discharge BMI 32.0-32.9,adult Obesity (BMI 30-39.9) Former smoker, Print Label By Order Location Medications What How Much When Why Instructions Changed losartan (losartan 100 mg Tab) 1 Tablets By Mouth 2 times a day BMI 32.0-32.9,adult Obesity (BMI 30-39.9) Former smoker Pickup at [facility] Unchanged cetirizine (cetirizine 10 mg oral capsule) [...] Topical 3 times a day Dermatitis Unchanged meloxicam (meloxicam 7.5 mg Tab) TAKE 1 TABLET BY MOUTH ONCE DAILY WITH FOOD Unchanged Misc Prescription (automatic BP monitor-adult large cuff) See instructions Hypertension GERD (gastroesophageal reflux disease) BMI 34.0-34.9,adult Former smoker check BP once a day Unchanged omeprazole (omeprazole 40 mg Cap-DR) 1 Capsules By Mouth Every day Hypertension GERD (gastroesophageal reflux disease) BMI 34.0-34.9,adult Former smoker Unchanged spironolactone (spironolactone 50 mg Tab) 1 Tablets By Mouth 2 times a day Pharmacy Information [facility]: [address], [place] [id number] [phone] Allergies Latex (Hives, Swelling) bandaids (redness, blisters) codeine (Itching) penicillins (Hives) Problems Ongoing - Any problem that you are currently receiving treatment for. BMI 32.0-32.9,adult Dermatitis Encounter for weight management Establishing care with new doctor, encounter for Family history of colon cancer in father Former smoker GERD (gastroesophageal reflux disease) Hypertension Obesity (BMI 30-39.9) PCOS (polycystic ovarian syndrome) Rectal bleeding Vaginal discharge Patient Survey You may receive a survey via text or e-mail asking about your office visit. Please share your experience with us by completing your survey. We appreciate your feedback and thank you for choosing us for your care. Patient Portal You may access all of your results and other medical record information on our secure patient portal. If you are not signed up for this yet, please contact [employer] at [phone] to get signed up today. Language Information Language assistance services are available as needed. Connie [facility] Family Medicine Office/Clini c Noteon 11-09-2024 Family Medicine Office/Clinic Note Family Medicine Office/Clinic Note Chief Complaint BP recheck HPI Staff Patient is presenting for 6 week recheck blood pressure Patient is here for follow up on hypertension. How often are you checking your blood pressure? _occasionally What are your average readings? _ all over the place Would like to discuss STD testing History of Present Illness pt presents today for BP follow up Review of Systems PHQ Score Initial Depression Screen Score: 0 SCORE Physical Exam Vitals & Measurements T: 36.8 ???C(Oral) HR: 84(Peripheral) RR: 18 BP: 152/98 SpO2: 96% HT: 173 cm HT: 68 in WT: 213.187 lb WT: 96.7 kg BMI: 32.31 General: alert, no acute distress ENMT: oral mucosa moist, no pharyngeal erythema or exudate Cardiovascular: regular rate and rhythm, normal peripheral perfusion Respiratory: Lungs CTA, respirations non labored Extremities: no deformity, no trauma Neurological: oriented x 4, LOC appropriate for age, CN II-XII intact, motor strength equal & normal bilaterally, speech normal Assessment/Plan 1. Hypertension (I10: Essential (primary) hypertension) BP is still elevated. will increase losartan to 100mg BID. pt will continue to monitor BP at home. BP's have been running high at home. 2. Vaginal discharge (N89.8: Other specified noninflammatory disorders of vagina) will send urine for STD testing. pt recently broke up with her boyfriend and would like STD testing. having some discharge Ordered: Chlam/GC/Trich,JAQUELIN 3. BMI 32.0-32.9,adult (Z68.32: Body mass index [BMI] 32.0-32.9, adult) BMI education given Ordered: losartan, 100 mg = 1 tab(s), Oral, BID, # 60 tab(s), Refills(s) 1, Pharmacy: [facility], 173, cm, 11/09/24 8:24:00 EDT, Height/Length Dosing, 96.7, kg, 11/09/24 8:24:00 EDT, Weight Dosing Chlam/GC/Trich,JAQUELIN 4. Obesity (BMI 30-39.9) (E66.9: Obesity, unspecified) see above Ordered: losartan, 100 mg = 1 tab(s), Oral, BID, # 60 tab(s), Refills(s) 1, Pharmacy: [facility], 173, cm, 11/09/24 8:24:00 EDT, Height/Length Dosing, 96.7, kg, 11/09/24 8:24:00 EDT, Weight Dosing Chlam/GC/Trich,JAQUELIN 5. Former smoker (Z87.891: Personal history of nicotine dependence) continue not smoking Ordered: losartan, 100 mg = 1 tab(s), Oral, BID, # 60 tab(s), Refills(s) 1, Pharmacy: [facility], 173, cm, 11/09/24 8:24:00 EDT, Height/Length Dosing, 96.7, kg, 11/09/24 8:24:00 EDT, Weight Dosing 1126F Pain severity quantified; no pain present Body Mass Index (BMI) documented 3008F Chlam/GC/Trich,JAQUELIN Current tobacco non-user 1036F Depression Screening Negative 3352F Functional status assessed 1170F Medication list documented in medical record 1159F Most recent diastolic blood pressure >=90 mm Hg 3080F Most recent systolic blood pressure >= 140 mm Hg 3077F Review of all meds by a prescribing practitioner or clinical pharmacist documented in EHR 1160F Follow-up No qualifying data available Problem List/Past Medical History Ongoing BMI 32.0-32.9,adult Dermatitis Encounter for weight management Establishing care with new doctor, encounter for Family history of colon cancer in father Former smoker GERD (gastroesophageal reflux disease) Hypertension Obesity (BMI 30-39.9) PCOS (polycystic ovarian syndrome) Rectal bleeding Vaginal discharge Historical No qualifying data Procedure/Surgical History Colonoscopy (12/14/2021), Bartholin's gland operation (12/19/2017), Colonoscopy (2018), section, Oral surgery, wisdom teeth extraction. Medications automatic BP monitor-adult large cuff, See Instructions cetirizine 10 mg oral capsule, 10 mg= 1 cap(s), Oral, Daily, PRN hydrocortisone Top 2.5% Crm, 1 hanane, Topical, TID, 1 refills losartan 100 mg Tab, 100 mg= 1 tab(s), Oral, BID, 1 refills meloxicam 7.5 mg Tab omeprazole 40 mg Cap-DR, 40 mg= 1 cap(s), Oral, Daily spironolactone 50 mg Tab, 50 mg= 1 tab(s), Oral, BID, 3 refills Voltaren Gel 1% Gel, 1 hanane, Topical, QID, PRN Allergies Latex (Hives, Swelling) bandaids (redness, blisters) codeine (Itching) penicillins (Hives) Social History Alcohol - Medium Risk, 12/09/2017 Current. Liquor. 1-2 times per week., 09/28/2024 Substance Abuse - Denies Substance Abuse, 12/09/2017 Current, Marijuana, IV drug use: No. Drug use interferes with work/home: No. Ready to change: No., 09/28/2024 Tobacco - No Risk, 08/28/2022 Former smoker, quit more than 30 days ago Tobacco Use:. Never Smokeless Tobacco Use:. Household tobacco concerns: No. Yes, 11/09/2024 Family History Primary malignant neoplasm of colon: Father. Connie [facility] Comment on above: Result Comment: Elec tronically Signed By: Myesha Galvan\.andreina\Date and Time Signed: 11/09/24 08:41 EDT Erika 11-01-2024 CNPN Telephone (SPNMMN) GERRI GARCIA ([id number]) 1980 F Date Time Provider Department 11/01/24 DEANA BENSON [facility] During your visit today, we recorded the following information about you: Elaine Schaffer 11/01/2024 4:10 PM Signed Call received for Deana Benson PA-C regarding Gerri Garcia. Caller: Prior auth Dept Patient Identified by Name and : Gerri Garcia 1980 Reason for Call: General - Prior auth department called to ask if the notes on 10/15/24 could be closed so they can complete the prior auth for the pt Is there any additional information the provider should know? No Last Office Visit: 10/15/2024 Next scheduled appointment: 11/18/2024 Best number to reach caller: n/a Best time to reach caller: n/a Is it OK to leave a detailed voice message? No Janice Hendricks, RN 11/01/2024 4:16 PM Signed Forwarding to provider. Janice Batista, RN 11/08/2024 9:44 AM Signed Waiting on a response from payer regarding approval for MRI per PA team. Janice Batista RN 2024 10:11 AM Signed MRI is now moved to 11/27 in looking at Epic Allergies As of Date: 11/01/2024 Noted Allergy Reaction CODEINE 12/10/2017 9 - Itching LATEX 04/02/2018 2 - Rash PENICILLIN 12/10/2017 4 - Hives Date Reviewed: 10/26/2024 Reviewed by: Cora Gamez MA - Fully Assessed Reason for Visit: Request For Clinical Notes [[id number]] Prescriptions as of 2024 - meloxicam (MOBIC) 7.5 mg tablet Take 1 tablet by mouth once daily. with food - omeprazole (PRILOSEC) 40 mg capsule Take 1 capsule by mouth once daily. - losartan (COZAAR) 50 mg tablet Take 1 tablet by mouth once daily. - cetirizine (ZYRTEC) 10 mg tablet TAKE ONE TABLET BY MOUTH DAILY NEEDED FOR ALLERGY SYMPTOMS - spironolactone (ALDACTONE) 50 mg tablet Take by mouth. Problem List As Of Date 11/01/2024 Noted Resolved Swelling of right index finger [M79.89] 02/23/2018 Osteoarthritis of multiple joints [M15.9] 02/23/2018 Contusion of left knee [S80.02XA] 02/12/2019 Internal derangement of left knee [M23.92] 02/12/2019 Hallux rigidus of right foot [M20.21] 05/22/2020 Turf toe [S93.529A] 05/22/2020 Sesamoiditis [M25.80] 05/22/2020 Primary osteoarthritis of both first carpometac*07/12/2024 De Quervain's tenosynovitis, bilateral [M65.4] 07/12/2024 Encounter Status:Closed by JANICE BATISTA on 11/11/24 [facility] 10-26-2024 CNOV Office Visit (ORF[facility] ) GERRI GARCIA ([id number]) 1980 F Date Time Provider Department 10/26/24 9:15 AM HUNTER MONSIVAIS During your visit today, we recorded the following information about you: Hunter Monsivais MD 10/26/2024 12:28 PM Signed Reason for Visit: Bilateral thumb CMC joint pain History of Present Illness: Gerri Garcia is a 43 year old right hand dominant female who reports bilateral pain in thumb CMC joints left worse than right. She has had hand pain for the past several years that is significantly worsened since 2018. Also reports bilateral carpal tunnel syndrome. No history of inflammatory conditions but reports diffuse arthritis in many joints. The pain occurs at rest and at night. The following portions of the patient's history were reviewed and updated as appropriate. Ice: Yes - no improvement Heat: Yes some Brace: Used previously for carpal tunnel but they bothered her so none for arthritis Oral medications: Mobic for foot Topical medications: Voltaren Physical / Occupational Therapy: No Injection: Yes: Date: 05/2023 pain resolved; repeat 07/2024 No help with pain Prior Surgery in location of pain: No Prior Fracture/Injury in location of pain: No Past Medical History: PAST MEDICAL HISTORY Diagnosis Date Pre-diabetes Past Surgical History: PAST SURGICAL HISTORY Procedure Laterality Date SECTION HX OTHER Dental extraction PAST SURGICAL HISTORY OF groin cyst lanced Social History: Tobacco Use: Types: Cigarettes Current Medications: Current Outpatient Medications Medication Sig Dispense Refill meloxicam (MOBIC) 7.5 mg tablet Take 1 tablet by mouth once daily. with food 30 tablet 2 omeprazole (PRILOSEC) 40 mg capsule Take 1 capsule by mouth once daily. losartan (COZAAR) 50 mg tablet Take 1 tablet by mouth once daily. cetirizine (ZYRTEC) 10 mg tablet TAKE ONE TABLET BY MOUTH DAILY NEEDED FOR ALLERGY SYMPTOMS spironolactone (ALDACTONE) 50 mg tablet Take by mouth. No current facility-administered medications for this visit. Allergies: ALLERGIES Allergen Reactions Codeine Itching Latex Rash Penicillin Hives Physical Examination: Healthy appearing female in no acute distress, alert, and/oriented. There were no vitals taken for this visit. Bilateral upper extremities are well perfused with 2+ radial pulses. Skin is intact with no discoloration, rash, wound, or laceration. Bilateral thumbs show no deformity. No contracture or dysvascular change. The nailbed is without deformity. Good tenodesis. There is no significant tenderness to palpation or instability to stress testing of the metacarpophalangeal (MCP) or interphalangeal (IP) joints. There is tenderness to palpation on the volar and dorsal aspect of trapeziometacarpal (TM) joint. Positive carpometacarpal (CMC) grind test, positive Finklestein test bilaterally. The flexor sheath is tender to palpation right worse than left. Able to touch thumb to base of small finger. No significant metacarpophalangeal (MCP) hyperextension. There is no tenderness over the scaphotrapeziotrapezoidal (STT) joint. There is no tenderness over the radiocarpal joint or the distal radial ulnar joint (DRUJ). There is no pain or clunk with a Jorge scaphoid shift. Imaging Review: Recent Xrays obtained at an outside facility brought with patient and uploaded into chart. Xrays of bilateral thumbs 3 views were reviewed demonstrating bilateral Eaton stage II CMC arthritis. Assessment and Plan: Gerri Garcia is a 43 year old right hand dominant female who reports bilateral pain in thumb CMC joints left worse than right. We discussed the nature of presumptive thumb basilar [...] of surgical versus nonsurgical options have been discussed including the rationale for various surgical treatments. The inherent risks and benefits of each treatment including non-operative management have been reviewed. Prognosis for recovery and typical postoperative protocols have been explained. The patient verbalizes sound understanding of our discussion. Given the severity of her symptoms, lack of improvement with nonoperative measures as well as her young age and the goal of preserving pinch strength and cementer strength as well as a salvage option in the future as shared decision was (more content not included)... [facility] Telephone (LOORRM) GERRI GARCIA ([id number]) 1980 F Date Time Provider Department 10/22/24 SAMMI MANZO During your visit today, we recorded the following information about you: Katarina Alvarez Cast Tech 10/22/2024 10:23 AM Signed Left message on identified VM that orthotics have come in and may be picked up in the [place] office. Allergies As of Date: 10/22/2024 Noted Allergy Reaction CODEINE 12/10/2017 9 - Itching LATEX 04/02/2018 2 - Rash PENICILLIN 12/10/2017 4 - Hives Date Reviewed: 10/15/2024 Reviewed by: Trevin Rocha OCCA - Fully Assessed Reason for Visit: Orthotics [Other] Prescriptions as of 10/22/2024 - meloxicam (MOBIC) 7.5 mg tablet Take 1 tablet by mouth once daily. with food - omeprazole (PRILOSEC) 40 mg capsule Take 1 capsule by mouth once daily. - losartan (COZAAR) 50 mg tablet Take 1 tablet by mouth once daily. - cetirizine (ZYRTEC) 10 mg tablet TAKE ONE TABLET BY MOUTH DAILY NEEDED FOR ALLERGY SYMPTOMS - diclofenac, EC, (VOLTAREN) 75 mg EC [...] once daily. Problem List As Of Date 10/22/2024 Noted Resolved Swelling of right index finger [M79.89] 02/23/2018 Osteoarthritis of multiple joints [M15.9] 02/23/2018 Contusion of left knee [S80.02XA] 02/12/2019 Internal derangement of left knee [M23.92] 02/12/2019 Hallux rigidus of right foot [M20.21] 05/22/2020 Turf toe [S93.529A] 05/22/2020 Sesamoiditis [M25.80] 05/22/2020 Primary osteoarthritis of both first carpometac*07/12/2024 De Quervain's tenosynovitis, bilateral [M65.4] 07/12/2024 Encounter Status:Closed by KATARINA ALVAREZ on 10/22/24 [facility] CNPNon 10-19-2024 CNPN Telephone (ORAVON) GERRI GARCIA ([id number]) 1980 F Date Time Provider Department 10/19/24 HUNTER MONSIVAIS During your visit today, we recorded the following information about you: Bhavana Woods RN 10/19/2024 1:44 PM Signed Patient calling. Has OV on 10/26 for hand evaluation. Asking if the office can access the X Rays she had completed in [facility] on 08/23/24. Please call and let her know. If needed she can go to the facility and bring the films with her to the appt. CALL [phone] Erika Muhammad MA 10/19/2024 2:10 PM Signed Called and spoke with patient on the phone to make sure she brings a disk not printed pictures Allergies As of Date: 10/19/2024 Noted Allergy Reaction CODEINE 12/10/2017 9 - Itching LATEX 04/02/2018 2 - Rash PENICILLIN 12/10/2017 4 - Hives Date Reviewed: 10/15/2024 Reviewed by: Trevin Rocha OCCA - Fully Assessed Reason for Visit: Patient Question [6519] Cmt: X rays of hand Prescriptions as of 10/19/2024 - meloxicam (MOBIC) 7.5 mg tablet Take 1 tablet by mouth once daily. with food - omeprazole (PRILOSEC) 40 mg capsule Take 1 capsule by mouth once daily. - losartan (COZAAR) 50 mg tablet Take 1 tablet by mouth once daily. - cetirizine (ZYRTEC) 10 mg tablet TAKE ONE TABLET BY MOUTH DAILY NEEDED FOR ALLERGY SYMPTOMS - diclofenac, EC, (VOLTAREN) 75 mg EC [...] once daily. Problem List As Of Date 10/19/2024 Noted Resolved Swelling of right index finger [M79.89] 02/23/2018 Osteoarthritis of multiple joints [M15.9] 02/23/2018 Contusion of left knee [S80.02XA] 02/12/2019 Internal derangement of left knee [M23.92] 02/12/2019 Hallux rigidus of right foot [M20.21] 05/22/2020 Turf toe [S93.529A] 05/22/2020 Sesamoiditis [M25.80] 05/22/2020 Primary osteoarthritis of both first carpometac*07/12/2024 De Quervain's tenosynovitis, bilateral [M65.4] 07/12/2024 Encounter Status:Closed by BHAVANA WOODS on 10/19/24 [facility] Bon 10-15-2024 CNOV Office Visit (SPNMMN ) GERRI GARCIA ([id number]) 1980 F Date Time Provider Department 10/15/24 8:15 AM DEANA BENSON SPNMMN During your visit today, we recorded the following information about you: Pulse Respiration Blood pressure Weight 74/minute 18/minute 121/83 99 kg Height 1.753 m Deana Benson PA-C 11/04/2024 1:45 PM Signed Spine Care Path Bilateral Hand Pain - Chronic (> 12 weeks) Follow-up Exam SUBJECTIVE History of Present Illness: Gerri Garcia is a 43-year-old female with a history of chronic neck and low back pain, presenting for follow-up. Chronic Neck Pain: - Constant stiffness and pain in the neck, with fluctuations in severity throughout the day. - Requires sleeping with neck perfectly straight for comfort. - Recent x-rays show degenerative changes at C5-C6 and C6-C7 with large osteophytes. - Previous injections provided no relief. Chronic Low Back Pain: - Constant pain in the lower back, described as more severe and constant than neck pain. - Pain rated as a constant 5/10, with fluctuations to higher levels. - Recent x-rays show mild to moderate degenerative disc disease at L5-S1. - Pain sometimes radiates to the hip, especially at night. - Physical therapy was discontinued due to lack of improvement. - Taking Mobic 7.5 mg with no significant relief. - Previous injections provided no relief. Thumb Pain: - Considering thumb arthroplasty; seeking a new provider for surgery. Original Spine Visit (06/18/24): CC: Bilateral hand [...] previous surgery on the hands. PAIN EVALUATION 10/15/2024 0757 Pain Level: 5 Pain Location: Back-Lower and posterior neck Description: Dull;Aching;Burning Duration Amount of Time: 20 Duration Units: Years Frequency: Continuous Intervention/Comfort measure: Therapeutic techniques-CPRP;Medication Litigation: No Workers' Compensation: No Patient Entered Questionnaires 06/18/2024 Spine Questions Pain [...] Latex Rash Penicillin Hives Medications: meloxicam (MOBIC) 7.5 mg tablet Take 1 tablet by mouth once daily. with food omeprazole (PRILOSEC) 40 mg capsule Take 1 capsule by mouth once daily. losartan (COZAAR) 50 mg tablet Take 1 (more content not included)... Normal [facility] CNOVon 10-05-2024 CNOV Office Visit (LOORRM ) GERRI GARCIA ([id number]) 1980 F Date Time Provider Department 10/05/24 9:00 AM CAST [employer] QUEENIE WHITAKER During your visit today, we recorded the following information about you: Katarina Alvarez Cast Tech 10/05/2024 8:54 AM Signed Patient was casted today for Custom Fitted Orthotics. NEELAM Jones Allergies As of Date: 10/05/2024 Noted Allergy Reaction CODEINE 12/10/2017 9 - Itching LATEX 04/02/2018 2 - Rash PENICILLIN 12/10/2017 4 - Hives Date Reviewed: 10/05/2024 Reviewed by: Erika Muhammad MA - Fully Assessed Primary Visit Diagnosis:Derangement of ankle or foot [M24.173, M24.176] Prescriptions as of 10/05/2024 - meloxicam (MOBIC) 7.5 mg tablet Take 1 tablet by mouth once daily. with food - omeprazole (PRILOSEC) 40 mg capsule Take 1 capsule by mouth once daily. - losartan (COZAAR) 50 mg tablet Take 1 tablet by mouth once daily. - cetirizine (ZYRTEC) 10 mg tablet TAKE ONE TABLET BY MOUTH DAILY NEEDED FOR ALLERGY SYMPTOMS - diclofenac, EC, (VOLTAREN) 75 mg EC [...] once daily. Problem List As Of Date 10/05/2024 Noted Resolved Swelling of right index finger [M79.89] 02/23/2018 Osteoarthritis of multiple joints [M15.9] 02/23/2018 Contusion of left knee [S80.02XA] 02/12/2019 Internal derangement of left knee [M23.92] 02/12/2019 Hallux rigidus of right foot [M20.21] 05/22/2020 Turf toe [S93.529A] 05/22/2020 Sesamoiditis [M25.80] 05/22/2020 Primary osteoarthritis of both first carpometac*07/12/2024 De Quervain's tenosynovitis, bilateral [M65.4] 07/12/2024 Encounter Status:Closed by KATARINA ALVAREZ on 10/05/24 [facility] CN Office Visit (LOORRM ) GERRI GARCIA ([id number]) 1980 F Date Time Provider Department 10/05/24 8:15 AM SAMMI MANZO LOORR During your visit today, we recorded the following information about you: Sammi Manzo, [facility] 10/05/2024 8:57 AM Signed PRIMARY SERVICE: [facility] Podiatry SUBJECTIVE: Patient is seen today for follow-up status post completion of a right foot MRI performed on September 29, 2024. Medical: PAST MEDICAL HISTORY Diagnosis Date Pre-diabetes ALLERGIES: ALLERGIES Allergen Reactions Codeine Itching Latex Rash Penicillin Hives MEDICATIONS: Current Outpatient Medications Medication Sig meloxicam (MOBIC) 7.5 mg tablet Take 1 tablet by mouth once daily. with food omeprazole (PRILOSEC) 40 mg capsule Take 1 capsule by mouth once daily. losartan (COZAAR) 50 mg tablet Take 1 tablet by mouth once daily. cetirizine (ZYRTEC) 10 mg tablet TAKE ONE TABLET BY MOUTH DAILY NEEDED FOR ALLERGY SYMPTOMS diclofenac, EC, (VOLTAREN) 75 mg EC tablet Take 1 tablet by mouth two times a day as needed (for pain). Please take with food. (Patient not taking: Reported on 09/10/2024) methocarbamol (ROBAXIN) 500 mg tablet Take 1 tablet by mouth two times a day as needed (for pain). (Patient not taking: Reported on 09/10/2024) spironolactone (ALDACTONE) 50 mg tablet Take by mouth. Phentermine HCl 37.5 mg tablet Take 1 tablet by mouth once daily. (Patient not taking: Reported on 09/10/2024) No current facility-administered medications for this visit. Surgical: PAST SURGICAL HISTORY Procedure Laterality Date SECTION HX OTHER Dental extraction PAST SURGICAL HISTORY OF groin cyst lanced PHYSICAL EXAM: The patient is alert and oriented x 3 and in no apparent acute distress. NEUROVASCULAR: Unchanged right DERMATOLOGIC: Unchanged right ORTHO/MUSCULOSKELETAL: Unchanged right Right foot MRI:09/29/2024 12:21 PM - Radiology, [place] In Impression IMPRESSION: 1. Ill-defined amorphous signal involving interosseous [...] edema like signal. 5. Mild plantar fasciitis. Blemish Remover: SETH Transcribe Date/Time: Sep 29 2024 12:05P Dictated by : EFFIE BAUTISTA MD ASSESSMENT: Tarsometatarsal joint posttraumatic arthritis right foot TREATMENT TODAY: Evaluation management/OV Discussed results of clinical examination with the patient detail along with MRI findings. Recommend Mobic 7.5 mg along with consideration for custom molded functional orthotic such as a solo maxi shock device with a padded fabric top-cover. I casted the patient today for custom molded functional orthotics L3 020 x 2 units utilizing neutral suspension technique. Advise should arrive in 3 to 4 weeks for fitting SIGNATURE: Sammi Manzo DPM DATE of SERVICE: 10/05/2024 TIME of SERVICE: 8:55 AM Allergies As of Date: 10/05/2024 Noted Allergy Reaction CODEINE 12/10/2017 9 - Itching LATEX 04/02/2018 2 - Rash PENICILLIN 12/10/2017 4 - Hives Date Reviewed: 10/05/2024 Reviewed by: Erika Muhammad MA - Fully Assessed Reason for Visit: Established Patient [175] Follow Up [171] Pain [78] Primary Visit Diagnosis:Post-traumatic osteoarthritis of right foot [M19.171] Other Visit Diagnosis:Right foot pain [M79.671] Order(s):meloxicam (MOBIC) 7.5 mg tabletTake 1 tablet by mouth once daily. with foodDisp: 30 tabletRfl: 2 Prescriptions as of 10/05/2024 - meloxicam (MOBIC) 7.5 mg tablet Take 1 tablet by mouth once daily. with food - omeprazole (PRILOSEC) 40 mg capsule Take 1 capsule by mouth once daily. - losartan (COZAAR) 50 mg tablet Take 1 tablet by mouth once daily. - cetirizine (ZYRTEC) 10 mg tablet TAKE ONE TABLET BY MOUTH DAILY NEEDED FOR ALLERGY SYMPTOMS - diclofenac, EC, (VOLTAREN) 75 mg EC tablet Take 1 tablet by mouth two times a day as needed (for pain). Please take with food. - methocarbamol (ROBAXIN) 500 mg tablet Take 1 tablet by mouth two times a day as needed (for pain). - spironolactone (ALDACTONE) 50 mg tablet Take by mouth. - P (more content not included)... Normal [facility] MR Ankle - right WO contrast on 09-29-2024 IMPRESSION: 1. Ill-defined amorphous signal involving interosseous [...] edema like signal. 5. Mild plantar fasciitis. Blemish Remover: SETH Transcribe Date/Time: Sep 29 2024 12:05P Dictated by : EFFIE BAUTISTA MD This examination was interpreted and the report reviewed and electronically signed by: EFFIE BAUTISTA MD on Sep 29 2024 12:19PM [facility] DIVISION OF RADIOLOGY * * *Final Report* * * DATE OF EXAM: Sep 29 2024 7:59AM LN 0164 - MRI ANKLE WO IVCON RT [...] and signal intensity. SOFT TISSUES: No abnormality. DIVISION OF RADIOLOGY Provider, [facility] - 09/29/2024 * * *Final Report* * * DATE OF EXAM: Sep 29 2024 7:59AM LNM 0164 - MRI ANKLE WO IVCON RT [...] edema like signal. 5. Mild plantar fasciitis. Blemish Remover: SETH Transcribe Date/Time: Sep 29 2024 12:05P Dictated by : EFFIE BAUTISTA MD This examination was interpreted and the report reviewed and electronically signed by: EFFIE BAUTISTA MD on Sep 29 2024 12:19PM EST [facility] Radiology Study observation (narrative) [facility] MR Ankle - right WO contrast Ordered By: [facility] Provider on 09-29-2024 [facility] MRI ANKLE WO IVCON RTon 09-03 MRI ANKLE WO IVCON RT * * *Final Report* * * DATE OF EXAM: Sep 29 2024 7:59AM LNM 0164 - MRI ANKLE WO IVCON RT [...] and signal intensity. SOFT TISSUES: No abnormality. IMPRESSION: 1. Ill-defined amorphous signal involving interosseous [...] edema like signal. 5. Mild plantar fasciitis. Blemish Remover: SETH Transcribe Date/Time: Sep 29 2024 12:05P Dictated by : EFFIE BAUTISTA MD This examination was interpreted and the report reviewed and electronically signed by: EFFIE BAUTISTA MD on Sep 29 2024 12:19PM EST [id number] Normal [facility] Ambulatory Visit Summaryon 0 09-28-2024 Ambulatory Visit Summary Ambulatory Visit Summary GERRI GARCIA :1980 Visit Date:09/28/2024 Ambulatory Visit Instructions Your Diagnosis Hypertension BMI 33.0-33.9,adult Former smoker [facility] Your Care Team Attending Physician - Myesha Galvan Primary Care Physician - Myesha Galvan This Is Your Medications List [facility] Prescription (automatic BP monitor-adult large cuff) cetirizine (cetirizine 10 mg oral capsule) diclofenac topical (Voltaren Gel 1% Gel) hydrocortisone topical (hydrocortisone Top 2.5% Crm) losartan (losartan 50 mg Tab) omeprazole (omeprazole 40 mg Cap-DR) spironolactone (spironolactone 50 mg Tab) Procedures Performed Colonoscopy (12/14/2021), Bartholin's gland operation (12/19/2017), Colonoscopy (2017), section, Oral surgery, wisdom teeth extraction. Discharge Vitals Heart Rate (Peripheral) 84 Respiratory Rate 18 Blood Pressure 140/90 Height 173.0 cm Height 68 in Weight 99.8 kg Weight 220.021 lb BMI 33.35 What to do next Scheduled Follow-Up Appointments Friday 8:20 AM EDT With: Myesha Galvan Where: [facility] Medicine [address] [address]- Medications What How Much When Why Instructions [...] Topical 3 times a day Dermatitis Unchanged losartan (losartan 50 mg Tab) 1 Tablets By Mouth Every day Hypertension BMI 32.0-32.9,adult Former smoker Unchanged Misc Prescription (automatic BP monitor-adult large cuff) See instructions Hypertension GERD (gastroesophageal reflux disease) BMI 34.0-34.9,adult Former smoker check BP once a day Unchanged omeprazole (omeprazole 40 mg Cap-DR) 1 Capsules By Mouth Every day Hypertension GERD (gastroesophageal reflux disease) BMI 34.0-34.9,adult Former smoker Unchanged spironolactone (spironolactone 50 mg Tab) 1 [...] choosing us for your care. Normal [facility] Family Medicine Office/Clini c Noteon 09-28-2024 Family Medicine Office/Clinic Note Family Medicine Office/Clinic Note HPI Staff Gerri is a 43 year old female presenting for 1 month follow up BLANE: 08/26/24 adipex not refilled due to HTN, started losartan Patient is here for follow up on hypertension. How often are you checking your blood pressure? no What are your average readings? _ Do you have any of the following symptoms? Chest Pain? no Palpitations? no REDMOND/SOB? no Headache? no Peripheral Edema? no Light Headed? no Pt states she is tight on money and doesn't have the extra money to get a blood pressure cuff History of Present Illness pt presents today for BP follow up. Review of Systems PHQ Score Initial Depression Screen Score: 4 SCORE Physical Exam Vitals & Measurements HR: 84(Peripheral) RR: 18 BP: 140/90 SpO2: 98% HT: 68 in HT: 173.0 cm WT: 99.8 kg WT: 220.021 lb BMI: 33.35 General: alert, no acute distress ENMT: oral mucosa moist, no pharyngeal erythema or exudate Cardiovascular: regular rate and rhythm, normal peripheral perfusion Respiratory: Lungs CTA, respirations non labored Extremities: no deformity, no trauma Neurological: oriented x 4, LOC appropriate for age, CN II-XII intact, motor strength equal & normal bilaterally, speech normal Assessment/Plan 1. Hypertension (I10: Essential (primary) hypertension) BP is 140/90 in office today. she was not able to get BP monitor. will increase losartan to 50mg BID. RTC 6 weeks Ordered: losartan, 50 mg = 1 tab(s), Oral, Daily, # 90 tab(s), Refills(s) 1, Pharmacy: [facility], 173, cm, 08/26/24 8:23:00 EDT, Height/Length Dosing, 98.7, kg, 08/26/24 8:23:00 EDT, Weight Dosing losartan, 50 mg = 1 tab(s), Oral, BID, # 180 tab(s), Refills(s) 1, Pharmacy: [facility], 173, cm, 09/28/24 8:28:00 EDT, Height/Length Dosing, 99.8, kg, 09/28/24 8:28:00 EDT, Weight Dosing 2. Former smoker (Z87.891: Personal history of nicotine dependence) continue not smoking Ordered: losartan, 50 mg = 1 tab(s), Oral, Daily, # 90 tab(s), Refills(s) 1, Pharmacy: [facility], 173, cm, 08/26/24 8:23:00 EDT, Height/Length Dosing, 98.7, kg, 08/26/24 8:23:00 EDT, Weight Dosing losartan, 50 mg = 1 tab(s), Oral, BID, # 180 tab(s), Refills(s) 1, Pharmacy: [facility], 173, cm, 09/28/24 8:28:00 EDT, Height/Length Dosing, 99.8, kg, 09/28/24 8:28:00 EDT, Weight Dosing 3. Maritzaana smoker (F12.90: Cannabis use, unspecified, uncomplicated) please consider not smoking BMI 32.0-32.9,adult (Z68.32: Body mass index [BMI] 32.0-32.9, adult) BMI eduction given Ordered: losartan, 50 mg = 1 tab(s), Oral, Daily, # 90 tab(s), Refills(s) 1, Pharmacy: [facility], 173, cm, 08/26/24 8:23:00 EDT, Height/Length Dosing, 98.7, kg, 08/26/24 8:23:00 EDT, Weight Dosing losartan, 50 mg = 1 tab(s), Oral, BID, # 180 tab(s), Refills(s) 1, Pharmacy: [facility], 173, cm, 09/28/24 8:28:00 EDT, Height/Length Dosing, 99.8, kg, 09/28/24 8:28:00 EDT, Weight Dosing Orders: phentermine, 37.5 mg = 1 tab(s), Oral, Daily, # 30 tab(s), Refills(s) 0, Pharmacy: [facility], 173.5, cm, 07/26/24 8:23:00 EDT, Height/Length Dosing, 100.5, kg, 07/26/24 8:23:00 EDT, Weight Dosing spironolactone, 50 mg = 1 tab(s), Oral, BID, # 180 tab(s), Refills(s) 3, Pharmacy: [facility], 173, cm, 09/28/24 8:28:00 EDT, Height/Length Dosing, 99.8, kg, 09/28/24 8:28:00 EDT, Weight Dosing spironolactone, 50 mg = 1 tab(s), Oral, [...] Crm, 1 hanane, Topical, TID, 1 refills losartan 50 mg Tab, 50 mg= 1 tab(s), Oral, BID, 1 refills omeprazole 40 mg Cap-DR, 40 mg= 1 cap(s), Oral, Daily spironolactone 50 mg Tab, 50 mg= 1 tab(s), Oral, BID, 3 refills Voltaren Gel 1% Gel, 1 hanane, Topical, QID, PRN Allergies Latex (Hives, Swelling) bandaids (redness, blisters) codeine (Itching) penicillins (Hives) Social History Alcohol - Medium Risk, 12/09/2017 Current. Liquor. 1-2 times per week., 09/28/2024 Substance Abuse - Denies Substance Abuse, 12/09/2017 Current, Marijuana, IV drug use: No. Drug use interferes with work/home: No. Ready to change: No., 09/28/2024 Tobacc (more content not included)... Normal [facility] Comment on above: Result Comment: Elec tronically Signed By: Myesha Galvan.andreina\Date and Time Signed: 09/28/24 08:48 EDT Erika 09-21-2024 LUIZA Telephone (LOORRM) CHRISTINAGERRI ([id number]) 1980 F Date Time Provider Department 09/21/24 SAMMI MANZO During your visit today, we recorded the following information about you: Jackie Dee, RN 09/21/2024 9:21 AM Signed Yessenia with the Pre-Access Prior auth Dept calling Re: MRI RIGHT ANKLE She is looking for documentation of 6 WEEKS of PT for her right ankle/foot Under Scanned Documents There are 3 scanned documents regarding PT However - the UPLOAD Dated 08/12/24 which is titled PT Note 07/27/24 is for her BACK not the foot or ankle the other 2 scanned documents dated 08/18/24 and 09/13/24 are regarding the right foot but it appears as if the length of PT was not for the full 6 weeks; rather 4 weeks so she will submit what she has however -- if you have any addt'l documentation to support the full 6 weeks, please upload or let her know where to locate that (She said this will auto decline tomorrow so she is going to submit what she has today.. but it may come back with a Denial .. FYI you can call her direct/secure line [phone] Thanks ==== Parvin Ramsey OCCA 09/24/2024 10:34 AM Signed Contacted patient for PT information. She attended PT at the [facility] from 08/03/24-09/01/24 for both her back and right foot until she was discharge but has not felt improvement. Called Yessenia at the number provided and LVM with this information. Contacted [facility] to have all the medical records from PT for the right foot to be faxed over to us at [phone] so they may be scanned into the chart for viewing. Allergies As of Date: 09/21/2024 Noted Allergy Reaction CODEINE 12/10/2017 9 - Itching LATEX 04/02/2018 2 - Rash PENICILLIN 12/10/2017 4 - Hives Date Reviewed: 09/10/2024 Reviewed by: Imelda Flanagan OCCA - Fully Assessed Reason for Visit: MRI prior auth [Other] Prescriptions as of 09/24/2024 - omeprazole (PRILOSEC) 40 mg capsule Take 1 capsule by mouth once daily. - losartan (COZAAR) 50 mg tablet Take 1 tablet by mouth once daily. - cetirizine (ZYRTEC) 10 mg tablet TAKE ONE TABLET BY MOUTH DAILY NEEDED FOR ALLERGY SYMPTOMS - diclofenac, EC, (VOLTAREN) 75 mg EC [...] once daily. Problem List As Of Date 09/21/2024 Noted Resolved Swelling of right index finger [M79.89] 02/23/2018 Osteoarthritis of multiple joints [M15.9] 02/23/2018 Contusion of left knee [S80.02XA] 02/12/2019 Internal derangement of left knee [M23.92] 02/12/2019 Hallux rigidus of right foot [M20.21] 05/22/2020 Turf toe [S93.529A] 05/22/2020 Sesamoiditis [M25.80] 05/22/2020 Primary osteoarthritis of both first carpometac*07/12/2024 De Quervain's tenosynovitis, bilateral [M65.4] 07/12/2024 Encounter Status:Closed by PARVIN RAMSEY on 09/24/24 [facility] CNOVjacinto 09-10-2024 CNOV Office Visit (LOORRM ) GERRI GARCIA ([id number]) 1980 F Date Time Provider Department 09/10/24 11:00 AM SAMMI MANZO LOORRM During your visit today, we recorded the following information about you: Sammi Manzo DPM 09/10/2024 11:29 AM Signed PRIMARY SERVICE: [facility] Podiatry SUBJECTIVE: Patient seen today for follow-up for her right foot and ankle due to chronic pain even after undergoing physical therapy, immobilization in the cam walker boot, oral anti-inflammatories, and RICE. She is seen today to discuss the problem and treatment options along with her plan of care. She also has pain in the ball of her right foot as well as her right medial arch Medical: PAST MEDICAL HISTORY Diagnosis Date Pre-diabetes ALLERGIES: ALLERGIES Allergen Reactions Codeine Itching Latex Rash Penicillin Hives MEDICATIONS: Current Outpatient Medications Medication Sig omeprazole (PRILOSEC) 40 mg capsule Take 1 capsule by mouth once daily. losartan (COZAAR) 50 mg tablet Take 1 tablet by mouth once daily. cetirizine (ZYRTEC) 10 mg tablet TAKE ONE TABLET BY MOUTH DAILY NEEDED FOR ALLERGY SYMPTOMS diclofenac, EC, (VOLTAREN) 75 mg EC tablet Take 1 tablet by mouth two times a day as needed (for pain). Please take with food. (Patient not taking: Reported on 09/10/2024) methocarbamol (ROBAXIN) 500 mg tablet Take 1 tablet by mouth two times a day as needed (for pain). (Patient not taking: Reported on 09/10/2024) spironolactone (ALDACTONE) 50 mg tablet Take by mouth. Phentermine HCl 37.5 mg tablet Take 1 tablet by mouth once daily. (Patient not taking: Reported on 09/10/2024) No current facility-administered medications for this visit. Surgical: PAST SURGICAL HISTORY Procedure Laterality Date SECTION HX OTHER Dental extraction PAST SURGICAL HISTORY OF groin cyst lanced PHYSICAL EXAM: The patient is alert and oriented x 3 and in no apparent acute distress. NEUROVASCULAR: Unchanged right DERMATOLOGIC: Unchanged right ORTHO/MUSCULOSKELETAL: Patient relates substantial tenderness in her distal right medial arch. She states her right second toe does not feel attached. She also has pain on the lateral column of her right foot as well as her anterior ankle ASSESSMENT: Multiple internal advancements of the right foot and ankle appropriate for consideration for right foot and ankle MRI to due to lack of improvement with extensive conservative treatments. TREATMENT TODAY: Evaluation management/OV Discussed results of clinical examination with the patient in detail along with treatment options. Strongly recommend right foot and ankle MRI to evaluate for the multiple problems of pain she is having even after all the extensive conservative treatments. I will see the patient back after MRI is completed to discuss findings and further discuss treatment options. SIGNATURE: Sammi Manzo DPM DATE of SERVICE: 09/10/2024 TIME of SERVICE: 11:12 AMMedical intake sheet from September 10, 2024 , was updated by patient, reviewed, and was made part of the patient's chart. Sammi Manzo DPM Allergies As of Date: 09/10/2024 Noted Allergy Reaction CODEINE 12/10/2017 9 - Itching LATEX 04/02/2018 2 - Rash PENICILLIN 12/10/2017 4 - Hives Date Reviewed: 09/10/2024 Reviewed by: Imelda Flanagan OCCA - Fully Assessed Reason for Visit: Pain [78] Established Patient [175] Follow Up [171] Primary Visit Diagnosis:Derangement of ankle or foot [M24.173, M24.176] Other Visit Diagnoses:Right foot pain [M79.671] Chronic pain of right ankle [M25.571, G89.29] Order(s):MRI ANKLE WO IVCON RIGHT [[id number]] Order #: [id number] FUTURE Prescriptions as of 09/10/2024 - omeprazole (PRILOSEC) 40 mg capsule Take 1 capsule by mouth once daily. - losartan (COZAAR) 50 mg tablet Take 1 tablet by mouth once daily. - cetirizine (ZYRTEC) 10 mg tablet TAKE ONE TABLET BY MOUTH DAILY NEEDED FOR ALLERGY SYMPTOMS - diclofenac, EC, (VOLTAREN) 75 mg EC [...] once daily. Problem List As Of Date 09/10/2024 Noted Resolved Swelling of right index finger [M79.89] 02/23/2018 Osteoarthritis of multiple joints [M15.9] 02/23/2018 Contusion of left knee [S80.02XA] 02/12/2019 Internal derangement of left knee [M23.92] 02/12/2019 Hallux rigidus of right foot [M20.21] 05/22/2020 Turf toe [S93.529A] 05/22/2020 Sesamoiditis [M25.80] 05/22/2020 Primary osteoarthritis of both first carpometac*07/12/2024 De Quervain's tenosynovitis, bilateral [M65.4] 07/12/2024 En (more content not included)... Normal [facility] Ambulatory Visit Summaryon 0 08-26-2024 Ambulatory Visit Summary Ambulatory Visit Summary SHRUTHI GARCIASSYOLANDE Ro :1980 Visit Date:08/26/2024 Ambulatory Visit Instructions Your Diagnosis Hypertension BMI 32.0-32.9,adult Former smoker Your Care Team Attending Physician - Myesha Galvan Primary Care Physician - Myesha Galvan This Is Your Medications List [facility] Prescription (automatic BP monitor-adult large cuff) cetirizine (cetirizine 10 mg oral capsule) diclofenac topical (Voltaren Gel 1% Gel) hydrocortisone topical (hydrocortisone Top 2.5% Crm) omeprazole (omeprazole 40 mg Cap-DR) phentermine (phentermine 37.5 mg Tab) spironolactone (spironolactone 50 mg Tab) Procedures Performed Colonoscopy (12/14/2021), Bartholin's gland operation (12/19/2017), Colonoscopy (2017), section, Oral surgery, wisdom teeth extraction. Discharge Vitals Heart Rate (Peripheral) 80 Respiratory Rate 18 Blood Pressure 150/104 Height 173.0 cm Height 68 in Weight 98.7 kg Weight 217.596 lb BMI 32.98 What to do next Scheduled Follow-Up Appointments Friday 11:00 AM EDT With: Where: [facility] Services Friday 8:20 AM EDT With: Myesha Galvan Where: [address] [id number]- Medications What How Much When Why Instructions [...] Topical 3 times a day Dermatitis Unchanged [facility] Prescription (automatic BP monitor-adult large cuff) See [...] choosing us for your care. 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 Pt seen GI and has a Colonoscopy scheduled for next month. History of Present Illness pt presents today for weight management. has not taken adipex. but still lost weight. BP is elevated Review of Systems PHQ Score Initial Depression Screen Score: 1 SCORE Physical Exam Vitals & Measurements HR: 80(Peripheral) RR: 18 BP: 150/104 SpO2: 98% HT: 68 in HT: 173.0 cm WT: 217.596 lb WT: 98.7 kg BMI: 32.98 General: alert, no acute distress ENMT: oral mucosa moist, no pharyngeal erythema or exudate Cardiovascular: regular rate and rhythm, normal peripheral perfusion Respiratory: Lungs CTA, respirations non labored Extremities: no deformity, no trauma Neurological: oriented x 4, LOC appropriate for age, CN II-XII intact, motor strength equal & normal bilaterally, speech normal Assessment/Plan 1. Hypertension (I10: Essential (primary) hypertension) BP elevated in office today. was also elevated at GI appointment a couple days ago. will start losartan 50mg. pt will return to clinic in 1 month. will not refill adipex. pt will monitor BP at home. Ordered: losartan, 50 mg = 1 tab(s), Oral, Daily, # 90 tab(s), Refills(s) 1, Pharmacy: [facility], 173, cm, 08/26/24 8:23:00 EDT, Height/Length Dosing, 98.7, kg, 08/26/24 8:23:00 EDT, Weight Dosing 2. BMI 32.0-32.9,adult (Z68.32: Body mass index [BMI] 32.0-32.9, adult) BMI education given Ordered: losartan, 50 mg = 1 tab(s), Oral, Daily, # 90 tab(s), Refills(s) 1, Pharmacy: [facility], 173, cm, 08/26/24 8:23:00 EDT, Height/Length Dosing, 98.7, kg, 08/26/24 8:23:00 EDT, Weight Dosing 3. Former smoker (Z87.891: Personal history of nicotine dependence) continue not smoking Ordered: losartan, 50 mg = 1 tab(s), Oral, Daily, # 90 tab(s), Refills(s) 1, Pharmacy: [facility], 173, cm, 08/26/24 8:23:00 EDT, Height/Length Dosing, 98.7, kg, 08/26/24 8:23:00 EDT, Weight Dosing Follow-up No qualifying data available [...] Crm, 1 hanane, Topical, TID, 1 refills losartan 50 mg Tab, 50 mg= 1 tab(s), Oral, Daily, 1 refills omeprazole 40 mg Cap-DR, 40 mg= 1 cap(s), Oral, Daily phentermine 37.5 mg Tab, 37.5 mg= 1 tab(s), Oral, Daily, Not taking spironolactone 50 mg Tab, 50 mg= 1 tab(s), Oral, BID Voltaren Gel 1% Gel, 1 hanane, Topical, QID, PRN Allergies Latex (Hives, Swelling) bandaids (redness, blisters) codeine (Itching) penicillins (Hives) Social History Alcohol - Medium Risk, 12/09/2017 Liquor., 08/26/2024 Substance Abuse - Denies Substance Abuse, 12/09/2017 Never., 06/11/2024 Tobacco - No Risk, 08/28/2022 Former smoker, quit more than 30 days ago Tobacco Use:., 08/23/2024 Family History Primary malignant neoplasm of colon: Father. Normal [facility] Comment on above: Result Comment: Elec tronically Signed By: Jamil MG, Myesha Yoder\.br\Date and Time Signed: 08/26/24 08:40 EDT Ambulatory Visit Summaryon 0 08-23-2024 Ambulatory Visit Summary Ambulatory Visit Summary GERRI GARCIA :1980 Visit Date:08/23/2024 Ambulatory Visit Instructions Your Diagnosis GERD (gastroesophageal reflux disease) Rectal bleeding Family history of colon cancer in father BMI 31.0-31.9,adult Your Care Team Attending Physician - Pavel VILLEGAS, Dontae Fuentes Primary Care Physician - Myesha Galvan This Is Your Medications List Contact prescribing physician if questions or concerns Misc Prescription (automatic BP monitor-adult large cuff) cetirizine (cetirizine 10 mg oral capsule) diclofenac topical (Voltaren Gel 1% Gel) hydrocortisone topical (hydrocortisone Top 2.5% Crm) omeprazole (omeprazole 40 mg Cap-DR) phentermine (phentermine 37.5 mg Tab) spironolactone (spironolactone 50 mg Tab) Procedures Performed Colonoscopy (12/14/2021), Bartholin's gland operation (12/19/2017), Colonoscopy (2017), section, Oral surgery, wisdom teeth extraction. Discharge Vitals Heart Rate (Peripheral) 97 Respiratory Rate 16 Blood Pressure 151/107 Height 68 in Height 173 cm Weight 218.037 lb Weight 98.9 kg BMI 33.04 What to do next Scheduled Follow-Up Appointments 2024 8:20 AM EDT With: Myesha Galvan Where: [place] [id number]- Friday 11:00 AM EDT With: Where: [facility] Medications What How Much When Why Instructions Unchanged cetirizine (cetirizine 10 mg oral capsule) 1 Capsules By Mouth Every day as needed for for allergy symptoms Hypertension GERD (gastroesophageal reflux disease) BMI 34.0-34.9,adult Former smoker Contact prescribing physician if questions or concerns Unchanged diclofenac topical (Voltaren Gel 1% Gel) 1 Application Topical 4 times a day as needed for for pain Hypertension GERD (gastroesophageal reflux disease) BMI 34.0-34.9,adult Former smoker Contact prescribing physician if questions or concerns Unchanged hydrocortisone topical (hydrocortisone Top 2.5% Crm) 1 Application Topical 3 times a day Dermatitis Contact prescribing physician if questions or concerns Unchanged Misc Prescription (automatic BP monitor-adult large cuff) See instructions Hypertension GERD (gastroesophageal reflux disease) BMI 34.0-34.9,adult Former smoker check BP once a day Contact prescribing physician if questions or concerns Unchanged omeprazole (omeprazole 40 mg Cap-DR) 1 Capsules By Mouth Every day Hypertension GERD (gastroesophageal reflux disease) BMI 34.0-34.9,adult Former smoker Contact prescribing physician if questions or concerns Unchanged phentermine (phentermine 37.5 mg Tab) 1 Tablets By Mouth Every day Contact prescribing physician if questions or concerns Unchanged spironolactone (spironolactone 50 mg Tab) 1 Tablets By Mouth 2 times a day Contact prescribing physician if questions or concerns Allergies Latex (Hives, Swelling) bandaids (redness, blisters) [...] choosing us for your care. Normal [facility] Gastroenterology Office/Clin ic Noteon 08-23-2024 Gastroenterology Office/Clinic Note Gastroenterology Office/Clinic Note Chief Complaint ref by jamil- GERD and rectal bleeding HPI Staff New patient is a(n) 43 year old female who was referred by Jamil for GERD and rectal bleeding. GERD - PCP prescribed Omeprazole 06/28/24. Pt uses it as needed. -controlled Blood in stool: When did it start: over 10 years ago Every BM or less frequent: a couple week, has not found what triggers Bright red or dark red: bright red blood with clots in stool Associated symptoms: denies straining during bowel movement, abdominal pain, diarrhea and constipation Fhx colon cancer - Father age 45 Denies recent imaging/stool testing. Any blood thinners? no Any GLP-1 agonists? no EGD/Colonoscopy 12/14/21 w/Dr. Horta: Findings Examination of the esophagus revealed a normal esophagus. The squamocolumnar junction appeared regular. Examination of the stomach revealed a normal stomach. Examination of the duodenum revealed a normal duodenum. Findings The bowel was normal throughout the extent examined. Recommendations: Repeat colonoscopy:: In 5 years. Pathology: Final Diagnosis (Verified) ANTRUM, BIOPSY: ??? ANTRAL MUCOSA CONSISTENT WITH REACTIVE GASTROPATHY. ??? NO INTESTINAL METAPLASIA IDENTIFIED ??? NO H. PYLORI MICROORGANISMS IDENTIFIED WITH IMMUNOSTAIN. Liver Studies HCV Ab: Non Reactive (07/08/24) Hep A IgM: Negative (07/08/24) Hep B Core IgM: Negative (07/08/24) Hep Bs Ag: Negative (07/08/24) History of Present Illness I have reviewed HPI staff note, most recent labs and imaging, I agree with the above documentation with the following additions/exceptions : PT with bright red blood in the rectum could be liquid or clotty can not figure out the triggers stopped spicy for and alcohol but it does not go away GERD- well controlled with omeprazole Review of Systems PHQ Score Initial Depression Screen Score: 2 SCORE All systems reviewed, negative except as mentioned above Physical Exam Vitals & Measurements HR: 97(Peripheral) RR: 16 BP: 153/103 HT: 68 in HT: 173 cm WT: 218.037 lb WT: 98.9 kg BMI: 33.04 General: alert, no acute distress HEENT: atraumatic normocephalic Cardiovascular: regular rate and rhythm, normal peripheral perfusion Respiratory: Lungs CTA, respirations non labored Extremities: no deformity, no trauma Abdomen: Benign, soft, nontender nondistended Assessment/Plan 1. GERD (gastroesophageal reflux disease) (K21.9: Gastro-esophageal reflux disease without esophagitis) Ordered: Body Mass Index (BMI) documented 3008F Colonoscopy (Hospital Procedure) Current tobacco non-user 1036F Most recent diastolic blood pressure >=90 mm Hg 3080F Most recent systolic blood pressure >= 140 mm Hg 3077F 2. Rectal bleeding (K62.5: Hemorrhage of anus and rectum) Ordered: Body Mass Index (BMI) documented 3008F Colonoscopy (Hospital Procedure) Current tobacco non-user 1036F Most recent diastolic blood pressure >=90 mm Hg 3080F Most recent systolic blood pressure >= 140 mm Hg 3077F 3. Family history of colon cancer in father (Z80.0: Family history of malignant neoplasm of digestive organs) Ordered: Body Mass Index (BMI) documented 3008F Colonoscopy (Hospital Procedure) Current tobacco non-user 1036F Most recent diastolic blood pressure >=90 mm Hg 3080F Most recent systolic blood pressure >= 140 mm Hg 3077F 4. BMI 31.0-31.9,adult (Z68.31: Body mass index [BMI] 31.0-31.9, adult) Ordered: Colonoscopy (Hospital Procedure) Continue Omeprazole 40 mg daily Patient will benefit from following GERD measures and diet Patient will benefit from losing weight Schedule colonoscopy to evaluate rectal bleeding Follow-up No qualifying data available Problem List/Past Medical History Ongoing BMI 31.0-31.9,adult Dermatitis Encounter for weight management Establishing care with new doctor, encounter for Family history of colon cancer in father GERD (gastroesophageal reflux disease) Hypertension PCOS (polycystic ovarian syndrome) Rectal bleeding Historical No qualifying data Procedure/Surgical History Colonoscopy (12/14/2021), Bartholin's gland operation (12/19/2017), Colonoscopy (2017), section, Oral surgery, wisdom teeth extraction. Medications [...] Social History Alcohol - Medium Risk, 12/09/2017 Current. 3-5 times per week., 08/18/2024 Substance Abuse - Denies Substance Abuse, (more content not included)... Normal [facility] Comment on above: Result Comment: Elec tronically Signed By: Pavel VILLEGAS, Dontae Fuentes\.br\Date and Time Signed: 08/23/24 12:50 EDT Zulma 08-18-2024 CNCO Letter Text Normal [facility] CNCOon 07-30-2024 CNCO Letter Text Normal [facility] CNPNon 07-30-2024 CNPN Telephone (SPAZMN) CHRISTINAGERRI ([id number]) 1980 F Date Time Provider Department 07/30/24 DEANA BENSON [facility] During your visit today, we recorded the following information about you: Sergio Adams, RN 07/30/2024 11:27 AM Signed Patient calling [...] Encounter Status:Closed by SERGIO ADAMS on 08/09/24 [facility] Telephone (LOORRM) GERRI GARCIA ([id number]) 1980 F Date Time Provider Department 07/30/24 CHAVA WEBER During your visit today, we recorded the following information about you: Sergio Adams, LON 07/30/2024 11:22 AM Signed Patient calling in [...] letter can be written and [facility] Binu Pisano RN 07/30/2024 11:48 AM Signed Called and spoke with patient, informed her that requested letter was written for her and sent via [employer], patient understood. Also informed patient that she can citrus picker copy of letter at our [place] office if she needs to, just let [...] Encounter Status:Closed by BINU PISANO on 07/30/24 [facility] GERRI [facility]ARC[facility] ([id number]) 1980 F Date Time Provider Department 07/30/24 DAMIAN MCINTOSH LOORRNilesh During your visit today, we recorded [...] letter can be written and placed in [employer]. Shanthi Buck MA 07/30/2024 12:14 PM Signed Tree will review when back in the office on Friday08/03/2024. Carol Treviño 08/05/2024 8:39 AM Signed Pt calling for update. Please advise Damian Mcintosh PA-C 08/06/2024 12:44 PM Signed Spoke to patient about her request and provided her with a letter in [employer]. Damian Mcintosh PA-C Allergies As of Date: [...] Encounter Status:Closed by DAMIAN MCINTOSH on 08/06/24 [facility] Telephone (JTORRM) GERRI GARCIA ([id number]) 1980 F Date Time Provider Department 07/30/24 SAMMI MANZO During your visit today, we recorded the following information about you: Sergio Adams, RN 07/30/2024 11:24 AM Signed Patient calling in [...] letter can be written and placed in [employer]. Parvin Ramsey OCCA 07/30/2024 11:40 AM Signed Letter sent via [employer] as requested. Allergies As of Date: 07/30/2024 [...] Encounter Status:Closed by PARVIN RAMSEY on 07/30/24 [facility] CNOVjacinto 07-28-2024 CNOV Office Visit (LOORRM ) GERRI GARCIA ([id number]) 1980 F Date Time Provider Department 07/28/24 10:30 AM SAMMI MANZO During your visit today, we recorded the following information about you: Sammi Manzo, NAUN 07/28/2024 11:00 AM Signed Medical intake sheet from July 28, 2024 , was updated by patient, reviewed, and was made part of the patient's chart. Sammi Manzo DPM [facility] Department of Orthopedics [facility] Orthopedic Surgery Name: Gerri Garcia Date [...] as scheduled/prn. Patient will be billed through [employer]. Allergies As of Date: 07/28/2024 Noted Allergy Reaction CODEINE 12/10/2017 9 - Itching LATEX 04/02/2018 2 - Rash PENICILLIN 12/10/2017 4 - Hives Date Reviewed: 07/28/2024 Reviewed by: Parvin Ramsey OCCA - Fully Assessed Reason for Visit: Pain [78] New [551131] Primary Visit Diagnosis:Right foot sprain, initial encounter [S93.601A] Other Visit Diagnoses:Right foot pain [M79.671] Derangement of ankle or foot [M24.173, M24.176] Order(s):CONSULT TO PHYSICAL THERAPY [9083] Order #: [id number]: 1 FUTURE Prescriptions as of 07/28/2024 - diclofenac, EC, (VOLTAREN) 75 mg EC tablet Take 1 tablet by mouth two times a day as needed (for pain). Please take with (more content not included)... Normal [facility] XR FOOT 3V AP/LAT/OBL RTon 0 3-26-2025 XR FOOT 3V AP/LAT/OBL RT * * [...] significant abnormality. IMPRESSION: NO ACUTE OSSEOUS ABNORMALITY Blemish Remover: SETH Transcribe Date/Time: Jul 28 2024 10:42A Dictated by : COY AMBRIZ MD This examination was interpreted and the report reviewed and electronically signed by: COY AMBRIZ MD on Jul 28 2024 10:43AM EST [id number] Normal [facility] XR Foot - right AP and Later al and obliqueon 07-28-2024 IMPRESSION: NO ACUTE OSSEOUS ABNORMALITY Blemish Remover: [facility] Transcribe Date/Time: Jul 28 2024 10:42A Dictated [...] other significant abnormality. DIVISION OF RADIOLOGY Provider, Radha Diallo [facility] - 07/28/2024 * * *Final Report* [...] abnormality. IMPRESSION IMPRESSION: NO ACUTE OSSEOUS ABNORMALITY Blemish Remover: SETH Transcribe Date/Time: Jul 28 2024 10:42A Dictated by : COY AMBRIZ MD This examination was interpreted and the report reviewed and electronically signed by: COY AMBRIZ MD on Jul 28 2024 10:43AM EST [facility] Radiology Study observation (narrative) [facility] XR Foot - right AP and Later al and obliqueOrdered By: Cc Provider on 07-28-2024 [facility] CNOVon 07-27-2024 CNOV Office Visit (LOORRM ) GERRI GARCIA ([id number]) 1980 F Date Time Provider Department 07/27/24 10:30 AM DAMIAN MCINTOSH During your visit today, we recorded the following information about you: Damian Mcintosh PA-C 07/27/2024 11:01 AM Signed This document has been created with the use of voice recognition technology. It may contain inaccuracies: jamesings, inaccurate syntax or word sense that escaped review. CHIEF COMPLAINT: Gerri Garcia is a 43 year old female who presents today for follow up of right shoulder. HISTORY OF PRESENT ILLNESS: PAIN EVALUATION 07/27/2024 1035 Pain Level: 5 Pain Location: Shoulder-Right Description: Other: See comment;Numbness popping Duration Amount of Time: 6 Duration Units: Months Frequency: Continuous Intervention/Comfort measure: Medication;Reposition;Relax ation;Cold;Positioning Comments: Tylenol, Ibuprofen, Ice HISTORY: Gerri Garcia [...] - Fully Assessed Reason for Visit: New [[id number]] Primary Visit Diagnosis:Impingement syndrome of right shoulder [M75.41] Other Visit Diagnosis:Right shoulder pain, unspecified chronicity [M25.511] Order(s):XR SHOULDER ORTHO 4V AP (more content not included)... Normal [facility] XR SHLDR 4V AP/CHARLES/LAT/OUTLE T RTon 07-27-2024 XR SHLDR 4V AP/CHARLES/LAT/OUTLET RT * * *Final Report* * * DATE OF EXAM: Jul 27 2024 10:31AM SOURAV [id number] - XR SHLDR 4V AP/CHARLES/LAT/OUTLET RT / PROCEDURE REASON: Right shoulder pain, unspecified chronicity * * * * Physician Interpretation * * * * HISTORY: Right shoulder pain, unspecified chronicity . Right shoulder pain TECHNIQUE: XR SHLDR 4V AP/CHARLES/LAT/OUTLET RT COMPARISON: 08/18/2020 RESULT: Joint spaces and alignment normal. No evidence of a fracture. Normal soft tissues. No other significant abnormality. IMPRESSION: NORMAL Blemish Remover: PSC[facility] Transcribe Date/Time: Jul 27 2024 11:09A Dictated by : GARY QUICK MD This examination was interpreted and the report reviewed and electronically signed by: GARY QUICK MD on Jul 27 2024 11:10AM EST [id number] Normal [facility] XR Shoulder - right 4 Viewso n 07-27-2024 IMPRESSION: NORMAL Blemish Remover: PSCB Transcribe Date/Time: Jul 27 2024 11:09A [...] other significant abnormality. DIVISION OF RADIOLOGY Provider, Radha Dickey - 07/27/2024 * * *Final Report* * [...] No other significant abnormality. IMPRESSION IMPRESSION: NORMAL Blemish Remover: SETH Transcribe Date/Time: Jul 27 2024 11:09A Dictated by : GARY QUICK MD This examination was interpreted and the report reviewed and electronically signed by: GARY QUICK MD on Jul 27 2024 11:10AM EST [facility] Radiology Study observation (narrative) [facility] XR Shoulder - right 4 ViewsO rdered By: Ccf Provider on 07-27-2024 [facility] Ambulatory Visit Summaryon 0 07-26-2024 Ambulatory Visit Summary Ambulatory Visit Summary GERRI GARCIA :1980 Visit Date:07/26/2024 Ambulatory Visit Instructions Your Diagnosis Encounter for weight management BMI 33.0-33.9,adult Former smoker Your Care Team Attending Physician - Myesha Galvan Primary Care Physician - Myesha Galvan This Is Your Medications List [facility] Prescription (automatic BP monitor-adult large cuff) cetirizine [...] 8:20 AM EDT With: Myesha Galvan Where: [place] [phone]- Medications What How Much When Why Instructions [...] Topical 3 times a day Dermatitis Unchanged Misc Prescription (automatic BP monitor-adult large cuff) See [...] choosing us for your care. Normal [facility] Family Medicine Office/Clini c Noteon 07-26-2024 Family Medicine Office/Clinic Note Family Medicine Office/Clinic Note [facility] Staff Gerri is a 43 year old [...] clots in stool has had 2 colonoscopy([facility]) 12/2021 and was told they were normal, also had EGD([facility]) 12/2021 and was normal. Pt stopped smoking [...] do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 06-10-2024 ambulatory Myesha Jamil [facility] Start: 07-03-2023 ambulatory Vero Blum RT(R) R adiology Comment on above: Radiology XR Start: 07-03-2023 Patient encounter procedure Vero Blum RT(R) RADHA ARITA [facility] Start: 07-03-2023 End: 07-03-2023 Office outpatient visit 25 minutes Deana Benson PA-C Work Phone: Orthopaedics Comment on above: Primary osteoarthrit is of both first carpometacarpal joints (Primary Dx); Carpal tunnel syndrome, bilateral Start: 07-03-2023 End: 07-03-2023 Subsequent hospital visit by physician Ean Lee Work Phone: Radiology Comment on above: Pain [R52] Start: 11-27-2021 ambulatory Jessika May RT(R) Radi ology Comment on above: Radiology XR Start: 11-27-2021 End: 11-27-2021 Patient encounter procedure Jessika May RT(R) [facility] Comment on above: Equinus deformity of both feet (Primary Dx); Arthralgia of left foot; Pain in left foot; Encounter for long-term (current) use of medications Start: 11-27-2021 End: 11-27-2021 Subsequent hospital visit by physician Xr Asmita 1 Work Phone: Radiology Comment on above: Pain [R52] Start: 08-18-2020 End: 08-18-2020 Subsequent hospital visit by physician Xr Asmita 1 Work Phone: Radiology Comment on above: Pain [R52] Start: 05-22-2020 End: 05-22-2020 Subsequent hospital visit by physician Xr Asmita 1 Work Phone: Radiology Comment on above: Great toe pain, righ t [M79.674] Start: 02-28-2020 End: 02-29-2020 Patient encounter procedure RONY HUDSON Facility:[facility] Start: 02-17-2020 End: 02-18-2020 Patient encounter procedure RONY HUDSON Facility:[facility] Start: 12-03-2019 End: 02-08-2020 Patient encounter procedure [facility] Facility: Start: 11-30-2019 End: 12-01-2019 Patient encounter procedure [facility] Facility:[facility] Start: 11-10-2019 End: 11-10-2019 Patient encounter procedure [facility] Facility: Procedures Date Procedure Procedure Detail Performing Clinician Start: 09-29-2024 Mri any jt lower ext rem w/o contrast matrl Sammi Manzo DPM Work Phone: Start: 07-28-2024 Radex foot complete minimum 3 [...] DTaP,Tdap,Td Vaccine (2 - Td or Tdap) [facility] Start: 01-03-2025 Influenza vaccination [facility] Start: 11-30-2024 End: 11-30-2024 Patient encounter procedure 11/30/2024 8:45 AM EDT Office Visit [facility] [address] [id number] Deana Benson PA-C [address] [facility] [place] [address] Follow-up after MRI [facility] Comment on above: Follow-up after MRI Start: 11-27-2024 End: 11-27-2024 Patient encounter procedure 11/27/2024 9:00 AM EDT Appointment Radiology [address] [place] [address] MRI LUMBAR SPINE WO IVCON MRI CERVICAL SPINE WO IVCON Spinal stenosis, spondylolisthesis, radiculopathy, trauma Radiology Comment on above: MRI LUMBAR SPINE WO IVCON MRI CERVICAL SPINE WO IVCON Spinal stenosis, spondylolisthesis, radiculopathy, trauma Start: 11-18-2024 End: 11-18-2024 Patient encounter procedure 11/18/2024 8:45 AM EDT Office Visit [facility] [address] [place] [address] Deana Benson PA-C [address] [place] [address] Follow-up after MRI [facility] Comment on above: Follow-up after MRI Start: 11-12-2024 End: 11-12-2024 Patient encounter procedure Radiology Comment on above: Spinal stenosis, spo ndylolisthesis, radiculopathy, trauma Start: 10-26-2024 End: 10-26-2024 Patient encounter procedure 10/26/2024 9:15 AM EDT [facility] [address] [place] [address] [place] [address] [place] [address] Surgical CONSULT. Bilateral Arthritis & Thumb Pain. Non-[facility] X-rays in HAND. [facility] Comment on above: Surgical CONSULT. Bi lateral Arthritis & Thumb Pain. Non-[facility] X- rays in HAND. Start: 10-15-2024 End: 10-15-2024 Patient encounter procedure 10/15/2024 8:15 AM EDT Office Visit [facility] [address] [place] [address] Deana Benson PA-C [address] [place] [address] f/u with provider [facility] Comment on above: f/u with provider Start: 10-05-2024 End: 10-05-2024 Patient encounter procedure 10/05/2024 8:15 AM EDT Office Visit Orthopaedics [address] [place] [address] Sammi Manzo, DPM [address] [place] [address] MRI results - right foot follow up Orthopaedics Comment on above: MRI results - right foot follow up Start: 09-29-2024 End: 09-29-2024 Patient encounter procedure 09/29/2024 7:20 AM EDT Appointment Radiology [address] [place] [address] Chronic pain of right ankle [M25.571, G89.29] Radiology Comment on above: Chronic pain of righ t ankle [M25.571, G89.29] Start: 09-14-2024 End: 09-14-2024 Patient encounter procedure 09/14/2024 8:30 AM EDT Office Visit Orthopaedics [address] [place] [address] Damian Mcintosh PA-C [address] [place] [address] 6 week f/u Orthopaedics Comment on above: 6 week f/u Start: 09-07-2024 End: 09-07-2024 Patient encounter procedure 09/07/2024 10:00 AM EDT Office Visit Orthopaedics [address] [place] [address] Damian Mcintosh PA-C [address] [facility] [place] [address] 6 week f/u Orthopaedics Comment on above: 6 week f/u Start: 07-28-2024 End: 07-28-2024 Patient encounter procedure Orthopaedics Comment on above: Right foot pain, swo llen XR FOOT GENERAL 3V A P/LAT/OBL RIGHT Start: 07-27-2024 End: 07-27-2024 Patient encounter procedure 07/27/2024 10:30 AM EDT Office Visit Orthopaedics [address] [place] [address] Damian Mcintosh PA-C [address] [place] [address] Right shoulder pain Orthopaedics Comment on above: Right shoulder pain Start: 07-15-2024 End: 07-15-2024 Patient encounter procedure 07/15/2024 8:00 AM EDT Office Visit [facility] [address] [place] [address] Deana Benson PA-C [address] [place], [place] [id number] Low Back Pain [facility] Comment on above: Low Back Pain Start: 07-12-2024 End: 07-12-2024 Patient encounter procedure 07/12/2024 10:45 AM EDT Office Visit Orthopaedics [address] [place] [address] Chava Weber MD [address] [place] [address] bilateral carpal tunnel syndrome Orthopaedics Comment on above: bilateral carpal edgar conner syndrome Start: 01-04-2024 Covid-19 Vaccine ( season) Covid-19 Vaccine ( season) [facility] Start: 01-04-2024 Covid-19 Vaccine ( season) Covid-19 Vaccine ( season) [facility] Start: 01-04-2024 Influenza vaccination Influenza Vacc ine (#1) [facility] Start: 05-05-2023 Depression Assessment Depression Ass essment [facility] Start: 01-03-2023 Covid-19 Vaccine ( season) Covid-19 Vaccine ( season) [facility] Start: 01-03-2023 Influenza vaccination Influenza Vacc ine (#1) [facility] Start: 01-03-2022 Influenza vaccination INFLUENZA (#1) [facility] Start: 2020 Mammography MAMMOGRAM [facility] Start: 2020 Screening for malignant neoplasm of breast Mammogram Screening [facility] Start: 02-23-2019 Adult depression screening assessment DEPRESSION SCREENING [facility] Start: 2010 HPV TESTING HPV TESTING [facility] Start: 2010 Screening for malignant neoplasm of cervix HPV Testing [facility] Start: 2001 PAP TESTING PAP TESTING [facility] Start: 2001 Screening for malignant neoplasm of cervix [facility] Start: 11-12-1999 Hepatitis B Vaccine (1 of 3 - 19+ 3-dose series) Hepatitis B Vaccine (1 of 3 - 19+ 3-dose series) [facility] Start: 11-12-1999 Pneumococcal vaccination Pneumococcal Vaccine (1 of 2 - PCV) [facility] Start: 11-12-1999 Urine microalbumin profile [facility] Start: 1998 Anxiety Screening Anxiety Screening [facility] Start: 1998 Depression Screening Depression Scre ening [facility] Start: 1998 HEPATITIS C SCREENING HEPATITIS C [facility] Start: 1998 Hepatitis C screening Hepatitis C Sc [facility] Start: 1998 HIV SCREENING HIV SCREENING [facility] Start: 1998 HIV screening HIV Screening [facility] Start: 1986 PNEUMOCOCCAL (1 - PCV) PNEUMOCOCCAL (1 - PCV) [facility] Start: 1986 Pneumococcal vaccination Pneumococcal Vaccine (1 of 2 - PCV) [facility] Start: 05-14-1981 COVID-19 VACCINE (#1) COVID-19 VACCI NE (#1) [facility] Start: 1980 Hepatitis B Vaccine (1 of 3 - 3-dose series) Hepatitis B Vaccine (1 of 3 - 3-dose series) [facility] End: 07-02-2024 EMG(NEURO/NI) EMG(NEURO/NI) EMG STAT Carpal tunnel syndrome, bilateral 1 Occurrences starting 07/03/2023 until 07/02/2024 [facility] Work Phone: Comment on above: 1 Occurrences starti ng 07/03/2023 until 07/02/2024 End: 10-10-2025 MR Ankle - right WO contrast MRI ANKLE WO IVCON RIGHT Radiology Routine Chronic pain of right ankle 1 Occurrences starting 09/10/2024 until 10/10/2025 [facility] Work Phone: Comment on above: 1 Occurrences starti ng 09/10/2024 until 10/10/2025 End: 11-14-2025 MR Cervical spine WO contrast MRI CERVICAL SPINE WO IVCON Radiology Routine Neck pain Myofascial neck pain Chronic right-sided low back pain without sciatica Pain of right sacroiliac joint Primary osteoarthritis of both first carpometacarpal joints Carpal tunnel syndrome, bilateral Chronic bilateral low back pain, unspecified whether sciatica present 1 Occurrences starting 10/15/2024 until 11/14/2025 [facility] Work Phone: Comment on above: 1 Occurrences starti ng 10/15/2024 until 11/14/2025 End: 11-14-2025 MR Lumbar spine WO contrast MRI LUMBAR SPINE WO IVCON Radiology Routine Neck pain Myofascial neck pain Chronic right-sided low back pain without sciatica Pain of right sacroiliac joint Primary osteoarthritis of both first carpometacarpal joints Carpal tunnel syndrome, bilateral Chronic bilateral low back pain, unspecified whether sciatica present 1 Occurrences starting 10/15/2024 until 11/14/2025 [facility] Comment on above: 1 Occurrences starti ng 10/15/2024 until 11/14/2025 End: 07-18-2025 XR Cervical spine AP and Lateral and oblique XR CERV OTHER 4V AP/LAT/OBL Radiology Routine Neck pain 1 Occurrences starting 06/18/2024 until 07/18/2025 [facility] Work Phone: Comment on above: 1 Occurrences starti ng 06/18/2024 until 07/18/2025 End: 07-18-2025 XR Lumbar spine AP and Lateral XR LUMBAR LIMITED 2V AP/LAT Radiology Routine Chronic bilateral low back pain, unspecified whether sciatica present 1 Occurrences starting 06/18/2024 until 07/18/2025 [facility] Comment on above: 1 Occurrences starti ng 06/18/2024 until 07/18/2025 [facility] c Payers Date Payer Category Payer Self-pay 2023 Unknown [employer] [id number] 2023-Present [phone] [address] [place] [address] Indemnity [id number] 2017 Medicaid [employer] [facility] [place] [id number] 2017-Present [phone] [address] [address] [place] [address] Medicaid [id number] 2017 Medicaid [id number]. [id number] 1980 Unknown [id number] 2.16840.1.247954.3.579.2.593 1980 Unknown [id number] 2.16840.1.722866.3.579.2.59 1980 Unknown [id number] 2.16840.1.059953.3.579.2.593 1980 Unknown [id number] 2.16840.1.212335.3.579.2.59 1980 Unknown [id number] 2.16840.1.964667.3.579.2.593 1980 Unknown [id number] 2.16840.1.290877.3.579.2.72 1980 Unknown [id number] 2.16840.1.623689.3.579.2.727 1980 Unknown [id number] 2.16840.1.314481.3.579.2.72 1980 Unknown [id number] 2.16840.1.070419.3.579.2.727 1980 Unknown [id number] 2.16840.1.685232.3.579.2. 1980 Unknown [id number] 2.16.840.1.046599.3.579.2. 1980 Unknown [id number] 2.16.840.1.286998.3.579.2. 1980 Unknown [id number] 2.16.840.1.232416.3.579.2. 1980 Unknown [id number] 2.16.840.1.182495.3.579.2. 1980 Unknown [id number] 2.16.840.1.765073.3.579.2 1980 Unknown [id number] 2.16.840.1.917539.3.579.2 1980 Unknown [id number] 2.16.840.1.311777.3.579.2. 1980 Unknown [id number] 2.16.840.1.962159.3.579.2 1980 Unknown [id number] 2.16.840.1.062567.3.579.2 1980 Unknown [id number] 2.16.840.1.450103.3.579.2 1980 Unknown [id number] 2.16.840.1.870996.3.579.2 1980 Unknown [id number] 2.16.840.1.048301.3.579.2.72 1959 Unknown [id number] Social History Date Type Detail Facility Start: 02-23-2018 End: 07-15-2024 Tobacco smoking status NHIS Smokes tobacco daily [facility] History of tobacco use Cigarette Smoker C [facility] Start: 02-23-2018 End: 07-03-2023 Cigarettes smoked current (pack per day) - Reported 0.5 [facility] Start: 02-23-2018 End: 10-26-2024 Tobacco use and exposure Smokeless tobacco non-user [facility] Start: 11-27-2021 End: 10-26-2024 Alcohol intake Current non-drinker of alcohol (finding) [facility] Start: 1980 Sex Assigned At Not on file C [facility] Start: 04-22-2020 End: 11-26-2021 Exposure to SARS-CoV-2 (event) Not sure [facility] Start: 11-27-2021 End: 07-03-2023 Tobacco use panel [facility] Adult Depression Scr eening Assessment 2 [facility] Start: 10-26-2024 Tobacco smoking stat us SDIS Ex-smoker [facility] History of tobacco use Current smoker [facility] Clinical Notes 05-22-2020 to 11-30-2024 Telephone Encounter - Janice Batista RN - 2024 10:10 AM EDTTelephone Encounter - Janice Batista RN - 2024 10:10 AM EDTTelephone Encounter - Janice Batista RN - 11/08/2024 9:43 AM EDT Note Date & Type Note Facility 11-30-2024 Note Patient Education Dermatology Poison Margie Dermatitis Poison margie dermatitis is redness and soreness of the skin caused by chemicals in the leaves of the poison margie plant. You may have very bad itching, swelling, a rash, and blisters. What are the causes? Touching a poison margie plant. ??? Touching something that has the chemical on it. This may include animals or objects that have come in contact with the plant. What increases the risk? Going outdoors often in wooded or marshy areas. ??? Going outdoors without wearing protective clothing, such as closed shoes, long pants, and a long-sleeved shirt. What are the signs or symptoms? Skin redness. ??? Very bad itching. ??? A rash that often includes bumps and blisters. ? The rash usually appears 48 hours after exposure, if you have had it before. ? If this is the first time you have it, the rash may not appear until a week after exposure. ??? Swelling. This may occur if the reaction is very bad. Symptoms usually last for 1?2 weeks. The first time you get this condition, symptoms may last 3?4 weeks. How is this treated? This condition may be treated with: ??? Hydrocortisone cream or calamine lotion to relieve itching. ??? Oatmeal baths to soothe the skin. ??? Medicines, such as jkto-zuy-sgdgmgn antihistamine tablets. ??? Oral steroid medicine for very bad reactions. Follow these instructions at home: Medicines ??? Take or apply tsaq-iin-wbvxkkz and prescription medicines only as told by your doctor. ??? Use hydrocortisone cream or calamine lotion as needed to help with itching. General instructions ??? Do not scratch or rub your skin. ??? Put a cold, wet cloth (cold compress) on the affected areas or take baths in cool water. This will help with itching. ??? Avoid hot baths and showers. ??? Take oatmeal baths as needed. Use colloidal oatmeal. You can get this at a pharmacy or grocery store. Follow the instructions on the package. ??? While you have the rash, wash your clothes right after you wear them. ??? Check the affected area every day for signs of infection. Check for: ? More redness, swelling, or pain. ? Fluid or blood. ? Warmth. ? Pus or a bad smell. ??? Keep all follow-up visits. Your doctor may want to see how your skin is doing with treatment. How is this prevented? Know what poison margie looks like, so you can avoid it. ? This plant has three leaves with flowering branches on a single stem. ? The leaves are glossy. ? The leaves have uneven edges that come to a point. ??? If you touch poison margie, wash your skin with soap and water right away. Be sure to wash under your fingernails. ??? When hiking or camping, wear long pants, a long-sleeved shirt, long socks, and hiking boots. You can also use a lotion on your skin that helps to prevent contact with poison margie. ??? If you think that your clothes or outdoor gear came in contact with poison margie, rinse them off with a garden hose before you bring them inside your house. ??? When doing yard work or gardening, wear gloves, long sleeves, long pants, and boots. Wash your garden tools and gloves if they come in contact with poison margie. ??? If you think that your pet has come into contact with poison margie, wash them with pet shampoo and water. Make sure to wear gloves while washing your pet. Contact a doctor if: ??? You have open sores in the rash area. ??? You have any signs of infection. ??? You have redness that spreads past the rash area. ??? You have a fever. ??? You have a rash over a large area of your body. ??? You have a rash on your eyes, mouth, or genitals. ??? Your rash does not get better after a few weeks. Get help right away if: ??? Your face swells or your eyes swell shut. ??? You have trouble breathing. ??? You have trouble swallowing. These symptoms may be an emergency. Do not wait to see if the symptoms will go away. Get help right away. Call 911. This information is not intended to replace advice given to you by your health care provider. Make sure you discuss any questions you have with your health care provider. Document Revised: 09/19/2022 Document Reviewed: 09/19/2022 [employer] Patient Education ? 2023 [employer] [facility] 2024 Telephone encounter Note MRI is now moved to 11/27 in looking at Epic [facility] 2024 Miscellaneous Notes MRI is now moved to 11/27 in looking at Epic Waiting on a response from payer regarding approval for MRI per PA team. Forwarding to provider. Call received for Deana Benson PA-C regarding Gerri Garcia. Caller: Prior auth Dept Patient Identified by Name and : Gerri Garcia 1980 Reason for Call: General - Prior auth department called to ask if the notes on 10/15/24 could be closed so they can complete the prior auth for the pt Is there any additional information the provider should know? No Last Office Visit: 10/15/2024 Next scheduled appointment: 11/18/2024 Best number to reach caller: n/a Best time to reach caller: n/a Is it OK to leave a detailed voice message? No Elaine Schaffer documented in this encounter [facility] 11-08-2024 Telephone encounter Note Waiting on a response from payer regarding approval for MRI per PA team. [facility] 11-01-2024 Telephone encounter Note Forwarding to provider. [facility] 11-01-2024 Telephone encounter Note Call received for Deana Benson PA-C regarding Gerri Garcia. Caller: Prior auth Dept Patient Identified by Name and : Gerri Garcia 1980 Reason for Call: General - Prior auth department called to ask if the notes on 10/15/24 could be closed so they can complete the prior auth for the pt Is there any additional information the provider should know? No Last Office Visit: 10/15/2024 Next scheduled appointment: 11/18/2024 Best number to reach caller: n/a Best time to reach caller: n/a Is it OK to leave a detailed voice message? No Elaine Schaffer [facility] 10-26-2024 Note HNO ID: [id number] Author: HUNTER MONSIVAIS MD Service: ? Author Type: Physician Type: Progress Notes Filed: 10/26/2024 12:28 Note Text: Reason for Visit: Bilateral thumb CMC joint pain History of Present Illness: Gerri Garcia is a 43 year old right hand dominant female who reports bilateral pain in thumb CMC joints left worse than right. She has had hand pain for the past several years that is significantly worsened since 2018. Also reports bilateral carpal tunnel syndrome. No history of inflammatory conditions but reports diffuse arthritis in many joints. The pain occurs at rest and at night. The following portions of the patient's history were reviewed and updated as appropriate. Ice: Yes - no improvement Heat: Yes some Brace: Used previously for carpal tunnel but they bothered her so none for arthritis Oral medications: Mobic for foot Topical medications: Voltaren Physical / Occupational Therapy: No Injection: Yes: Date: 05/2023 pain resolved; repeat 07/2024 No help with pain Prior Surgery in location of pain: No Prior Fracture/Injury in location of pain: No Past Medical History: PAST MEDICAL HISTORY Diagnosis Date Pre-diabetes Past Surgical History: PAST SURGICAL HISTORY Procedure Laterality Date SECTION HX OTHER Dental extraction PAST SURGICAL HISTORY OF groin cyst lanced Social History: Tobacco Use: Types: Cigarettes Current Medications: Current Outpatient Medications Medication Sig Dispense Refill meloxicam (MOBIC) 7.5 mg tablet Take 1 tablet by mouth once daily. with food 30 tablet 2 omeprazole (PRILOSEC) 40 mg capsule Take 1 capsule by mouth once daily. losartan (COZAAR) 50 mg tablet Take 1 tablet by mouth once daily. cetirizine (ZYRTEC) 10 mg tablet TAKE ONE TABLET BY MOUTH DAILY NEEDED FOR ALLERGY SYMPTOMS spironolactone (ALDACTONE) 50 mg tablet Take by mouth. No current facility-administered medications for this visit. Allergies: ALLERGIES Allergen Reactions Codeine Itching Latex Rash Penicillin Hives Physical Examination: Healthy appearing female in no acute distress, alert, and/oriented. There were no vitals taken for this visit. Bilateral upper extremities are well perfused with 2+ radial pulses. Skin is intact with no discoloration, rash, wound, or laceration. Bilateral thumbs show no deformity. No contracture or dysvascular change. The nailbed is without deformity. Good tenodesis. There is no significant tenderness to palpation or instability to stress testing of the metacarpophalangeal (MCP) or interphalangeal (IP) joints. There is tenderness to palpation on the volar and dorsal aspect of trapeziometacarpal (TM) joint. Positive carpometacarpal (CMC) grind test, positive Finklestein test bilaterally. The flexor sheath is tender to palpation right worse than left. Able to touch thumb to base of small finger. No significant metacarpophalangeal (MCP) hyperextension. There is no tenderness over the scaphotrapeziotrapezoidal (STT) joint. There is no tenderness over the radiocarpal joint or the distal radial ulnar joint (DRUJ). There is no pain or clunk with a Jorge scaphoid shift. Imaging Review: Recent Xrays obtained at an outside facility brought with patient and uploaded into chart. Xrays of bilateral thumbs 3 views were reviewed demonstrating bilateral Eaton stage II CMC arthritis. Assessment and Plan: Gerri Garcia is a 43 year old right hand dominant female who reports bilateral pain in thumb CMC joints left worse than right. We discussed the nature of presumptive thumb basilar [...] of surgical versus nonsurgical options have been discussed including the rationale for various surgical treatments. The inherent risks and benefits of each treatment includingnon-operative management have been reviewed. Prognosis for recovery andtypical postoperative protocols have been explained. The patient verbalizes sound understanding of our discussion. Given the severity of her symptoms, lack of improvement with nonoperative measures as well as her young age and the goal of preserving pinch strength and cementer strength as well as a salvage option in the future as shared decision was made to proceed with consideration for candidacy for the dual mobility trapeziometacarpal prosthesis. We discussed that this is currently not immediately available and that she will be call (more content not included)... [facility] 10-26-2024 History of Present illness Narrative Reason for Visit: Bilateral thumb CMC joint pain History of Present Illness: Gerri Garcia is a 43 year old right hand dominant female who reports bilateral pain in thumb CMC joints left worse than right. She has had hand pain for the past several years that is significantly worsened since 2018. Also reports bilateral carpal tunnel syndrome. No history of inflammatory conditions but reports diffuse arthritis in many joints. The pain occurs at rest and at night. The following portions of the patient's history were reviewed and updated as appropriate. Ice: Yes - no improvement Heat: Yes some Brace: Used previously for carpal tunnel but they bothered her so none for arthritis Oral medications: Mobic for foot Topical medications: Voltaren Physical / Occupational Therapy: No Injection: Yes: Date: 05/2023 pain resolved; repeat 07/2024 No help with pain Prior Surgery in location of pain: No Prior Fracture/Injury in location of pain: No Past Medical History: PAST MEDICAL HISTORY Diagnosis Date Pre-diabetes Past Surgical History: PAST SURGICAL HISTORY Procedure Laterality Date SECTION HX OTHER Dental extraction PAST SURGICAL HISTORY OF groin cyst lanced Social History: Tobacco Use: Types: Cigarettes Current Medications: Current Outpatient Medications Medication Sig Dispense Refill meloxicam (MOBIC) 7.5 mg tablet Take 1 tablet by mouth once daily. with food 30 tablet 2 omeprazole (PRILOSEC) 40 mg capsule Take 1 capsule by mouth once daily. losartan (COZAAR) 50 mg tablet Take 1 tablet by mouth once daily. cetirizine (ZYRTEC) 10 mg tablet TAKE ONE TABLET BY MOUTH DAILY NEEDED FOR ALLERGY SYMPTOMS spironolactone (ALDACTONE) 50 mg tablet Take by mouth. No current facility-administered medications for this visit. Allergies: ALLERGIES Allergen Reactions Codeine Itching Latex Rash Penicillin Hives Physical Examination: Healthy appearing female in no acute distress, alert, and/oriented. There were no vitals taken for this visit. Bilateral upper extremities are well perfused with 2+ radial pulses. Skin is intact with no discoloration, rash, wound, or laceration. Bilateral thumbs show no deformity. No contracture or dysvascular change. The nailbed is without deformity. Good tenodesis. There is no significant tenderness to palpation or instability to stress testing of the metacarpophalangeal (MCP) or interphalangeal (IP) joints. There is tenderness to palpation on the volar and dorsal aspect of trapeziometacarpal (TM) joint. Positive carpometacarpal (CMC) grind test, positive Finklestein test bilaterally. The flexor sheath is tender to palpation right worse than left. Able to touch thumb to base of small finger. No significant metacarpophalangeal (MCP) hyperextension. There is no tenderness over the scaphotrapeziotrapezoidal (STT) joint. There is no tenderness over the radiocarpal joint or the distal radial ulnar joint (DRUJ). There is no pain or clunk with a Jorge scaphoid shift. Imaging Review: Recent Xrays obtained at an outside facility brought with patient and uploaded into chart. Xrays of bilateral thumbs 3 views were reviewed demonstrating bilateral Eaton stage II CMC arthritis. Assessment and Plan: Gerri Garcia is a 43 year old right hand dominant female who reports bilateral pain in thumb CMC joints left worse than right. We discussed the nature of presumptive thumb basilar [...] of surgical versus nonsurgical options have been discussed including the rationale for various surgical treatments. The inherent risks and benefits of each treatment including non-operative management have been reviewed. Prognosis for recovery and typical postoperative protocols have been explained. The patient verbalizes sound understanding of our discussion. Given the severity of her symptoms, lack of improvement with nonoperative measures as well as her young age and the goal of preserving pinch strength and cementer strength as well as a salvage option in the future as shared decision was made to proceed with consideration for candidacy for the dual mobility trapeziometacarpal prosthesis. We discussed that this is currently not immediately available and that she will be called once it is. Should there be a long duration of time between today's visit and the availability of the implant that she will come back in for repeat evaluation and repeat x-rays at that time. Details of the procedure postop recovery risk and benefits were advised. Surgical risks including infection, nerve or blood vessel injury, stiffness, chronic regional pain syndrome, incomplete recovery, incomplete relief, CRPS, worsening of symptoms, fracture, subsidence, impingement, implant dislocation, subluxation, loosening, need for revision procedure and the potential need for trapeziectomy and suspension plasty and recurrence and potential need for additional procedures were advised. All questions and concerns were answered and addressed, and the patient would like to proceed with surgery. All questions and concerns were answered and addressed. Tony Ledezma MS3 ATTENDING NOTE: I personally performed a history and physical examination on Gerri Garcia to verify the one performed by the HANANE/resident/fellow above. I reviewed their findings, plan and note, and have made changes above as needed so that I agree with the documentation. I discussed the plan with the patient. Hunter Monsivais Hand & Upper Extremity Orthopaedic Staff Surgeon documented in this encounter [facility] 10-22-2024 Telephone encounter Note Left message on identified VM that orthotics have come in and may be picked up in the [place] office. [facility] 10-22-2024 Miscellaneous Notes Left message on identified VM that orthotics have come in and may be picked up in the [place] office. documented in this encounter [facility] 10-19-2024 Telephone encounter Note Called and spoke with patient on the phone to make sure she brings a disk not printed pictures [facility] 10-19-2024 Miscellaneous Notes Called and spoke with patient on the phone to make sure she brings a disk not printed pictures Patient calling. Has OV on 10/26 for hand evaluation. Asking if the office can access the X Rays she had completed in [facility] on 08/23/24. Please call and let her know. If needed she can go to the facility and bring the films with her to the appt. CALL [phone] documented in this encounter [facility] 10-19-2024 Telephone encounter Note Patient calling. Has OV on 10/26 for hand evaluation. Asking if the office can access the X Rays she had completed in [facility] on 08/23/24. Please call and let her know. If needed she can go to the facility and bring the films with her to the appt. CALL [phone] [facility] 10-15-2024 Note HNO ID: [id number] Author: DEANA BENSON PA-C Service: ? Author Type: Physician Assistant Center Director Type: Progress Notes Filed: 11/04/2024 13:45 Note Text: Spine Care Path Bilateral Hand Pain - Chronic (> 12 weeks) Follow-up Exam SUBJECTIVE History of Present Illness: Gerri Garcia is a 43-year-old female with a history of chronic neck and low back pain, presenting for follow-up. Chronic Neck Pain: - Constant stiffness and pain in the neck, with fluctuations in severity throughout the day. - Requires sleeping with neck perfectly straight for comfort. - Recent x-rays show degenerative changes at C5-C6 and C6-C7 with large osteophytes. - Previous injections provided no relief. Chronic Low Back Pain: - Constant pain in the lower back, described as more severe and constant than neck pain. - Pain rated as a constant 5/10, with fluctuations to higher levels. - Recent x-rays show mild to moderate degenerative disc disease at L5-S1. - Pain sometimes radiates to the hip, especially at night. - Physical therapy was discontinued due to lack of improvement. - Taking Mobic 7.5 mg with no significant relief. - Previous injections provided no relief. Thumb Pain: - Considering thumb arthroplasty; seeking a new provider for surgery. Original Spine Visit (06/18/24): CC: Bilateral hand [...] previous surgery on the hands. PAIN EVALUATION 10/15/2024 0757 Pain Level: 5 Pain Location: Back-Lower and posterior neck Description: Dull;Aching;Burning Duration Amount of Time: 20 Duration Units: Years Frequency: Continuous Intervention/Comfort measure: Therapeutic techniques-CPRP;Medication Litigation: No Workers' Compensation: No Patient Entered Questionnaires 06/18/2024 Spine Questions Pain [...] Latex Rash Penicillin Hives Medications: meloxicam (MOBIC) 7.5 mg tablet Take 1 tablet by mouth once daily. with food omeprazole (PRILOSEC) 40 mg capsule Take 1 capsule by mouth once daily. losartan (COZAAR) 50 mg tablet Take 1 tablet by mouth once daily. cetirizine (ZYRTEC) 10 mg tablet TAKE ONE TABLET BY MOUTH DAILY NEEDED FOR ALLERGY SYMPTOMS spironolactone (ALDACTONE) 50 mg tablet Take by mouth. Past Medical History: PAST MEDICAL HISTORY Diagnosis Date Pre-diabetes Past Surgic (more content not included)... [facility] 10-15-2024 History of Present illness Narrative Images from the original note were not included. Spine Care Path Bilateral Hand Pain - Chronic (> 12 weeks) Follow-up Exam SUBJECTIVE History of Present Illness: Gerri Garcia is a 43-year-old female with a history of chronic neck and low back pain, presenting for follow-up. Chronic Neck Pain: - Constant stiffness and pain in the neck, with fluctuations in severity throughout the day. - Requires sleeping with neck perfectly straight for comfort. - Recent x-rays show degenerative changes at C5-C6 and C6-C7 with large osteophytes. - Previous injections provided no relief. Chronic Low Back Pain: - Constant pain in the lower back, described as more severe and constant than neck pain. - Pain rated as a constant 5/10, with fluctuations to higher levels. - Recent x-rays show mild to moderate degenerative disc disease at L5-S1. - Pain sometimes radiates to the hip, especially at night. - Physical therapy was discontinued due to lack of improvement. - Taking Mobic 7.5 mg with no significant relief. - Previous injections provided no relief. Thumb Pain: - Considering thumb arthroplasty; seeking a new provider for surgery. Original Spine Visit (06/18/24): CC: Bilateral hand [...] previous surgery on the hands. PAIN EVALUATION 10/15/2024 0757 Pain Level: 5 Pain Location: Back-Lower and posterior neck Description: Dull;Aching;Burning Duration Amount of Time: 20 Duration Units: Years Frequency: Continuous Intervention/Comfort measure: Therapeutic techniques-CPRP;Medication Litigation: No Workers' Compensation: No Patient Entered Questionnaires 06/18/2024 Spine Questions Pain [...] Latex Rash Penicillin Hives Medications: meloxicam (MOBIC) 7.5 mg tablet Take 1 tablet by mouth once daily. with food omeprazole (PRILOSEC) 40 mg capsule Take 1 capsule by mouth once daily. losartan (COZAAR) 50 mg tablet Take 1 tablet by mouth once daily. cetirizine (ZYRTEC) 10 mg tablet TAKE ONE TABLET BY MOUTH DAILY NEEDED FOR ALLERGY SYMPTOMS spironolactone (ALDACTONE) 50 mg tablet Take by mouth. Past Medical History: PAST MEDICAL HISTORY Diagnosis Date Pre-diabetes Past Surgical History: PAST SURGICAL HISTORY Procedure Laterality Date SECTION HX OTHER Dental extraction PAST SURGICAL HISTORY OF groin cyst lanced Social History: Tobacco Use: .5 packs/day, for 25 years. Types: Cigarettes Review of Systems: Neck: (+) neck pain Musculoskeletal: (+) low back pain, (+) shoulder pain, (+) right hip pain, (+) thumb pain Skin: (+) skin bumps Neurological: (-) paresthesias of fingers OBJECTIVE Physical Exam: BP 121/83 (BP Site: Right Arm, BP Position: Sitting) Pulse 74 Resp 18 Ht 175.3 cm (5' 9 ) Wt 99 kg (218 lb 4.1 oz) SpO2 98% BMI 32.23 kg/m General : Well appearing, well-hydrated, well nourished and alert; overweight SKIN: Head, neck, trunk, and extremities dry, intact and without lesions LUNGS: even and non-labored breathing, normal chest excursion NEURO/PSYCH: oriented to time, place, and person, speech normal, mental status intact GAIT: normal, toe walking normal, heel walking normal, able to tandem gait POSTURE: Posture and spinal curves are normal PALPATION: No tenderness to palpation along either the cervical or lumbar spines; mild tenderness in the cervical paraspinal muscles MUSCULOSKELETAL: Extended Low Back & Leg Exam RIGHT LEFT Leg Raise Straight Leg Raise Negative Negative Contralateral Straight Leg Raise Negative Negative DTRs Knee Normal Normal Ankle Normal Normal Clonus Normal Normal Strength of Lower Extremities Extensor Hallux Longus [...] Tenderness Normal Normal Gaenslen's Maneuver Normal Normal Log-roll Hips: negative PSIS tenderness: positive on Right Thigh thrust: negative Upper Body Reflex Exam RIGHT LEFT Reflex Status Reflex Status Biceps 2+ Normal 2+ Normal Triceps 2+ Normal 2+ Normal Brachioradialis 2+ Normal 2+ Normal Wood's Sign absent absent Upper Extremity Strength RIGHT LEFT Strength (MMT) Strength (MMT) Shoulder Abduction 5/5 5/5 Biceps 5/5 5/5 Wrist Extension 5/5 5/5 Triceps 5/5 5/5 Entry Level Paralegal Strength 5/5 5/5 Interossei 5/5 5/5 NEUROSENSORY: Soft touch; WNL Data Review: [facility] records independently reviewed Imaging reviewed with the patient Lumbar XR (07/15/2024) -- No compression fracture or subluxation. Disc spaces are maintained. Small endplate osteophytes throughout the lumbar spine. No other significant abnormality. Cervical XR (07/15/2024) -- Moderate C5-C6 and C6-C7 degenerative changes with disc space narrowing and endplate osteophytes. No compression fracture or subluxation. Mild narrowing of the neural foramina at C5-C6 and C6-C7 levels. No other significant abnormality. SI joint XR (07/15/2024) -- Mild sacroiliac joint narrowing with osteophytes inferiorly on both sides. Small cystic changes in left ilium abutting SI joint. No erosions. Hip joint spaces are maintained. Cystic changes at the femoral head and neck junctions more prominent on the left suggestive of synovial herniation pits. EMG (06/23/24) -- Extensive electrodiagnostic examination of the right upper [...] of a superimposed right cervical motor radiculopathy. ASSESSMENT/PLAN 1. Neck pain (M54.2) 2. Myofascial neck pain (M54.2) - Cervical spine X-rays reveal degenerative disc disease at C5-C6 and C6-C7 with large osteophytes. - Discussed findings and potential correlation with reported neck pain and numbness in arms. - Ordered MRI of the cervical spine to further evaluate degenerative changes and potential nerve impingement. - Discussed potential for future injections if MRI findings correlate with symptoms. 3. Chronic right-sided low back pain without sciatica (M54.50) 4. Chronic bilateral low back pain, unspecified whether sciatica present (M54.50) - Lumbar spine X-rays show mild to moderate degenerative disc disease at L5-S1. - Pain is constant with fluctuations in intensity, rated as 5/10 on average. - Ordered MRI of the lumbar spine to assess for further degenerative changes and potential nerve involvement. - Discussed potential for future injections based on MRI findings. 5. Pain of right sacroiliac joint (M53.3) - X-rays show mild narrowing and osteophyte formation bilaterally. - Physical exam reveals less tenderness in the SI joint compared to previous visit; pain localized higher in the lumbar region. - Discussed possibility of SI joint injections if MRI findings and future exams indicate. 6. Primary osteoarthritis of both first carpometacarpal joints (M18.0) 7. Carpal tunnel syndrome, bilateral (G56.03) - Patient dissatisfied with current treatment and seeking second opinion. - Referred to Dr. Monsivais at [facility] for further evaluation and management. Patient understood and agreed with this plan. All questions and concerns were addressed and answered. Medical Decision Making: Level: 4 - Moderate Deana Benson PA-C Recording using [employer] software for draft documentation of the visit was discussed with the patient/authorized player services representative; all questions welcomed and answered. Patient/authorized player services representative agreed to proceed documented in this encounter [facility] 10-05-2024 Note HNO ID: [id number] Author: SAMMI MANZO DPM Service: ? Author Type: Physician Type: Progress Notes Filed: 10/05/2024 08:57 Note Text: PRIMARY SERVICE: [facility] SUBJECTIVE: Patient is seen today for follow-up status post completion of a right foot MRI performed on September 29, 2024. Medical: PAST MEDICAL HISTORY Diagnosis Date Pre-diabetes ALLERGIES: ALLERGIES Allergen Reactions Codeine Itching Latex Rash Penicillin Hives MEDICATIONS: Current Outpatient Medications Medication Sig meloxicam (MOBIC) 7.5 mg tablet Take 1 tablet by mouth once daily. with food omeprazole (PRILOSEC) 40 mg capsule Take 1 capsule by mouth once daily. losartan (COZAAR) 50 mg tablet Take 1 tablet by mouth once daily. cetirizine (ZYRTEC) 10 mg tablet TAKE ONE TABLET BY MOUTH DAILY NEEDED FOR ALLERGY SYMPTOMS diclofenac, EC, (VOLTAREN) 75 mg EC tablet Take 1 tablet by mouth two times a day as needed (for pain). Please take with food. (Patient not taking: Reported on 09/10/2024) methocarbamol (ROBAXIN) 500 mg tablet Take 1 tablet by mouth two times a day as needed (for pain). (Patient not taking: Reported on 09/10/2024) spironolactone (ALDACTONE) 50 mg tablet Take by mouth. Phentermine HCl 37.5 mg tablet Take 1 tablet by mouth once daily. (Patient not taking: Reported on 09/10/2024) No current facility-administered medications for this visit. Surgical: PAST SURGICAL HISTORY Procedure Laterality Date SECTION HX OTHER Dental extraction PAST SURGICAL HISTORY OF groin cyst lanced PHYSICAL EXAM: The patient is alert and oriented x 3 and in no apparent acute distress. NEUROVASCULAR: Unchanged right DERMATOLOGIC: Unchanged right ORTHO/MUSCULOSKELETAL: Unchanged right Right foot MRI:09/29/2024 12:21 PM - Radiology, [facility] Impression IMPRESSION: 1. Ill-defined amorphous signal involving interosseous [...] edema like signal. 5. Mild plantar fasciitis. Blemish Remover: SETH Transcribe Date/Time: Sep 29 2024 12:05P Dictated by : EFFIE BAUTISTA MD ASSESSMENT: Tarsometatarsal joint posttraumatic arthritis right foot TREATMENT TODAY: Evaluation management/OV Discussed results of clinical examination with the patient detail along with MRI findings. Recommend Mobic 7.5 mg along with consideration for custom molded functional orthotic such as a solo maxi shock device with a padded fabric top-cover. I casted the patient today for custom molded functional orthotics L3 020 x 2 units utilizing neutral suspension technique. Advise should arrive in 3 to 4 weeks for fitting SIGNATURE: Sammi Manzo DPM DATE of SERVICE: 10/05/2024 TIME of SERVICE: 8:55 AM [facility] 10-05-2024 History of Present illness Narrative Images from the original note were not included. PRIMARY SERVICE: [facility] SUBJECTIVE: Patient is seen today for follow-up status post completion of a right foot MRI performed on September 29, 2024. Medical: PAST MEDICAL HISTORY Diagnosis Date Pre-diabetes ALLERGIES: ALLERGIES Allergen Reactions Codeine Itching Latex Rash Penicillin Hives MEDICATIONS: Current Outpatient Medications Medication Sig meloxicam (MOBIC) 7.5 mg tablet Take 1 tablet by mouth once daily. with food omeprazole (PRILOSEC) 40 mg capsule Take 1 capsule by mouth once daily. losartan (COZAAR) 50 mg tablet Take 1 tablet by mouth once daily. cetirizine (ZYRTEC) 10 mg tablet TAKE ONE TABLET BY MOUTH DAILY NEEDED FOR ALLERGY SYMPTOMS diclofenac, EC, (VOLTAREN) 75 mg EC tablet Take 1 tablet by mouth two times a day as needed (for pain). Please take with food. (Patient not taking: Reported on 09/10/2024) methocarbamol (ROBAXIN) 500 mg tablet Take 1 tablet by mouth two times a day as needed (for pain). (Patient not taking: Reported on 09/10/2024) spironolactone (ALDACTONE) 50 mg tablet Take by mouth. Phentermine HCl 37.5 mg tablet Take 1 tablet by mouth once daily. (Patient not taking: Reported on 09/10/2024) No current facility-administered medications for this visit. Surgical: PAST SURGICAL HISTORY Procedure Laterality Date SECTION HX OTHER Dental extraction PAST SURGICAL HISTORY OF groin cyst lanced PHYSICAL EXAM: The patient is alert and oriented x 3 and in no apparent acute distress. NEUROVASCULAR: Unchanged right DERMATOLOGIC: Unchanged right ORTHO/MUSCULOSKELETAL: Unchanged right Right foot MRI:09/29/2024 12:21 PM - Radiology, [place] In Impression IMPRESSION: 1. Ill-defined amorphous signal involving interosseous [...] edema like signal. 5. Mild plantar fasciitis. Blemish Remover: SETH Transcribe Date/Time: Sep 29 2024 12:05P Dictated by : EFFIE BAUTISTA MD ASSESSMENT: Tarsometatarsal joint posttraumatic arthritis right foot TREATMENT TODAY: Evaluation management/OV Discussed results of clinical examination with the patient detail along with MRI findings. Recommend Mobic 7.5 mg along with consideration for custom molded functional orthotic such as a solo maxi shock device with a padded fabric top-cover. I casted the patient today for custom molded functional orthotics L3 020 x 2 units utilizing neutral suspension technique. Advise should arrive in 3 to 4 weeks for fitting SIGNATURE: Sammi Manzo DPM DATE of SERVICE: 10/05/2024 TIME of SERVICE: 8:55 AM documented in this encounter [facility] 10-05-2024 Note HNO ID: [id number] Author: KATARINA ALVAREZ Cast Tech Service: ? Author Type: Missile Mechanic Type: Progress Notes Filed: 10/05/2024 08:54 Note Text: Patient was casted today for Custom Fitted Orthotics. NEELAM Jones [facility] 10-05-2024 History of Present illness Narrative Patient was casted today for Custom Fitted Orthotics. NEELAM Jones documented in this encounter [facility] 09-29-2024 History of Present illness Narrative Radiology Service Progress Note PATIENT NAME: Gerri Garcia DATE OF SERVICE: September 29, 2024 TIME: 7:29 AM PATIENT IDENTITY VERIFICATION COMPLETED USING TWO [...] NO. PATIENT RELEVANT IMPLANT DATA REVIEWED: Yes PATIENT PRESENTS WITH AN IMPLANTABLE OR ATTACHED OPTICAL COATING TECHNICIAN: No RADIOLOGY DEPARTMENT: MR; Exam(s) Completed: Lower MSK: Ankle/Hind Foot, right . Lavender Administered: No PERIPHERAL IV DATA: Not applicable SIGNED BY: RT Reddy(Massiel) September 29, 2024 7:29 AM documented in this encounter [facility] 09-29-2024 Note HNO ID: [id number] Author: CORA PALMER RT(Massiel) Service: ? Author Type: Technologist Type: Progress Notes Filed: 09/29/2024 07:49 Note Text: Radiology Service Progress Note PATIENT NAME: Gerri Garcia DATE OF SERVICE: September 29, 2024 TIME: 7:29 AM PATIENT IDENTITY VERIFICATION COMPLETED USING TWO [...] NO. PATIENT RELEVANT IMPLANT DATA REVIEWED: Yes PATIENT PRESENTS WITH AN IMPLANTABLE OR ATTACHED OPTICAL COATING TECHNICIAN: No RADIOLOGY DEPARTMENT: MR; Exam(s) Completed: Lower MSK: Ankle/Hind Foot, right . Lavender Administered: No PERIPHERAL IV DATA: Not applicable SIGNED BY: RT Reddy(R) September 29, 2024 7:29 AM [facility] 09-10-2024 Note HNO ID: [id number] Author: SAMMI MANZO DPM Service: ? Author Type: Physician Type: Progress Notes Filed: 09/10/2024 11:29 Note Text: PRIMARY SERVICE: [facility] Podiatry SUBJECTIVE: Patient seen today for follow-up for her right foot and ankle due to chronic pain even after undergoing physical therapy, immobilization in the cam walker boot, oral anti-inflammatories, and RICE. She is seen today to discuss the problem and treatment options along with her plan of care. She also has pain in the ball of her right foot as well as her right medial arch Medical: PAST MEDICAL HISTORY Diagnosis Date Pre-diabetes ALLERGIES: ALLERGIES Allergen Reactions Codeine Itching Latex Rash Penicillin Hives MEDICATIONS: Current Outpatient Medications Medication Sig omeprazole (PRILOSEC) 40 mg capsule Take 1 capsule by mouth once daily. losartan (COZAAR) 50 mg tablet Take 1 tablet by mouth once daily. cetirizine (ZYRTEC) 10 mg tablet TAKE ONE TABLET BY MOUTH DAILY NEEDED FOR ALLERGY SYMPTOMS diclofenac, EC, (VOLTAREN) 75 mg EC tablet Take 1 tablet by mouth two times a day as needed (for pain). Please take with food. (Patient not taking: Reported on 09/10/2024) methocarbamol (ROBAXIN) 500 mg tablet Take 1 tablet by mouth two times a day as needed (for pain). (Patient not taking: Reported on 09/10/2024) spironolactone (ALDACTONE) 50 mg tablet Take by mouth. Phentermine HCl 37.5 mg tablet Take 1 tablet by mouth once daily. (Patient not taking: Reported on 09/10/2024) No current facility-administered medications for this visit. Surgical: PAST SURGICAL HISTORY Procedure Laterality Date SECTION HX OTHER Dental extraction PAST SURGICAL HISTORY OF groin cyst lanced PHYSICAL EXAM: The patient is alert and oriented x 3 and in no apparent acute distress. NEUROVASCULAR: Unchanged right DERMATOLOGIC: Unchanged right ORTHO/MUSCULOSKELETAL: Patient relates substantial tenderness in her distal right medial arch. She states her right second toe does not feel attached. She also has pain on the lateral column of her right foot as well as her anterior ankle ASSESSMENT: Multiple internal advancements of the right foot and ankle appropriate for consideration for right foot and ankle MRI to due to lack of improvement with extensive conservative treatments. TREATMENT TODAY: Evaluation management/OV Discussed results of clinical examination with the patient in detail along with treatment options. Strongly recommend right foot and ankle MRI to evaluate for the multiple problems of pain she is having even after all the extensive conservative treatments. I will see the patient back after MRI is completed to discuss findings and further discuss treatment options. SIGNATURE: Sammi Manzo DPM DATE of SERVICE: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 and Drug Abuse Patient Records regulations: The Federal rules restrict any use of the information to criminally investigate or prosecute any alcohol or drug abuse patient.[facility] the event this information is protected by the Federal Confidentiality of Alcohol and Drug Abuse Patient Records regulations: The Federal rules restrict any use of the information to criminally investigate or prosecute any alcohol or drug abuse patient.[facility] the event this information is protected by the Federal Confidentiality of Alcohol and Drug Abuse Patient Records regulations: The Federal rules restrict any use of the information to criminally investigate or prosecute any alcohol or drug abuse patient.[facility] the event this information is protected by the Federal Confidentiality of Alcohol and Drug Abuse Patient Records regulations: The Federal rules restrict any use of the information to criminally investigate or prosecute any alcohol or drug abuse patient.[facility] the event this information is protected by the Federal Confidentiality of Alcohol and Drug Abuse Patient Records regulations: The Federal rules restrict any use of the information to criminally investigate or prosecute any alcohol or drug abuse patient.[facility] the event this information is protected by the Federal Confidentiality of Alcohol and Drug Abuse Patient Records regulations: The Federal rules restrict any use of the information to criminally investigate or prosecute any alcohol or drug abuse patient.[facility] the event this information is protected by the Federal Confidentiality of Alcohol and Drug Abuse Patient Records regulations: The Federal rules restrict any use of the information to criminally investigate or prosecute any alcohol or drug abuse patient.[facility] the event this information is protected by the Federal Confidentiality of Alcohol and Drug Abuse Patient Records regulations: The Federal rules restrict any use of the information to criminally investigate or prosecute any alcohol or drug abuse patient.[facility] the event this information is protected by the Federal Confidentiality of Alcohol and Drug Abuse Patient Records regulations: The Federal rules restrict any use of the information to criminally investigate or prosecute any alcohol or drug abuse patient.[facility] the event this information is protected by the Federal Confidentiality of Alcohol and Drug Abuse Patient Records regulations: The Federal rules restrict any use of the information to criminally investigate or prosecute any alcohol or drug abuse patient.[facility] the event this information is protected by the Federal Confidentiality of Alcohol and Drug Abuse Patient Records regulations: The Federal rules restrict any use of the information to criminally investigate or prosecute any alcohol or drug abuse patient.[facility] the event this information is protected by the Federal Confidentiality of Alcohol and Drug Abuse Patient Records regulations: The Federal rules restrict any use of the information to criminally investigate or prosecute any alcohol or drug abuse patient.[facility] the event this information is protected by the Federal Confidentiality of Alcohol and Drug Abuse Patient Records regulations: The Federal rules restrict any use of the information to criminally investigate or prosecute any alcohol or drug abuse patient.[facility] the event this information is protected by the Federal Confidentiality of Alcohol and Drug Abuse Patient Records regulations: The Federal rules restrict any use of the information to criminally investigate or prosecute any alcohol or drug abuse patient.[facility] the event this information is protected by the Federal Confidentiality of Alcohol and Drug Abuse Patient Records regulations: The Federal rules restrict any use of the information to criminally investigate or prosecute any alcohol or drug abuse patient.[facility] the event this information is protected by the Federal Confidentiality of Alcohol and Drug Abuse Patient Records regulations: The Federal rules restrict any use of the information to criminally investigate or prosecute any alcohol or drug abuse patient.[facility] the event this information is protected by the Federal Confidentiality of Alcohol and Drug Abuse Patient Records regulations: The Federal rules restrict any use of the information to criminally investigate or prosecute any alcohol or drug abuse patient.[facility] the event this information is protected by the Federal Confidentiality of Alcohol and Drug Abuse Patient Records regulations: The Federal rules restrict any use of the information to criminally investigate or prosecute any alcohol or drug abuse patient.[facility] the event this information is protected by the Federal Confidentiality of Alcohol and Drug Abuse Patient Records regulations: The Federal rules restrict any use of the information to criminally investigate or prosecute any alcohol or drug abuse patient.[facility] the event this information is protected by the Federal Confidentiality of Alcohol and Drug Abuse Patient Records regulations: The Federal rules restrict any use of the information to criminally investigate or prosecute any alcohol or drug abuse patient.[facility] the event this information is protected by the Federal Confidentiality of Alcohol and Drug Abuse Patient Records regulations: The Federal rules restrict any use of the information to criminally investigate or prosecute any alcohol or drug abuse patient.[facility] the event this information is protected by the Federal Confidentiality of Alcohol and Drug Abuse Patient Records regulations: The Federal rules restrict any use of the information to criminally investigate or prosecute any alcohol or drug abuse patient.[facility] the event this information is protected by the Federal Confidentiality of Alcohol and Drug Abuse Patient Records regulations: The Federal rules restrict any use of the information to criminally investigate or prosecute any alcohol or drug abuse patient.[facility] the event this information is protected by the Federal Confidentiality of Alcohol and Drug Abuse Patient Records regulations: The Federal rules restrict any use of the information to criminally investigate or prosecute any alcohol or drug abuse patient.[facility] the event this information is protected by the Federal Confidentiality of Alcohol and Drug Abuse Patient Records regulations: The Federal rules restrict any use of the information to criminally investigate or prosecute any alcohol or drug abuse patient.[facility] the event this information is protected by the Federal Confidentiality of Alcohol and Drug Abuse Patient Records regulations: The Federal rules restrict any use of the information to criminally investigate or prosecute any alcohol or drug abuse patient.[facility] the event this information is protected by the Federal Confidentiality of Alcohol and Drug Abuse Patient Records regulations: The Federal rules restrict any use of the information to criminally investigate or prosecute any alcohol or drug abuse patient.[facility] the event this information is protected by the Federal Confidentiality of Alcohol and Drug Abuse Patient Records regulations: The Federal rules restrict any use of the information to criminally investigate or prosecute any alcohol or drug abuse patient.[facility] Reason for Visit (unrecogniz ed section and content) Reason Comments Radiology XR Reason Comments New Pain Reason Comments New Pain Reason Comments EMG Specialty Diagnoses / Procedures Referred By Margarito bang Referred To Contact [facility] Diagnoses Numbness [...] NONEXTREMTY MSCLES W/NERVE CONDUCTION Deana Benson PA-C [address] [place] [address] Phone: tel: fax: [facility] [place] [address] Phone: tel: Referral ID Status Reason Start Date Expiration Date V isits Requested Visits Authorized [id number] Closed Auto-Generate d Referral 06/22/2024 05/04/2025 1 1 Reason Comments Follow Up Reason Comments Radio Gen HB6 Specialty Diagnoses / Procedures Referred By Margarito bang Referred To Contact XR IMAGING Diagnoses Pain of right sacroiliac joint Procedures XR SACROILIAC JOINTS 2V AP PELVIS/FERGUESON RADIOLOGIC EXAMINATION SACROILIAC JNTS <3 VIEWS Deana Benson PA-C [address] [place] [address] Phone: tel: fax: [place] [address] Referral ID Status Reason Start Date Expiration Date V isits Requested Visits Authorized [id number] Closed Auto-Generate d Referral 07/15/2024 08/14/2025 1 1 Reason Comments New Reason Comments Pain New Reason Comments Radiology XR Specialty Diagnoses / Procedures Referred By Contac t Referred To Contact XR IMAGING Diagnoses Pain in right foot Procedures XR FOOT GENERAL 3V AP/LAT/OBL RIGHT RADEX FOOT COMPLETE MINIMUM 3 VIEWS Sammi Manzo, DPM [address] [place] [address] Phone: tel: fax: [place] [address] Referral ID Status Reason Start Date Expiration Date V isits Requested Visits Authorized [id number] Closed Auto-Generate d Referral 07/21/2024 08/20/2025 1 1 Reason Comments Letter Reason Comments New Patient Reason Comments Pain Established Patient Follow Up Reason Comments Established Patient Follow Up Pain Reason Comments Patient Question X rays of hand Reason Comments Orthotics Reason Comments New Reason Comments Established Patient Reason Comments Request For Clinical Notes Care Teams (unrecognized sec tion and content) Carding Supervisor Relationship Specialty Start Date End Date Fede Manzanares DO [address] [place] [address] PCP - General Family Practice 12/03/17 Carding Supervisor Relationship Specialty Start Date End Date Fede Manzanares DO [address] [place] [address] PCP - General Family Practice 12/03/17 Carding Supervisor Relationship Specialty Start Date End Date Fede Manzanares DO [address] [place] [address] PCP - General Family Medicine 12/03/17 Carding Supervisor Relationship Specialty Start Date End Date Fede Manzanares DO [address] [place] [address] PCP - General Family Medicine 12/03/17 Carding Supervisor Relationship Specialty Start Date End Date GlennaJeremy lopezyse Fitz, DO [address] [place] [address] PCP - General Family Medicine 12/03/17 Carding Supervisor Relationship Specialty Start Date End Date Fede Manzanaresyn, DO [address] [place] [address] PCP - General Family Medicine 12/03/17 Carding Supervisor Relationship Specialty Start Date End Date Fede Manzanaresyn, DO [address] [place] [address] PCP - General Family Medicine 12/03/17 Carding Supervisor Relationship Specialty Start Date End Date Fede Manzanaresyn, DO [address] [place] [address] PCP - General Family Medicine 12/03/17 Carding Supervisor Relationship Specialty Start Date End Date GlennaJeremy lopezyse Fitz, DO [address] [place] [address] PCP - General Family Medicine 12/03/17 Carding Supervisor Relationship Specialty Start Date End Date Jeremy Manzanaresysantionette Jonesyn, DO [address] [place] [address] PCP - General Family Medicine 12/03/17 Carding Supervisor Relationship Specialty Start Date End Date Fede Manzanares, DO [address] [address] PCP - General Family Medicine 12/03/17 Carding Supervisor Relationship Specialty Start Date End Date GlennaFede, DO [address] [place] [address] PCP - General Family Medicine 12/03/17 Carding Supervisor Relationship Specialty Start Date End Date Fede Manzanaresyn, DO [address] [place] [address] PCP - General Family Medicine 12/03/17 Carding Supervisor Relationship Specialty Start Date End Date GlennaFede lopezyn, DO [address] [place] [address] PCP - General Family Medicine 12/03/17 Carding Supervisor Relationship Specialty Start Date End Date Fede Manzanaresyn, DO [address] [place] [address] PCP - General Family Medicine 12/03/17 Carding Supervisor Relationship Specialty Start Date End Date Glenna Fede Fitz, DO [address] [place] [address] PCP - General Family Medicine 12/03/17 Carding Supervisor Relationship Specialty Start Date End Date Jeremy Manzanaresyse Fitz, DO [address] [place] [address] PCP - General Family Medicine 12/03/17 Carding Supervisor Relationship Specialty Start Date End Date Fede Manzanaresyn, DO [address] [address] PCP - General Family Medicine 12/03/17 Carding Supervisor Relationship Specialty Start Date End Date Jeremy Manzanaresysantionette JonesynDO [address] [place] [address] PCP - General [facility] Medicine 12/03/17 Carding Supervisor Relationship Specialty Start Date End Date Fede Manzanaresyn DO [address] [place] [address] PCP - General Family Medicine 12/03/17 Carding Supervisor Relationship Specialty Start Date End Date Fede ManzanaresynDO [address] [place] [address] PCP - General Family Medicine 12/03/17 Carding Supervisor Relationship Specialty Start Date End Date Fede ManzanaresynDO [address] [place] [address] PCP - General [facility] Medicine 12/03/17 Carding Supervisor Relationship Specialty Start Date End Date Fede ManzanaresynDO [address] [place] [address] PCP - General Family Medicine 12/03/17 Inactive [...] BE BASED ON THE PRIMARY CLINICAL RECORDS. [employer] [facility]. provides no warranty or guarantee of the accuracy or completeness of information in this document.
== END 2024-12-21 10:12 | disposition home or self-care (01) ==
PROVIDERS: PCP Nurse Practitioner; Visit Provider Nurse Practitioner Adult Health
DX: Z12.31 Encounter for screening mammogram for malignant neoplasm of breast (principal); Z80.0 Family history of malignant neoplasm of digestive organs
CPT/HCPCS: 77063; 77067

== ENCOUNTER 2024-12-27 14:55 | Outpatient (RCR) | payer OTHER, SELFPAY | END 2024-12-30 10:44 | disposition home or self-care (01) | LOC: PT 14:55 | PROVIDERS: PCP Nurse Practitioner | DX: M54.2 Cervicalgia (principal); M54.50 Low back pain, unspecified; G89.29 Other chronic pain | CPT/HCPCS: 97110; 97163 ==